=== PATIENT | female | born 1945 | race Caucasian/White ===

== ENCOUNTER 2016-06-06 08:49 | Emergency (ER) | payer OTHER ==
[~2016-06-06] VITALS: Ht 157.5 cm; Wt 77.0 kg
[~2016-06-06 08:49] MED LIST: ADVIN50050 INH; CHLO5CAP19 PO; CINNAMON 500 MG PO; CMBIN INH; GLC500 PO; HYDR1TAB2 PO; INSDGI SC; INSUINJ17 SC; LISI-461 PO; MAGN400T27 PO; OMEP20CA9 PO; SIMV20TA5 PO; black cohash PO
[2016-06-06 08:55] VITALS: TEMP 36.8; Ht 157.5 cm; Wt 77.0 kg
[2016-06-06] MEDS ORDERED: MAGN400C2 PO (09:12)
[2016-06-06] MEDS ORDERED: GLC/500 PO (09:12)
[2016-06-06] MEDS ORDERED: INSDGIPEN SC (09:12)
[2016-06-06] MEDS ORDERED: INSPMPRGR SC (09:12)
[2016-06-06] MEDS ORDERED: IPRA1AER2 INH (09:12)
[2016-06-06] MEDS ORDERED: HYDR-4380 PO (09:12)
[2016-06-06] MEDS ORDERED: CINN500T PO (09:12)
[2016-06-06] MEDS ORDERED: OXYCODONE/ACETAMINOPHEN 5-325 TAB PO STA (09:33)
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
--- NOTE | 2016-06-06 10:21 | DIAGNOSTIC IMAGING REPORT ---
RIGHT TIBIA AND FIBULA 2 VIEWS CLINICAL HISTORY: Right leg injury. FINDINGS: AP and lateral views of the right tibia and fibula are obtained. No prior studies are available for comparison at the time of dictation. The skeletal structures are osteopenic. There is no radiographic evidence of right tibial or fibular fracture. The knee and ankle joints appear maintained. Pretibial soft tissue edema is noted. A plantar calcaneal enthesophyte is observed. Spurring is noted from the fibular head. IMPRESSION: Pretibial soft tissue edema. No right tibial or fibular fracture is seen. Electronically signed by: Ezio Jewell M.D. 06/06/2016 10:19 AM Dictated Date/Time: 06/06/2016 10:18 AM
--- NOTE | 2016-06-06 10:21 | DIAGNOSTIC IMAGING REPORT ---
RIGHT ANKLE MIN 3 VIEWS ROUTINE CLINICAL HISTORY: Right ankle pain status post trauma COMPARISON: None. DISCUSSION: No acute fractures or subluxations are visualized. There is a small medial malleolar spur. There is no evidence for soft tissue swelling. IMPRESSION: No acute fractures or subluxations identified. Electronically signed by: Ariel Rayo M.D. 06/06/2016 10:20 AM Dictated Date/Time: 06/06/2016 10:19 AM
--- NOTE | 2016-06-06 10:24 | DIAGNOSTIC IMAGING REPORT ---
RIGHT FOOT 3 VIEWS CLINICAL HISTORY: Right foot injury. FINDINGS: 3 views of the right foot are obtained. No prior studies are available for comparison at the time of dictation. The skeletal structures are osteopenic. No acute fracture is identified. There are small dorsal and plantar calcaneal enthesophytes. Mild arthritic change is seen at the first metatarsophalangeal joint. The overlying soft tissues are within normal limits. IMPRESSION: Osteopenia and mild degenerative change as above. No acute fracture is identified. Electronically signed by: Ezio Jewell M.D. 06/06/2016 10:23 AM Dictated Date/Time: 06/06/2016 10:21 AM
[2016-06-06 10:31] VITALS: BP 121/66; O2SAT 95
[2016-06-06 12:57] VITALS: PULSE 90
== END 2016-06-06 12:57 | disposition home or self-care (01) ==
LOC: EDBD 08:49 → C.EDA 08:50
DX: S90.01XA Contusion of right ankle, initial encounter (principal); V09.9XXA Pedestrian injured in unspecified transport accident, initial encounter; Y92.410 Unspecified street and highway as the place of occurrence of the external cause; I10 Essential (primary) hypertension; E11.9 Type 2 diabetes mellitus without complications; J45.909 Unspecified asthma, uncomplicated; F17.210 Nicotine dependence, cigarettes, uncomplicated; Z79.899 Other long term (current) drug therapy; Z79.4 Long term (current) use of insulin; Z83.3 Family history of diabetes mellitus; Z82.49 Family history of ischemic heart disease and other diseases of the circulatory system; Z80.9 Family history of malignant neoplasm, unspecified

== ENCOUNTER → 2017-02-11 | Outpatient (CLI) | payer OTHER ==
[~2017-02-11] MED LIST changes: -ADVIN50050 INH; +CINN500T PO; -CINNAMON 500 MG PO; -CMBIN INH; +GLC/500 PO; -GLC500 PO; +HYDR-4380 PO; -HYDR1TAB2 PO; -INSDGI SC; +INSDGIPEN SC; +INSPMPRGR SC; -INSUINJ17 SC; +IPRA1AER2 INH; +MAGN400C2 PO; -MAGN400T27 PO; -black cohash PO
[2017-02-11 12:20] LABS: BASO % 0.3 %; BASO ABS # 0.02 K/uL (0-0.2); COMPLETE YES; EOS % 1.5 %; HEMATOCRIT 35.9 % (37-47); IG% 0.1 %; LYMPH ABS # 2.22 K/uL (1.2-3.4); MEAN CELL VOLUME 89.8 fL (80-100); MEAN CORPUSCULAR HEMOGLOBIN 29.8 pg (25-34); MEAN CORPUSCULAR HGB CONC 33.1 g/dl (32-36); MEAN PLATELET VOLUME 9.5 fL (7.4-10.4); MONO % 6.2 %; NEUT % 58.9 %; PLATELET COUNT 229 K/uL (130-400); WHITE BLOOD COUNT 6.73 K/uL (4.8-10.8)
[2017-02-11 12:32] LABS: ALT/SGPT 29 U/L (12-78); AST/SGOT 27 U/L (15-37); BLOOD UREA NITROGEN 13 mg/dl (7-18); BUN/CREATININE RATIO 15.3 (10-20); CALCIUM 9.3 mg/dl (8.5-10.1); CARBON DIOXIDE 23 mmol/L (21-32); CHLORIDE 105 mmol/L (98-107); CHOLESTEROL 102 mg/dl (0-200); CREATININE 0.87 mg/dl (0.60-1.20); GLUCOSE 112 mg/dl (70-99); POTASSIUM 4.7 mmol/L (3.5-5.1); SODIUM 136 mmol/L (136-145)
[2017-02-11 12:35] LABS: ALB/GLOB RATIO 1.1 (0.9-2); ALKALINE PHOSPHATASE 76 U/L (45-117); CHOLESTEROL/HDL RATIO 1.9; HDL CHOLESTEROL 53 mg/dl; LDL CHOLESTEROL CALCULATED 22 mg/dl; TRIGLYCERIDES 136 mg/dl (0-150); VERY LOW DENSITY LIPOPROT CALC 27 mg/dl
[2017-02-11 13:07] LABS: ESTIMATED AVERAGE GLUCOSE 146 mg/dl; HA1C FLAG Normal (Normal)
== END | disposition home or self-care (01) ==
LOC: C.LABBFT 09:21
PROVIDERS: ATTEND Physician Assistant Medical
DX: E11.9 Type 2 diabetes mellitus without complications (principal); D64.9 Anemia, unspecified

== ENCOUNTER 2017-07-09 18:22 | Emergency (ER) | payer OTHER ==
[~2017-07-09] VITALS: Ht 160 cm; Wt 79.3 kg
[2017-07-09 18:49] VITALS: Ht 160 cm; Wt 79.3 kg
[2017-07-09] MEDS ORDERED: HYDROCODONE/ACETAMIN 5/325MG TAB PO STA (19:31)
[2017-07-09] MEDS ORDERED: BACITRACIN OINT 15 GM TUBE EXT STA (19:31)
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
--- NOTE | 2017-07-09 19:40 | EMERGENCY ROOM VISIT NOTE ---
ED Visit Note First contact with patient: 19:22 I have seen and examined this patient with Cheli Poole and generally agree with the treatment plan as discussed. Problem List Medical Problems: (1) Asthma Status: Chronic (2) Diabetes Status: Chronic (3) Hypertension Status: Chronic Current/Historical Medications Scheduled Chlordiazepoxide (Librium), 10 MG PO TID Cinnamon (Cinnamon), 1 CAP PO TID Insulin Human Regular (Humulin R), UNITS SC UD Ipratropium-Albuterol (Combivent Respimat), 2 PUFFS INH QID Lisinopril (Zestril), 20 MG PO DAILY Magnesium Oxide (Magnesium Oxide), 1 CAP PO BID Metformin Hcl (Glucophage), 1,000 MG PO BIDM Omeprazole (Prilosec), 20 MG PO BID Simvastatin (Zocor), 20 MG PO HS Scheduled PRN Hydrocodone-Acetaminophen (Hydrocodone/Acetaminophen), 5-500 MG PO Q4H PRN for Pain Insulin Glargine (Lantus Solostar), 10 UNITS SC UD PRN for blood sugar Allergies Coded Allergies: No Known Allergies (Verified , 06/06/16) Vital Signs Date Time Temp Pulse Resp B/P (MAP) Pulse Ox O2 Delivery O2 Flow Rate FiO2 07/09/17 18:49 36.8 89 16 145/71 95 Room Air Departure Information Referrals No Doctor, Assigned (PCP) Patient Instructions My [facility]
[2017-07-09] MEDS ORDERED: DIPHTHERIA/TETANUS/PERTUSSIS 0.5 ML SYR/VIAL IM. ONE (19:45)
[2017-07-09 20:07] VITALS: BP 145/71; PULSE 89; TEMP 36.8; O2SAT 95
== END 2017-07-09 20:08 | disposition home or self-care (01) ==
LOC: C.EDB 18:23 → C.EDD 20:08
DX: T23.232A Burn of second degree of multiple left fingers (nail), not including thumb, initial encounter (principal); X19.XXXA Contact with other heat and hot substances, initial encounter; Z23 Encounter for immunization; J45.909 Unspecified asthma, uncomplicated; E11.9 Type 2 diabetes mellitus without complications; I10 Essential (primary) hypertension; F17.200 Nicotine dependence, unspecified, uncomplicated; Z79.4 Long term (current) use of insulin; Z79.84 Long term (current) use of oral hypoglycemic drugs

== ENCOUNTER → 2017-09-08 | Outpatient (CLI) | payer OTHER ==
[2017-09-08 13:20] LABS: BLOOD UREA NITROGEN 9 mg/dl (7-18); CREATININE 0.88 mg/dl (0.60-1.20)
== END | disposition home or self-care (01) ==
LOC: C.LABBFT 10:15
PROVIDERS: ATTEND Physician Assistant Medical
DX: I10 Essential (primary) hypertension (principal)

== ENCOUNTER 2018-09-22 15:53 | Inpatient (IN) ==
[2018-09-22] MEDS ORDERED: ONDANSETRON INJ 2 MG/ML 2 ML VIAL IV STA (16:39)
[2018-09-22] MEDS ORDERED: SODIUM CHLORIDE 0.9% 500 ML IV SCH (16:45)
[2018-09-22 17:52] LABS: Basophils # (auto) 0.01 K/uL (0-0.2); Basophils % (auto) 0.2 %; Hematocrit (blood only) 31.8 % (37-47); Hemoglobin 10.7 g/dL (12.0-16.0); Immature Granulocytes # (auto) 0.01 K/uL (0.00-0.02); Immature Granulocytes % (auto) 0.2 %; Lymphocytes # (auto) 0.94 K/uL (1.2-3.4); Lymphocytes % (auto) 14.7 %; Mean Corpuscular Hgb Conc 33.6 g/dL (32-36); Mean Corpuscular Volume 83.9 fL (80-100); Mean Platelet Volume 8.2 fL (7.4-10.4); Monocytes # (auto) 0.31 K/uL (0.11-0.59); Monocytes % (auto) 4.9 %; Neutrophils # (auto) 5.11 K/uL (1.4-6.5); Platelet Count 160 K/uL (130-400); RDW Coefficient of Variation 13.3 % (11.5-14.5); RDW Standard Deviation 40.8 fL (36.4-46.3); Red Blood Count 3.79 M/uL (4.2-5.4); White Blood Count 6.38 K/uL (4.8-10.8)
[2018-09-22 18:11] LABS: Alanine Aminotransferase 28 U/L (12-78); Albumin Level 3.8 gm/dl (3.4-5.0); Aspartate Aminotransferase 18 U/L (15-37); BUN Creatinine Ratio 18.2 (10-20); Blood Urea Nitrogen 19 mg/dl (7-18); Calcium 8.9 mg/dl (8.5-10.1); Carbon Dioxide 26 mmol/L (21-32); Chloride 103 mmol/L (98-107); Creatinine Clr Calc Pharmacy 45.3 ml/min; Est GFR (African American) 61.4; Glucose 145 mg/dl (70-99); Potassium 4.4 mmol/L (3.5-5.1); Sodium 134 mmol/L (136-145)
[2018-09-22 18:16] LABS: Alkaline Phosphatase 76 U/L (45-117); Bilirubin,Total 0.3 mg/dl (0.2-1); Globulin 3.8 gm/dl (2.5-4.0); Total Protein 7.6 gm/dl (6.4-8.2); Troponin I < 0.015 ng/ml (0-0.045)
--- NOTE | 2018-09-22 19:15 | CT Scan Report ---
CT OF THE ABDOMEN AND PELVIS WITHOUT CONTRAST CLINICAL HISTORY: Upper abdominal pain. COMPARISON STUDY: CT of the abdomen pelvis November 01, 2013. TECHNIQUE: Axial images of the abdomen and pelvis were obtained without IV contrast. Images were revi ewed in the axial, sagittal, and coronal planes. Automated exposure control was utilized for the joe dy. A dose lowering technique was utilized adhering to the principles of ALARA. FINDINGS: No pneumatosis, free air or portal venous gas is present. There are calcified granulomas wi thin the liver and the spleen. A 4.4 x 3.9 cm hypodense left adrenal mass is unchanged since CT of 2012. This is benign instability. The right adrenal gland and kidneys are unremarkable on t his unenhanced exam. There is no hydronephrosis or hydroureter. There are no urinary tract appears no peripancreatic infiltration. There is mild mesenteric infiltration. The appendix is normal. There is no evidence for a bowel obstruction. Right hip arthroplasty is noted. No lymphadenopathy or ascites is noted. There are no suspicious osseous lesions. IMPRESSION: 1. No urinary calculi or hydronephrosis. 2. No acute process within the abdomen or pelvis on unenhanced exam. 3. Mild mesenteric infiltration, a finding of doubtful significance. 4. 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 This is benign given stability. Electronically signed by: Joseluis Becerra M.D. 09/22/2018 7:14 PM
[2018-09-22 20:55] LABS: Appearance Urine Clear (Clear); Bacteria Urine Automated Negative (Negative); Bilirubin Urine Negative (Negative); Blood Urine Negative (Negative); Color Urine Yellow; Epithelial Cell Urine Auto >30 /lpf (0-5); Glucose Urine UA Negative (Negative); Ketones Urine Negative (Negative); Leukocyte Esterase Urine Trace (Negative); Nitrite Urine Negative (Negative); Protein Urine Negative (Negative); RBC Urine Automated 0-4 /hpf (0-4); Specific Gravity Urine 1.017 (1.000-1.030); Urobilinogen Urine Negative (Negative)
[2018-09-22] MEDS ORDERED: SODIUM CHLORIDE 0.9% 1000ML 1,000 ML IV STA (21:42)
--- NOTE | 2018-09-22 22:36 | Emergency Department Note ---
Entered by Justina Collier acting as a scribe for ED Provider Note CHIEF COMPLAINT: Nausea. HISTORY OF PRESENT ILLNESS: The patient is a 72 year old female who presents to the Emergency Room via EMS with complaints of constant nausea that onset at 1400. The patient presents with her family. She notes that she felt normal this morning and that her symptoms onset suddenly. Per daughter, the patients eyes rolled back and she looked like she was going to lose consciousness. The patient complains of upper abdominal pain, weakness, vomiting, fever, and diaphoresis. The patient rates her pain as an 8/10 in severity. She denies recent sick contacts and changes in diet. The patient denies taking any medications for the nausea prior to arrival. Pt denies LOC, headache, chills, visual changes, neck pain, chest pain, breathing difficulties, back pain, flank pain, melena, hematochezia, urinary symptoms, numbness, lymphadenopathy, rash, or other complaints. REVIEW OF SYSTEMS: See HPI for pertinent positives and negatives. A total of ten systems were reviewed and were otherwise negative. PMHx/PSHx: Diabetes, hypertension, and asthma. SOCIAL HISTORY: Patient lives at home. PHYSICAL EXAM: GENERAL: Awake, alert, uncomfortable-appearing, in no distress, diaphoretic. HENT: Normocephalic, atraumatic. Oropharynx unremarkable. EYES: PERRL. Normal conjunctiva. Sclera non-icteric. NECK: Inspection normal. Non-tender. Supple. No nuchal rigidity. FROM. No masses. RESPIRATORY: Clear to auscultation. No wheezes. No rales. Normal respiratory effort. CARDIAC: Normal rate. Normal rhythm. No murmurs. No rubs. Extremities warm and well perfused. Pulses equal. No JVD. GI: Soft, non-distended. No tenderness to palpation. No rebound or guarding. No masses. RECTAL: Deferred. MUSCULOSKELETAL: Atraumatic. Chest examination reveals no tenderness. The back is symmetrical on inspection without obvious abnormality. There is no CVA tenderness to palpation. No joint edema. LOWER EXTREMITIES: Calves are equal size bilaterally and non-tender. No edema. No discoloration. NEURO: Normal sensorium. No sensory or motor deficits noted. SKIN: No rash or jaundice noted. Diaphoretic. EMERGENCY DEPARTMENT COURSE: 163: Past medical records reviewed. The patient was evaluated in room C06, and a complete history and physical examination were performed. 2048: The patient failed her orthostatic exam. 2105: The patient had positive orthostatic testing. I discussed staying in the hospital for further evaluation and management. Patient in agreement. Family in agreement. 2149: I reviewed the patient's case with Dr. Vinicius Glaser Hospitalist - [facility]. He will evaluate the patient for further management. MEDICAL DECISION MAKING: Prior records/ancillary studies reviewed. The patient was noted to be hypotensive on arrival here. Her hypotension and borderline low blood pressure persisted. Record review from her outpatient records indicate that she typically is hypertensive. Triage Nursing notes reviewed and agree them. Additional history obtained from the family. The patient's history was concerning for nausea, vomiting, abdominal pain and near syncope. Differential diagnosis: Etiologies such as gastroenteritis, food borne illness, infections, appendicitis, diverticulitis, inflammatory bowel disease, GI bleed, biliary pathology, cardiac sources, dehydration, as well as others were entertained. Physical examination findings: As above. ER treatment provided: IV hydration with normal saline On reassessment the patient felt better. Patient was tolerating p.o. intake. Unfortunately the patient's orthostasis is still persisting. Diagnostics interpretation by me: ECG: No acute ischemic change. The labs revealed a mild anemia on CBC which is slightly worse than prior. Her chemistry panel was unremarkable except for very slight hyperglycemia. Troponin negative. Urinalysis unremarkable. Imaging studies: CT scan of the abdomen pelvis was performed without any significant acute findings. The patient had acute onset of symptoms which included the nausea, vomiting, abdominal pain, and near syncope. She was feeling better with regards to symp toms but was still noted to be mildly hypotensive. She had persistence of the orthostasis with testing despite IV hydration. Given her medical history, symptoms, and persistent low blood pressure further management in the hospital was deemed appropriate. Consultation: A consultation was placed with the hospitalist. The case was discussed and diagnostics were reviewed. The patient was evaluated in the ER for further treatment. IMPRESSION: Nausea, vomiting, upper abdominal pain, near syncope, and orthostatic hypotension. PLAN: Admitted. The scribe's documentation has been prepared under my direction and personally reviewed by me in its entirety. I confirm that the note above accurately reflects all work, treatment, procedures, and medical decision making performed by me. Impression & Plan Nausea & vomiting, Pain of upper abdomen, Near syncope, Orthostatic hypotension Past Med/Surg History Medical History Diabetes (Chronic) Hypertension (Chronic) Asthma (Chronic) Family history of cholecystectomy No pertinent family history Surgical History No pertinent past surgical history Family History Other Family history of cholecystectomy Social History Preferred Language: Latvian Communication Ability: Effective Visual Impairment: No Limitations Hearing Ability: Normal Feels Safe at Home: Yes Smoking Status: Current every day smoker Results & Data Vital Signs Vital Signs - 24 hr 09/22/18 16:07 09/22/18 16:54 09/22/18 19:00 Temperature 36.5 C Temperature Source Oral Sepsis Recent Fever Within 48 Hours No Sepsis New/Unexplained Change in Mental Status No Sepsis Action Taken by Nursing No Action Required Pulse Rate - Lying Pulse Rate - Sitting Pulse Rate - Standing Pulse Rate 93 H Pulse Rate [Left Finger] 91 H 90 Pulse Rhythm Regular Pulse Rhythm [Left Finger] Regular Pulse Strength Normal Respiratory Rate 24 22 18 Respiratory Effort / Characteristics Spontaneous Non-Labored Respiratory Depth Normal Respiratory Pattern Regular Regular Blood Pressure - Lying Blood Pressure - Sitting Blood Pressure- Standing Blood Pressure 95/53 L Blood Pressure [Left Arm] 103/50 L 109/55 L Blood Pressure Mean 67 Blood Pressure Mean [Left Arm] 67 73 Blood Pressure Position Sitting Pulse Oximetry 94 95 94 Oxygen Delivery Method Room Air Room Air 09/22/18 20:32 09/22/18 20:48 09/22/18 21:50 Temperature Temperature Source Sepsis Recent Fever Within 48 Hours Sepsis New/Unexplained Change in Mental Status Sepsis Action Taken by Nursing Pulse Rate - Lying 98 H Pulse Rate - Sitting 101 H Pulse Rate - Standing 100 H Pulse Rate Pulse Rate [Left Finger] 91 H 90 Pulse Rhythm Pulse Rhythm [Left Finger] Pulse Strength Respiratory Rate 18 18 Respiratory Effort / Characteristics Respiratory Depth Respiratory Pattern Blood Pressure - Lying 110/60 Blood Pressure - Sitting 105/47 L Blood Pressure- Standing 96/62 L Blood Pressure Blood Pressure [Left Arm] 107/56 L 119/53 L Blood Pressure Mean Blood Pressure Mean [Left Arm] 73 75 Blood Pressure Position Pulse Oximetry 95 98 Oxygen Delivery Method Home Medications Current Medication List: was personally reviewed by me Laboratory Data Attestation: I reviewed the patient's lab results. Result diagrams: 09/22/18 17:38 09/22/18 17:38 Lab Results 09/22/18 09/22/18 09/22/18 Range/Units 17:38 17:38 20:45 WBC 6.38 (4.8-10.8) K/uL RBC 3.79 L (4.2-5.4) M/uL Hgb 10.7 L (12.0-16.0) g/dL Hct 31.8 L (37-47) % MCV 83.9 (80-100) fL MCH 28.2 (25-34) pg MCHC 33.6 (32-36) g/dL RDW Std Deviation 40.8 (36.4-46.3) fL RDW Coeff of Norma 13.3 (11.5-14.5) % Plt Count 160 (130-400) K/uL MPV 8.2 (7.4-10.4) fL Immature Gran % (Auto) 0.2 % Neut % (Auto) 80.0 % Lymph % (Auto) 14.7 % Villalba % (Auto) 4.9 % Eos % (Auto) 0.0 % Baso % (Auto) 0.2 % Immature Gran # (Auto) 0.01 (0.00-0.02) K/uL Neut # (Auto) 5.11 (1.4-6.5) K/uL Lymph # (Auto) 0.94 L (1.2-3.4) K/uL Villalba # (Auto) 0.31 (0.11-0.59) K/uL Eos # (Auto) 0.00 (0-0.5) K/uL Baso # (Auto) 0.01 (0-0.2) K/uL Sodium 134 L (136-145) mmol/L Potassium 4.4 (3.5-5.1) mmol/L Chloride 103 (98-107) mmol/L Carbon Dioxide 26 (21-32) mmol/L Anion Gap 5.0 (3-11) BUN 19 H (7-18) mg/dl Creatinine 1.05 (0.6-1.2) mg/dl Est Cr Clr Drug Dosing 45.3 ml/min Est GFR ( Amer) 61.4 Est GFR (Non-Af Amer) 53.0 BUN/Creatinine Ratio 18.2 (10-20) Glucose 145 H (70-99) mg/dl Calcium 8.9 (8.5-10.1) mg/dl Total Bilirubin 0.3 (0.2-1) mg/dl AST 18 (15-37) U/L ALT 28 (12-78) U/L Alkaline Phosphatase 76 (45-117) U/L Troponin I < 0.015 (0-0.045) ng/ml Total Protein 7.6 (6.4-8.2) gm/dl Albumin 3.8 (3.4-5.0) gm/dl Globulin 3.8 (2.5-4.0) gm/dl Albumin/Globulin Ratio 1.0 (0.9-2) Lipase 115 (73-393) U/L Urine Color Yellow Urine Appearance Clear (Clear) Urine pH 5.0 (4.5-7.5) Ur Specific [place] 1.017 (1.000-1.030) Urine Protein Negative (Negative) Urine Glucose (UA) Negative (Negative) Urine Ketones Negative (Negative) Urine Blood Negative (Negative) Urine Nitrite Negative (Negative) Urine Bilirubin Negative (Negative) Urine Urobilinogen Negative (Negative) Ur Leukocyte Esterase Trace H (Negative) Urine WBC (Auto) 1-5 (0-5) /hpf Urine RBC (Auto) 0-4 (0-4) /hpf U Hyaline Cast (Auto) 1-5 (0-5) /lpf U Epithel Cells (Auto) >30 H (0-5) /lpf Urine Bacteria (Auto) Negative (Negative) Administered Medications Sodium Chloride (Nss 1000ml) 1,000 mls @ 125 mls/hr IV .Q8H STA Stop: 09/23/18 05:41 Last Admin: 09/22/18 21:42 Dose: 125 mls/hr Documented by: [id number] Discontinued Medications Sodium Chloride (Nss) 500 mls @ 999 mls/hr IV .Q31M KASH Stop: 09/22/18 17:15 Last Infusion: 09/22/18 18:39 Dose: 0 mls/hr Documented by: [id number] Admin: 09/22/18 17:52 Dose: 999 mls/hr Documented by: [id number] Ondansetron HCl (Zofran) 4 mg IV NOW STA Stop: 09/22/18 16:40 Last Admin: 09/22/18 19:20 Dose: Not Given Documented by: [id number] Imaging Data Radiologist's Impression: Radiology results as stated below per my review and the radiologist's interpretation: CT OF THE ABDOMEN AND PELVIS WITHOUT CONTRAST CLINICAL HISTORY: Upper abdominal pain. COMPARISON STUDY: CT of the abdomen pelvis November 01, 2013. TECHNIQUE: Axial images of the abdomen and pelvis were obtained without IV contrast. Images were reviewed in the axial, sagittal, and coronal planes. Automated exposure control was utilized for the study. A dose lowering technique was utilized adhering to the principles of ALARA. FINDINGS: No pneumatosis, free air or portal venous gas is present. There are calcified granulomas within the liver and the spleen. A 4.4 x 3.9 cm hypodense left adrenal mass is unchanged since CT of May 31, 2012. This is benign instability. The right adrenal gland and kidneys are unremarkable on this unenhanced exam. There is no hydronephrosis or hydroureter. There are no urinary tract appears no peripancreatic infiltration. There is mild mesenteric infiltration. The appendix is normal. There is no evidence for a bowel obstruction. Right hip arthroplasty is noted. No lymphadenopathy or ascites is noted. There are no suspicious osseous lesions. IMPRESSION: 1. No urinary calculi or hydronephrosis. 2. No acute process within the abdomen or pelvis on unenhanced exam. 3. Mild mesenteric infiltration, a finding of doubtful significance. 4. 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 This is benign given stability. Electronically signed by: Joseluis Becerra M.D. 09/22/2018 7:14 PM Dictated: 09/22/181905 Transcribed: 09/22/181905 ECG Data Attestation: I personally reviewed and interpreted this ECG as follows: Indication: nausea Rate (beats per minute): 91 Rhythm: normal sinus Findings: no PAC, no PVC, no ST depression and no ST elevation Blood Pressure Blood Pressure Findings: Normal blood pressure Discharge Plan Visit Data Chief Complaint: Nausea Stated Complaint: WEAKNESS, NAUSEA, VOMITING, FEVER ED Provider: Mitchel Lea Discharge Problem: Nausea & vomiting, Pain of upper abdomen, Near syncope, Orthostatic hypotension Patient Disposition: Being Evaluated by Hospitalist Forms Stand Alone Forms: My [facility] Prescriptions Prescriptions: No Action black cohosh 40 mg Tablet 40 mg PO DAILY RF: 0 cinnamon bark [Cinnamon] 500 mg Capsule 1,500 mg PO DAILY RF: 0 Combivent Respimat 20-100 mcg/actuation Mist 1 puff INHALATION QID RF: 0 metformin 500 mg Tablet 1,000 mg PO BID RF: 0 Lantus U-100 Insulin 100 unit/mL Solution 15 unit SUBCUT HS RF: 0 hydrocodone-acetaminophen [Macclenny] 5-325 mg Tablet 1 tab PO .Q4-6HRS PRN (Reason: Pain) RF: 0 paroxetine HCl 20 mg Tablet 20 mg PO DAILY RF: 0 simvastatin 20 mg Tablet 20 mg PO HS RF: 0 ferrous sulfate 325 mg (65 mg iron) Tablet 325 mg PO TID RF: 0 Humulin R Regular U-100 Insuln 100 unit/mL Solution SUBCUT ACHS PRN (Reason: SLIDING SCALE) RF: 0 omeprazole 20 mg Capsule,Delayed Release(Dr/Ec) 20 mg PO BID RF: 0 hydroxyzine HCl 25 mg Tablet 25 mg PO TID PRN (Reason: Anxiety) RF: 0 furosemide [Lasix] 20 mg Tablet 20 mg PO DAILY RF: 0 losartan 100 mg Tablet 100 mg PO DAILY RF: 0 magnesium oxide 400 mg magnesium Tablet 400 mg PO BID RF: 0 Referrals Referrals: Booker David MD [Primary Care Provider] - Discharge Problem: Nausea & vomiting Qualifiers: Vomiting type: unspecified Vomiting Intractability: unspecified Qualified Code(s): R11.2 - Nausea with vomiting, unspecified The scribe's documentation has been prepared under my direction and personally reviewed by me in its entirety. I confirm that the note above accurately reflects all work, treatment, procedures, and medical decision making performed by me.
[2018-09-23] MEDS ORDERED: MAGNESIUM HYDROXIDE SUSP 30 ML UDC PO PRN (00:21)
[2018-09-23] MEDS ORDERED: ACETAMINOPHEN 1000 MG/100 ML IV IV PRN (00:21)
[2018-09-23] MEDS ORDERED: ACETAMINOPHEN 325 MG TAB PO PRN (00:21)
[2018-09-23] MEDS ORDERED: ONDANSETRON INJ 2 MG/ML 2 ML VIAL IV PRN (00:21)
[2018-09-23] MEDS ORDERED: GLUCAGON FOR INJ 1 MG VIAL SQ PRN (00:21)
[2018-09-23] MEDS ORDERED: ALUMINUM/MAGNESIUM SUSP 30 ML UDC PO PRN (00:21)
[2018-09-23] MEDS ORDERED: CARBOHYDRATES FOR HYPOGLYCEMIA PO PRN (00:21)
[2018-09-23] MEDS ORDERED: HYDROCODONE/ACETAMOPHEN 5/325MG TAB PO PRN (00:21)
[2018-09-23] MEDS ORDERED: DEXTROSE 50% 50 ML SYRINGE IV PRN (00:21)
[2018-09-23] MEDS ORDERED: GLUCOSE 10 TABS/TUBE PO PRN (00:21)
[2018-09-23] MEDS ORDERED: GLUCOSE 40% GEL 15 GM TUBE PO PRN (00:21)
[2018-09-23] MEDS: NSS + 20MEQ KCL 20 MEQ/1,000 ML BAG IV SCH ×2 (00:59→11:00)
[2018-09-23] MEDS: PANTOprazole 40 MG TAB PO SCH ×2 (01:00→08:26)
[2018-09-23] MEDS: MAGNESIUM OXIDE 400 MG TAB PO SCH ×2 (01:00→08:26)
--- NOTE | 2018-09-23 04:56 | History & Physical Report ---
Date of Service September 23, 2018 Assessment & Plan (1) Nausea & vomiting: Epigastric pain with nausea, vomiting and loose stools, now resolved- Symptoms have resolved at this time. Many possible etiologies, including viral gastroenteritis, food intolerance number other GI possibilities. Continue IV fluid rehydration overnight. If symptoms recur, would pursue additional work-up. Present on Admission?: Yes (2) Pain of upper abdomen: As above. Present on Admission?: Yes (3) Near syncope: Near syncopal episode secondary to upper abdominal discomfort, nausea and vomiting, and likely vagal mediated. We will watch on telemetry for any possible associated arrhythmia. Present on Admission?: Yes (4) Orthostatic hypotension: Patient reportedly had been on Middaugh drain in the past, which has since been discontinued. Near syncopal symptoms were likely vagally mediated, but should they recur and orthostasis is determined to be the case, reinstitution admitted drain is a consideration. Present on Admission?: Yes (5) Hypertension: Hold losartan and furosemide. Present on Admission?: Yes (6) Asthma: Continue Combivent Present on Admission?: Yes (7) Diabetes: Hold Lantus insulin. Placed on Accu-Cheks before meals and at bedtime with NovoLog coverage per scale. Present on Admission?: Yes (8) Anxiety with depression: Paroxetine 20 mg p.o. daily, and hydroxyzine 20 milligrams p.o. 3 times daily as needed. Present on Admission?: Yes (9) GERD (gastroesophageal reflux disease): Omeprazole 20 mg p.o. twice daily Present on Admission?: Yes History of Present Illness Chief Complaint: The patient presents to the emergency department with complaint of nausea, vomiting, upper abdominal pain and later on a near syncopal event. Primary Care Provider: Sander David MD The patient is a 72-year-old female with a past medical history including asthma, hypertension, diabetes mellitus, and orthostatic hypotension, who reports that while she was on the commode earlier she experienced activity from both ends as she called with nausea, vomiting, loose stools, upper abdominal pain and then became faint and nearly passed out. She is not aware of any sick exposures, has not had a recent travels and has not had any questionable food intake. Allergies Allergy/AdvReac Type Severity Reaction Status Date / Time No Known Allergies Allergy Verified 09/22/18 16:46 Home Medications Home Medications Medication Instructions Recorded Confirmed Type black cohosh 40 mg PO DAILY 09/22/18 09/22/18 History cinnamon bark [Cinnamon] 1,500 mg PO DAILY 09/22/18 09/22/18 History ferrous sulfate 325 mg PO TID 09/22/18 09/22/18 History furosemide [Lasix] 20 mg PO DAILY 09/22/18 09/22/18 History hydrocodone-acetaminophen [[place]] 1 tab PO .Q4-6HRS PRN 09/22/18 09/22/18 History hydroxyzine HCl 25 mg PO TID PRN 09/22/18 09/22/18 History insulin glargine [Lantus U-100 15 unit SUBCUT HS 09/22/18 09/22/18 History Insulin] insulin regular human [Humulin R 0 unit SUBCUT ACHS PRN 09/22/18 09/22/18 History Regular U-100 Insuln] ipratropium-albuterol [Combivent 1 puff INHALATION QID 09/22/18 09/22/18 History Respimat] losartan 100 mg PO DAILY 09/22/18 09/22/18 History magnesium oxide 400 mg PO BID 09/22/18 09/22/18 History metformin 1,000 mg PO BID 09/22/18 09/22/18 History omeprazole 20 mg PO BID 09/22/18 09/22/18 History paroxetine HCl 20 mg PO DAILY 09/22/18 09/22/18 History simvastatin 20 mg PO HS 09/22/18 09/22/18 History Past Med/Surg History Medical History Diabetes (Chronic) Hypertension (Chronic) Asthma (Chronic) Family history of cholecystectomy No pertinent family history Surgical History No pertinent past surgical history Family History Other Family history of cholecystectomy Social History Preferred Language: [place] Communication Ability: Effective Visual Impairment: No Limitations Hearing Ability: Normal [place] Experimental Required: No Beliefs That Will Affect Care: None Current Living Situation: Other Current Living Situation Comment: Lives with a roommate Other Information That Helps Us Care for You: No Feels Safe at Home: Yes Safety Concerns: Feels Safe At This Time Smoking Status: Current every day smoker Tobacco Type: cigarettes Do You Dip or Chew Tobacco: No Second Hand Exposure: Yes Hx Alcohol Use: No Hx Substance Use: No Review of Systems 2 Review of Systems: The patient denies chest pain, palpitations, shortness of breath, dyspnea on exertion, cough, lower extremity swelling, sore throat, fevers, chills, sweats, weight change, constipation, abdominal pain, pelvic pain, blood in urine or stool, dysuria, urinary frequency or urgency, rash, abnormal bruising or bleeding, imbalance, focal or generalized weakness, numbness or tingling in arms or legs, generalized arthralgias or myalgias, back or neck pain, or night sweats. The review of systems is otherwise negative other than for that already noted above, and at least 10 systems have been reviewed. Physical Exam Physical Exam: The patient is awake, alert and oriented 3, looks fatigued, normocephalic and atraumatic, lying in bed and in no acute distress. HEENT--PERRL, EOMI, mucous membranes and oropharynx dry. Neck--supple. No JVD. No bruits. Thyroid normal, trachea midline, no adenopathy. Heart--normal S1 and S2. No murmurs, rubs or gallops. Lungs--clear bilaterally, no respiratory distress, no accessory muscle use. Abdomen--normal bowel sounds and soft. Nontender. Nondistended. Extremities--no cyanosis or clubbing. No edema. There are good distal pulses b/l. Dermatologic--normal skin turgor, normal color, no abnormal lymph nodes, no rash. Neurologic--cranial nerves II through XII grossly intact. Rheumatologic--normal range of motion. Psychiatric--normal affect. Results & Data Vital Signs (Past 12 Hours) Vital Signs Pulse Pulse Resp BP BP Pulse Ox 09/23/18 01:34 91 H 09/22/18 23:30 88 21 116/66 96 09/22/18 23:00 88 19 107/87 95 09/22/18 22:31 90 18 98/38 L 09/22/18 21:50 90 18 119/53 L 98 09/22/18 20:32 91 H 18 107/56 L 95 09/22/18 19:00 90 18 109/55 L 94 09/22/18 16:54 91 H 22 103/50 L 95 Laboratory Results Laboratory Results WBC 6.38 K/uL (4.8-10.8) 09/22/18 17:38 RBC 3.79 M/uL (4.2-5.4) L 09/22/18 17:38 Hgb 10.7 g/dL (12.0-16.0) L 09/22/18 17:38 Hct 31.8 % (37-47) L 09/22/18 17:38 MCV 83.9 fL (80-100) 09/22/18 17:38 MCH 28.2 pg (25-34) 09/22/18 17:38 MCHC 33.6 g/dL (32-36) 09/22/18 17:38 RDW Std Deviation 40.8 fL (36.4-46.3) 09/22/18 17:38 RDW Coeff of Norma 13.3 % (11.5-14.5) 09/22/18 17:38 Plt Count 160 K/uL (130-400) 09/22/18 17:38 MPV 8.2 fL (7.4-10.4) 09/22/18 17:38 Immature Gran % (Auto) 0.2 % 09/22/18 17:38 Neut % (Auto) 80.0 % 09/22/18 17:38 Lymph % (Auto) 14.7 % 09/22/18 17:38 [place] % (Auto) 4.9 % 09/22/18 17:38 Eos % (Auto) 0.0 % 09/22/18 17:38 Baso % (Auto) 0.2 % 09/22/18 17:38 Immature Gran # (Auto) 0.01 K/uL (0.00-0.02) 09/22/18 17:38 Neut # (Auto) 5.11 K/uL (1.4-6.5) 09/22/18 17:38 Lymph # (Auto) 0.94 K/uL (1.2-3.4) L 09/22/18 17:38 [place] # (Auto) 0.31 K/uL (0.11-0.59) 09/22/18 17:38 Eos # (Auto) 0.00 K/uL (0-0.5) 09/22/18 17:38 Baso # (Auto) 0.01 K/uL (0-0.2) 09/22/18 17:38 Sodium 134 mmol/L (136-145) L 09/22/18 17:38 Potassium 4.4 mmol/L (3.5-5.1) 09/22/18 17:38 Chloride 103 mmol/L (98-107) 09/22/18 17:38 Carbon Dioxide 26 mmol/L (21-32) 09/22/18 17:38 5.0 (3-11) 09/22/18 17:38 BUN 19 mg/dl (7-18) H 09/22/18 17:38 1.05 mg/dl (0.6-1.2) 09/22/18 17:38 Est Cr Clr Drug Dosing 45.3 ml/min 09/22/18 17:38 Est GFR ( Amer) 61.4 09/22/18 17:38 Est GFR (Non-Af Amer) 53.0 09/22/18 17:38 18.2 (10-20) 09/22/18 17:38 Glucose 145 mg/dl (70-99) H 09/22/18 17:38 POC Glucose 194 (70-99) H 09/23/18 00:16 Calcium 8.9 mg/dl (8.5-10.1) 09/22/18 17:38 0.3 mg/dl (0.2-1) 09/22/18 17:38 AST 18 U/L (15-37) 09/22/18 17:38 ALT 28 U/L (12-78) 09/22/18 17:38 76 U/L (45-117) 09/22/18 17:38 < 0.015 ng/ml (0-0.045) 09/22/18 17:38 7.6 gm/dl (6.4-8.2) 09/22/18 17:38 3.8 gm/dl (3.4-5.0) 09/22/18 17:38 3.8 gm/dl (2.5-4.0) 09/22/18 17:38 1.0 (0.9-2) 09/22/18 17:38 115 U/L (73-393) 09/22/18 17:38 Yellow 09/22/18 20:45 Clear (Clear) 09/22/18 20:45 5.0 (4.5-7.5) 09/22/18 20:45 Ur Specific [place] 1.017 (1.000-1.030) 09/22/18 20:45 Negative (Negative) 09/22/18 20:45 Negative (Negative) 09/22/18 20:45 Negative (Negative) 09/22/18 20:45 Negative (Negative) 09/22/18 20:45 Negative (Negative) 09/22/18 20:45 Negative (Negative) 09/22/18 20:45 Negative (Negative) 09/22/18 20:45 Ur Leukocyte Esterase Trace (Negative) H 09/22/18 20:45 1-5 /hpf (0-5) 09/22/18 20:45 0-4 /hpf (0-4) 09/22/18 20:45 U Hyaline Cast (Auto) 1-5 /lpf (0-5) 09/22/18 20:45 U Epithel Cells (Auto) >30 /lpf (0-5) H 09/22/18 20:45 Negative (Negative) 09/22/18 20:45 Diagnostic Findings [place], [place] [phone] CT Scan Report Patient: YVONNE GILMOREAdmit Date: 09/22/18 MR#: [id number]: [address] Acct ID:[id number]: Date: 1945[facility] Zip: [place] [address] Age: 72Location: ED Sex: F Room/Bed: Att Phy: Diagnosis: WEAKNESS, NAUSEA, VOMITING, FEVER Johanna Phy: Sander David, MDService Date: 09/22/18 Fam Phy: Interpreting Phy: Joseluis Becerra MD Admit Phy: Ordering Phy: Mitchel Lea MD cc: ~ CT OF THE ABDOMEN AND PELVIS WITHOUT CONTRAST CLINICAL HISTORY: Upper abdominal pain. COMPARISON STUDY: CT of the abdomen pelvis November 01, 2013. TECHNIQUE: Axial images of the abdomen and pelvis were obtained without IV contrast. Images were reviewed in the axial, sagittal, and coronal planes. Automated exposure control was utilized for the study. A dose lowering technique was utilized adhering to the principles of ALARA. FINDINGS: No pneumatosis, free air or portal venous gas is present. There are calcified granulomas within the liver and the spleen. A 4.4 x 3.9 cm hypodense left adrenal mass is unchanged since CT of May 31, 2012. This is benign instability. The right adrenal gland and kidneys are unremarkable on this unenhanced exam. There is no hydronephrosis or hydroureter. There are no urinary tract appears no peripancreatic infiltration. There is mild mesenteric infiltration. The appendix is normal. There is no evidence for a bowel obstruction. Right hip arthroplasty is noted. No lymphadenopathy or ascites is noted. There are no suspicious osseous lesions. IMPRESSION: 1. No urinary calculi or hydronephrosis. 2. No acute process within the abdomen or pelvis on unenhanced exam. 3. Mild mesenteric infiltration, a finding of doubtful significance. 4. 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 This is benign given stability. Electronically signed by: Joseluis Becerra M.D. 09/22/2018 7:14 PM Dictated: 09/22/181905 Transcribed: 09/22/181905 Code Status & VTE Plan Code Status Full code VTE Prophylaxis Plan VTE Prophylaxis will be ordered: Yes (1) Nausea & vomiting Vomiting Intractability: unspecified Vomiting type: unspecified Qualified Code(s): R11.2 - Nausea with vomiting, unspecified
[2018-09-23 06:40] LABS: Prothrombin Time 10.4 Seconds (9.0-12.0)
[2018-09-23 07:02] LABS: Estimated Average Glucose 146 mg/dl; Hemoglobin A1C 6.7 % (4.5-5.6)
[2018-09-23] MEDS: INSULIN ASPART 100 UNITS/ML 3 ML PEN SC SCH ×2 (08:25→12:08)
[2018-09-23] MEDS: IPRATROPIUM BROMIDE/ALBUTEROL respimat INH INH SCH ×2 (08:26→12:08)
[2018-09-23] MEDS: FERROUS SULFATE 325 MG TAB PO SCH ×2 (08:26→14:01)
[2018-09-23] MEDS ORDERED: PARoxetine HCl 20 MG TAB PO SCH (09:00)
[2018-09-23] MEDS ORDERED: HEPARIN SOD 5,000 UNIT/0.5 ML VIAL SQ SCH (09:00)
[2018-09-23] MEDS ORDERED: LOSARTAN POTASSIUM 50 MG TAB PO SCH (09:00)
--- NOTE | 2018-09-23 14:46 | Discharge Summary ---
Date of Service September 23, 2018 Admission HPI Per Admitting Provider The patient is a 72-year-old female with a past medical history including asthma, hypertension, diabetes mellitus, and orthostatic hypotension, who reports that while she was on the commode earlier she experienced activity from both ends as she called with nausea, vomiting, loose stools, upper abdominal pain and then became faint and nearly passed out. She is not aware of any sick exposures, has not had a recent travels and has not had any questionable food intake. Admission Exam Per Admitting Provider The patient is awake, alert and oriented 3, looks fatigued, normocephalic and atraumatic, lying in bed and in no acute distress. HEENT--PERRL, EOMI, mucous membranes and oropharynx dry. Neck--supple. No JVD. No bruits. Thyroid normal, trachea midline, no adenopathy. Heart--normal S1 and S2. No murmurs, rubs or gallops. Lungs--clear bilaterally, no respiratory distress, no accessory muscle use. Abdomen--normal bowel sounds and soft. Nontender. Nondistended. Extremities--no cyanosis or clubbing. No edema. There are good distal pulses b/l. Dermatologic--normal skin turgor, normal color, no abnormal lymph nodes, no rash. Neurologic--cranial nerves II through XII grossly intact. Rheumatologic--normal range of motion. Psychiatric--normal affect. Principal Diagnosis Orthostatis Hypotension 2/2 dehydration in the setting of gatroenteritis Discharge Exam General: A&Ox3. NAD. Cooperative. HEENT: Atraumatic, normocephalic. Pulm: CTAB A&P. -wheezes, -rales, -rhonchi. Symmetrical chest rise. No increased work of breathing. No respiratory distress. Cardiac: RRR, -mrg. Radial pulses intact and symmetrical. Abdominal: Nontender, nondistended, soft. BS present. Discharge Data Allergies Allergy/AdvReac Type Severity Reaction Status Date / Time No Known Allergies Allergy Verified 09/22/18 16:46 Consultations 09/22/18 21:29 ED Decision to Admit Stat 09/23/18 00:21 Consult Case Management - Discharge Planning Routine Ordered Studies 09/22/18 16:39 CT abd pelvis wo con Stat Hospital Course (1) Near syncope: Marietta is a 72-year-old female with a past medical history of orthostatic hypotension, diabetes, GERD, and asthma who presented with an episode of near syncope following 1 day of nausea, vomiting, and diarrhea. She was admitted for syncopal work-up. Near syncope 2/2 orthostasis and dehydration in the setting of gastroenteritis Prior to admission Marietta had had an episode of dizziness and lightheadedness, and felt like she nearly passed out. This episode was preceded by 2 to 3 hours of diarrhea, nausea, vomiting which started suddenly that day. On admission to the emergency department she was hypotensive to the 90s systolic and 50s diastolically. She received fluid boluses and IV fluid maintenance and clinically improved. Her EKG showed normal sinus rhythm, urinalysis did not show signs of infection, and an abdominal CT showed no acute findings, no signs of hydronephrosis, and a left adrenal mass stable in size from prior CT over a year ago. Her electrolytes were not grossly deranged, and she did not have a leukocytosis. Her diarrhea resolved following admission and she did not have any recurrent episodes of nausea, vomiting, diarrhea the next day. She was able to tolerate breakfast and lunch well and was drinking oral fluids without difficulty. Her nausea, vomiting, and diarrhea were likely reflective of an acute gastroenteritis versus food toxicity, most likely viral gastroenteritis given the timing of her onset of symptoms and quick resolution. (2) Nausea & vomiting: (3) Orthostatic hypotension: (4) GERD (gastroesophageal reflux disease): Total Time Total Time Spent Total Time Spent (In Minutes): 30 Discharge Plan Discharge Items Patient Disposition: Home - Self-Care Reason For Visit: NEAR SYNCOPE,NAUSEA,VOMITING Discharge Diagnosis: Vasovagal Syncope, Gastroenteritis Discharge Goals: Improve disease control and Learn about illness Activity: Resume your previous activity Non-emergency contact: Primary Care Provider Call non-emergency contact if: you have any medication questions, your symptoms worsen, your pain is not controlled, your pain is worsening, your pain is unusual for you, you have a fever and your temperature is above 100.5 Follow-up/Referrals: Booker David MD [Primary Care Provider] - Diet: Carb Consistent or DM2 Addtl Provider Instructions: You were seen in the hospital for an episode of near syncope, nausea, vomiting, and diarrhea. Your lab work did not show signs of an infection. Your episode was most likely due to vasovagal syncope/orthostasis exacerbated by dehydration from your diarrhea. You have recovered well and have not been prescribed any new medications. An appointment for followup is being made with your primary care physician Dr. David. You should receive a call in the next 48 hours to confirm your appointment. If you do not receive a call in 48 hours, please call his office at to schedule an appointment for sometime next week. If you develop any recurrent, worsening, or new symptoms including chest pain, chest pressure, shortness of breath, lightheadedness, dizziness, passing out or nearly passing out, difficulty breathing, or weakness please call your primary care provider at the number above or call 911 to return to the emergency department if you are concerned. Prescriptions: Continued black cohosh 40 mg Tablet 40 mg PO DAILY RF: 0 cinnamon bark [Cinnamon] 500 mg Capsule 1,500 mg PO DAILY RF: 0 Combivent Respimat 20-100 mcg/actuation Mist 1 puff INHALATION QID RF: 0 metformin 500 mg Tablet 1,000 mg PO BID RF: 0 Lantus U-100 Insulin 100 unit/mL Solution 15 unit SUBCUT HS RF: 0 hydrocodone-acetaminophen [[place]] 5-325 mg Tablet 1 tab PO .Q4-6HRS PRN (Reason: Pain) RF: 0 paroxetine HCl 20 mg Tablet 20 mg PO DAILY RF: 0 simvastatin 20 mg Tablet 20 mg PO HS RF: 0 ferrous sulfate 325 mg (65 mg iron) Tablet 325 mg PO TID RF: 0 Humulin R Regular U-100 Insuln 100 unit/mL Solution SUBCUT ACHS PRN (Reason: SLIDING SCALE) RF: 0 omeprazole 20 mg Capsule,Delayed Release(Dr/Ec) 20 mg PO BID RF: 0 hydroxyzine HCl 25 mg Tablet 25 mg PO TID PRN (Reason: Anxiety) RF: 0 furosemide [Lasix] 20 mg Tablet 20 mg PO DAILY RF: 0 losartan 100 mg Tablet 100 mg PO DAILY RF: 0 magnesium oxide 400 mg magnesium Tablet 400 mg PO BID RF: 0 Stand-Alone Forms: [facility] Discharge Orders: Discharge Order (Routine); Ordered 09/23/18 Ordered By: Oskar Yates Admission Data Admit Date/Time: 09/22/18 23:13 Attending Provider: Vinicius Glaser Admit Provider: Vinicius Glaser Primary Care Provider: Booker David Other Providers: Vinicius Glaser Service: Telemetry Medical Other Interventions: Discharge Summary Assessment (RN) Last Done: 09/23/18 14:46 DC Date/Time DO NOT enter until pt leaves facility: 09/23/18 14:53 Supervising Physician Co-Signing Physician Notes I personally examined the patient and verified all reyes points of history and exam, discussed case, and agree with decision making with Dr Yates. Feeling much better. No further dizziness lightheadedness or fainting. No nausea vomiting or diarrhea. Eating well. Would very much like to go home. Vitals noted, in general she is pleasant and alert no distress. HEENT normal cephalic atraumatic mucous members moist. Abdomen soft nondistended nontender no masses organomegaly. Skin shows no rashes no pallor or icterus. SyncopeAppears to have a degree of autonomic instability given her home regimen of midodrine. This was likely exacerbated by her dehydration from her gastroenteritis. It appears to have resolved, she is safe and stable on her feet, and safe to go home. Nausea vomiting diarrheaappears to have had a gastroenteritis, this appears to have resolved, she is eating and drinking well and has no further GI symptoms. Again safe to go home. Otherwise as above
[2018-09-23] MEDS ORDERED: SIMVASTATIN 20 MG TAB PO SCH (21:00)
[2018-09-23] MEDS ORDERED: INSULIN GLARGINE SOLOSTAR 100 UNITS/ML 3 ML PEN SQ SCH (21:00)
== END 2018-09-23 14:53 | disposition home or self-care (01) | DRG 312 ==
LOC: ED 15:53 → 2N 23:13

== ENCOUNTER 2019-12-01 10:19 | Inpatient (IN) ==
--- NOTE | 2019-12-01 10:50 | Emergency Department Note ---
History of Present Illness General Chief complaint: Cardiac Assessment Stated complaint: SHARP PAIN IN CHEST COULDNT USE LT ARM 4DAYS AGO Source: patient, family (durga), RN notes reviewed and old records reviewed Mode of arrival: ambulatory Limitations: no limitations History of Present Illness Provider complaint: unable to move left arm Onset (ago): day(s) 4 Location: chest Severity: mild Pain Consistency: + intermittent and + now resolved Current Pain Intensity: 0 Quality: + aching Relieved By: + immobilization Exacerbated By: + movement Associated symptoms: no diaphoresis, no fever/chills, no nausea/vomiting and no shortness of breath Treatments prior to arrival: none This is a 74-year-old female who presents emergency department after being unable to use her left arm for 3 days. The patient reports she suddenly was unable to use the left arm. She did not do anything about this nor did she call an ambulance. Yesterday the patient reports she was able to use the arm again. She also reports chest pain that she describes as a burning sensation that is currently gone away. She reports pain gets worse with movement. She reports immobilization makes the pain better. She has not taken anything for the pain Home Medications Home Medications Medication Instructions Recorded Confirmed Type black cohosh 40 mg PO DAILY 09/22/18 12/01/19 History cinnamon bark [Cinnamon] 1,500 mg PO DAILY 09/22/18 12/01/19 History blood sugar diagnostic #300 ea 03/08/19 12/01/19 Rx ferrous sulfate 325 mg (65 mg 325 mg PO TID #90 tab 04/11/19 12/01/19 Rx iron) tablet furosemide 20 mg tablet 20 mg PO DAILY #30 tab 04/11/19 12/01/19 Rx insulin glargine 100 unit/mL 15 unit SUBCUT HS #10 ml 04/11/19 12/01/19 Rx subcutaneous solution insulin regular human 100 unit/mL See Rx Instructions SUBCUT DAILY 06/08/19 12/01/19 Rx injection solution PRN #10 ml metformin 500 mg tablet 1,000 mg PO BID 30 Days #120 tab 09/12/19 12/01/19 Rx trazodone 50 mg tablet 50 mg PO DAILY #30 tab 09/12/19 12/01/19 Rx losartan 100 mg tablet 100 mg PO DAILY #90 tab 10/11/19 12/01/19 Rx omeprazole 20 mg capsule,delayed 20 mg PO BID #60 cap 10/11/19 12/01/19 Rx release simvastatin 20 mg tablet 20 mg PO HS #30 tab 10/11/19 12/01/19 Rx hydroxyzine HCl 25 mg tablet 25 mg PO TID PRN #90 tab 11/09/19 12/01/19 Rx methimazole 10 mg tablet 15 mg PO DAILY #90 tab 11/14/19 12/01/19 Rx ipratropium-albuterol [Combivent 1 puff INHALATION UD 12/01/19 12/01/19 History Respimat] Allergies Allergy/AdvReac Type Severity Reaction Status Date / Time No Known Allergies Allergy Verified 12/01/19 12:36 Past Med/Surg History Medical History Ambulatory dysfunction Arthritis Asthma (Chronic) COPD (chronic obstructive pulmonary disease) Family history of cholecystectomy Generalized arthritis Hypertension (Chronic) No pertinent family history Tobacco use Surgical History H/O section Had 3 History of thoracotomy (~2009) Right thoracotomy and wedge biopsy of right upper lobe lesion, right upper lobectomy with node samling 07/18/09 Dr. 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: No Beliefs That Will Affect Care: None marital status: Current Living Situation: Other Current Living Situation Comment: Friend/Roommate current occupational status: retired Other Information That Helps Us Care for You: No Feels Safe at Home: Yes Safety Concerns: Feels Safe At This Time Review of Systems A total of 10 systems reviewed and were otherwise negative Physical Exam Vital Signs Vital Signs - 24 hr 12/01/19 12:29 12/01/19 12:30 12/01/19 12:31 Pulse Rate 86 86 Pulse Rate from SpO2 Sensor 87 85 85 Respiratory Rate 24 21 Blood Pressure 117/80 Blood Pressure Mean 87 Pulse Oximetry 96 97 94 12/01/19 12:32 12/01/19 12:33 12/01/19 13:00 Pulse Rate 86 85 86 Pulse Rate from SpO2 Sensor 86 85 89 Respiratory Rate 24 23 24 Blood Pressure 153/62 H Blood Pressure Mean 79 Pulse Oximetry 98 97 95 12/01/19 13:01 12/01/19 13:02 Pulse Rate 85 88 Pulse Rate from SpO2 Sensor 85 88 Respiratory Rate 19 20 Blood Pressure 116/80 Blood Pressure Mean 84 Pulse Oximetry 97 96 VITAL SIGNS - Vital signs and nursing notes were reviewed. GENERAL - 74-year-old female appearing stated age who is in no acute distress. Communicates well with provider and answers questions appropriately. SKIN - Without rashes. HEAD - NC/AT. EYES - PERRL with EOMI bilaterally. Sclera anicteric. Palpebral conjunctiva pink and moist with no injection noted. EARS - No deformities of external structures noted on gross examination bilaterally. No pain elicited with palpation of the tragus bilaterally. External auditory canals without discharge or otorrhea. Tympanic membranes pearly lewis without retraction or bulging. No fluid or purulent material visualized behind the TM. Handle of malleus, umbo, cone of light, pars tensa/flaccid all easily visualized. NOSE - Midline and without cyanosis. No epistaxis or purulent drainage noted. Septum midline without deviation or septal hematoma noted. MOUTH/OROPHARYNX - Without perioral cyanosis. Buccal mucosa pink and moist and without leukoplakia. Tongue midline with equal elevation of palate bilaterally. No tonsillar hypertrophy, erythema, or exudates noted. dentition noted. NECK - Neck with FROM. Supple to palpation. lymphadenopathy noted. No nuchal rigidity. LUNGS - Chest wall symmetric without accessory muscle use, intercostals retractions, or central cyanosis. Normal vesicular breath sounds CTA B/L. No wheezes, rales, or rhonchi appreciated. CARDIAC - RRR with S1/S2. No murmur, rubs, or gallops appreciated. ABDOMEN - Abdominal contour without pulsations or visible masses. BS normoactive all four quadrants. No tenderness, palpable masses, hepatosplenomegaly, or ascites noted. EXTREMITIES - No clubbing or peripheral cyanosis. No pretibial edema present. +3/5 radial, posterior tibial, and dorsalis pedis pulses palpated throughout. +5/5 strength noted in UE/LE bilaterally. NEUROLOGIC - Cranial nerves II through XII grossly intact. Sensory intact to light touch throughout. Patellar reflexes +2/4. PSYCH - A&Ox3 and cooperates fully with examiner. Pt is very pleasant and interacts well with examiner. Course Administered Medications Acetaminophen (Tylenol) 650 mg PO Q4H PRN PRN Reason: Pain or Fever Stop: 12/31/19 14:38 Last Admin: 12/02/19 05:40 Dose: 650 mg Documented by: [id number] Aspirin ([facility]rin [facility]ab) [facility] Stop: 01/01/20 08:59 Last Admin: 12/02/19 08:23 Dose: 81 mg Documented by: [id number] Clopidogrel Bisulfate (Plavix) 75 mg PO QAM [facility] Stop: 01/01/20 08:59 Last Admin: 12/02/19 08:23 Dose: 75 mg Documented by: [id number] Enoxaparin Sodium (Lovenox) 40 mg SQ [facility] Stop: 01/01/20 08:59 Last Admin: 12/02/19 09:19 Dose: 40 mg Documented by: [id number] Ferrous Sulfate (Feosol) 325 mg PO TID [facility] Stop: 12/31/19 20:59 Last Admin: 12/02/19 08:22 Dose: 325 mg Documented by: [id number] Admin: 12/01/19 20:46 Dose: 325 mg Documented by: [id number] Fluticasone/Vilanterol (Breo Ellipta 100/25 Mcg Inh) 1 puffs INH DAILY [facility] Stop: 01/01/20 08:59 Last Admin: 12/02/19 09:19 Dose: 1 puffs Documented by: [id number] Insulin Aspart (Novolog Flexpen) 0 units SC ACHS [facility] Stop: 12/31/19 16:29 Last Admin: 12/02/19 11:57 Dose: 6 units Documented by: [id number] Cosigned by: [id number] Admin: 12/02/19 08:21 Dose: 4 units Documented by: [id number] Cosigned by: [id number] Admin: 12/01/19 20:48 Dose: Not Given Documented by: [id number] Cosigned by: [id number] Admin: 12/01/19 17:48 Dose: 2 units Documented by: [id number] Cosigned by: [id number] Insulin Glargine (Lantus Solostar Pen) 8 units SC BID [facility] Stop: 12/31/19 20:59 Last Admin: 12/02/19 08:22 Dose: 8 units Documented by: [id number] Cosigned by: [id number] Admin: 12/01/19 20:48 Dose: 8 units Documented by: [id number] Cosigned by: [id number] Methimazole (Tapazole) 15 mg PO DAILY [facility] Stop: 01/01/20 08:59 Last Admin: 12/02/19 08:23 Dose: 15 mg Documented by: [id number] Pantoprazole Sodium (Protonix) 40 mg PO BID [facility] Stop: 12/31/19 20:59 Last Admin: 12/02/19 08:23 Dose: 40 mg Documented by: [id number] Admin: 12/01/19 20:46 Dose: 40 mg Documented by: [id number] Simvastatin (Zocor) 20 mg PO [facility] Stop: 12/31/19 20:59 Last Admin: 12/01/19 20:46 Dose: 20 mg Documented by: [id number] Trazodone HCl (Desyrel) 50 mg PO [facility] Stop: 12/31/19 20:59 Last Admin: 12/01/19 20:46 Dose: 50 mg Documented by: [id number] Umeclidinium Kasbeer (Incruse Ellipta) 1 puffs INH QAM [facility] Stop: 01/01/20 08:59 Last Admin: 12/02/19 08:23 Dose: 1 puffs Documented by: [id number] Discontinued Medications Aspirin (Aspirin Chew) 243 mg PO NOW STA Stop: 12/01/19 13:22 Last Admin: 12/01/19 13:47 Dose: 243 mg Documented by: [id number] Clopidogrel Bisulfate (Plavix) 75 mg PO NOW ONE Stop: 12/01/19 13:22 Last Admin: 12/01/19 13:47 Dose: 75 mg Documented by: [id number] Fluticasone/Vilanterol (Breo Ellipta 100/25 Mcg Inh) 1 puffs INH ONE ONE Stop: 12/01/19 13:24 Last Admin: 12/01/19 22:55 Dose: Not Given Documented by: [id number] Magnesium Sulfate/Dextrose (Magnesium Sulfate / D5w) 1 gm in 100 mls @ 50 mls/hr IV ONE ONE Stop: 12/01/19 14:46 Last Infusion: 12/01/19 15:35 Dose: 0 mls/hr Documented by: [id number] Admin: 12/01/19 13:01 Dose: 50 mls/hr Documented by: [id number] Magnesium Sulfate/Dextrose (Magnesium Sulfate / D5w) 1 gm in 100 mls @ 50 mls/hr IV Q2H [facility] Stop: 12/02/19 11:36 Last Infusion: 12/02/19 12:09 Dose: 0 mls/hr Documented by: [id number] Admin: 12/02/19 10:07 Dose: 50 mls/hr Documented by: [id number] Infusion: 12/02/19 10:07 Dose: 50 mls/hr Documented by: [id number] Admin: 12/02/19 08:17 Dose: 50 mls/hr Documented by: [id number] Ioversol (Optiray 320 125ml) 120 ml IV ONCE ONE Stop: 12/01/19 12:07 Last Admin: 12/01/19 12:06 Dose: 120 ml Documented by: [id number] Medical Decision Making Differential Diagnosis Infection, dehydration, metabolic abnormality, hypo/hyperglycemia, electrolyte disturbance, anemia, hypoxia, cardiac sources, intracerebral event, toxicologic, neurologic, as well as other pathologies. Medical Records Attestation: I reviewed the patient's medical records. Home Medications Current Medication List: was personally reviewed by me Laboratory Data Attestation: I reviewed the patient's lab results. Result diagrams: 12/02/19 05:25 12/02/19 05:25 Lab Results 12/01/19 12/01/19 12/01/19 Range/Units 10:55 10:55 10:55 WBC 4.93 (4.8-10.8) K/uL RBC 3.36 L (4.2-5.4) M/uL Hgb 10.0 L (12.0-16.0) g/dL POC Hgb (12.0-16.0) g/dl Hct 29.7 L (37-47) % POC Hct (37-47) % MCV 88.4 (80-100) fL MCH 29.8 (25-34) pg MCHC 33.7 (32-36) g/dL RDW Std Deviation 39.6 (36.4-46.3) fL RDW Coeff of Norma 12.3 (11.5-14.5) % Plt Count 201 (130-400) K/uL MPV 8.8 (7.4-10.4) fL Immature Gran % (Auto) 0.2 % Neut % (Auto) 55.8 % Lymph % (Auto) 34.5 % Love % (Auto) 8.7 % Eos % (Auto) 0.6 % Baso % (Auto) 0.2 % Neut # (Auto) 2.75 (1.4-6.5) K/uL Lymph # (Auto) 1.70 (1.2-3.4) K/uL Love # (Auto) 0.43 (0.11-0.59) K/uL Eos # (Auto) 0.03 (0-0.5) K/uL Baso # (Auto) 0.01 (0-0.2) K/uL Immature Gran # (Auto) 0.01 (0.00-0.02) K/uL PT 10.3 (9.0-12.0) Seconds INR 1.0 (0.9-1.1) APTT 27.1 (21.0-31.0) Seconds PTT Ratio 1.0 POC Sodium (135-144) mmol/L Sodium 140 (136-145) mmol/L POC Potassium (3.3-5.0) mmol/L Potassium 4.7 (3.5-5.1) mmol/L POC Chloride (101-112) mmol/L Chloride 111 H (98-107) mmol/L Carbon Dioxide 22 (21-32) mmol/L POC Total CO2 (24-31) mmol/L Anion Gap 7.0 (3-11) POC Anion Gap (16-25) mmol/L POC BUN (7-18) mg/dl BUN 12 (7-18) mg/dl Creatinine 0.85 (0.6-1.2) mg/dl POC Creatinine (0.6-1.3) mg/dl Est Cr Clr Drug Dosing 58.0 ml/min Est GFR ( Amer) 78.2 Est GFR (Non-Af Amer) 67.5 BUN/Creatinine Ratio 13.8 (10-20) Glucose 210 H (70-99) mg/dl POC Glucose (other) (70-99) mg/dl Calcium 8.6 (8.5-10.1) mg/dl POC Ioniz Calcium Kassy (1.12-1.32) mmol/l Magnesium 1.2 L (1.8-2.4) mg/dl Total Bilirubin 0.3 (0.2-1) mg/dl AST 19 (15-37) U/L ALT 31 (12-78) U/L Alkaline Phosphatase 93 (45-117) U/L Troponin I < 0.015 (0-0.045) ng/ml Total Protein 7.2 (6.4-8.2) gm/dl Albumin 3.1 L (3.4-5.0) gm/dl Globulin 4.1 H (2.5-4.0) gm/dl Albumin/Globulin Ratio 0.8 L (0.9-2) 12/01/19 Range/Units 11:01 WBC (4.8-10.8) K/uL RBC (4.2-5.4) M/uL Hgb (12.0-16.0) g/dL POC Hgb 10.5 L (12.0-16.0) g/dl Hct (37-47) % POC Hct 31 L (37-47) % MCV (80-100) fL MCH (25-34) pg MCHC (32-36) g/dL RDW Std Deviation (36.4-46.3) fL RDW Coeff of Norma (11.5-14.5) % Plt Count (130-400) K/uL MPV (7.4-10.4) fL Immature Gran % (Auto) % Neut % (Auto) % Lymph % (Auto) % Love % (Auto) % Eos % (Auto) % Baso % (Auto) % Neut # (Auto) (1.4-6.5) K/uL Lymph # (Auto) (1.2-3.4) K/uL Love # (Auto) (0.11-0.59) K/uL Eos # (Auto) (0-0.5) K/uL Baso # (Auto) (0-0.2) K/uL Immature Gran # (Auto) (0.00-0.02) K/uL PT (9.0-12.0) Seconds INR (0.9-1.1) APTT (21.0-31.0) Seconds PTT Ratio POC Sodium 140 (135-144) mmol/L Sodium (136-145) mmol/L POC Potassium 4.7 (3.3-5.0) mmol/L Potassium (3.5-5.1) mmol/L POC Chloride 104 (101-112) mmol/L Chloride (98-107) mmol/L Carbon Dioxide (21-32) mmol/L POC Total CO2 21 L (24-31) mmol/L Anion Gap (3-11) POC Anion Gap 20.0 (16-25) mmol/L POC BUN 11 (7-18) mg/dl BUN (7-18) mg/dl Creatinine (0.6-1.2) mg/dl POC Creatinine 0.7 (0.6-1.3) mg/dl Est Cr Clr Drug Dosing ml/min Est GFR ( Amer) Est GFR (Non-Af Amer) BUN/Creatinine Ratio (10-20) Glucose (70-99) mg/dl POC Glucose (other) 215 H (70-99) mg/dl Calcium (8.5-10.1) mg/dl POC Ioniz Calcium Kassy 1.25 (1.12-1.32) mmol/l Magnesium (1.8-2.4) mg/dl Total Bilirubin (0.2-1) mg/dl AST (15-37) U/L ALT (12-78) U/L Alkaline Phosphatase (45-117) U/L Troponin I (0-0.045) ng/ml Total Protein (6.4-8.2) gm/dl Albumin (3.4-5.0) gm/dl Globulin (2.5-4.0) gm/dl Albumin/Globulin Ratio (0.9-2) Imaging Data Radiologist's Impression: [facility], [place] [phone] CT Scan Report Patient: YVONNE GILMOREAdmit Date: 12/01/19 MR#: [id number]: [address] [facility] [address] Acct ID:[id number]: Date: [address] [place] [address] Zip: [place] [address] Age: 74Location: ED Sex: F Room/Bed: Att Phy:Diagnosis: SHARP PAIN IN CHEST COULDNT USE LT ARM 4DAYS AGO Johanna Phy: Sander David MDService Date: 12/01/19 Fam Phy:Interpreting Phy: Eliot Whitehead Admit Phy: Ordering Phy: Derek Caban MD cc: ~ CT head/brain wo con CLINICAL HISTORY: 74 years-old Female with Stroke evaluation . Acute strokelike symptoms TECHNIQUE: Multiple axial CT images of the head were obtained without contrast. A dose lowering technique was utilized adhering to the principles of ALARA. COMPARISON: None. FINDINGS: No acute intracranial hemorrhage, midline shift, intracranial mass, hydrocephalus, territorial ischemia or abnormal extra-axial collection. Patchy white matter hypodensities suggest chronic microvascular ischemic disease. The calvarium is intact. Small bilateral mastoid effusions. Paranasal sinuses are clear. Soft tissues and orbits are within normal limits. Prior bilateral lens replacement. IMPRESSION: No acute intracranial abnormality. ACT 112: Negative or not required by law. The above report was generated using voice recognition software. It may contain grammatical, syntax or spelling errors. Electronically signed by: Moi Whitehead M.D. 12/01/2019 12:20 PM Dictated: 12/01/19 1218 Transcribed: 12/01/19 1218 [place], [place] [phone] CT Scan Report Patient: YVONNE GILMOREAdmit Date: 12/01/19 MR#: [id number]: [address] [facility] [address] Acct ID:[id number]: Date: [address] [place] [address] Zip: [place] [address] Age: 74Location: Sex: F Room/Bed: Att Phy:Diagnosis: SHARP PAIN IN CHEST COULDNT USE LT ARM 4DAYS AGO Johanna Phy: Sander David, SABINOervice Date: 12/01/19 Fam Phy:Interpreting Phy: Ezio Jewell MD Admit Phy: Ordering Phy: Derek Caban MD cc: ~ CT ANGIOGRAM OF THE BRAIN; CT ANGIOGRAM OF THE NECK CLINICAL HISTORY: Strokelike symptoms. COMPARISON STUDY: Unenhanced CT of the brain performed concurrently on 12/01/2019. Carotid artery ultrasound dated 04/08/2007. TECHNIQUE: Following the IV administration of 120 of Optiray 320, CT angiogram of the head and neck was performed from the aortic arch to the vertex. Images are reviewed in the axial, sagittal, and coronal planes. 3-D MIPS images are created and assessed. IV contrast was administered without complication. All measurements were calculated based on NASCET criteria. A dose lowering technique was utilized adhering to the principles of ALARA. CT DOSE: 1157.81 mGy.cm FINDINGS: Brain parenchyma: There is age-related involutional change noting mild to moderate patchy subcortical and periventricular microangiopathic disease. There is no hemorrhage, mass effect, or evidence of acute territorial ischemia by CT criteria. There is no evidence of enhancing mass lesion on the angiogram phase images. The ventricles, sulci, and cisterns are prominent secondary to invo lutional change. Lewis-white matter differentiation is preserved. No extra-axial fluid collection is seen. Thoracic aorta: There is mild atherosclerotic calcification of the thoracic aorta. Visualized portions of the thoracic aorta are normal in caliber. The aortic arch demonstrates standard 3-vessel anatomy. Right carotid arterial system: The right common carotid artery is widely patent, as are the right internal and external carotid arteries. Mild plaque is noted in the carotid bulb. The mid to distal right internal carotid artery demonstrates a slightly beaded. Left carotid arterial system: The left common carotid artery is widely patent, as are the left internal and external carotid arteries. Calcified plaque is noted in the carotid bulb. The mid to distal left internal carotid artery demonstrates a slightly beaded appearance. Vertebral arteries: The vertebral arteries are widely patent bilaterally and codominant. Subclavian arteries: Widely patent bilaterally. Intracranial vasculature: There is atherosclerotic calcification of the cavernous carotid and vertebral arteries. The internal carotid arteries are patent at the skull base, as are the anterior and middle cerebral arteries bilaterally. The vertebrobasilar system and posterior cerebral arteries are widely patent. The vertebral arteries are codominant. There is no aneurysm, high-grade stenosis, or focal vessel cut off seen throughout the intracranial circulation. Jugular veins: Patent bilaterally. Dural sinuses: Patent. Lung apices: Partially visualized upper lobe lung parenchyma appears clear. Soft tissues: The visualized pharyngeal soft tissues are normal in appearance noting angiographic phase technique. The oropharyngeal airway appears widely patent. The salivary and thyroid glands are normal in appearance. No cervical lymphadenopathy is seen. Orbits: The bony orbits are intact. Orbital contents are normal in appearance noting bilateral ocular lens implants. Skeletal structures: The skeletal structures are osteopenic. The calvarium appears intact. The cervical spine is maintained noting multilevel spondylosis. No lytic or blastic lesion is seen. Sinuses and mastoids: The paranasal sinuses are clear. There are small mastoid effusions. IMPRESSION: 1. There is no hemorrhage, mass effect, or evidence of acute territorial ischemia by CT criteria noting angiographic phase technique. 2. Unremarkable CT angiogram of the brain. 3. The mid to distal internal carotid arteries in the neck demonstrate a slightly beaded appearance suggesting fibromuscular dysplasia. 4. Otherwise unremarkable CT angiogram of the neck. The carotid and vertebral arteries are widely patent. ACT 112: Negative or not required by law. Electronically signed by: Ezio Jewell M.D. 12/01/2019 12:29 PM Dictated: 12/01/19 1219 Transcribed: 12/01/19 1229 [place], [place] [phone] CT Scan Report Patient: YVONNE GILMOREAdmit Date: 12/01/19 MR#: [id number]: [address] [facility] [address] Acct ID:[id number]: Date: [address] [place] [address] Zip: [place] [address] Age: 74Location: ED Sex: F Room/Bed: Att Phy:Diagnosis: SHARP PAIN IN CHEST COULDNT USE LT ARM 4DAYS AGO Johanna Phy: Sander David MDService Date: 12/01/19 Fam Phy:Interpreting Phy: Ezio Jewell MD Admit Phy: Ordering Phy: Derek Caban MD cc: ~ CT ANGIOGRAM OF THE BRAIN; CT ANGIOGRAM OF THE NECK CLINICAL HISTORY: Strokelike symptoms. COMPARISON STUDY: Unenhanced CT of the brain performed concurrently on 12/01/2019. Carotid artery ultrasound dated 04/08/2007. TECHNIQUE: Following the IV administration of 120 of Optiray 320, CT angiogram of the head and neck was performed from the aortic arch to the vertex. Images are reviewed in the axial, sagittal, and coronal planes. 3-D MIPS images are created and assessed. IV contrast was administered without complication. All measurements were calculated based on NASCET criteria. A dose lowering tech nique was utilized adhering to the principles of ALARA. CT DOSE: 1157.81 mGy.cm FINDINGS: Brain parenchyma: There is age-related involutional change noting mild to moderate patchy subcortical and periventricular microangiopathic disease. There is no hemorrhage, mass effect, or evidence of acute territorial ischemia by CT criteria. There is no evidence of enhancing mass lesion on the angiogram phase images. The ventricles, sulci, and cisterns are prominent secondary to involutional change. Lewis-white matter differentiation is preserved. No extra- axial fluid collection is seen. Thoracic aorta: There is mild atherosclerotic calcification of the thoracic aorta. Visualized portions of the thoracic aorta are normal in caliber. The aortic arch demonstrates standard 3-vessel anatomy. Right carotid arterial system: The right common carotid artery is widely patent, as are the right internal and external carotid arteries. Mild plaque is noted in the carotid bulb. The mid to distal right internal carotid artery demonstrates a slightly beaded. Left carotid arterial system: The left common carotid artery is widely patent, as are the left internal and external carotid arteries. Calcified plaque is noted in the carotid bulb. The mid to distal left internal carotid artery demonstrates a slightly beaded appearance. Vertebral arteries: The vertebral arteries are widely patent bilaterally and codominant. Subclavian arteries: Widely patent bilaterally. Intracranial vasculature: There is atherosclerotic calcification of the cavernous carotid and vertebral arteries. The internal carotid arteries are patent at the skull base, as are the anterior and middle cerebral arteries bilaterally. The vertebrobasilar system and posterior cerebral arteries are widely patent. The vertebral arteries are codominant. There is no aneurysm, high-grade stenosis, or focal vessel cut off seen throughout the intracranial circulation. Jugular veins: Patent bilaterally. Dural sinuses: Patent. Lung apices: Partially visualized upper lobe lung parenchyma appears clear. Soft tissues: The visualized pharyngeal soft tissues are normal in appearance noting angiographic phase technique. The oropharyngeal airway appears widely patent. The salivary and thyroid glands are normal in appearance. No cervical lymphadenopathy is seen. Orbits: The bony orbits are intact. Orbital contents are normal in appearance noting bilateral ocular lens implants. Skeletal structures: The skeletal structures are osteopenic. The calvarium appears intact. The cervical spine is maintained noting multilevel spondylosis. No lytic or blastic lesion is seen. Sinuses and mastoids: The paranasal sinuses are clear. There are small mastoid effusions. IMPRESSION: 1. There is no hemorrhage, mass effect, or evidence of acute territorial ischemia by CT criteria noting angiographic phase technique. 2. Unremarkable CT angiogram of the brain. 3. The mid to distal internal carotid arteries in the neck demonstrate a sligh tly beaded appearance suggesting fibromuscular dysplasia. 4. Otherwise unremarkable CT angiogram of the neck. The carotid and vertebral arteries are widely patent. ACT 112: Negative or not required by law. Electronically signed by: Ezio Jewell M.D. [facility], [place] [phone] XRay Report Patient: ARAMIS GILMOREAdmit Date: 12/01/19 MR#: [id number]: [address] [facility] [address] Acct ID:[id number]: Date: [address] [place] [address] Zip: [place] [address] Age: 74Location: ED Sex: F Room/Bed: Att Phy:Diagnosis: SHARP PAIN IN CHEST COULDNT USE LT ARM 4DAYS AGO Johanna Phy: Sander David, MDService Date: 12/01/19 Fam Phy:Interpreting Phy: Ariel Rayo MD Admit Phy: Ordering Phy: Derek Caban MD cc: ~ XR chest 1V portable CLINICAL HISTORY: Pt c/o left sided arm weakness COMPARISON STUDY: 02/09/2012 FINDINGS: The heart is the upper limits of normal in size. There is no failure. There is no focal pulmonary consolidation. There are no pleural effusions.[There is a right shoulder peritendinous calcification. IMPRESSION: No active disease in the chest. ACT 112: Negative or not required by law. Electronically signed by: Ariel Rayo M.D. 12/01/2019 11:24 AM Dictated: 12/01/19 [address] [place], [place] [phone] Magnetic Resonance Report Patient: YVONNE GILMOREAdmit Date: 12/01/19 MR#: [id number]: [address] [facility] [address] Acct ID:[id number]: [facility] Zip: [place] [address] Age: 74Location: ED Sex: F Room/Bed: Att Phy:Diagnosis: SHARP PAIN IN CHEST COULDNT USE LT ARM 4DAYS AGO Johanna Phy: Sander David MDService Date: 12/01/19 Fam Phy:Interpreting Phy: Ariel Rayo MD Admit Phy: Ordering Phy: Derek Caban MD cc: ~ MRI OF THE BRAIN WITHOUT CONTRAST CLINICAL HISTORY: Left arm weakness. Evaluate for stroke. HISTORY OF NON-SMALL CELL LUNG CARCINOMA COMPARISON STUDY: Head CT dated 05/30/2009 FINDINGS: Sagittal T1, axial diffusion, proton density and T2 weighted axial, coronal FLAIR, and axial T1-weighted images were acquired. No intra or extra-axial mass lesions are visualized There are equivocal foci of restricted water diffusion within the right is architect ior parietal lobe. This is not intense enough to represent an acute infarct. A subacute infarct cannot be excluded. There is no evidence of ventricular dilatation. Proton density T2-weighted and FLAIR images reveal scattered foci of increased T2 signal within the white matter, likely on a small vessel basis. There are no abnormal flow voids. There are bilateral foci of increased T2 signal within the mastoids likely on an inflammatory basis IMPRESSION: 1. Motion compromised examination 2. No evidence of intracranial mass 3. Equivocal subtle foci of restricted water diffusion within the right posterior parietal lobe. A subacute infarct cannot be excluded. 4. Scattered foci of increased T2 signal within the white matter likely on a small vessel basis ACT 112: Negative or not required by law. Electronically signed by: Ariel Rayo M.D. 12/01/2019 12:05 PM Dictated: 12/01/19 1157 Transcribed: 12/01/19 1157 ECG Data Attestation: I personally reviewed and interpreted this ECG as follows: Indication: + weakness Rate (beats per minute): 94 Rhythm: + normal sinus ECG Intervals/blocks: + Normal QT-c (450) ECG [place]: + Normal ECG ST segments: no ST depression and no ST elevation Comparison ECG Date: from (09/22/2018) Change: no significant change MDM Narrative This is a 74-year-old female who presents emergency department complaining of being unable to use her left arm. The patient was sent for CTA as well as CT of the head. Because the symptoms had already previously resolved she was also sent for an MRI of the head. This was concerning for a subacute infarct. Because of this I did discuss the case with the family members and recommended admission. She was also discussed with the hospitalist service who did agree to admit the patient. The patient does not have an increase in her white blood cell count. Patient was seen and evaluated as above in room A3. Review was performed of nursing notes and vital signs. I did review pertinent previous visits and patient history. After obtaining a thorough history and physical examination the above work up was performed. An order was placed for continuous cardiac monitoring. The monitor shows a rate of 58 with Normal Sinus rhythm. The patient was evaluated during the global COVID-19 pandemic, and that diagnosis was suspected/considered upon their initial presentation. Their evaluation, treatment and testing was consistent with current guidelines for patients who present with complaints or symptoms that may be related to COVID- 19. Impression & Plan Atypical chest pain, TIA (transient ischemic attack), Left arm weakness Discharge Plan Visit Data *Final* Discharge Date/Time: 12/01/19 14:15 Chief Complaint: Cardiac Assessment Stated Complaint: SHARP PAIN IN CHEST COULDNT USE LT ARM 4DAYS AGO ED Provider: Derek Caban Discharge Problem: Atypical chest pain, TIA (transient ischemic attack), Left arm weakness Patient Disposition: Admitted As Inpatient Discharge Instructions Interventions: ED Discharge Assessment Last Done: 12/01/19 14:15
[2019-12-01 11:13] LABS: iSTAT Creatinine 0.7 mg/dl (0.6-1.3); iSTAT Hemoglobin 10.5 g/dl (12.0-16.0); iSTAT Ionized Calcium 1.25 mmol/l (1.12-1.32); iSTAT Potassium 4.7 mmol/L (3.3-5.0)
[2019-12-01 11:13] LABS: Basophils # (auto) 0.01 K/uL (0-0.2); Basophils % (auto) 0.2 %; Eosinophils # (auto) 0.03 K/uL (0-0.5); Eosinophils % (auto) 0.6 %; Hematocrit (blood only) 29.7 % (37-47); Immature Granulocytes # (auto) 0.01 K/uL (0.00-0.02); Immature Granulocytes % (auto) 0.2 %; Lymphocytes % (auto) 34.5 %; Mean Corpuscular Hemoglobin 29.8 pg (25-34); Mean Corpuscular Hgb Conc 33.7 g/dL (32-36); Mean Corpuscular Volume 88.4 fL (80-100); Mean Platelet Volume 8.8 fL (7.4-10.4); Monocytes # (auto) 0.43 K/uL (0.11-0.59); Monocytes % (auto) 8.7 %; Neutrophils # (auto) 2.75 K/uL (1.4-6.5); Neutrophils % (auto) 55.8 %; Platelet Count 201 K/uL (130-400); RDW Coefficient of Variation 12.3 % (11.5-14.5); RDW Standard Deviation 39.6 fL (36.4-46.3); Red Blood Count 3.36 M/uL (4.2-5.4); White Blood Count 4.93 K/uL (4.8-10.8)
--- NOTE | 2019-12-01 11:25 | XRay Report ---
XR chest 1V portable CLINICAL HISTORY: Pt c/o left sided arm weakness COMPARISON STUDY: 02/09/2012 FINDINGS: The heart is the upper limits of normal in size. There is no failure. There is no focal pul monary consolidation. There are no pleural effusions.[There is a right shoulder peritendinous calcifi cation. IMPRESSION: No active disease in the chest. ACT 112: Negative or not required by law. Electronically signed by: Ariel Rayo M.D. 12/01/2019 11:24 AM
[2019-12-01 11:30] LABS: Alanine Aminotransferase 31 U/L (12-78); Albumin Level 3.1 gm/dl (3.4-5.0); Aspartate Aminotransferase 19 U/L (15-37); BUN Creatinine Ratio 13.8 (10-20); Blood Urea Nitrogen 12 mg/dl (7-18); Calcium 8.6 mg/dl (8.5-10.1); Carbon Dioxide 22 mmol/L (21-32); Chloride 111 mmol/L (98-107); Est GFR (African American) 78.2; Est GFR (Non-African American) 67.5; Glucose 210 mg/dl (70-99); Magnesium 1.2 mg/dl (1.8-2.4); Potassium 4.7 mmol/L (3.5-5.1); Sodium 140 mmol/L (136-145)
[2019-12-01 11:33] LABS: Partial Thromboplastin Time 27.1 Seconds (21.0-31.0); Prothrombin Time 10.3 Seconds (9.0-12.0)
[2019-12-01 11:35] LABS: Albumin Globulin Ratio 0.8 (0.9-2); Alkaline Phosphatase 93 U/L (45-117); Bilirubin,Total 0.3 mg/dl (0.2-1); Globulin 4.1 gm/dl (2.5-4.0); Total Protein 7.2 gm/dl (6.4-8.2); Troponin I < 0.015 ng/ml (0-0.045)
[2019-12-01] MEDS ORDERED: LORazepam 1 MG/2 ML VIAL IV PRN ×2 (11:35→15:01)
[2019-12-01] MEDS ORDERED: OPTIRAY 320 125ml IV ONE (12:06)
--- NOTE | 2019-12-01 12:06 | Magnetic Resonance Report ---
MRI OF THE BRAIN WITHOUT CONTRAST CLINICAL HISTORY: Left arm weakness. Evaluate for stroke. HISTORY OF NON-SMALL CELL LUNG CARCINOMA COMPARISON STUDY: Head CT dated 05/30/2009 FINDINGS: Sagittal T1, axial diffusion, proton density and T2 weighted axial, coronal FLAIR, and axial T1-weigh zuleyka images were acquired. No intra or extra-axial mass lesions are visualized There are equivocal foci of restricted water diffusion within the right posterior parietal lobe. This is not intense enough to represent an acute infarct. A subacute infarct cannot be excluded. There is no evidence of ventricular dilatation. Proton density T2-weighted and FLAIR images reveal scattered foci of increased T2 signal within the w marian matter, likely on a small vessel basis. There are no abnormal flow voids. There are bilateral foci of increased T2 signal within the mastoids likely on an inflammatory basis IMPRESSION: 1. Motion compromised examination 2. No evidence of intracranial mass 3. Equivocal subtle foci of restricted water diffusion within the right posterior parietal lobe. A perez bacute infarct cannot be excluded. 4. Scattered foci of increased T2 signal within the white matter likely on a small vessel basis ACT 112: Negative or not required by law. Electronically signed by: Ariel Rayo M.D. 12/01/2019 12:05 PM
--- NOTE | 2019-12-01 12:22 | CT Scan Report ---
CT head/brain wo con CLINICAL HISTORY: 74 years-old Female with Stroke evaluation . Acute strokelike symptoms TECHNIQUE: Multiple axial CT images of the head were obtained without contrast. A dose lowering tech nique was utilized adhering to the principles of ALARA. COMPARISON: None. FINDINGS: No acute intracranial hemorrhage, midline shift, intracranial mass, hydrocephalus, territorial ischem ia or abnormal extra-axial collection. Patchy white matter hypodensities suggest chronic microvascula r ischemic disease. The calvarium is intact. Small bilateral mastoid effusions. Paranasal sinuses are clear. Soft tissue s and orbits are within normal limits. Prior bilateral lens replacement. IMPRESSION: No acute intracranial abnormality. ACT 112: Negative or not required by law. The above report was generated using voice recognition software. It may contain grammatical, syntax o r spelling errors. Electronically signed by: Moi Whitehead M.D. 12/01/2019 12:20 PM
--- NOTE | 2019-12-01 12:30 | CT Scan Report ---
CT ANGIOGRAM OF THE BRAIN; CT ANGIOGRAM OF THE NECK CLINICAL HISTORY: Strokelike symptoms. COMPARISON STUDY: Unenhanced CT of the brain performed concurrently on 12/01/2019. Carotid artery ultr asound dated 04/08/2007. TECHNIQUE: Following the IV administration of 120 of Optiray 320, CT angiogram of the head and neck w as performed from the aortic arch to the vertex. Images are reviewed in the axial, sagittal, and janel nal planes. 3-D MIPS images are created and assessed. IV contrast was administered without complicati on. All measurements were calculated based on NASCET criteria. A dose lowering technique was utilize d adhering to the principles of ALARA. CT DOSE: 1157.81 mGy.cm FINDINGS: Brain parenchyma: There is age-related involutional change noting mild to moderate patchy subcortical and periventricular microangiopathic disease. There is no hemorrhage, mass effect, or evidence of ac apache territorial ischemia by CT criteria. There is no evidence of enhancing mass lesion on the angiogr am phase images. The ventricles, sulci, and cisterns are prominent secondary to involutional change. Lewis-white matter differentiation is preserved. No extra-axial fluid collection is seen. Thoracic aorta: There is mild atherosclerotic calcification of the thoracic aorta. Visualized portion s of the thoracic aorta are normal in caliber. The aortic arch demonstrates standard 3-vessel anatomy . Right carotid arterial system: The right common carotid artery is widely patent, as are the right int ernal and external carotid arteries. Mild plaque is noted in the carotid bulb. The mid to distal righ t internal carotid artery demonstrates a slightly beaded. Left carotid arterial system: The left common carotid artery is widely patent, as are the left internet marketing analyst al and external carotid arteries. Calcified plaque is noted in the carotid bulb. The mid to distal le ft internal carotid artery demonstrates a slightly beaded appearance. Vertebral arteries: The vertebral arteries are widely patent bilaterally and codominant. Subclavian arteries: Widely patent bilaterally. Intracranial vasculature: There is atherosclerotic calcification of the cavernous carotid and vertebr al arteries. The internal carotid arteries are patent at the skull base, as are the anterior and midd le cerebral arteries bilaterally. The vertebrobasilar system and posterior cerebral arteries are wide ly patent. The vertebral arteries are codominant. There is no aneurysm, high-grade stenosis, or focal vessel cut off seen throughout the intracranial circulation. Jugular veins: Patent bilaterally. Dural sinuses: Patent. Lung apices: Partially visualized upper lobe lung parenchyma appears clear. Soft tissues: The visualized pharyngeal soft tissues are normal in appearance noting angiographic pha se technique. The oropharyngeal airway appears widely patent. The salivary and thyroid glands are nor mal in appearance. No cervical lymphadenopathy is seen. Orbits: The bony orbits are intact. Orbital contents are normal in appearance noting bilateral ocular lens implants. Skeletal structures: The skeletal structures are osteopenic. The calvarium appears intact. The cervic al spine is maintained noting multilevel spondylosis. No lytic or blastic lesion is seen. Sinuses and mastoids: The paranasal sinuses are clear. There are small mastoid effusions. IMPRESSION: 1. There is no hemorrhage, mass effect, or evidence of acute territorial ischemia by CT criteria noti ng angiographic phase technique. 2. Unremarkable CT angiogram of the brain. 3. The mid to distal internal carotid arteries in the neck demonstrate a slightly beaded appearance s uggesting fibromuscular dysplasia. 4. Otherwise unremarkable CT angiogram of the neck. The carotid and vertebral arteries are widely pat ent. ACT 112: Negative or not required by law. Electronically signed by: Ezio Jewell M.D. 12/01/2019 12:29 PM
[2019-12-01] MEDS ORDERED: MAGNESIUM SULFATE / D5W 1 GM/100 ML BAG IV ONE (12:47)
--- NOTE | 2019-12-01 12:56 | History & Physical Report ---
Date of Service December 01, 2019 Assessment & Plan (1) CVA (cerebral vascular accident): Symptoms now resolved after multiple days CTA - fibromuscular dysplasia suggested in mid to distal intercarotid arteries in the neck MRI - Equivocal subtle foci of restricted water diffusion within the right posterior parietal lobe. A subacute infarct cannot be excluded. Consistent with patient symptoms. Admit to telemetry NIH score protocol Dysphagia screen, can eat if she passes this. TTE HbA1C and lipid panel in AM Stop black cohosh Dual antiplatelet therapy with ASA and Plavix Continue usual BP meds PT/OT/speech Consult neurology (2) Chest pain: 5 min episode at the same time as her left arm weakness Troponin negative TTE pending (3) Hypertension: Given 4 days out from symptom onset will continue her usual home meds with Lasix 20mg PO daily and losartan 100mg PO daily (4) Type II diabetes mellitus: HbA1C with AM labs. BSH ACHS Lantus 8 units BID Novolog aim BSG 100-140, correction 45, carb ratio 15 (5) Hyperlipidemia: LDL 23 in September. Continue Simvastatin. Repeat lipid panel in AM (6) Hyperthyroidism: Remains hyperthyroid despite months of treatment. Concerning for treatment failure vs. non-compliance. Recommend considering thyroidectomy with subsequent levothyroxine - follow up endocrinology. Continue methimazole 15mg PO daily (7) Iron deficiency anemia: Refusal of colonoscopy Continue iron replacement (8) COPD (chronic obstructive pulmonary disease): Taking combivent QID - I assume because spiriva was not covered by her insurance however frequent albuterol use linking to increased sudden cardiac therefore recommend using maintenance alternative LAMA. For not will treat with LAMA/LABA/ICS given no recent PFTs and significant SOBOE by history with hypoxia on exertion. Continue combivent QID PRN Follow up outpatient PFTs No interest in stopping smoking which is clearly the best treatment she needs (9) GERD (gastroesophageal reflux disease): Switch omeprazole for pantoprazole as per hospital formulary (10) Anxiety with depression: Continue trazodone 50mg PO HS, hydroxyzine 25mg PO TID PRN - highly encourage treatment of hyperthyroidism to help with this (11) Tobacco use: No interest in giving up, she tells me she will continue smoking after she dies and will be buried with cigarettes. Declines nicotine patch. (12) Hypomagnesemia: Mg sulphate 1g IV given in ER. Unclear reason why this is so low, Mg level with AM labs Admission and Anticipated Discharge Date Admission Date: 12/01/2019 History of Present Illness Chief Complaint: Chest pain, left arm weakness Primary Care Provider: Sander David MD Marietta Fisher is a 74 year old female lifelong smoker with T2DM who presents to the ER on the insistence of her family and PCP after a sudden onset left arm weakness and chest pain that occurred 4 days ago. She was sitting on her balcony smoking when she had sudden severe 10/10, non radiation left sided chest pain. No associated diaphoresis, nausea or shortness of breath. Lasted for 5 mins and the chest pain completely resolved. Left arm weakness started at the same time and took a number of days to resolve. Weakness in her whole arm without numbness. Mainly noticed she was unable to clam picker objects and was dropping things more. She called her PCP yesterday and was advised to come to the ER. Her plan was not to come in but is here today on the encouragement of her family. She is a lifelong smoker with 1-2 packs/day. No interested in giving up smoking despite prior history of lung cancer. Allergies Allergy/AdvReac Type Severity Reaction Status Date / Time No Known Allergies Allergy Verified 12/01/19 12:36 Home Medications Home Medications Medication Instructions Recorded Confirmed Type black cohosh 40 mg PO DAILY 09/22/18 12/01/19 History cinnamon bark [Cinnamon] 1,500 mg PO DAILY 09/22/18 12/01/19 History blood sugar diagnostic #300 ea 03/08/19 12/01/19 Rx ferrous sulfate 325 mg (65 mg 325 mg PO TID #90 tab 04/11/19 12/01/19 Rx iron) tablet furosemide 20 mg tablet 20 mg PO DAILY #30 tab 04/11/19 12/01/19 Rx insulin glargine 100 unit/mL 15 unit SUBCUT HS #10 ml 04/11/19 12/01/19 Rx subcutaneous solution insulin regular human 100 unit/mL See Rx Instructions SUBCUT DAILY 06/08/19 12/01/19 Rx injection solution PRN #10 ml metformin 500 mg tablet 1,000 mg PO BID 30 Days #120 tab 09/12/19 12/01/19 Rx trazodone 50 mg tablet 50 mg PO DAILY #30 tab 09/12/19 12/01/19 Rx losartan 100 mg tablet 100 mg PO DAILY #90 tab 10/11/19 12/01/19 Rx omeprazole 20 mg capsule,delayed 20 mg PO BID #60 cap 10/11/19 12/01/19 Rx release simvastatin 20 mg tablet 20 mg PO HS #30 tab 10/11/19 12/01/19 Rx hydroxyzine HCl 25 mg tablet 25 mg PO TID PRN #90 tab 11/09/19 12/01/19 Rx methimazole 10 mg tablet 15 mg PO DAILY #90 tab 11/14/19 12/01/19 Rx ipratropium-albuterol [Combivent 1 puff INHALATION UD 12/01/19 12/01/19 History Respimat] Past Med/Surg History Medical History Ambulatory dysfunction Arthritis Asthma (Chronic) COPD (chronic obstructive pulmonary disease) Family history of cholecystectomy Generalized arthritis Hypertension (Chronic) No pertinent family history Surgical History H/O section Had 3 History of thoracotomy (~2009) Right thoracotomy and wedge biopsy of right upper lobe lesion, right upper lobectomy with node samling 07/18/09 Dr. Mckee Family History Aunt Diabetes Uncle Diabetes Mother Diabetes Breast cancer Other Family history of cholecystectomy Social History Smoking Status: Current every day smoker Cigarettes Per Day: 15; Second Hand Exposure: Yes; Tobacco Cessation Education Requested by Patient: No Hx Alcohol Use: Yes Hx Substance Use: No Preferred Language: British Communication Ability: Effective Visual Impairment: No Limitations Hearing Ability: Normal Metal Painter Required: No Beliefs That Will Affect Care: None marital status: Current Living Situation: Other Current Living Situation Comment: Friend/Roommate current occupational status: retired Other Information That Helps Us Care for You: No Feels Safe at Home: Yes Safety Concerns: Feels Safe At This Time Review of Systems Review of Systems: All systems reviewed & are unremarkable except as noted in HPI & below Physical Exam Constitutional: well developed and + obese; + not well nourished and no acute distress Eyes: PERRL, conjunctivae normal, anicteric sclerae ENMT: external ear and nose normal, oropharynx normal Neck: trachea midline, no thyromegaly Respiratory: + labored breathing, + uses accessory muscles, + cough (chronic) and + prolonged expiratory phase Auscultation: lungs clear to auscultation bilaterally; no diminished lung sounds, no crackles, no rales, no rhonchi and no wheezes Cardiovascular: RRR, no murmur, no edema Gastrointestinal (Abdomen): normal bowel sounds, soft, nontender, no hepatosplenomegaly Musculoskeletal: no cyanosis or clubbing, extremities motor strength 5/5 Results & Data Results & Data ([facility]) Vital Signs (Past 12 Hours) Vital Signs Temp Pulse Resp BP Pulse Ox 12/01/19 12:32 86 24 153/62 H 98 12/01/19 12:31 86 21 94 12/01/19 12:30 86 24 117/80 97 12/01/19 12:29 96 12/01/19 11:05 89 24 98 12/01/19 11:04 88 24 153/80 H 98 12/01/19 11:03 98 12/01/19 11:00 92 H 23 12/01/19 10:46 93 H 26 H 12/01/19 10:35 37 C 92 H 20 143/71 H 98 Diagnostic Findings XR chest 1V portable IMPRESSION: No active disease in the chest. CT head/brain wo con IMPRESSION: No acute intracranial abnormality. CT ANGIOGRAM OF THE BRAIN; CT ANGIOGRAM OF THE NECK IMPRESSION: 1. There is no hemorrhage, mass effect, or evidence of acute territorial ischemia by CT criteria noting angiographic phase technique. 2. Unremarkable CT angiogram of the brain. 3. The mid to distal internal carotid arteries in the neck demonstrate a slightly beaded appearance suggesting fibromuscular dysplasia. 4. Otherwise unremarkable CT angiogram of the neck. The carotid and vertebral arteries are widely patent. MRI OF THE BRAIN WITHOUT CONTRAST IMPRESSION: 1. Motion compromised examination 2. No evidence of intracranial mass 3. Equivocal subtle foci of restricted water diffusion within the right posterior parietal lobe. A subacute infarct cannot be excluded. 4. Scattered foci of increased T2 signal within the white matter likely on a small vessel basis ECG Indication: other (CVA) Rate (beats per minute): 94 Rhythm: normal sinus Findings: no acute ischemic change Comparison ECG Date: from (09/22/2018) Code Status & VTE Plan Code Status DNR/DNI as discussed with the patient VTE Prophylaxis Plan VTE Prophylaxis will be ordered: No Reason for no VTE drug order: Treatment not indicated Reason for no VTE mechanical prophylaxis: Treatment not indicated PG Care Time/CCT Total # of Minutes Spent Total Time Spent with Patient: Total time spent is greater than 50% in coordination of care (as documented) at patient's floor/unit and/or counseling patient: Coding Level of Care Code 53702 Initial Inpt Care Lvl 3 Diagnoses CVA (cerebral vascular accident) I63.9 Chest pain R07.9 Hypertension I10 Type II diabetes mellitus E11.9 Hyperlipidemia E78.5 Hyperthyroidism E05.90 Iron deficiency anemia D50.9 COPD (chronic obstructive pulmonary disease) J44.9 GERD (gastroesophageal reflux disease) K21.9 Anxiety with depression F41.8 Tobacco use Z72.0 Hypomagnesemia E83.42
--- NOTE | 2019-12-01 13:18 | Neurology Consultation ---
Date of Consultation December 01, 2019 Assessment & Plan (1) Hyperthyroidism: (2) Type II diabetes mellitus: (3) Hyperlipidemia: (4) Hypertension: (5) TIA (transient ischemic attack): Marietta Fisher is a 74 yo woman w/ PMH of DM, HLD, HTN, GERD, COPD, tobacco abuse, hyperthyroidism, left adrenal mass, iron deficiency anemia and arthritis who p/t [facility] with acute onset of LUE weakness a/w chest pain. Symptom localization: pure sensory stroke by description would localize to the right thalamus or internal capsule Stroke mechanism: cardioembolic vs lacunar/lipohyalinosis, FMD can also cause stroke like episodes Stroke WorkUp: - CT head: no hemorrhage or hypodensity. - CTA head/neck: shows bilateral mild plaque at the ICA bifurcations (worse on the left than the right), right vertebral artery atherosclerosis with mild associated narrowing, beaded appearance of bilateral ICAs suggestive of fibromuscular dysplasia and diffuse intracranial atherosclerosis; no high-grade stenosis, LVO or aneurysm noted - MRI brain: shows no acute or chronic infarct, T2 shine through in the posterior right parietal lobe (no clear ADC correlate to confirm stroke), mild to moderate small vessel disease - TTE: pending, will consider ODELL - Telemetry: pending - A1c: pending - FLP: pending - Troponin, TSH: negative, <0.005 Stroke Management: - Acute treatment: ASA - Continuous cardiac monitoring, will consider Holter monitor as outpatient if telemetry here unrevealing - Vitals, Neurochecks, NIHSS per unit routine - BP parameters: SBP CAP 180, restart home anti-hypertensives for permissive HTN - Complete TIA workup with TTE without bubble, A1c, fasting lipid panel - Consult speech, PT, OT for supportive management - Will executive assistant to general counsel concerning stroke education, smoking cessation, healthy diet, physical activity, weight loss - Follow up with PCP for assistance with outpatient goals (BP <135/85, LDL <70, A1c <7) - Follow up in neurology clinic in 2-4 weeks (can be virtual check in with Alma DANIEL) - Given suspected FMD, will need outpatient DSA (this can be arranged at outpatient neurology visit) - If confirmed, she will need one time CTA chest/abdomen to r/o other blood vessel abnormalities and should continue on AP indefinitely - would consider discontinuing home black cohosh given increased risk of side effects if on AP/h/o TIA or stroke Secondary Stroke Prevention: - Antiplatelet: ASA 81mg po daily/plavix 75mg daily x 21 days, then just plavix 75mg daily - Anticoagulation: Not indicated at this time - Statin: Atorvastatin 40mg daily HTN: - BP parameters, as above - Ok to restart home medications with goal of lowering BP to normotension over next 3-4 days FEN/GI: - Diet: Beside dysphagia to clear patient for PO meds/Cardiac HH diet - Monitor lytes and replete PRN Glucose Control: - Sliding scale insulin and accuchecks per primary team to avoid hyperglycemia Thank you for this interesting consult. Plan of care was discussed with primary team. Please call with any questions. History of Present Illness History of Present Illness Marietta Fisher is a 74 yo woman w/ PMH of DM, HLD, HTN, GERD, COPD, tobacco abuse, hyperthyroidism, left adrenal mass, iron deficiency anemia and arthritis who p/t [facility] with acute onset of LUE weakness a/w chest pain. 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 In the ED, patient afebrile, BP 143/71, heart rate 92, respiratory 20, satting 98% on room air. Labs notable for WBC 4.93, hemoglobin 10.0, platelets 201, INR 1.0, BMP unremarkable except for elevated chloride 111, creatinine 0.85, glucose 210, calcium within normal, magnesium low at 1.2, troponin negative, LFTs within normal. Recent TSH 11/03/2019 was less than 0.005 with normal free T4. Imaging independently reviewed. CT head shows no hemorrhage or hypodensity. CTA head and neck shows bilateral mild plaque at the ICA bifurcations (worse on the left than the right), right vertebral artery atherosclerosis with mild associated narrowing, beaded appearance of bilateral ICAs suggestive of fibromuscular dysplasia and diffuse intracranial atherosclerosis; no high-grade stenosis, LVO or aneurysm noted. MRI brain shows no acute or chronic infarct, T2 shine through in the posterior right parietal lobe (no clear ADC correlate to confirm stroke), mild to moderate small vessel disease. On examination, she reports that she had acute onset of LUE numbness with some associated weakness that started when she was outside smoking. Symptoms have improved over the last few days but were still bothersome to her, so she called her PCP who told her to come to the ED for further evaluation. NIHSS 0 in the ED today. Reports taking aspirin 81mg daily at home. Reports having a headache and neck/shoulder pain. Patient Features: Admission NIHSS: 0 Admission Modified Menard Scale: 1 Time patient last seen well: 3-4 days ago Wake up stroke: No Intubation status: Not intubated Stroke Risk Factors: Hypertension: Y Hyperlipidemia: Y Atrial Fib: N Tobacco: Y Diabetes: Y Taking NOAC or warfarin: N Allergies Allergy/AdvReac Type Severity Reaction Status Date / Time No Known Allergies Allergy Verified 12/01/19 12:36 Home Medications Home Medications Medication Instructions Recorded Confirmed Type black cohosh 40 mg PO DAILY 09/22/18 12/01/19 History cinnamon bark [Cinnamon] 1,500 mg PO DAILY 09/22/18 12/01/19 History blood sugar diagnostic #300 ea 03/08/19 12/01/19 Rx ferrous sulfate 325 mg (65 mg 325 mg PO TID #90 tab 04/11/19 12/01/19 Rx iron) tablet furosemide 20 mg tablet 20 mg PO DAILY #30 tab 04/11/19 12/01/19 Rx insulin glargine 100 unit/mL 15 unit SUBCUT HS #10 ml 04/11/19 12/01/19 Rx subcutaneous solution insulin regular human 100 unit/mL See Rx Instructions SUBCUT DAILY 06/08/19 12/01/19 Rx injection solution PRN #10 ml metformin 500 mg tablet 1,000 mg PO BID 30 Days #120 tab 09/12/19 12/01/19 Rx trazodone 50 mg tablet 50 mg PO DAILY #30 tab 09/12/19 12/01/19 Rx losartan 100 mg tablet 100 mg PO DAILY #90 tab 10/11/19 12/01/19 Rx omeprazole 20 mg capsule,delayed 20 mg PO BID #60 cap 10/11/19 12/01/19 Rx release simvastatin 20 mg tablet 20 mg PO HS #30 tab 10/11/19 12/01/19 Rx hydroxyzine HCl 25 mg tablet 25 mg PO TID PRN #90 tab 11/09/19 12/01/19 Rx methimazole 10 mg tablet 15 mg PO DAILY #90 tab 11/14/19 12/01/19 Rx ipratropium-albuterol [Combivent 1 puff INHALATION UD 12/01/19 12/01/19 History Respimat] Patient History Medical History Ambulatory dysfunction Arthritis Asthma (Chronic) COPD (chronic obstructive pulmonary disease) Family history of cholecystectomy Generalized arthritis Hypertension (Chronic) No pertinent family history Surgical History H/O section Had 3 History of thoracotomy (~2009) Right thoracotomy and wedge biopsy of right upper lobe lesion, right upper lobectomy with node samling 07/18/09 Dr. Mckee Family History Aunt Diabetes Uncle Diabetes Mother Diabetes Breast cancer Other Family history of cholecystectomy Social History Smoking Status: Current every day smoker Cigarettes Per Day: 15; Second Hand Exposure: Yes; Tobacco Cessation Education Requested by Patient: No Hx Alcohol Use: Yes Hx Substance Use: No Preferred Language: Malay Communication Ability: Effective Visual Impairment: No Limitations Hearing Ability: Normal Travel Occupational Therapist Required: No Beliefs That Will Affect Care: None marital status: Current Living Situation: Other Current Living Situation Comment: Friend/Roommate current occupational status: retired Other Information That Helps Us Care for You: No Feels Safe at Home: Yes Safety Concerns: Feels Safe At This Time Review of Systems Review of Systems: 14 point review of systems completed and negative except as in HPI. Exam (Neuro) Physical Exam: General Exam: GEN: NAD, sitting down in examination bed. HEENT: No conjunctival injection, no rhinorrhea. CV: RRR on monitor, no significant edema. PULM: Nonlabored respirations on room air. Neuro Exam: MS: Awake and Alert. Oriented to person, place, and date. Speech fluent and appropriate without dysarthria or paraphasic errors. Language intact including naming, comprehension, repetition. Cognition and memory grossly intact. Attention intact. No neglect. CN: Visual rice full, + blink to threat bilaterally. No extinction to double simultaneous stimuli. Normal fundoscopic exam. PERRLA OU. EOMI without nystagmus. Facial sensation intact to LT. Facial muscles full and symmetric. Hearing intact to finger rub bilaterally. Uvula midline with symmetric palatal elevation. SCMs and shoulder shrug normal. Tongue midline. MOTOR: Normal bulk and tone. No pronator drift. BUE strength 5/5 at deltoids, biceps, triceps, wrist flexors and extensors, and finger flexors bilaterally. BLE strength 5/5 at iliopsoas, hamstrings, quadriceps, tibialis anterior, and gastrocnemius bilaterally. REFLEXES: 2+ at biceps, triceps, brachioradialis, patella, and Achilles bilaterally. Flexor plantar responses bilaterally. SENSORY: Intact to LT throughout, no extinction to double simultaneous stimuli. Decreased vibration in BLEs up to the knees, intact in BUEs. COORDINATION: No dysmetria or ataxia on [id number] bilaterally. Normal [place] bilaterally. GAIT: Deferred due to physical status. NIH STROKE SCALE 1A. Level of Consciousness (0-3) = 0 1B. LOC Questions (0-2) = 0 1C. LOC Commands (0-2) = 0 2. Best Horizontal Gaze (0-2) = 0 3. Visual Rice (0-3) = 0 4. Facial Palsy (0-3) = 0 5. Motor Arm Right (0-4) = 0 Left (0-4) = 0 6. Motor Leg Right (0-4) = 0 Left (0-4) = 0 7. Limb Ataxia (0-2) = 0 8. Sensory (0-2) = 0 9. Best Language (0-3) = 0 10. Dysarthria (0-2) = 0 11. Extinction and Inattention (0-2) = 0 NIHSS TOTAL = 0 Results & Data ([facility]) Vital Signs (Past 12 Hours) Vital Signs Temp Pulse Resp BP Pulse Ox 12/01/19 13:01 85 19 116/80 97 12/01/19 13:00 86 24 95 12/01/19 12:33 85 23 97 12/01/19 12:32 86 24 153/62 H 98 12/01/19 12:31 86 21 94 12/01/19 12:30 86 24 117/80 97 12/01/19 12:29 96 12/01/19 11:05 89 24 98 12/01/19 11:04 88 24 153/80 H 98 12/01/19 11:03 98 12/01/19 11:00 92 H 23 12/01/19 10:46 93 H 26 H 12/01/19 10:35 37 C 92 H 20 143/71 H 98 PG Care Time/CCT Total # of Minutes Spent Total Time Spent with Patient: Total time spent is greater than 50% in coordination of care (as documented) at patient's floor/unit and/or counseling patient: Coding Level of Care Code 17916 Initial Inpt Care Lvl 3 Diagnoses Hyperthyroidism E05.90 Type II diabetes mellitus E11.9 Hyperlipidemia E78.5 Hypertension I10 TIA (transient ischemic attack) G45.9
[2019-12-01] MEDS ORDERED: CLOPIDOGREL BISULFATE 75 MG TAB PO ONE (13:21)
[2019-12-01] MEDS ORDERED: ASPIRIN 81 MG CHEW PO STA (13:21)
[2019-12-01] MEDS ORDERED: FLUTICASONE/VILANTEROL 100/25MCG 14 PUFFS/INHALER INH ONE (13:23)
[2019-12-01] MEDS ORDERED: CARBOHYDRATES FOR HYPOGLYCEMIA PO PRN (14:39)
[2019-12-01] MEDS ORDERED: ACETAMINOPHEN 325 MG TAB PO PRN (14:39)
[2019-12-01] MEDS ORDERED: GLUCOSE 10 TABS/TUBE PO PRN (14:39)
[2019-12-01] MEDS ORDERED: DEXTROSE 50% 50 ML SYRINGE IV PRN (14:39)
[2019-12-01] MEDS ORDERED: GLUCOSE 40% GEL 15 GM TUBE PO PRN (14:39)
[2019-12-01] MEDS ORDERED: PHARMACIST DISCHARGE MED REC CONSULT PRN (14:39)
[2019-12-01] MEDS ORDERED: GLUCAGON FOR INJ 1 MG VIAL SQ PRN (14:39)
[2019-12-01] MEDS ORDERED: ALBUTEROL HFA 8 GM INHALER INH PRN (16:34)
[2019-12-01] MEDS ORDERED: IPRATROPIUM BROMIDE HFA INHALER INH PRN (16:35)
--- NOTE | 2019-12-01 16:57 | XCELERA ---
[id number] [email or web address]\[id number]
--- NOTE | 2019-12-01 17:33 | Electrocardiogram Report ---
Test Reason : Blood Pressure : / mmHG Vent. Rate : 094 BPM Atrial Rate : 094 BPM P-R Int : 200 ms QRS Dur : 082 ms QT Int : 360 ms P-R-T Axes : 061 072 066 degrees QTc Int : 450 ms Normal sinus rhythm Normal ECG When compared with ECG of 22-SEP-2018 17:07, No significant change was found Confirmed by Sander Sutton ([id number]) on 12/01/2019 5:32:58 PM Referred By: Confirmed By:Hiro Sutton
[2019-12-01] MEDS ORDERED: IPRATROPIUM BROMIDE/ALBUTEROL respimat INH INH PRN (17:42)
[2019-12-01] MEDS: INSULIN ASPART 100 UNITS/ML 3 ML PEN SC SCH ×2 (17:48→20:48)
[2019-12-01] MEDS: FERROUS SULFATE 325 MG TAB PO SCH (20:46)
[2019-12-01] MEDS: PANTOprazole 40 MG TAB PO SCH (20:46)
[2019-12-01] MEDS: INSULIN GLARGINE SOLOSTAR 100 UNITS/ML 3 ML PEN SC SCH (20:48)
[2019-12-01] MEDS ORDERED: ATORVASTATIN 40 MG TAB PO SCH (21:00)
[2019-12-01] MEDS ORDERED: TRAZODONE HCL 50 MG TAB PO SCH (21:00)
[2019-12-01] MEDS ORDERED: SIMVASTATIN 20 MG TAB PO SCH (21:00)
[2019-12-02 05:59] LABS: Basophils # (auto) 0.01 K/uL (0-0.2); Basophils % (auto) 0.2 %; Eosinophils # (auto) 0.08 K/uL (0-0.5); Eosinophils % (auto) 1.8 %; Hematocrit (blood only) 28.4 % (37-47); Hemoglobin 9.7 g/dL (12.0-16.0); Lymphocytes # (auto) 1.88 K/uL (1.2-3.4); Lymphocytes % (auto) 43.3 %; Mean Corpuscular Hemoglobin 29.9 pg (25-34); Mean Corpuscular Hgb Conc 34.2 g/dL (32-36); Mean Corpuscular Volume 87.7 fL (80-100); Mean Platelet Volume 8.8 fL (7.4-10.4); Monocytes # (auto) 0.36 K/uL (0.11-0.59); Monocytes % (auto) 8.3 %; Neutrophils # (auto) 2.01 K/uL (1.4-6.5); Neutrophils % (auto) 46.4 %; Platelet Count 197 K/uL (130-400); RDW Coefficient of Variation 12.4 % (11.5-14.5); RDW Standard Deviation 40.1 fL (36.4-46.3); Red Blood Count 3.24 M/uL (4.2-5.4); White Blood Count 4.34 K/uL (4.8-10.8)
[2019-12-02 06:21] LABS: BUN Creatinine Ratio 17.2 (10-20); Blood Urea Nitrogen 13 mg/dl (7-18); Calcium 8.9 mg/dl (8.5-10.1); Carbon Dioxide 25 mmol/L (21-32); Chloride 111 mmol/L (98-107); Creatinine Clr Calc Pharmacy 63.7 ml/min; Est GFR (African American) 89.6; Est GFR (Non-African American) 77.3; Glucose 133 mg/dl (70-99); Magnesium 1.5 mg/dl (1.8-2.4); Potassium 4.2 mmol/L (3.5-5.1); Sodium 141 mmol/L (136-145)
[2019-12-02 06:32] LABS: Chol HDL Ratio 2; Cholesterol 89 mg/dl (0-200); HDL Cholesterol 43 mg/dl; LDL Cholesterol Calculated 21 mg/dl; Thyroid Stimulating Hormone < 0.005 uIu/ml (0.300-4.500); Triglycerides 126 mg/dl (0-150); VLDL Cholesterol 25 mg/dl
[2019-12-02 06:41] LABS: Estimated Average Glucose 160 mg/dl; Hemoglobin A1C 7.2 % (4.5-5.6)
[2019-12-02 06:44] LABS: T4 Free Thyroxine 2.21 ng/dl (0.8-1.6)
[2019-12-02] MEDS: MAGNESIUM SULFATE / D5W 1 GM/100 ML BAG IV SCH ×2 (08:17→10:07)
[2019-12-02] MEDS: INSULIN ASPART 100 UNITS/ML 3 ML PEN SC SCH ×2 (08:21→11:57)
[2019-12-02] MEDS: INSULIN GLARGINE SOLOSTAR 100 UNITS/ML 3 ML PEN SC SCH (08:22)
[2019-12-02] MEDS: FERROUS SULFATE 325 MG TAB PO SCH ×2 (08:22→13:02)
[2019-12-02] MEDS: PANTOprazole 40 MG TAB PO SCH (08:23)
[2019-12-02] MEDS ORDERED: ENOXAPARIN INJ 40 MG/0.4 ML SYR SQ SCH (09:00)
[2019-12-02] MEDS ORDERED: methIMAzole 5 MG TABLET PO SCH (09:00)
[2019-12-02] MEDS ORDERED: CLOPIDOGREL BISULFATE 75 MG TAB PO SCH (09:00)
[2019-12-02] MEDS ORDERED: UMECLIDINIUM BROMIDE 62.5MCG/BLISTER 7 PUFFS/INHALER INH SCH (09:00)
[2019-12-02] MEDS ORDERED: NON-FORMULARY MEDICATION (Cinnamon Bark [Cinnamon] 1,500 MG) PO SCH (09:00)
[2019-12-02] MEDS ORDERED: ASPIRIN 81 MG ECTAB PO SCH (09:00)
[2019-12-02] MEDS ORDERED: FLUTICASONE/VILANTEROL 100/25MCG 14 PUFFS/INHALER INH SCH (09:00)
[2019-12-02] MEDS ORDERED: BLACK COHOSH 40 MG PO SCH (09:00)
--- NOTE | 2019-12-02 13:01 | Discharge Summary ---
Date of Service December 02, 2019 Admission HPI Per Admitting Provider Marietta Fisher is a 74 year old female lifelong smoker with T2DM who presents to the ER on the insistence of her family and PCP after a sudden onset left arm weakness and chest pain that occurred 4 days ago. She was sitting on her balcony smoking when she had sudden severe 10/10, non radiation left sided chest pain. No associated diaphoresis, nausea or shortness of breath. Lasted for 5 mins and the chest pain completely resolved. Left arm weakness started at the same time and took a number of days to resolve. Weakness in her whole arm without numbness. Mainly noticed she was unable to case picker objects and was dropping things more. She called her PCP yesterday and was advised to come to the ER. Her plan was not to come in but is here today on the encouragement of her family. She is a lifelong smoker with 1-2 packs/day. No interested in giving up smoking despite prior history of lung cancer. Admission Exam Per Admitting Provider Constitutional: well developed and + obese; + not well nourished and no acute distress Eyes: PERRL, conjunctivae normal, anicteric sclerae ENMT: external ear and nose normal, oropharynx normal Neck: trachea midline, no thyromegaly Respiratory: + labored breathing, + uses accessory muscles, + cough (chronic) and + prolonged expiratory phase Auscultation: lungs clear to auscultation bilaterally; no diminished lung sounds, no crackles, no rales, no rhonchi and no wheezes Cardiovascular: RRR, no murmur, no edema Gastrointestinal (Abdomen): normal bowel sounds, soft, nontender, no h epatosplenomegaly Musculoskeletal: no cyanosis or clubbing, extremities motor strength 5/5 Principal Diagnosis Transient Ischemic Attack Discharge Exam Constitutional WD/WN, vitals as above cooperative Eyes PERRL, conjunctivae normal, anicteric sclerae ENMT external ear and nose normal, oropharynx normal Neck normal visual inspection and trachea midline Respiratory normal respiratory effort; no labored breathing Auscultation: + wheezes (bilateral lower lung starks) Cardiovascular RRR, no murmur, no edema Heart Sounds: normal S1 and normal S2 Extremities: no pedal edema Musculoskeletal + calcification on left patellar tendon Skin no rashes, warm and dry Neurologic CN's II-XI intact bilaterally and moves all extremities; no focal motor deficits Motor/Sensory: no tremor, normal movement and no sensory deficit Psychiatric A+Ox3, euthymic affect Discharge Data Allergies Allergy/AdvReac Type Severity Reaction Status Date / Time No Known Allergies Allergy Verified 12/01/19 12:36 Consultations 12/01/19 12:13 ED Decision to Admit Stat 12/01/19 14:39 Consult Case Management - Discharge Planning Routine Consult Neurology Routine 12/02/19 08:26 Consult Vascular Surgery Routine Ordered Studies 12/01/19 10:47 CT angio head w con Stat CT angio neck with con Stat CT head/brain wo con Stat 12/01/19 10:51 MR brain wo con Stat Hospital Course (1) TIA (transient ischemic attack): Mrs. Fisher is a 74 yo woman who presented to the [facility] emergency department on 12/01/19 for evaluation of sudden onset left arm numbness and weakness that began on 11/28/19. A full stroke work up was ordered, which showed no definitive evidence of acute or subacute infarction. Given her numerous risk factors for vascular disease, her event was attributed to a transient ischemic attack. - presented well outside TPA window - patient without focal neuro deficits on exam - non-contrast head CT negative for intracranial bleed - CTA of head and neck unremarkable except for the mid to distal internal carotid arteries in the neck demonstrate a slightly beaded appearance suggesting fibromuscular dysplasia. Even if present, area was not noted to be significantly stenotic, unlikely to be responsible for recent event - brain MRI with equivocal area of hypodensity, but no definite infarct - TTE without intraatrial shunt or thrombus - ABCD2 score of 5, patient at elevated risk of infarct in short term - neurology recommend ASA 81mg + plavix 75mg for 21 days, after which time she should just take plavix; also to d/c ignacio ervin - patient has virtual visit arranged with neurology FREDY Lawrence on 12/23/19 Outpatient items to do: Risk factor management as below (2) Tobacco use: - patient has smoked since age 17 - reported subjective hx of left lobar lung cancer s/p lobectomy - currently smoking 3 ppd - does not to quit totally, but is determined to cut back to 1 ppd - counseled her on risks of continued tobacco abuse Outpatient items to do: continue conversation towards quitting, provide nicotine replacement/medication therapy as needed. Consider ordering a surveillance chest CT for additional cancer screening. (3) Type II diabetes mellitus: - A1c at goal at 7.2 - continue home metformin and insulin - continue losartan - increased statin from simvastatin to high intensity atorvastatin (although lipid panel drawn in hospital already on the low side) Outpatient items to do: Repeat A1c in 3 months. Repeat lipid panel in 6 weeks to make sure values are not dropping below physiologic threshold (4) Hyperlipidemia: - total cholesterol 89, LDL 21, HDL 49, ratio 2. TG at 126 - per neurology recommendations, increased statin from simvastatin 10mg to atorvastatin 40mg for plaque stabilization effect Outpatient items to do: repeat lipid panel in 6 weeks as above (5) Iron deficiency anemia: - Hgb 9.7 in hospital - continue PO iron supplement (6) COPD (chronic obstructive pulmonary disease): - continue home inhalers (7) Calcification of tendon: - patient has a calcification atop her left patellar tendon, noted incidentally on exam - it bothers her when she kneels Outpatient items to do: patient is interested in having removed. Please arrange as outpatient. (8) Hyperthyroidism: - follows with [facility] - TSH < 0.005 in hospital - patient reports endocrine provider recommend surgery at her last visit - she will call him when she is ready Total Time Total Time Spent Total Time Spent (In Minutes): >30 Discharge Plan Discharge Items Patient Disposition: Home - Self-Care Reason For Visit: CVA,CHEST PAIN Discharge Diagnosis: TIA Activity: Resume your previous activity Non-emergency contact: Primary Care Provider Call non-emergency contact if: your symptoms worsen Follow-up/Referrals: Booker David MD [Primary Care Provider] - Diet: Carb Consistent or DM2 and Heart Healthy Addtl Attending Provider Instructions: You were hospitalized at [facility] for evaluation of left arm weakness that came on suddenly on Monday 11/27. A full stroke work-up was ordered, which included a head cat scan, a cat scan of your neck, a brain MRI, as well as an echocardiogram (ultrasound of your heart). The imaging of your head showed some narrowing of your arteries, but no definite evidence of a large stroke. Instead, we believe you suffered a Transient Ischemic Attack, or a "TIA," also known as a "mini-stroke." You should understand that this mini-stroke was a warning sign that your body is in danger of future damage - this is worrisome, because future damage could be irreversible. Risk factors for stroke include cigarette smoking, diabetes, high cholesterol and high blood pressure, all of which you have. We talked about your tobacco abuse - you said you have been smoking since age 17 and said you will never quit, despite the fact that you already had lung cancer and have now suffered a mini-stroke. You did report you would be willing to cut down on the number of cigarettes you smoke each day. Right now you are smoking 3 packs per day, but you set a goal to get down to 1 pack per day. We support this reduction. The following medication changes were made during your hospital stay: In addition to your daily baby aspirin, please take Plavix, 75mg daily for the next 21 days. After 21 days, you may discontinue daily baby aspirin and just take Plavix, 75mg, daily. We also increased the intensity of your cholesterol lowering medication from simvastatin 20mg to Atorvastatin 40mg, daily. Since you already tolerate the simvastatin well, you don't foresee any issues with tolerating the high-intensity version. We are switching your acid tanna from omeprazole to pantoprazole, 40mg, daily. This is a small substitution that will not likely result in a noticeable difference to you, but pantoprazole works better with plavix. Finally we recommend you stop using black cohash. Please follow up with your primary care doctor, Dr. David within a week's time. A follow up (virtual visit) was also arranged with Neurology DAVE Lawrence on 12/23/19 at 9:00am. Pending Studies at Discharge: No Stand-Alone Forms: Medications to Prevent Stroke, My [facility], Smoking Cessation Medications and DC Order Prescriptions: New atorvastatin 40 mg Tablet 40 mg PO HS 30 Days Qty: 30 RF: 0 clopidogrel 75 mg Tablet 75 mg PO QAM 30 Days Qty: 30 RF: 0 aspirin 81 mg Tablet,Delayed Release (Dr/Ec) 81 mg PO QAM 21 Days Qty: 21 RF: 0 pantoprazole 40 mg Tablet,Delayed Release (Dr/Ec) 40 mg PO BID 30 Days Qty: 60 RF: 0 Continued (DME) OneTouch Ultra Blue Test Strip strip See Dose Instructions .ROUTE .MEDSUPPLY Qty: 300 RF: 3 ferrous sulfate 325 mg (65 mg iron) tablet 325 mg PO TID Qty: 90 RF: 5 furosemide [Lasix] 20 mg tablet 20 mg PO DAILY Qty: 30 RF: 5 Lantus U-100 Insulin 100 unit/mL solution 15 unit SUBCUT HS Qty: 10 RF: 5 Humulin R Regular U-100 Insuln 100 unit/mL solution See Rx Instructions SUBCUT DAILY PRN (Reason: SLIDING SCALE) Qty: 10 RF: 5 trazodone 50 mg tablet 50 mg PO DAILY Qty: 30 RF: 5 metformin 500 mg tablet 1,000 mg PO BID 30 Days Qty: 120 RF: 3 losartan 100 mg tablet 100 mg PO DAILY Qty: 90 RF: 3 hydroxyzine HCl 25 mg tablet 25 mg PO TID PRN (Reason: Anxiety) Qty: 90 RF: 2 methimazole 10 mg tablet 15 mg PO DAILY Qty: 90 RF: 1 Combivent Respimat 20-100 mcg/actuation mist 1 puff INHALATION UD RF: 0 cinnamon bark [Cinnamon] 500 mg Capsule 1,500 mg PO DAILY RF: 0 Discontinued omeprazole 20 mg capsule,delayed release(DR/EC) 20 mg PO BID Qty: 60 RF: 5 simvastatin 20 mg tablet 20 mg PO HS Qty: 30 RF: 5 black cohosh 40 mg Tablet 40 mg PO DAILY RF: 0 Discharge Orders: Discharge Order (Routine); Ordered 12/02/19 Ordered By: Jennifer Gaviria/Other Patient Handouts: Managing Type 2 Diabetes, TIA Dc, Diabetes: Meal Planning, Atorvastatin tablets, Pantoprazole tablets, Clopidogrel tablets, Aspirin ASA oral tablets Admission Data Admit Date/Time: 12/01/19 13:29 Attending Provider: Immanuel Gomes Admit Provider: Holger Rucker Primary Care Provider: Booker David Other Providers: Holger Rucker ; Erica Ames ; Tomasz Mcgee Other Interventions: Discharge Summary Assessment (RN) Last Done: 12/02/19 14:59 DC Date/Time DO NOT enter until pt leaves facility: 12/02/19 15:40 Supervising Physician Co-Signing Physician Notes I personally examined the patient and verified all reyes points of history and exam, discussed case, and agree with decision making with Dr Perez. feeling better discussed TIA - and discussed risk for progression to CVA. discussed secondary risk reduction. discussed critical ipmortance of smoke cessation in this discussed TSH still being low - notes endocrine aware and on it - they really would prefer she have thyroidectomy per her recollection vitals noted nad heent nc at mmm breathing unlabored no accessory muscles good effort skin no rashes no pallor or icterus TIA - small vessel from myriad risks - of which smoking is the biggest by far. med management, secondary risk reduction, hopefully smoke cessation (she at least was willing to cut down) fibromuscular dysplasia carotid - outpt f/u - not read on films as tight, just present - so maybe contributory by watershed effect, but not clear if it plays a role or not. seeing neuro as outpt in this regard, can refer to vascular if needed stable for home, otherwise as above Resident Activity Tracking Resident Involvement: Resident Care Provided Care Provided: Adult Hospital Medicine
[2019-12-02] MEDS ORDERED: STROKE PATIENT DISCHARGE STA (14:50)
--- NOTE | 2019-12-02 15:22 | Pharmacy Report ---
Pharmacist Stroke Counseling - Date of Service December 02, 2019 - Scope: Pharmacy has been consulted to provide medication discharge counseling for this patient admitted with transient ischemic attack as per the Pharmacist Discharge Counseling for Stroke Patients Protocol. - Medications on Discharge: Home Medications Medication Instructions Recorded Confirmed cinnamon bark [Cinnamon] 1,500 mg PO DAILY 09/22/18 12/01/19 Combivent Respimat 1 puff INHALATION UD 12/01/19 12/01/19 New Rx's Medication Instructions Recorded blood sugar diagnostic #300 ea 03/08/19 ferrous sulfate 325 mg (65 mg 325 mg PO TID #90 tab 04/11/19 iron) tablet furosemide 20 mg tablet 20 mg PO DAILY #30 tab 04/11/19 insulin glargine 100 unit/mL 15 unit SUBCUT HS #10 ml 04/11/19 subcutaneous solution insulin regular human 100 unit/mL See Rx Instructions SUBCUT DAILY 06/08/19 injection solution PRN #10 ml metformin 500 mg tablet 1,000 mg PO BID 30 Days #120 tab 09/12/19 trazodone 50 mg tablet 50 mg PO DAILY #30 tab 09/12/19 losartan 100 mg tablet 100 mg PO DAILY #90 tab 10/11/19 hydroxyzine HCl 25 mg tablet 25 mg PO TID PRN #90 tab 11/09/19 methimazole 10 mg tablet 15 mg PO DAILY #90 tab 11/14/19 aspirin 81 mg PO QAM 21 Days #21 tab 12/02/19 atorvastatin 40 mg PO HS 30 Days #30 tab 12/02/19 clopidogrel 75 mg PO QAM 30 Days #30 tab 12/02/19 pantoprazole 40 mg PO BID 30 Days #60 tab 12/02/19 - Action: The above medications, specifically ones for stroke treatment/prophylaxis, have been reviewed in detail with the patient and/or patient outbound call center representative(s) prior to discharge. This includes indication, common adverse reactions, drug interactions, and medication administration. Medication counseling has been employed using the teach-back method to ensure understanding. - Outcome: The patient and/or patient outbound call center representative(s) have demonstrated understanding of the medications. Additional comments: - Patient made aware of drug interaction between omeprazole and new medication, clopidogrel. Patient understands that omeprazole should not be taken following discharge and that pantoprazole 40 mg BID has taken its place. - Reiterated that aspirin 81 mg daily and clopidogrel 75 mg daily should be taken together for 21 days and then aspirin should be stopped and clopidogrel continued ongoing. - Patient also made aware of the recommendation to stop black cohosh upon discharge. Thank you for allowing pharmacy to be involved in the care of this patient. Please call [phone] with any additional questions
--- NOTE | 2019-12-02 15:53 | Neurology Progress Note ---
Date of Service December 02, 2019 Assessment & Plan (1) Hyperthyroidism: (2) Type II diabetes mellitus: (3) Hyperlipidemia: (4) Hypertension: (5) TIA (transient ischemic attack): Marietta Fisher is a 74 yo woman w/ PMH of DM, HLD, HTN, GERD, COPD, tobacco abuse, hyperthyroidism, left adrenal mass, iron deficiency anemia and arthritis who p/t [facility] with acute onset of LUE weakness a/w chest pain. Symptom localization: pure sensory stroke by description would localize to the right thalamus or internal capsule Stroke mechanism: cardioembolic vs lacunar/lipohyalinosis, FMD can also cause stroke like episodes Stroke WorkUp: - CT head: no hemorrhage or hypodensity. - CTA head/neck: shows bilateral mild plaque at the ICA bifurcations (worse on the left than the right), right vertebral artery atherosclerosis with mild associated narrowing, beaded appearance of bilateral ICAs suggestive of fibromuscular dysplasia and diffuse intracranial atherosclerosis; no high-grade stenosis, LVO or aneurysm noted - MRI brain: shows no acute or chronic infarct, T2 shine through in the posterior right parietal lobe (no clear ADC correlate to confirm stroke), mild to moderate small vessel disease - TTE: EF 55-60%, mild LVH, mild MR, no interatrial shunt - Telemetry: NSR - A1c: 7.2 - FLP: 21 - Troponin, TSH: negative, <0.005 Stroke Management: - Acute treatment: ASA - Continuous cardiac monitoring, will consider Holter monitor as outpatient if telemetry here unrevealing - Vitals, Neurochecks, NIHSS per unit routine - BP parameters: SBP CAP 180, restart home anti-hypertensives for permissive HTN - Consult speech, PT, OT for supportive management - Will genetic counsellor concerning stroke education, smoking cessation, healthy diet, physical activity, weight loss - Follow up with PCP for assistance with outpatient goals (BP <130/80, LDL <70, A1c <7) - Follow up in neurology clinic in 2-4 weeks (can be virtual check in with Alma DANIEL) - Given suspected FMD, will need outpatient DSA (this can be arranged at outp atient neurology visit) - If confirmed, she will need one time CTA chest/abdomen to r/o other blood vessel abnormalities and should continue on AP indefinitely - would consider discontinuing home black cohosh given increased risk of side effects if on AP/h/o TIA or stroke Secondary Stroke Prevention: - Antiplatelet: ASA 81mg po daily/plavix 75mg daily x 21 days, then just plavix 75mg daily - Anticoagulation: Not indicated at this time - Statin: Atorvastatin 40mg daily HTN: - BP parameters, as above - Ok to restart home medications with goal of lowering BP to normotension over next 3-4 days FEN/GI: - Diet: Ok for PO meds/Cardiac HH diet - Monitor lytes and replete PRN Glucose Control: - Sliding scale insulin and accuchecks per primary team to avoid hyperglycemia Thank you for this interesting consult. Plan of care was discussed with primary team. Please call with any questions. Admission and Anticipated Discharge Date Admission Date: December 01, 2019 Subjective NAEs overnight. Reports doing well today. Up and walking around, ready to go home. No further neurological events. Review of Systems Review of Systems: 14 point review of systems completed and negative except as in HPI. Results & Data ([facility]) Vital Signs (Past 12 Hours) Vital Signs Temp Pulse Pulse Pulse Resp BP BP 12/02/19 14:59 37.0 C 75 58 L 20 139/96 147/58 H 12/02/19 11:38 37.0 C 58 L 20 147/58 H 12/02/19 11:27 12/02/19 07:35 75 12/02/19 07:11 37.1 C 76 20 139/96 Pulse Ox Pulse Ox 12/02/19 14:59 95 12/02/19 11:38 95 12/02/19 11:27 93 12/02/19 07:35 12/02/19 07:11 95 Exam (Neuro) Physical Exam: General Exam: GEN: NAD, sitting down in examination bed. HEENT: No conjunctival injection, no rhinorrhea. CV: RRR on monitor, no significant edema. PULM: Nonlabored respirations on room air. Neuro Exam: MS: Awake and Alert. Oriented to person, place, and date. Speech fluent and appropriate without dysarthria or paraphasic errors. Language intact including naming, comprehension, repetition. Cognition and memory grossly intact. Attention intact. No neglect. CN: Visual rice full, + blink to threat bilaterally. No extinction to double simultaneous stimuli. Normal fundoscopic exam. PERRLA OU. EOMI without nystagmus. Facial sensation intact to LT. Facial muscles full and symmetric. Hearing intact to finger rub bilaterally. Uvula midline with symmetric palatal elevation. SCMs and shoulder shrug normal. Tongue midline. MOTOR: Normal bulk and tone. No pronator drift. BUE strength 5/5 at deltoids, biceps, triceps, wrist flexors and extensors, and finger flexors bilaterally. BLE strength 5/5 at iliopsoas, hamstrings, quadriceps, tibialis anterior, and gastrocnemius bilaterally. REFLEXES: 2+ at biceps, triceps, brachioradialis, patella, and Achilles bilaterally. Flexor plantar responses bilaterally. SENSORY: Intact to LT throughout, no extinction to double simultaneous stimuli. Decreased vibration in BLEs up to the knees, intact in BUEs. COORDINATION: No dysmetria or ataxia on [id number] bilaterally. Normal [place] bilaterally. GAIT: Normal gait and armswing NIH STROKE SCALE 1A. Level of Consciousness (0-3) = 0 1B. LOC Questions (0-2) = 0 1C. LOC Commands (0-2) = 0 2. Best Horizontal Gaze (0-2) = 0 3. Visual Rice (0-3) = 0 4. Facial Palsy (0-3) = 0 5. Motor Arm Right (0-4) = 0 Left (0-4) = 0 6. Motor Leg Right (0-4) = 0 Left (0-4) = 0 7. Limb Ataxia (0-2) = 0 8. Sensory (0-2) = 0 9. Best Language (0-3) = 0 10. Dysarthria (0-2) = 0 11. Extinction and Inattention (0-2) = 0 NIHSS TOTAL = 0 PG Care Time/CCT Total # of Minutes Spent Total Time Spent with Patient: Total time spent is greater than 50% in coordination of care (as documented) at patient's floor/unit and/or counseling patient: Coding Level of Care Code 96986 Subseq Hosp Care Lvl 3 Diagnoses Hyperthyroidism E05.90 Type II diabetes mellitus E11.9 Hyperlipidemia E78.5 Hypertension I10 TIA (transient ischemic attack) G45.9
--- NOTE | 2019-12-02 17:09 | Billing Data ---
Date of Service December 02, 2019 Coding Level of Care Code D/C Day Management >30 mins
[2019-12-02] MEDS ORDERED: ATORVASTATIN 40 MG TAB PO SCH (21:00)
--- NOTE | 2019-12-05 09:42 | Consultation ---
Date of Consultation December 05, 2019 History of Present Illness Attending Physician: Immanuel Gomes DO History of Present Illness Vascular consultation was NOT performed during this admission d/t pt d/c before being seen. Do not charge pt or insurance for this consultation. Allergies Allergy/AdvReac Type Severity Reaction Status Date / Time No Known Allergies Allergy Verified 12/01/19 12:36 Home Medications Home Medications Medication Instructions Recorded Confirmed Type cinnamon bark [Cinnamon] 1,500 mg PO DAILY 09/22/18 12/01/19 History blood sugar diagnostic #300 ea 03/08/19 12/01/19 Rx ferrous sulfate 325 mg (65 mg 325 mg PO TID #90 tab 04/11/19 12/01/19 Rx iron) tablet furosemide 20 mg tablet 20 mg PO DAILY #30 tab 04/11/19 12/01/19 Rx insulin glargine 100 unit/mL 15 unit SUBCUT HS #10 ml 04/11/19 12/01/19 Rx subcutaneous solution insulin regular human 100 unit/mL See Rx Instructions SUBCUT DAILY 06/08/19 12/01/19 Rx injection solution PRN #10 ml metformin 500 mg tablet 1,000 mg PO BID 30 Days #120 tab 09/12/19 12/01/19 Rx trazodone 50 mg tablet 50 mg PO DAILY #30 tab 09/12/19 12/01/19 Rx losartan 100 mg tablet 100 mg PO DAILY #90 tab 10/11/19 12/01/19 Rx hydroxyzine HCl 25 mg tablet 25 mg PO TID PRN #90 tab 11/09/19 12/01/19 Rx methimazole 10 mg tablet 15 mg PO DAILY #90 tab 11/14/19 12/01/19 Rx Combivent Respimat 1 puff INHALATION UD 12/01/19 12/01/19 History aspirin 81 mg PO QAM 21 Days #21 tab 12/02/19 Rx atorvastatin 40 mg PO HS 30 Days #30 tab 12/02/19 Rx clopidogrel 75 mg PO QAM 30 Days #30 tab 12/02/19 Rx pantoprazole 40 mg PO BID 30 Days #60 tab 12/02/19 Rx Patient History Medical History Ambulatory dysfunction Arthritis Asthma (Chronic) COPD (chronic obstructive pulmonary disease) Family history of cholecystectomy Generalized arthritis Hypertension (Chronic) No pertinent family history Tobacco use Surgical History H/O section Had 3 History of thoracotomy (~2009) Right thoracotomy and wedge biopsy of right upper lobe lesion, right upper lobectomy with node samling 07/18/09 Dr. Mckee Family History Aunt Diabetes Uncle Diabetes Mother Diabetes Breast cancer Other Family history of cholecystectomy Social History Smoking Status: Current every day smoker Cigarettes Per Day: 15; Second Hand Exposure: Yes; Hx Alcohol Use: Yes Hx Substance Use: No Preferred Language: Cuban Communication Ability: Effective Visual Impairment: No Limitations Hearing Ability: Normal File Drawer Finisher Required: No Beliefs That Will Affect Care: None marital status: Current Living Situation: Other Current Living Situation Comment: Friend/Roommate current occupational status: retired Feels Safe at Home: Yes
== END 2019-12-02 15:40 | disposition home or self-care (01) | DRG 69 ==
LOC: ED 10:19 → SUATTDRO 13:29 → 2E 13:29

== ENCOUNTER 2022-07-11 19:53 | Observation (INO) ==
[2022-07-11 21:03] LABS: Basophils # (auto) 0.02 K/uL (0-0.2); Basophils % (auto) 0.2 %; Hematocrit (blood only) 29.5 % (37.0-47.0); Hemoglobin 9.8 g/dl (12.0-16.0); Immature Granulocytes # (auto) 0.04 K/uL (0.01-0.20); Immature Granulocytes % (auto) 0.5 %; Lymphocytes # (auto) 1.89 K/uL (1.2-3.4); Lymphocytes % (auto) 22.2 %; Mean Corpuscular Hemoglobin 31.6 pg (25.0-34.0); Mean Corpuscular Hgb Conc 33.2 g/dL (32.0-36.0); Mean Corpuscular Volume 95.2 fL (80.0-100.0); Mean Platelet Volume 9.5 fL (9.4-12.4); Monocytes # (auto) 0.44 K/uL (0.11-0.59); Monocytes % (auto) 5.2 %; Neutrophils # (auto) 6.11 K/uL (1.40-6.50); Neutrophils % (auto) 71.9 %; Platelet Count 177 K/uL (130-400); RDW Coefficient of Variation 13.1 % (11.5-14.5); RDW Standard Deviation 45.1 fL (36.4-46.3)
[2022-07-11 21:07] LABS: Alanine Aminotransferase 10 U/L (7-52); Albumin Globulin Ratio 1.4 (0.9-2); Alkaline Phosphatase 50 U/L (34-104); Anion Gap 8 (3-11); Aspartate Aminotransferase 11 U/L (13-39); BUN Creatinine Ratio 12.8 (10-20); Bilirubin,Total 0.3 mg/dl (0.2-1.0); Blood Urea Nitrogen 17 mg/dl (6-23); Calcium 9.1 mg/dl (8.5-10.1); Carbon Dioxide 24 mmol/L (21-32); Chloride 106 mmol/L (98-107); Est GFR (African American) 44.9 ml/min; Est GFR (Non-African American) 38.7 ml/min; Globulin 2.9 gm/dl (2.5-4.0); Glucose 266 mg/dl (70-99(Fasting)); Potassium 4.4 mmol/L (3.5-5.1); Sodium 138 mmol/L (136-145); Total Protein 6.9 gm/dl (6.0-8.3)
[2022-07-11 21:39] LABS: Partial Thromboplastin Ratio 0.9; Partial Thromboplastin Time 25.3 Seconds (21.0-31.0); Prothrombin Time 10.3 Seconds (9.0-12.0)
[2022-07-11] MEDS ORDERED: ACETAMINOPHEN 1,000 MG/100 ML VIAL IV STA (22:15)
[2022-07-11] MEDS ORDERED: SODIUM CHLORIDE 0.9% 500 ML IV ONE (22:15)
[2022-07-11] MEDS ORDERED: MoRPHine SULFATE 2 MG/ML CARP IV STA (22:16)
[2022-07-11 23:05] LABS: Magnesium 1.4 mg/dl (1.7-2.4); Phosphorus 4.2 mg/dl (2.5-4.9)
[2022-07-12] MEDS: MAGNESIUM SULFATE / D5W 1 GM/100 ML BAG IV SCH ×2 (00:18→01:14)
--- NOTE | 2022-07-12 00:52 | Emergency Department Note ---
Impression & Plan Near syncope, Hypomagnesemia, Fall from standing, Closed fracture of right proximal humerus, CKD (chronic kidney disease) ED Provider Note NAME: YVONNE GILMORE AGE: 76 SEX: F ARRIVES VIA: Ambulance INFORMANT: Patient ED PROVIDER(S): Gennaro Alvarado MD CHIEF COMPLAINT: Fall, Right shoulder pain. PLAN: Disposition: Admit MEDICAL DECISION MAKING: The patient is a pleasant 76-year-old woman with a past medical history of COPD, hypertension, diabetes, GERD, ambulatory dysfunction, generalized osteoarthritis, anxiety/depression, history of CVA who presents to the emergency department via EMS and then accompanied by her daughter for evaluation of near syncopal episode where she reports moving her bowels in the bathroom and upon standing up to leave became lightheaded and fell to the ground on her right shoulder. She denies hitting her head or fully losing consciousness. She takes Plavix. She denies anticoagulation otherwise. Denies any recent illness and reports was feeling in her normal state of health prior to her fall. She denies fevers, cough, congestion, GI or symptoms. On arrival the patient is uncomfortable but no acute distress, afebrile with BP initially 90s/50s, improving with IVF and otherwise stable vital signs. She appears clinically dry. She has mild deformity of her right shoulder with limited range of motion secondary to pain. Distal PMS is intact. Head is atraumatic. There is no CTL spine midline tenderness palpation or step-offs. Pelvis is stable and hips with full range of motion bilaterally. EKG without overt acute ischemia. CXR negative for acute cardiopulmonary process and negative for rib fractures or pneumothorax per my preliminary review. Plain film of the right shoulder demonstrates right proximal humerus fracture per my preliminary review. WBC and platelets within normal limits. H/H similar to prior. Chemistry without metabolic acidosis. Creatinine 1.3 improved from and similar to prior values. Magnesium 1.4 with repletion initiated. LFTs unremarkable. TSH within normal limits. CT of the head was performed Given the patient's proximal right humerus fracture with baseline ambulatory dysfunction in the setting of living alone as well as her hypomagnesemia the patient and her daughter did agree with plan for admission for pain control as well as PT/OT evaluation. Case was discussed with Dr. Glaser, [facility] hospitalist, who will evaluate the patient for admission. Triage Nursing notes reviewed and agree them. Prior/outside medical records reviewed Vital Signs: reviewed Differential diagnosis: Cardiac ischemia, aortic dissection, pulmonary embolism, pneumothorax, pneumonia, pericarditis, myocarditis, esophageal rupture, GERD, cholecystitis, pancreatitis, musculoskeletal, as well as other pathologies. ER treatment provided: See below. Diagnostics interpreted by me: ECG: Normal sinus rhythm, 74 bpm, no ectopy, no overt ST elevation or depression, QTc 460, QRS 82. Cardiac Monitoring: An order for continuous cardiac monitoring was placed and demonstrated Normal sinus rhythm, 74 bpm, no ectopy. Laboratory studies: See below Imaging studies: See below Consultation(s): Case was discussed with Dr. Glaser, [facility] hospitalist, who will evaluate the patient for admission. HPI: The patient is a pleasant 76-year-old woman with a past medical history of COPD, hypertension, diabetes, GERD, ambulatory dysfunction, generalized osteoarthritis, anxiety/depression, history of CVA who presents to the emergency department via EMS and then accompanied by her daughter for evaluation of near syncopal episode where she reports moving her bowels in the bathroom and upon standing up to leave became lightheaded and fell to the ground on her right shoulder. She denies hitting her head or fully losing consciousness. She takes Plavix. She denies anticoagulation otherwise. Denies any recent illness and reports was feeling in her normal state of health prior to her fall. She denies fevers, cough, congestion, GI or symptoms. ROS: See above HPI for pertinent positives & negatives. A total of 10 systems reviewed and were otherwise negative. VITALS:See Below PHYSICAL EXAMINATION: GENERAL: Awake, alert, uncomfortable-appearing, in no distress, BMI 30.9. HENT: Normocephalic, atraumatic. Oropharynx with dry mucous membranes and otherwise unremarkable. EYES: Normal conjunctiva. Sclera non-icteric. EOMI. No nystamgus. PEARRL. NECK: Supple. No nuchal rigidity. FROM. No JVD. RESPIRATORY: Clear to auscultation. CARDIAC: Regular rate, normal rhythm. Extremities warm and well perfused. Pulses equal. ABDOMEN: Soft, non-distended. No tenderness to palpation. No rebound or guarding. No masses. RECTAL: Deferred. MUSCULOSKELETAL: Mild deformity of her right shoulder with limited range of motion secondary to pain. Distal PMS is intact. Chest wall is nontender to palpation. There is no CTL spine midline tenderness palpation or step-offs. Pelvis is stable and hips with full range of motion bilaterally. LOWER EXTREMITIES: Calves are equal size bilaterally and non-tender. No edema. No discoloration. NEURO: Normal sensorium. No sensory or motor deficits noted. SKIN: No rash or jaundice noted. Gennaro Alvarado MD Past Med/Surg History Medical History Anxiety with depression Asthma USES INHALER DAILY COPD (chronic obstructive pulmonary disease) Uses inhaler qid - pt takes routinely- not PRN Breathing stable - chronic [place] History of lung cancer Dxed 7-8 years ago S/p right lung resection No chemo or XRT - no current issues Hyperlipidemia Hypertension Hyperthyroidism Graves disease. Takes Methimazole Iron deficiency anemia TIA (transient ischemic attack) 12/01/20 - admitted to [facility]- no residual deficits On Plavix Type II diabetes mellitus Glucose controlled Varicose vein of leg NO SURGERY Surgical History H/O section Had 3 History of hysterectomy History of thoracotomy (~2009) Right thoracotomy and wedge biopsy of right upper lobe lesion, right upper lobectomy with node samling 07/18/09 Dr. Mckee History of tooth extraction Family History Aunt Diabetes Myocardial infarction Uncle Prostate cancer Diabetes Myocardial infarction Mother Diabetes Breast cancer Unknown Ovarian cancer Other Family history of cholecystectomy No family history of adverse response to anesthesia Denies family history of Colorectal cancer Social History Smoking Status: Current every day smoker Tobacco Type: Cigarettes Age Started Using Tobacco: 17; packs per day: 2.5; Cigarettes Per Day: 30; Second Hand Exposure: Yes; Hx Alcohol Use: No Hx Substance Use: No Preferred Language: Bahraini Communication Ability: Effective Visual Impairment: No Limitations Hearing Ability: Hard of Hearing Net Lead Architect Required: No Beliefs That Will Affect Care: None marital status: Current Living Situation: Alone current occupational status: retired current occupation: retired from working in retail Feels Safe at Home: Yes Childhood Exposure to Second-Hand Smoke: Yes Dental Care, Regularly: No Physical Activity Frequency: Does not Exercise Seatbelt Use: sometimes Sunscreen Use: No Assistive Devices: Glasses and Walker Allergies Allergies Allergy/AdvReac Type Severity Reaction Status Date / Time blue dye Allergy Mild Nausea Verified 07/11/22 23:40 Home Meds Home Medications Medication Instructions Recorded Confirmed ferrous sulfate 325 mg (65 mg 325 mg PO BID 10/01/21 07/11/22 iron) tablet albuterol sulfate 90 mcg/actuation 1 puff inhalation DIRECTED PRN 07/11/22 07/11/22 aerosol inhaler (Ventolin HFA) shortness of breath or wheezing atorvastatin 40 mg tablet 40 mg PO HS 07/11/22 07/11/22 insulin glargine 100 unit/mL 15 unit subcut HS PRN IF NEEDED 07/11/22 07/11/22 subcutaneous solution (Lantus PER PT U-100 Insulin) insulin regular human 100 unit/mL 0 unit subcut DIRECTED PRN 07/11/22 07/11/22 injection solution (Humulin R SLIDING SCALE Regular U-100 Insulin) trazodone 50 mg tablet 50 mg PO HS 07/11/22 07/11/22 Previous Rx's Medication Instructions Recorded blood sugar diagnostic (OneTouch #300 ea 03/08/19 Ultra Blue Test Strip) magnesium chloride 71.5 mg 71.5 mg PO BID #180 tabs 06/07/21 (magnesium chloride) tablet,delayed release (Slow-Mag) clopidogrel 75 mg tablet 75 mg PO DAILY #90 tabs 07/03/21 losartan 100 mg tablet 100 mg PO DAILY #90 tabs 08/05/21 metformin 500 mg tablet 1,000 mg PO BID 3 months #360 tabs 10/04/21 fluticasone fur. 100 mcg-umeclid 1 inh inhalation DAILY #60 ea 10/10/21 62.5 mcg-vilant 25 mcg inhalat.powder (Trelegy Ellipta) hydroxyzine HCl 25 mg tablet 25 mg PO TID PRN Anxiety #90 tabs 05/05/22 methimazole 10 mg tablet 15 mg PO DAILY #135 tabs 06/04/22 pantoprazole 40 mg tablet,delayed 40 mg PO BID #180 tabs 06/04/22 release omeprazole 20 mg capsule,delayed 20 mg PO BID #60 caps 07/07/22 release Results & Data (ED) Vital Signs Vital Signs - 24 hr 07/11/22 19:55 07/11/22 20:05 07/11/22 20:32 Temperature 36.7 C Temperature Source Oral Pulse Rate 73 84 74 Respiratory Rate 20 20 Respiratory Effort / Characteristics Non-Labored Spontaneous Respiratory Depth Normal Blood Pressure 95/58 L 100/60 Blood Pressure Mean 70 73 Pulse Oximetry 95 94 Oxygen Delivery Method Room Air Room Air Sepsis New/Unexplained Change in Mental Status N/A Sepsis Action Taken by Nursing No Action Required 07/11/22 20:15 07/11/22 20:32 07/11/22 21:02 Temperature Temperature Source Pulse Rate 77 85 88 Respiratory Rate 20 18 18 Respiratory Effort / Characteristics Respiratory Depth Blood Pressure 102/63 100/60 102/62 Blood Pressure Mean 76 73 75 Pulse Oximetry 100 98 96 Oxygen Delivery Method Sepsis New/Unexplained Change in Mental Status Sepsis Action Taken by Nursing 07/11/22 21:07 07/11/22 21:31 07/11/22 22:00 Temperature Temperature Source Pulse Rate 83 84 Respiratory Rate 18 20 Respiratory Effort / Characteristics Respiratory Depth Blood Pressure 108/61 131/68 124/67 Blood Pressure Mean 76 89 86 Pulse Oximetry 94 96 Oxygen Delivery Method Sepsis New/Unexplained Change in Mental Status Sepsis Action Taken by Nursing 07/11/22 22:30 07/11/22 23:26 07/12/22 00:16 Temperature Temperature Source Pulse Rate 89 80 78 Respiratory Rate 20 18 Respiratory Effort / Characteristics Respiratory Depth Blood Pressure 95/79 L 106/52 L Blood Pressure Mean 84 70 Pulse Oximetry 93 94 Oxygen Delivery Method Room Air Sepsis New/Unexplained Change in Mental Status Sepsis Action Taken by Nursing 07/11/22 23:30 07/12/22 00:00 07/12/22 00:31 Temperature Temperature Source Pulse Rate 82 81 80 Respiratory Rate 20 22 22 Respiratory Effort / Characteristics Respiratory Depth Blood Pressure 107/52 L 111/57 L 123/64 Blood Pressure Mean 70 75 83 Pulse Oximetry 92 93 94 Oxygen Delivery Method Sepsis New/Unexplained Change in Mental Status Sepsis Action Taken by Nursing 07/12/22 01:00 Temperature Temperature Source Pulse Rate 80 Respiratory Rate 20 Respiratory Effort / Characteristics Respiratory Depth Blood Pressure 121/65 Blood Pressure Mean 83 Pulse Oximetry 95 Oxygen Delivery Method Sepsis New/Unexplained Change in Mental Status Sepsis Action Taken by Nursing Laboratory Data Attestation: I reviewed the patient's lab results. 07/11/22 20:15 07/11/22 20:15 Lab Results 07/11/22 07/11/22 07/11/22 Range/Units 20:15 20:15 20:15 WBC 8.50 (4.8-10.8) K/ul RBC 3.10 L (4.20-5.40) M/uL Hgb 9.8 L (12.0-16.0) g/dl Hct 29.5 L (37.0-47.0) % MCV 95.2 (80.0-100.0) fL MCH 31.6 (25.0-34.0) pg MCHC 33.2 (32.0-36.0) g/dL RDW Std Deviation 45.1 (36.4-46.3) fL RDW Coeff of Norma 13.1 (11.5-14.5) % Plt Count 177 (130-400) K/uL MPV 9.5 (9.4-12.4) fL Immature Gran % (Auto) 0.5 % Neut % (Auto) 71.9 % Lymph % (Auto) 22.2 % Kidder % (Auto) 5.2 % Eos % (Auto) 0.0 % Baso % (Auto) 0.2 % Neut # (Auto) 6.11 (1.40-6.50) K/uL Lymph # (Auto) 1.89 (1.2-3.4) K/uL Kidder # (Auto) 0.44 (0.11-0.59) K/uL Eos # (Auto) 0.00 (0-0.50) K/uL Baso # (Auto) 0.02 (0-0.2) K/uL Immature Gran # (Auto) 0.04 (0.01-0.20) K/uL PT 10.3 (9.0-12.0) Seconds INR 1.0 (0.9-1.1) APTT 25.3 (21.0-31.0) Seconds PTT Ratio 0.9 Sodium 138 (136-145) mmol/L Potassium 4.4 (3.5-5.1) mmol/L Chloride 106 (98-107) mmol/L Carbon Dioxide 24 (21-32) mmol/L Anion Gap 8 (3-11) BUN 17 (6-23) mg/dl Creatinine 1.33 H (0.6-1.2) mg/dl Est Cr Clr Drug Dosing Not Reportable Est GFR ( Amer) 44.9 ml/min Est GFR (Non-Af Amer) 38.7 ml/min BUN/Creatinine Ratio 12.8 (10-20) Glucose 266 H (70-99(Fasting)) mg/dl Calcium 9.1 (8.5-10.1) mg/dl Phosphorus 4.2 (2.5-4.9) mg/dl Magnesium 1.4 L (1.7-2.4) mg/dl Total Bilirubin 0.3 (0.2-1.0) mg/dl AST 11 L (13-39) U/L ALT 10 (7-52) U/L Alkaline Phosphatase 50 (34-104) U/L Total Protein 6.9 (6.0-8.3) gm/dl Albumin 4.0 (3.4-5.0) gm/dl Globulin 2.9 (2.5-4.0) gm/dl Albumin/Globulin Ratio 1.4 (0.9-2) TSH (0.300-4.500) uIu/ml SARS-CoV-2, RNA, NAAT (NEGATIVE) 07/11/22 07/12/22 Range/Units 20:15 00:46 WBC (4.8-10.8) K/ul RBC (4.20-5.40) M/uL Hgb (12.0-16.0) g/dl Hct (37.0-47.0) % MCV (80.0-100.0) fL MCH (25.0-34.0) pg MCHC (32.0-36.0) g/dL RDW Std Deviation (36.4-46.3) fL RDW Coeff of Norma (11.5-14.5) % Plt Count (130-400) K/uL MPV (9.4-12.4) fL Immature Gran % (Auto) % Neut % (Auto) % Lymph % (Auto) % Kidder % (Auto) % Eos % (Auto) % Baso % (Auto) % Neut # (Auto) (1.40-6.50) K/uL Lymph # (Auto) (1.2-3.4) K/uL Kidder # (Auto) (0.11-0.59) K/uL Eos # (Auto) (0-0.50) K/uL Baso # (Auto) (0-0.2) K/uL Immature Gran # (Auto) (0.01-0.20) K/uL PT (9.0-12.0) Seconds INR (0.9-1.1) APTT (21.0-31.0) Seconds PTT Ratio Sodium (136-145) mmol/L Potassium (3.5-5.1) mmol/L Chloride (98-107) mmol/L Carbon Dioxide (21-32) mmol/L Anion Gap (3-11) BUN (6-23) mg/dl Creatinine (0.6-1.2) mg/dl Est Cr Clr Drug Dosing Est GFR ( Amer) ml/min Est GFR (Non-Af Amer) ml/min BUN/Creatinine Ratio (10-20) Glucose (70-99(Fasting)) mg/dl Calcium (8.5-10.1) mg/dl Phosphorus (2.5-4.9) mg/dl Magnesium (1.7-2.4) mg/dl Total Bilirubin (0.2-1.0) mg/dl AST (13-39) U/L ALT (7-52) U/L Alkaline Phosphatase (34-104) U/L Total Protein (6.0-8.3) gm/dl Albumin (3.4-5.0) gm/dl Globulin (2.5-4.0) gm/dl Albumin/Globulin Ratio (0.9-2) TSH 1.231 (0.300-4.500) uIu/ml SARS-CoV-2, RNA, NAAT NEGATIVE (NEGATIVE) Administered Medications Discontinued Medications Sodium Chloride (Nss) 500 mls @ 999 mls/hr IV .Q31M ONE Stop: 07/11/22 22:45 Last Infusion: 07/11/22 23:01 Dose: 0 mls/hr Documented By: Admin: 07/11/22 22:30 Dose: 999 mls/hr Documented By: DEDRICK Acetaminophen (Ofirmev) 1,000 mg in 100 mls @ 400 mls/hr IV NOW STA Stop: 07/11/22 22:29 Last Infusion: 07/11/22 22:55 Dose: 0 mls/hr Documented By: Admin: 07/11/22 22:31 Dose: 400 mls/hr Documented By: DEDRICK Magnesium Sulfate/Dextrose (Magnesium Sulfate / D5w) 1 gm in 100 mls @ 100 mls/hr IV Q1H KASH Stop: 07/12/22 02:09 Last Infusion: 07/12/22 02:17 Dose: 0 mls/hr Documented By: Admin: 07/12/22 01:14 Dose: 100 mls/hr Documented By: Infusion: 07/12/22 01:14 Dose: 0 mls/hr Documented By: Admin: 07/12/22 00:18 Dose: 100 mls/hr Documented By: DEDRICK Morphine Sulfate (Morphine Sulfate 2 Mg/Ml Carp) 2 mg IV NOW STA Stop: 07/11/22 22:17 Last Admin: 07/11/22 22:27 Dose: 2 mg Documented By: DEDRICK Imaging Data Radiologist's Impression: Head CT 07/11/22 22:15 Exam(s): CT HEAD Without Contrast EXAM: CT Head Without Intravenous Contrast CLINICAL HISTORY: Reason for exam: fall, pain. TECHNIQUE: Axial computed tomography images of the head/brain without intravenous contrast. CTDI is 35.84 mGy and DLP is 614.27 mGy-cm. Automated exposure control was utilized for the study. A dose lowering technique was utilized adhering to the principles of ALARA. COMPARISON: 12/01/19 FINDINGS: Brain: Areas of decreased attenuation in the deep cerebral white matter are consistent with small vessel ischemic/degenerative changes. The cerebral and cerebellar sulci are prominent consistent with brain atrophy. No hemorrhage. Ventricles: Unremarkable. No ventriculomegaly. Bones/joints: Unremarkable. No acute fracture. Soft tissues: Unremarkable. Vasculature: Atherosclerotic disease. Sinuses: Unremarkable as visualized. No acute sinusitis. Mastoid air cells: Unremarkable as visualized. No mastoid effusion. IMPRESSION: 1. Small vessel ischemic/degenerative changes. 2. Cerebral and cerebellar atrophy. Electronically signed by: Oleg Fox MD 07/12/22 01:22 AM Discharge Plan Visit Data Chief Complaint: Dizziness ED Provider: Gennaro Alvarado Discharge Problem: Near syncope, Hypomagnesemia, Fall from standing, Closed fracture of right proximal humerus, CKD (chronic kidney disease) Patient Disposition: Admitted As Inpatient Discharge Instructions Interventions: ED Discharge Assessment Last Done: 07/12/22 04:18
--- NOTE | 2022-07-12 01:16 | History & Physical Report ---
Date of Service July 12, 2022 Assessment & Plan (1) Closed left humeral fracture: (2) TIA (transient ischemic attack): (3) CVA (cerebral vascular accident): (4) Anxiety with depression: (5) GERD (gastroesophageal reflux disease): (6) Hyperlipidemia: (7) Generalized osteoarthritis: (8) Tobacco use: (9) Hyperthyroidism: (10) Type II diabetes mellitus: (11) COPD (chronic obstructive pulmonary disease): (12) Hypertension: (13) Asthma: (14) Hypomagnesemia: Plan: Closed proximal left humerus fracture- We will consult orthopedic surgery, but likely conservative therapy Acetaminophen 650 mg by mouth every 6 hours as needed for mild pain or fever Oxycodone 5 mg every 4 hours as needed for moderate pain Morphine sulfate 4 mg IV every 4 hours as needed for severe pain N.p.o. except medications until assessed by orthopedics We will need PT OT consult Has had surgery by Dr. Padilla on 09/2020 Cerebrovascular disease- Hold Plavix for now Diabetes mellitus- Hold insulin glargine and metformin Placed on Accu-Cheks with NovoLog SSI Hypertension- Hold losartan Hyperlipidemia- Continue atorvastatin Hyperthyroidism- Continue methimazole GERD- Continue pantoprazole Anxiety with depression/insomnia- Continue trazodone History of Present Illness Chief Complaint: The patient presents to the emergency department with complaint of left shoulder pain after a near syncopal episode where she fell off of the commode following a bowel movement and injured her left shoulder Primary Care Provider: Sander David MD The patient is a 76-year-old female with a past medical history including TIA, CVA, anxiety depression, GERD, generalized arthritis, ambulatory dysfunction, hyperlipidemia, adrenal mass, tobacco use, hypomagnesemia, hyperparathyroidism, iron deficiency anemia, type 2 diabetes mellitus, COPD, hypertension and asthma. She presents to the emergency department with left shoulder pain as noted above. X-ray of left shoulder shows a closed proximal humeral fracture CT head is negative Significant laboratories: Magnesium 1.4, hemoglobin 9.8, hematocrit 29.5, creatinine 1.33, glucose 266 From the ED the patient received the following: Magnesium sulfate 2 g IV, normal saline 500 mL bolus, Tylenol 1 g IV, and morphine sulfate 2 mg IV Allergies Allergy/AdvReac Type Severity Reaction Status Date / Time blue dye Allergy Mild Nausea Verified 07/11/22 23:40 Home Medications Medication Instructions Recorded Confirmed Type blood sugar diagnostic (OneTouch #300 ea 03/08/19 02/14/22 Rx Ultra Blue Test Strip) magnesium chloride 71.5 mg 71.5 mg PO BID #180 tabs 06/07/21 07/11/22 Rx (magnesium chloride) tablet,delayed release (Slow-Mag) clopidogrel 75 mg tablet 75 mg PO DAILY #90 tabs 07/03/21 07/11/22 Rx losartan 100 mg tablet 100 mg PO DAILY #90 tabs 08/05/21 07/11/22 Rx ferrous sulfate 325 mg (65 mg 325 mg PO BID 10/01/21 07/11/22 History iron) tablet metformin 500 mg tablet 1,000 mg PO BID 3 months #360 tabs 10/04/21 07/11/22 Rx fluticasone fur. 100 mcg-umeclid 1 inh inhalation DAILY #60 ea 10/10/21 07/11/22 Rx 62.5 mcg-vilant 25 mcg inhalat.powder (Trelegy Ellipta) hydroxyzine HCl 25 mg tablet 25 mg PO TID PRN Anxiety #90 tabs 05/05/22 07/11/22 Rx methimazole 10 mg tablet 15 mg PO DAILY #135 tabs 06/04/22 07/11/22 Rx pantoprazole 40 mg tablet,delayed 40 mg PO BID #180 tabs 06/04/22 07/11/22 Rx release omeprazole 20 mg capsule,delayed 20 mg PO BID #60 caps 07/07/22 07/11/22 Rx release albuterol sulfate 90 mcg/actuation 1 puff inhalation DIRECTED PRN 07/11/22 07/11/22 History aerosol inhaler (Ventolin HFA) shortness of breath or wheezing atorvastatin 40 mg tablet 40 mg PO HS 07/11/22 07/11/22 History insulin glargine 100 unit/mL 15 unit subcut HS PRN IF NEEDED 07/11/22 07/11/22 History subcutaneous solution (Lantus PER PT U-100 Insulin) insulin regular human 100 unit/mL 0 unit subcut DIRECTED PRN 07/11/22 07/11/22 History injection solution (Humulin R SLIDING SCALE Regular U-100 Insulin) trazodone 50 mg tablet 50 mg PO HS 07/11/22 07/11/22 History Past Med/Surg History Medical History Anxiety with depression Asthma USES INHALER DAILY COPD (chronic obstructive pulmonary disease) Uses inhaler qid - pt takes routinely- not PRN Breathing stable - chronic OHARA History of lung cancer Dxed 7-8 years ago S/p right lung resection No chemo or XRT - no current issues Hyperlipidemia Hypertension Hyperthyroidism Graves disease. Takes Methimazole Iron deficiency anemia TIA (transient ischemic attack) 12/01/20 - admitted to [facility]- no residual deficits On Plavix Type II diabetes mellitus Glucose controlled Varicose vein of leg NO SURGERY Surgical History H/O section Had 3 History of hysterectomy History of thoracotomy (~2009) Right thoracotomy and wedge biopsy of right upper lobe lesion, right upper lobectomy with node samling 07/18/09 Dr. Mckee History of tooth extraction Family History Aunt Diabetes Myocardial infarction Uncle Prostate cancer Diabetes Myocardial infarction Mother Diabetes Breast cancer Unknown Ovarian cancer Other Family history of cholecystectomy No family history of adverse response to anesthesia Denies family history of Colorectal cancer Social History Smoking Status: Current every day smoker Tobacco Type: Cigarettes Age Started Using Tobacco: 17; packs per day: 2.5; Cigarettes Per Day: 2-4 CIG DAILY "I DON'T REALY KNOW"; Second Hand Exposure: Yes; Hx Alcohol Use: No Hx Substance Use: No Preferred Language: [place] Communication Ability: Effective Visual Impairment: No Limitations Hearing Ability: Hard of Hearing Geomagnetician Required: No Beliefs That Will Affect Care: None marital status: Current Living Situation: Alone current occupational status: retired current occupation: retired from working in retail Feels Safe at Home: Yes Childhood Exposure to Second-Hand Smoke: Yes Dental Care, Regularly: No Physical Activity Frequency: Does not Exercise Seatbelt Use: sometimes Sunscreen Use: No Assistive Devices: None Review of Systems Review of Systems: The patient denies chest pain, palpitations, shortness of breath, dyspnea on exertion, cough, lower extremity swelling, sore throat, fevers, chills, sweats, weight change, fatigue, nausea, vomiting, diarrhea , constipation, abdominal pain, pelvic pain, blood in urine or stool, dysuria, urinary frequency or urgency, loss of consciousness, rash, abnormal bruising or bleeding, generalized arthralgias or myalgias, back or neck pain, or night sweats. The review of systems is otherwise negative other than for that already noted above, and at least 10 systems have been reviewed. Physical Exam Physical Exam: The patient is awake, alert and oriented 3, well developed and well nourished, normocephalic and atraumatic, lying in bed and in no acute distress. HEENT--PERRL, EOMI, mucous membranes and oropharynx mildly dry. Neck--supple. No JVD. No bruits. Thyroid normal, trachea midline, no adenopathy. Heart--normal S1 and S2. No murmurs, rubs or gallops. Lungs--clear bilaterally, no respiratory distress, no accessory muscle use. Abdomen--normal bowel sounds and soft. Nontender. Nondistended, no hernias or masses, no organomegaly. Extremities--no cyanosis or clubbing. No edema Dermatologic--normal skin turgor, normal color, no abnormal lymph nodes, no rash. Neurologic--cranial nerves II through XII grossly intact. Rheumatologic--exam is limited due to left shoulder pain Psychiatric--normal affect. Results & Data Results & Data Vital Signs (Past 12 Hours) Vital Signs Temp Pulse Resp BP Pulse Ox O2 Del Method 07/12/22 00:31 80 22 123/64 94 07/12/22 00:00 81 22 111/57 L 93 07/11/22 23:30 82 20 107/52 L 92 07/12/22 00:16 78 07/11/22 23:26 80 18 106/52 L 94 Room Air 07/11/22 22:30 89 20 95/79 L 93 07/11/22 22:00 84 20 124/67 96 07/11/22 21:31 83 18 131/68 94 07/11/22 21:07 108/61 07/11/22 21:02 88 18 102/62 96 07/11/22 20:32 85 18 100/60 98 07/11/22 20:15 77 20 102/63 100 07/11/22 20:32 74 20 100/60 94 Room Air 07/11/22 20:05 84 07/11/22 19:55 36.7 C 73 20 95/58 L 95 Room Air Laboratory Results Laboratory Results WBC 8.50 K/ul (4.8-10.8) 07/11/22 20:15 RBC 3.10 M/uL (4.20-5.40) L 07/11/22 20:15 Hgb 9.8 g/dl (12.0-16.0) L 07/11/22 20:15 Hct 29.5 % (37.0-47.0) L 07/11/22 20:15 MCV 95.2 fL (80.0-100.0) 07/11/22 20:15 MCH 31.6 pg (25.0-34.0) 07/11/22 20:15 MCHC 33.2 g/dL (32.0-36.0) 07/11/22 20:15 RDW Std Deviation 45.1 fL (36.4-46.3) 07/11/22 20:15 RDW Coeff of Norma 13.1 % (11.5-14.5) 07/11/22 20:15 Plt Count 177 K/uL (130-400) 07/11/22 20:15 MPV 9.5 fL (9.4-12.4) 07/11/22 20:15 Immature Gran % (Auto) 0.5 % 07/11/22 20:15 Neut % (Auto) 71.9 % 07/11/22 20:15 Lymph % (Auto) 22.2 % 07/11/22 20:15 Loving % (Auto) 5.2 % 07/11/22 20:15 Eos % (Auto) 0.0 % 07/11/22 20:15 Baso % (Auto) 0.2 % 07/11/22 20:15 Neut # (Auto) 6.11 K/uL (1.40-6.50) 07/11/22 20:15 Lymph # (Auto) 1.89 K/uL (1.2-3.4) 07/11/22 20:15 Loving # (Auto) 0.44 K/uL (0.11-0.59) 07/11/22 20:15 Eos # (Auto) 0.00 K/uL (0-0.50) 07/11/22 20:15 Baso # (Auto) 0.02 K/uL (0-0.2) 07/11/22 20:15 Immature Gran # (Auto) 0.04 K/uL (0.01-0.20) 07/11/22 20:15 PT 10.3 Seconds (9.0-12.0) 07/11/22 20:15 INR 1.0 (0.9-1.1) 07/11/22 20:15 APTT 25.3 Seconds (21.0-31.0) 07/11/22 20:15 PTT Ratio 0.9 07/11/22 20:15 Sodium 138 mmol/L (136-145) 07/11/22 20:15 Potassium 4.4 mmol/L (3.5-5.1) 07/11/22 20:15 Chloride 106 mmol/L (98-107) 07/11/22 20:15 Carbon Dioxide 24 mmol/L (21-32) 07/11/22 20:15 Anion Gap 8 (3-11) 07/11/22 20:15 BUN 17 mg/dl (6-23) 07/11/22 20:15 Creatinine 1.33 mg/dl (0.6-1.2) H 07/11/22 20:15 Est Cr Clr Drug Dosing Not Reportable 07/11/22 20:15 Est GFR ( Amer) 44.9 ml/min 07/11/22 20:15 Est GFR (Non-Af Amer) 38.7 ml/min 07/11/22 20:15 BUN/Creatinine Ratio 12.8 (10-20) 07/11/22 20:15 Glucose 266 mg/dl (70-99(Fasting)) H 07/11/22 20:15 Calcium 9.1 mg/dl (8.5-10.1) 07/11/22 20:15 Phosphorus 4.2 mg/dl (2.5-4.9) 07/11/22 20:15 Magnesium 1.4 mg/dl (1.7-2.4) L 07/11/22 20:15 Total Bilirubin 0.3 mg/dl (0.2-1.0) 07/11/22 20:15 AST 11 U/L (13-39) L 07/11/22 20:15 ALT 10 U/L (7-52) 07/11/22 20:15 Alkaline Phosphatase 50 U/L (34-104) 07/11/22 20:15 Total Protein 6.9 gm/dl (6.0-8.3) 07/11/22 20:15 Albumin 4.0 gm/dl (3.4-5.0) 07/11/22 20:15 Globulin 2.9 gm/dl (2.5-4.0) 07/11/22 20:15 Albumin/Globulin Ratio 1.4 (0.9-2) 07/11/22 20:15 TSH 1.231 uIu/ml (0.300-4.500) 07/11/22 20:15 SARS-CoV-2, RNA, NAAT NEGATIVE (NEGATIVE) 07/12/22 00:[address] 07/11/22 22:15 Exam(s): CT HEAD Without Contrast EXAM: CT Head Without Intravenous Contrast CLINICAL HISTORY: Reason for exam: fall, pain. TECHNIQUE: Axial computed tomography images of the head/brain without intravenous contrast. CTDI is 35.84 mGy and DLP is 614.27 mGy-cm. Automated exposure control was utilized for the study. A dose lowering technique was utilized adhering to the principles of ALARA. COMPARISON: 12/01/19 FINDINGS: Brain: Areas of decreased attenuation in the deep cerebral white matter are consistent with small vessel ischemic/degenerative changes. The cerebral and cerebellar sulci are prominent consistent with brain atrophy. No hemorrhage. Ventricles: Unremarkable. No ventriculomegaly. Bones/joints: Unremarkable. No acute fracture. Soft tissues: Unremarkable. Vasculature: Atherosclerotic disease. Sinuses: Unremarkable as visualized. No acute sinusitis. Mastoid air cells: Unremarkable as visualized. No mastoid effusion. IMPRESSION: 1. Small vessel ischemic/degenerative changes. 2. Cerebral and cerebellar atrophy. Electronically signed by: Oleg Fox MD 07/12/22 01:22 AM Code Status & VTE Plan Code Status Full code VTE Prophylaxis Plan VTE Prophylaxis will be ordered: Yes PG Care Time/CCT Total # of Minutes Spent Total Time Spent with Patient: Total time spent is greater than 50% in coordination of care (as documented) at patient's floor/unit and/or counseling patient: Coding Level of Care Code 43162 INT INP/OBS CARE 3/75MIN Diagnoses Closed left humeral fracture S42.302A TIA (transient ischemic attack) G45.9 CVA (cerebral vascular accident) I63.9 Anxiety with depression F41.8 GERD (gastroesophageal reflux disease) K21.9 Hyperlipidemia E78.5 Generalized osteoarthritis M15.9 Tobacco use Z72.0 Hyperthyroidism E05.90 Type II diabetes mellitus E11.9 Diabetes mellitus adjunct faculty for medical terminology insulin use: without adjunct faculty for medical terminology use Diabetes mellitus complication status: without complication COPD (chronic obstructive pulmonary disease) J44.9 COPD type: unspecified COPD Hypertension I10 Hypertension type: essential hypertension Asthma J45.909 Hypomagnesemia E83.42 (10) Type II diabetes mellitus Diabetes mellitus senior living insulin use: without senior living use Diabetes mellitus complication status: without complication Qualified Code(s): E11.9 - Type 2 diabetes mellitus without complications (11) COPD (chronic obstructive pulmonary disease) COPD type: unspecified COPD Qualified Code(s): J44.9 - Chronic obstructive pulmonary disease, unspecified (12) Hypertension Hypertension type: essential hypertension Qualified Code(s): I10 - Essential (primary) hypertension
--- NOTE | 2022-07-12 01:23 | CT Scan Report ---
Exam(s): CT HEAD Without Contrast EXAM: CT Head Without Intravenous Contrast CLINICAL HISTORY: Reason for exam: fall, pain. TECHNIQUE: Axial computed tomography images of the head/brain without intravenous contrast. CTDI is 35.84 mGy and DLP is 614.27 mGy-cm. Automated exposure control was utilized for the study. A dose lowering technique was utilized adhering to the principles of ALARA. COMPARISON: 12/01/19 FINDINGS: Brain: Areas of decreased attenuation in the deep cerebral white matter are consistent with small vessel ischemic/degenerative changes. The cerebral and cerebellar sulci are prominent consistent with brain atrophy. No hemorrhage. Ventricles: Unremarkable. No ventriculomegaly. Bones/joints: Unremarkable. No acute fracture. Soft tissues: Unremarkable. Vasculature: Atherosclerotic disease. Sinuses: Unremarkable as visualized. No acute sinusitis. Mastoid air cells: Unremarkable as visualized. No mastoid effusion. IMPRESSION: 1. Small vessel ischemic/degenerative changes. 2. Cerebral and cerebellar atrophy. Electronically signed by: Oleg Fox MD 07/12/22 01:22 AM
[2022-07-12] MEDS ORDERED: hydrOXYzine HCl 25 MG TAB PO PRN (04:42)
[2022-07-12] MEDS ORDERED: GLUCOSE 40% GEL 15 GM TUBE PO PRN (04:42)
[2022-07-12] MEDS ORDERED: ALBUTEROL HFA 8 GM INHALER INH PRN (04:42)
[2022-07-12] MEDS ORDERED: CARBOHYDRATES FOR HYPOGLYCEMIA PO PRN (04:42)
[2022-07-12] MEDS ORDERED: ONDANSETRON INJ 2 MG/ML 2 ML VIAL IV PRN (04:42)
[2022-07-12] MEDS ORDERED: GLUCOSE 10 TAB/TUBE PO PRN (04:42)
[2022-07-12] MEDS ORDERED: DEXTROSE 50% 50 ML SYRINGE IV PRN (04:42)
[2022-07-12] MEDS ORDERED: GLUCAGON FOR INJ 1 MG VIAL SQ PRN (04:42)
[2022-07-12] MEDS ORDERED: NSS + 20MEQ KCL 20 MEQ/1,000 ML BAG IV SCH (05:00)
[2022-07-12] MEDS: INSULIN ASPART PER UNIT CHARGE SC SCH ×5 (06:20→20:56)
[2022-07-12] MEDS: ACETAMINOPHEN 325 MG TAB PO PRN ×2 (06:46→20:57)
--- NOTE | 2022-07-12 07:36 | Electrocardiogram Report ---
Test Reason : Blood Pressure : / mmHG Vent. Rate : 074 BPM Atrial Rate : 074 BPM P-R Int : 168 ms QRS Dur : 082 ms QT Int : 422 ms P-R-T Axes : 052 071 066 degrees QTc Int : 468 ms Normal sinus rhythm Low voltage QRS Borderline ECG When compared with ECG of 01-DEC-2019 10:43, No significant change was found Confirmed by Sander Sutton ([id number]) on 07/12/2022 7:36:14 AM Referred By: REFERRED SELF Confirmed By:Hiro Sutton
[2022-07-12] MEDS: PANTOprazole 40 MG TAB PO SCH ×2 (08:19→20:57)
[2022-07-12] MEDS: MAGNESIUM CHLORIDE W/CALCIUM 64MG DELAYED REL TAB PO SCH ×2 (08:19→20:57)
[2022-07-12] MEDS: methIMAzole 5 MG TABLET PO SCH (08:19)
[2022-07-12] MEDS: FLUTICASONE FUROATE 100MCG 14 PUFFS/INHALER INH SCH (08:22)
[2022-07-12] MEDS: UMECLIDINIUM/VILANTEROL 62.5/25MCG 7 PUFFS/INHALER INH SCH (08:23)
--- NOTE | 2022-07-12 08:24 | XRay Report ---
XR chest 1V portable CLINICAL HISTORY: dizziness COMPARISON STUDY: Lung screening CT March 14, 2022. FINDINGS: An acute displaced right humeral neck fracture is incidentally noted. Cardiomegaly is uncha nged. There is no pneumothorax or pleural effusion. No evidence for pulmonary edema or pneumonia. Old right fifth rib fracture. IMPRESSION: 1. No acute cardiopulmonary findings. 2. Acute displaced right humeral neck fracture. ACT 112: Negative or not required by law. Electronically signed by: Joseluis Becerra M.D. 07/12/2022 8:22 AM
--- NOTE | 2022-07-12 08:24 | XRay Report ---
XR shoulder RT min 2V routine CLINICAL HISTORY: Shoulder trauma, no prior imaging COMPARISON: Chest radiograph December 01, 2019. FINDINGS: There is an acute right humeral neck fracture. There is significant anterior displacement of the shaft with respect to the head. Alignment of the right glenohumeral joint is suboptimally asse ssed on this exam but likely anatomic. Alignment of the right AC joint is anatomic. There are moderat e degenerative changes of the right shoulder. IMPRESSION: Acute right humeral neck fracture with significant anterior displacement of the shaft wit h respect to the head. Suboptimal evaluation of the right glenohumeral joint but likely anatomic. ACT 112: Negative or not required by law. Electronically signed by: Joseluis Becerra M.D. 07/12/2022 8:21 AM
[2022-07-12] MEDS ORDERED: NON-FORMULARY MEDICATION (Fluticasone-Umeclidin-Vilanter [Trelegy Ellipta] 100-62.5-25 mcg INH SCH (09:00)
[2022-07-12] MEDS ORDERED: NON-FORMULARY MEDICATION (Omeprazole 20 mg capsule,delayed release(DR/EC)) PO SCH (09:00)
--- NOTE | 2022-07-12 09:16 | Orthopedic Consultation ---
Date of Consultation July 12, 2022 Assessment & Plan (1) Closed fracture of right proximal humerus: IMPRESSION: Right Proximal Humerus fracture, closed, initial visit Acute Goal: Decreased pain. PLAN: Would initially plan to treat conservatively. Will notify Dr. Padilla Re-adjusted sling May eat from Ortho stand point. Ice. No lifting RUE. Will obtain CT right shoulder to better assess the fracture and ensure glenohumeral joint is located. Continue care per primary service. Present on Admission?: Yes History of Present Illness Reason for Consultation: R shoulder proximal humerus fracture Requesting Physician: Precious Brown MD Attending Physician: Vinicius Glaser MD History of Present Illness The patient is a 76-year-old female with complaint of left shoulder pain after a near syncopal episode where she fell off the commode following a bowel movement and injured her left shoulder She went to the ED where x-rays were obtained. She was placed in a sling. She was admitted to the hospitalist service. She has past medical history including TIA, CVA, anxiety depression, GERD, generalized arthritis, ambulatory dysfunction, hyperlipidemia, adrenal mass, tobacco use, hypomagnesemia, hyperparathyroidism, iron deficiency anemia, type 2 diabetes mellitus, COPD, hypertension and asthma. She has been treated by Dr. Padilla in the past. I was consulted as I am covering for [facility]. Allergies Allergy/AdvReac Type Severity Reaction Status Date / Time blue dye Allergy Mild Nausea Verified 07/11/22 23:40 Home Medications Medication Instructions Recorded Confirmed Type blood sugar diagnostic (OneTouch #300 ea 03/08/19 02/14/22 Rx Ultra Blue Test Strip) magnesium chloride 71.5 mg 71.5 mg PO BID #180 tabs 06/07/21 07/11/22 Rx (magnesium chloride) tablet,delayed release (Slow-Mag) clopidogrel 75 mg tablet 75 mg PO DAILY #90 tabs 07/03/21 07/11/22 Rx losartan 100 mg tablet 100 mg PO DAILY #90 tabs 08/05/21 07/11/22 Rx ferrous sulfate 325 mg (65 mg 325 mg PO BID 10/01/21 07/11/22 History iron) tablet metformin 500 mg tablet 1,000 mg PO BID 3 months #360 tabs 10/04/21 07/11/22 Rx fluticasone fur. 100 mcg-umeclid 1 inh inhalation DAILY #60 ea 10/10/21 07/11/22 Rx 62.5 mcg-vilant 25 mcg inhalat.powder (Trelegy Ellipta) hydroxyzine HCl 25 mg tablet 25 mg PO TID PRN Anxiety #90 tabs 05/05/22 07/11/22 Rx methimazole 10 mg tablet 15 mg PO DAILY #135 tabs 06/04/22 07/11/22 Rx pantoprazole 40 mg tablet,delayed 40 mg PO BID #180 tabs 06/04/22 07/11/22 Rx release omeprazole 20 mg capsule,delayed 20 mg PO BID #60 caps 07/07/22 07/11/22 Rx release albuterol sulfate 90 mcg/actuation 1 puff inhalation DIRECTED PRN 07/11/22 07/11/22 History aerosol inhaler (Ventolin HFA) shortness of breath or wheezing atorvastatin 40 mg tablet 40 mg PO HS 07/11/22 07/11/22 History insulin glargine 100 unit/mL 15 unit subcut HS PRN IF NEEDED 07/11/22 07/11/22 History subcutaneous solution (Lantus PER PT U-100 Insulin) insulin regular human 100 unit/mL 0 unit subcut DIRECTED PRN 07/11/22 07/11/22 History injection solution (Humulin R SLIDING SCALE Regular U-100 Insulin) trazodone 50 mg tablet 50 mg PO HS 07/11/22 07/11/22 History Patient History Medical History Anxiety with depression Asthma USES INHALER DAILY COPD (chronic obstructive pulmonary disease) Uses inhaler qid - pt takes routinely- not PRN Breathing stable - chronic [place] History of lung cancer Dxed 7-8 years ago S/p right lung resection No chemo or XRT - no current issues Hyperlipidemia Hypertension Hyperthyroidism Graves disease. Takes Methimazole Iron deficiency anemia TIA (transient ischemic attack) 12/01/20 - admitted to [facility]- no residual deficits On Plavix Type II diabetes mellitus Glucose controlled Varicose vein of leg NO SURGERY Surgical History H/O section Had 3 History of hysterectomy History of thoracotomy (~2009) Right thoracotomy and wedge biopsy of right upper lobe lesion, right upper lobectomy with node samling 07/18/09 Dr. Mckee History of tooth extraction Family History Aunt Diabetes Myocardial infarction Uncle Prostate cancer Diabetes Myocardial infarction Mother Diabetes Breast cancer Unknown Ovarian cancer Other Family history of cholecystectomy No family history of adverse response to anesthesia Denies family history of Colorectal cancer Social History Smoking Status: Current every day smoker Tobacco Type: Cigarettes Age Started Using Tobacco: 17; packs per day: 2.5; Cigarettes Per Day: 30; Second Hand Exposure: Yes; Hx Alcohol Use: No Hx Substance Use: No Preferred Language: Lao Communication Ability: Effective Visual Impairment: No Limitations Hearing Ability: Hard of Hearing [employer]st [employer] Required: No Beliefs That Will Affect Care: None marital status: Current Living Situation: Alone current occupational status: retired current occupation: retired from working in retail Feels Safe at Home: Yes Childhood Exposure to Second-Hand Smoke: Yes Dental Care, Regularly: No Physical Activity Frequency: Does not Exercise Seatbelt Use: sometimes Sunscreen Use: No Assistive Devices: Glasses and Walker Review of Systems Review of Systems: All systems reviewed & are unremarkable except as noted in HPI & below Physical Exam Physical Exam: RUE: Elbow is not in the sling. Sensation to light touch is intact distally. 1+ radial pulse. Motor to Median, radial, ulnar, AIN, PIN intact. + Swelling shoulder. Pain with minimal movement of shoulder. Diffuse tenderness about the shoulder. Ring still in place. Results & Data Vital Signs (Past 12 Hours) Vital Signs Temp Pulse Pulse Pulse Resp BP BP 07/12/22 08:00 07/12/22 07:35 37.5 C 77 21 119/76 07/12/22 07:30 79 07/12/22 04:52 36.6 C 77 16 122/68 07/12/22 04:44 07/12/22 04:18 78 18 120/67 07/12/22 03:46 80 07/12/22 03:30 80 23 07/12/22 03:30 128/65 07/12/22 03:20 80 23 07/12/22 03:10 80 25 H 07/12/22 03:00 80 16 07/12/22 03:00 121/60 07/12/22 02:50 80 23 07/12/22 02:40 80 24 07/12/22 02:30 80 25 H 07/12/22 02:30 122/59 L 07/12/22 02:00 79 22 130/61 07/12/22 01:30 81 24 123/61 07/12/22 01:00 80 20 121/65 07/12/22 00:31 80 22 123/64 07/12/22 00:00 81 22 111/57 L 07/11/22 23:30 82 20 107/52 L 07/12/22 00:16 78 07/11/22 23:26 80 18 106/52 L 07/11/22 22:30 89 20 95/79 L 07/11/22 22:00 84 20 124/67 07/11/22 21:31 83 18 131/68 07/11/22 21:07 108/61 Pulse Ox O2 Del Method 07/12/22 08:00 Room Air 07/12/22 07:35 94 Room Air 07/12/22 07:30 07/12/22 04:52 95 Room Air 07/12/22 04:44 Room Air 07/12/22 04:18 92 Room Air 07/12/22 03:46 07/12/22 03:30 93 07/12/22 03:30 07/12/22 03:20 92 07/12/22 03:10 93 07/12/22 03:00 92 07/12/22 03:00 07/12/22 02:50 92 07/12/22 02:40 92 07/12/22 02:30 92 07/12/22 02:30 07/12/22 02:00 94 07/12/22 01:30 93 07/12/22 01:00 95 07/12/22 00:31 94 07/12/22 00:00 93 07/11/22 23:30 92 07/12/22 00:16 07/11/22 23:26 94 Room Air 07/11/22 22:30 93 07/11/22 22:00 96 07/11/22 21:31 94 07/11/22 21:07 Diagnostic Findings Laboratory Results WBC 8.50 K/ul (4.8-10.8) 07/11/22 20:15 RBC 3.10 M/uL (4.20-5.40) L 07/11/22 20:15 Hgb 9.8 g/dl (12.0-16.0) L 07/11/22 20:15 Hct 29.5 % (37.0-47.0) L 07/11/22 20:15 MCV 95.2 fL (80.0-100.0) 07/11/22 20:15 MCH 31.6 pg (25.0-34.0) 07/11/22 20:15 MCHC 33.2 g/dL (32.0-36.0) 07/11/22 20:15 RDW Std Deviation 45.1 fL (36.4-46.3) 07/11/22 20:15 RDW Coeff of Norma 13.1 % (11.5-14.5) 07/11/22 20:15 Plt Count 177 K/uL (130-400) 07/11/22 20:15 MPV 9.5 fL (9.4-12.4) 07/11/22 20:15 Immature Gran % (Auto) 0.5 % 07/11/22 20:15 Neut % (Auto) 71.9 % 07/11/22 20:15 Lymph % (Auto) 22.2 % 07/11/22 20:15 Marshall % (Auto) 5.2 % 07/11/22 20:15 Eos % (Auto) 0.0 % 07/11/22 20:15 Baso % (Auto) 0.2 % 07/11/22 20:15 Neut # (Auto) 6.11 K/uL (1.40-6.50) 07/11/22 20:15 Lymph # (Auto) 1.89 K/uL (1.2-3.4) 07/11/22 20:15 Marshall # (Auto) 0.44 K/uL (0.11-0.59) 07/11/22 20:15 Eos # (Auto) 0.00 K/uL (0-0.50) 07/11/22 20:15 Baso # (Auto) 0.02 K/uL (0-0.2) 07/11/22 20:15 Immature Gran # (Auto) 0.04 K/uL (0.01-0.20) 07/11/22 20:15 PT 10.3 Seconds (9.0-12.0) 07/11/22 20:15 INR 1.0 (0.9-1.1) 07/11/22 20:15 APTT 25.3 Seconds (21.0-31.0) 07/11/22 20:15 PTT Ratio 0.9 07/11/22 20:15 Sodium 138 mmol/L (136-145) 07/11/22 20:15 Potassium 4.4 mmol/L (3.5-5.1) 07/11/22 20:15 Chloride 106 mmol/L (98-107) 07/11/22 20:15 Carbon Dioxide 24 mmol/L (21-32) 07/11/22 20:15 Anion Gap 8 (3-11) 07/11/22 20:15 BUN 17 mg/dl (6-23) 07/11/22 20:15 Creatinine 1.33 mg/dl (0.6-1.2) H 07/11/22 20:15 Est Cr Clr Drug Dosing Not Reportable 07/11/22 20:15 Est GFR ( Amer) 44.9 ml/min 07/11/22 20:15 Est GFR (Non-Af Amer) 38.7 ml/min 07/11/22 20:15 BUN/Creatinine Ratio 12.8 (10-20) 07/11/22 20:15 Glucose 266 mg/dl (70-99(Fasting)) H 07/11/22 20:15 POC Glucose 194 mg/dl (70-99) H 07/12/22 07:19 Calcium 9.1 mg/dl (8.5-10.1) 07/11/22 20:15 Phosphorus 4.2 mg/dl (2.5-4.9) 07/11/22 20:15 Magnesium 1.9 mg/dl (1.7-2.4) 07/12/22 05:27 Total Bilirubin 0.3 mg/dl (0.2-1.0) 07/11/22 20:15 AST 11 U/L (13-39) L 07/11/22 20:15 ALT 10 U/L (7-52) 07/11/22 20:15 Alkaline Phosphatase 50 U/L (34-104) 07/11/22 20:15 Total Protein 6.9 gm/dl (6.0-8.3) 07/11/22 20:15 Albumin 4.0 gm/dl (3.4-5.0) 07/11/22 20:15 Globulin 2.9 gm/dl (2.5-4.0) 07/11/22 20:15 Albumin/Globulin Ratio 1.4 (0.9-2) 07/11/22 20:15 TSH 1.231 uIu/ml (0.300-4.500) 07/11/22 20:15 SARS-CoV-2, RNA, NAAT NEGATIVE (NEGATIVE) 07/12/22 00:46 Impressions Chest X-Ray 07/11/22 20:34 XR chest 1V portable CLINICAL HISTORY: dizziness COMPARISON STUDY: Lung screening CT March 14, 2022. FINDINGS: An acute displaced right humeral neck fracture is incidentally noted. Cardiomegaly is unchanged. There is no pneumothorax or pleural effusion. No evidence for pulmonary edema or pneumonia. Old right fifth rib fracture. IMPRESSION: 1. No acute cardiopulmonary findings. 2. Acute displaced right humeral neck fracture. ACT 112: Negative or not required by law. Electronically signed by: Joseluis Becerra M.D. 07/12/2022 8:22 AM Shoulder X-Ray 07/11/22 20:59 XR shoulder RT min 2V routine CLINICAL HISTORY: Shoulder trauma, no prior imaging COMPARISON: Chest radiograph December 01, 2019. FINDINGS: There is an acute right humeral neck fracture. There is significant anterior displacement of the shaft with respect to the head. Alignment of the right glenohumeral joint is suboptimally assessed on this exam but likely anatomic. Alignment of the right AC joint is anatomic. There are moderate degenerative changes of the right shoulder. IMPRESSION: Acute right humeral neck fracture with significant anterior displacement of the shaft with respect to the head. Suboptimal evaluation of the right glenohumeral joint but likely anatomic. ACT 112: Negative or not required by law. Electronically signed by: Joseluis Becerra M.D. 07/12/2022 8:[address] 07/11/22 22:15 Exam(s): CT HEAD Without Contrast EXAM: CT Head Without Intravenous Contrast CLINICAL HISTORY: Reason for exam: fall, pain. TECHNIQUE: Axial computed tomography images of the head/brain without intravenous contrast. CTDI is 35.84 mGy and DLP is 614.27 mGy-cm. Automated exposure control was utilized for the study. A dose lowering technique was utilized adhering to the principles of ALARA. COMPARISON: 12/01/19 FINDINGS: Brain: Areas of decreased attenuation in the deep cerebral white matter are consistent with small vessel ischemic/degenerative changes. The cerebral and cerebellar sulci are prominent consistent with brain atrophy. No hemorrhage. Ventricles: Unremarkable. No ventriculomegaly. Bones/joints: Unremarkable. No acute fracture. Soft tissues: Unremarkable. Vasculature: Atherosclerotic disease. Sinuses: Unremarkable as visualized. No acute sinusitis. Mastoid air cells: Unremarkable as visualized. No mastoid effusion. IMPRESSION: 1. Small vessel ischemic/degenerative changes. 2. Cerebral and cerebellar atrophy. Electronically signed by: Oleg Fox MD 07/12/22 01:22 AM
--- NOTE | 2022-07-12 10:48 | CT Scan Report ---
CT shoulder RT wo con CLINICAL HISTORY: Proximal humerus fx, 1mm cuts include entire scapula COMPARISON STUDY: Right shoulder radiographs July 11, 2022. TECHNIQUE: Thin cut axial images of the right shoulder were obtained without IV contrast. Sagittal an d coronal reconstructions were viewed. Automated exposure control was utilized for the study. A dose lowering technique was utilized adhering to the principles of ALARA. FINDINGS: Alignment of the right acromioclavicular and glenohumeral joints is anatomic. There is no a cute fracture of the right scapula. Note is made of an acute moderately displaced and comminuted righ t humeral neck fracture which extends into the humeral head. Fracture is displaced approximately 1.9 cm. Multiple fracture fragments are present. There is moderate adjacent stranding and hemorrhage. A r ight glenohumeral joint effusion with suspected lipohemarthrosis is present. No acute fractures are i dentified within the visualized right-sided ribs. There are postoperative findings within the right l jayce. IMPRESSION: 1. Acute moderately displaced comminuted right humeral neck fracture which extends into the humeral h ead. Anatomic alignment of the right glenohumeral joint. No right scapular fracture. 2. Adjacent hemorrhage and stranding, as described above. Right glenohumeral joint effusion with susp ected lipohemarthrosis. ACT 112: Negative or not required by law. Electronically signed by: Joseluis Becerra M.D. 07/12/2022 10:46 AM
[2022-07-12] MEDS ORDERED: Nursing to Pharmacy Communication SCH (12:00)
[2022-07-12] MEDS: MoRPHine SULFATE 2 MG/ML CARP IV PRN ×2 (12:16→22:09)
--- NOTE | 2022-07-12 14:47 | Hospitalist Progress Note ---
Date of Service July 12, 2022 Assessment & Plan (1) Closed left humeral fracture: Plan: Orthopedics on board, recommending conservative management for the time being. Ordered CT right shoulder to better assess the fracture and ensure glenohumeral joint is located On morphine, oxycodone and acetaminophen for pain control No planned surgery per orthopedics. Remove NPO. Consult PT/OT (2) TIA (transient ischemic attack): (3) CVA (cerebral vascular accident): Plan: Hold Plavix for now (4) Anxiety with depression: Plan: Continue trazodone (5) GERD (gastroesophageal reflux disease): Plan: Continue pantoprazole (6) Hyperlipidemia: Plan: Continue atorvastatin (7) Generalized osteoarthritis: (8) Tobacco use: (9) Hyperthyroidism: Plan: Continue methimazole (10) Type II diabetes mellitus: Plan: Hold insulin glargine and metformin Placed on Accu-Cheks with NovoLog SSI (11) COPD (chronic obstructive pulmonary disease): (12) Hypertension: Plan: Hold losartan (13) Asthma: (14) Hypomagnesemia: Admission and Anticipated Discharge Date Admission Date: July 12, 2022 Subjective Patient says that she often feels dizzy when she stands up from a sitting position. This time, she was having a bowel movement and felt dizzy and nearly passed out. Fell off the commode and injured her right shoulder. She denied any chest pain or shortness of breath. Review of Systems Review of Systems: All systems reviewed & are unremarkable except as noted in Subjective Physical Exam Physical Exam: General: Awake, conversant Heart: S1, S2/regular rate and rhythm, no murmur rubs or gallops Lungs: Clear to auscultation bilaterally. Normal effort Abdomen: Soft/nontender/nondistended. No hepatosplenomegaly Extremities: No clubbing/cyanosis. No edema. Right arm in a sling. Behavior: Appropriate, cooperative Results & Data Results & Data Vital Signs (Past 12 Hours) Vital Signs Temp Pulse Pulse Pulse Resp BP BP 07/12/22 14:00 20 07/12/22 12:45 37.3 C 65 21 132/90 07/12/22 08:00 07/12/22 07:35 37.5 C 77 21 119/76 07/12/22 07:30 79 07/12/22 04:52 36.6 C 77 16 122/68 07/12/22 04:44 07/12/22 04:18 78 18 120/67 07/12/22 03:46 80 07/12/22 03:30 80 23 07/12/22 03:30 128/65 07/12/22 03:20 80 23 07/12/22 03:10 80 25 H 07/12/22 03:00 80 16 07/12/22 03:00 121/60 07/12/22 02:50 80 23 07/12/22 02:40 80 24 Pulse Ox O2 Del Method 07/12/22 14:00 07/12/22 12:45 95 Room Air 07/12/22 08:00 Room Air 07/12/22 07:35 94 Room Air 07/12/22 07:30 07/12/22 04:52 95 Room Air 07/12/22 04:44 Room Air 07/12/22 04:18 92 Room Air 07/12/22 03:46 07/12/22 03:30 93 07/12/22 03:30 07/12/22 03:20 92 07/12/22 03:10 93 07/12/22 03:00 92 07/12/22 03:00 07/12/22 02:50 92 07/12/22 02:40 92 Laboratory Results Abnormal lab results 07/11/22 07/11/22 07/12/22 Range/Units 20:15 20:15 06:12 RBC 3.10 L (4.20-5.40) M/uL Hgb 9.8 L (12.0-16.0) g/dl Hct 29.5 L (37.0-47.0) % Creatinine 1.33 H (0.6-1.2) mg/dl Glucose 266 H (70-99(Fasting)) mg/dl POC Glucose 200 H (70-99) mg/dl Magnesium 1.4 L (1.7-2.4) mg/dl AST 11 L (13-39) U/L 07/12/22 07/12/22 Range/Units 07:19 11:40 RBC (4.20-5.40) M/uL Hgb (12.0-16.0) g/dl Hct (37.0-47.0) % Creatinine (0.6-1.2) mg/dl Glucose (70-99(Fasting)) mg/dl POC Glucose 194 H 125 H (70-99) mg/dl Magnesium (1.7-2.4) mg/dl AST (13-39) U/L Diagnostic Findings Chest X-Ray 07/11/22 20:34 XR chest 1V portable CLINICAL HISTORY: dizziness COMPARISON STUDY: Lung screening CT March 14, 2022. FINDINGS: An acute displaced right humeral neck fracture is incidentally noted. Cardiomegaly is unchanged. There is no pneumothorax or pleural effusion. No evidence for pulmonary edema or pneumonia. Old right fifth rib fracture. IMPRESSION: 1. No acute cardiopulmonary findings. 2. Acute displaced right humeral neck fracture. ACT 112: Negative or not required by law. Electronically signed by: Joseluis Becerra M.D. 07/12/2022 8:22 AM Shoulder X-Ray 07/11/22 20:59 XR shoulder RT min 2V routine CLINICAL HISTORY: Shoulder trauma, no prior imaging COMPARISON: Chest radiograph December 01, 2019. FINDINGS: There is an acute right humeral neck fracture. There is significant anterior displacement of the shaft with respect to the head. Alignment of the right glenohumeral joint is suboptimally assessed on this exam but likely anatomic. Alignment of the right AC joint is anatomic. There are moderate degenerative changes of the right shoulder. IMPRESSION: Acute right humeral neck fracture with significant anterior displacement of the shaft with respect to the head. Suboptimal evaluation of the right glenohumeral joint but likely anatomic. ACT 112: Negative or not required by law. Electronically signed by: Joseluis Becerra M.D. 07/12/2022 8:[address] 07/11/22 22:15 Exam(s): CT HEAD Without Contrast EXAM: CT Head Without Intravenous Contrast CLINICAL HISTORY: Reason for exam: fall, pain. TECHNIQUE: Axial computed tomography images of the head/brain without intravenous contrast. CTDI is 35.84 mGy and DLP is 614.27 mGy-cm. Automated exposure control was utilized for the study. A dose lowering technique was utilized adhering to the principles of ALARA. COMPARISON: 12/01/19 FINDINGS: Brain: Areas of decreased attenuation in the deep cerebral white matter are consistent with small vessel ischemic/degenerative changes. The cerebral and cerebellar sulci are prominent consistent with brain atrophy. No hemorrhage. Ventricles: Unremarkable. No ventriculomegaly. Bones/joints: Unremarkable. No acute fracture. Soft tissues: Unremarkable. Vasculature: Atherosclerotic disease. Sinuses: Unremarkable as visualized. No acute sinusitis. Mastoid air cells: Unremarkable as visualized. No mastoid effusion. IMPRESSION: 1. Small vessel ischemic/degenerative changes. 2. Cerebral and cerebellar atrophy. Electronically signed by: Oleg Fox MD 07/12/22 01:[address] 07/12/22 08:46 CT shoulder RT wo con CLINICAL HISTORY: Proximal humerus fx, 1mm cuts include entire scapula COMPARISON STUDY: Right shoulder radiographs July 11, 2022. TECHNIQUE: Thin cut axial images of the right shoulder were obtained without IV contrast. Sagittal and coronal reconstructions were viewed. Automated exposure control was utilized for the study. A dose lowering technique was utilized adhering to the principles of ALARA. FINDINGS: Alignment of the right acromioclavicular and glenohumeral joints is anatomic. There is no acute fracture of the right scapula. Note is made of an acute moderately displaced and comminuted right humeral neck fracture which extends into the humeral head. Fracture is displaced approximately 1.9 cm. Multiple fracture fragments are present. There is moderate adjacent stranding and hemorrhage. A right glenohumeral joint effusion with suspected lipohemarthrosis is present. No acute fractures are identified within the visualized right-sided ribs. There are postoperative findings within the right lung. IMPRESSION: 1. Acute moderately displaced comminuted right humeral neck fracture which extends into the humeral head. Anatomic alignment of the right glenohumeral joint. No right scapular fracture. 2. Adjacent hemorrhage and stranding, as described above. Right glenohumeral joint effusion with suspected lipohemarthrosis. ACT 112: Negative or not required by law. Electronically signed by: Joseluis Becerra M.D. 07/12/2022 10:46 AM PG Care Time/CCT Total # of Minutes Spent Total Time Spent with Patient: Total time spent is greater than 50% in coordination of care (as documented) at patient's floor/unit and/or counseling patient: Coding Level of Care Code None Diagnoses Closed left humeral fracture S42.302A TIA (transient ischemic attack) G45.9 CVA (cerebral vascular accident) I63.9 Anxiety with depression F41.8 GERD (gastroesophageal reflux disease) K21.9 Hyperlipidemia E78.5 Generalized osteoarthritis M15.9 Tobacco use Z72.0 Hyperthyroidism E05.90 Type II diabetes mellitus E11.9 Diabetes mellitus fire marshal insulin use: without long-term use Diabetes mellitus complication status: without complication COPD (chronic obstructive pulmonary disease) J44.9 COPD type: unspecified COPD Hypertension I10 Hypertension type: essential hypertension Asthma J45.909 Hypomagnesemia E83.42 (10) Type II diabetes mellitus Diabetes mellitus fire marshal insulin use: without long-term use Diabetes mellitus complication status: without complication Qualified Code(s): E11.9 - Type 2 diabetes mellitus without complications (11) COPD (chronic obstructive pulmonary disease) COPD type: unspecified COPD Qualified Code(s): J44.9 - Chronic obstructive pulmonary disease, unspecified (12) Hypertension Hypertension type: essential hypertension Qualified Code(s): I10 - Essential (primary) hypertension
[2022-07-12] MEDS: oxyCODONE HCL IR 5 MG TAB (IMMEDIATE RELEASE) PO PRN (15:39)
[2022-07-12] MEDS: ATORVASTATIN 40 MG TAB PO SCH (20:56)
[2022-07-12] MEDS: traZODone HCL 50 MG TAB PO SCH (20:57)
[2022-07-13 05:58] LABS: Basophils # (auto) 0.02 K/uL (0-0.2); Basophils % (auto) 0.4 %; Hematocrit (blood only) 23.9 % (37.0-47.0); Hemoglobin 8.1 g/dl (12.0-16.0); Immature Granulocytes # (auto) 0.02 K/uL (0.01-0.20); Immature Granulocytes % (auto) 0.4 %; Lymphocytes # (auto) 2.13 K/uL (1.2-3.4); Lymphocytes % (auto) 37.6 %; Mean Corpuscular Hemoglobin 31.6 pg (25.0-34.0); Mean Corpuscular Hgb Conc 33.9 g/dL (32.0-36.0); Mean Corpuscular Volume 93.4 fL (80.0-100.0); Mean Platelet Volume 9.4 fL (9.4-12.4); Monocytes # (auto) 0.56 K/uL (0.11-0.59); Monocytes % (auto) 9.9 %; Neutrophils # (auto) 2.94 K/uL (1.40-6.50); Neutrophils % (auto) 51.7 %; Platelet Count 142 K/uL (130-400); RDW Coefficient of Variation 12.8 % (11.5-14.5); RDW Standard Deviation 43.9 fL (36.4-46.3); Red Blood Count 2.56 M/uL (4.20-5.40); White Blood Count 5.67 K/ul (4.8-10.8)
[2022-07-13 06:36] LABS: Albumin Globulin Ratio 1.5 (0.9-2); Albumin Level 3.7 gm/dl (3.4-5.0); BUN Creatinine Ratio 13.8 (10-20); Bilirubin,Total 0.5 mg/dl (0.2-1.0); Calcium 8.5 mg/dl (8.5-10.1); Creatinine Clr Calc Pharmacy 53.8 ml/min; Est GFR (Non-African American) 64.7 ml/min; Globulin 2.4 gm/dl (2.5-4.0); Magnesium 1.6 mg/dl (1.7-2.4); Potassium 4.2 mmol/L (3.5-5.1); Total Protein 6.1 gm/dl (6.0-8.3)
[2022-07-13] MEDS: methIMAzole 5 MG TABLET PO SCH (07:43)
[2022-07-13] MEDS: oxyCODONE HCL IR 5 MG TAB (IMMEDIATE RELEASE) PO PRN ×3 (07:43→22:00)
[2022-07-13] MEDS: PANTOprazole 40 MG TAB PO SCH ×2 (07:44→22:01)
[2022-07-13] MEDS: MAGNESIUM CHLORIDE W/CALCIUM 64MG DELAYED REL TAB PO SCH ×2 (07:44→22:01)
[2022-07-13] MEDS: FLUTICASONE FUROATE 100MCG 14 PUFFS/INHALER INH SCH (07:44)
[2022-07-13] MEDS: UMECLIDINIUM/VILANTEROL 62.5/25MCG 7 PUFFS/INHALER INH SCH (07:44)
[2022-07-13] MEDS: MAGNESIUM SULFATE / D5W 1 GM/100 ML BAG IV SCH ×2 (07:47→09:29)
[2022-07-13] MEDS: INSULIN ASPART PER UNIT CHARGE SC SCH ×4 (09:04→22:02)
[2022-07-13] MEDS: SODIUM CHLORIDE 0.9% 1000ML 1,000 ML IV SCH ×2 (09:10→22:00)
--- NOTE | 2022-07-13 09:51 | Orthopedic Progress Note ---
Date of Service July 13, 2022 Assessment & Plan (1) Closed fracture of right proximal humerus: Plan: IMPRESSION: Right Proximal Humerus fracture, closed, subsequent visit Acute Goal: Decreased pain. PLAN: Continue to treat conservatively, can follow up as an outpatient with Dr. Padilla 1 week from discharge. Will notify Dr. Padilla Re-adjusted sling May eat from Ortho stand point. Ice. No lifting RUE. Continue care per primary service. Admission and Anticipated Discharge Date Admission Date: July 12, 2022 Subjective Right shoulder pain Physical Exam Physical Exam: RUE: Elbow is not in the sling. Sensation to light touch is intact distally. 1+ radial pulse. Motor to Median, radial, ulnar, AIN, PIN intact. + Swelling shoulder. Pain with minimal movement of shoulder. Diffuse tenderness about the shoulder. Results & Data Vital Signs (Past 12 Hours) Vital Signs Temp Pulse Pulse Pulse Resp BP Pulse Ox 07/13/22 08:00 07/13/22 08:53 36.6 C 72 16 124/70 90 07/13/22 07:36 36.9 C 78 18 122/78 91 07/13/22 06:50 76 07/13/22 02:50 36.7 C 79 16 133/74 91 07/12/22 23:15 36.9 C 80 20 146/80 H 93 07/12/22 22:54 85 O2 Del Method 07/13/22 08:00 Room Air 07/13/22 08:53 Room Air 07/13/22 07:36 Room Air 07/13/22 06:50 07/13/22 02:50 Room Air 07/12/22 23:15 Room Air 07/12/22 22:[address] shoulder RT wo con CLINICAL HISTORY: Proximal humerus fx, 1mm cuts include entire scapula COMPARISON STUDY: Right shoulder radiographs July 11, 2022. TECHNIQUE: Thin cut axial images of the right shoulder were obtained without IV contrast. Sagittal and coronal reconstructions were viewed. Automated exposure control was utilized for the study. A dose lowering technique was utilized adhering to the principles of ALARA. FINDINGS: Alignment of the right acromioclavicular and glenohumeral joints is anatomic. There is no acute fracture of the right scapula. Note is made of an acute moderately displaced and comminuted right humeral neck fracture which extends into the humeral head. Fracture is displaced approximately 1.9 cm. Multiple fracture fragments are present. There is moderate adjacent stranding and hemorrhage. A right glenohumeral joint effusion with suspected lipo hemarthrosis is present. No acute fractures are identified within the visualized right-sided ribs. There are postoperative findings within the right lung. IMPRESSION: 1. Acute moderately displaced comminuted right humeral neck fracture which extends into the humeral head. Anatomic alignment of the right glenohumeral joint. No right scapular fracture. 2. Adjacent hemorrhage and stranding, as described above. Right glenohumeral joint effusion with suspected lipohemarthrosis.
[2022-07-13] MEDS: MoRPHine SULFATE 2 MG/ML CARP IV PRN (11:49)
--- NOTE | 2022-07-13 13:05 | Hospitalist Progress Note ---
Date of Service July 13, 2022 Assessment & Plan (1) Closed left humeral fracture: Plan: Orthopedics on board, recommending conservative management. Outpatient follow- up with orthopedics in 1 week. On morphine, oxycodone and acetaminophen for pain control Consult PT/OT (2) Orthostatic hypotension: Plan: Could be the reason for her near syncope Hydrate her gently Repeat orthostatic vital signs daily Hold losartan (3) TIA (transient ischemic attack): (4) CVA (cerebral vascular accident): Plan: Resume Plavix as no plan for surgery (5) Anxiety with depression: Plan: Continue trazodone (6) GERD (gastroesophageal reflux disease): Plan: Continue pantoprazole (7) Hyperlipidemia: Plan: Continue atorvastatin (8) Generalized osteoarthritis: (9) Tobacco use: (10) Hyperthyroidism: Plan: Continue methimazole (11) Type II diabetes mellitus: Plan: Hold insulin glargine and metformin Placed on Accu-Cheks with NovoLog SSI (12) COPD (chronic obstructive pulmonary disease): (13) Hypertension: Plan: Hold losartan (14) Asthma: (15) Hypomagnesemia: Admission and Anticipated Discharge Date Admission Date: July 12, 2022 Subjective Patient feels well overall. Noted orthostatic hypotension yesterday Review of Systems Review of Systems: All systems reviewed & are unremarkable except as noted in Subjective Physical Exam Physical Exam: General: Awake, conversant Heart: S1, S2/regular rate and rhythm, no murmur rubs or gallops Lungs: Clear to auscultation bilaterally. Normal effort Abdomen: Soft/nontender/nondistended. No hepatosplenomegaly Extremities: No clubbing/cyanosis. No edema. Right arm in a sling. Behavior: Appropriate, cooperative Results & Data Results & Data Vital Signs (Past 12 Hours) Vital Signs Temp Pulse Pulse Pulse Resp BP Pulse Ox 07/13/22 12:01 36.8 C 78 16 120/82 92 07/13/22 08:00 07/13/22 08:53 36.6 C 72 16 124/70 90 07/13/22 07:36 36.9 C 78 18 122/78 91 07/13/22 06:50 76 07/13/22 02:50 36.7 C 79 16 133/74 91 O2 Del Method 07/13/22 12:01 Room Air 07/13/22 08:00 Room Air 07/13/22 08:53 Room Air 07/13/22 07:36 Room Air 07/13/22 06:50 07/13/22 02:50 Room Air Laboratory Results Abnormal lab results 07/12/22 07/12/22 07/13/22 Range/Units 16:18 20:27 05:19 RBC 2.56 L (4.20-5.40) M/uL Hgb 8.1 L (12.0-16.0) g/dl Hct 23.9 L (37.0-47.0) % Chloride (98-107) mmol/L Glucose (70-99(Fasting)) mg/dl POC Glucose 188 H 200 H (70-99) mg/dl Magnesium (1.7-2.4) mg/dl AST (13-39) U/L Globulin (2.5-4.0) gm/dl 07/13/22 07/13/22 07/13/22 Range/Units 05:19 07:27 11:44 RBC (4.20-5.40) M/uL Hgb (12.0-16.0) g/dl Hct (37.0-47.0) % Chloride 108 H (98-107) mmol/L Glucose 141 H (70-99(Fasting)) mg/dl POC Glucose 143 H 231 H (70-99) mg/dl Magnesium 1.6 L (1.7-2.4) mg/dl AST 10 L (13-39) U/L Globulin 2.4 L (2.5-4.0) gm/dl PG Care Time/CCT Total # of Minutes Spent Total Time Spent with Patient: Total time spent is greater than 50% in coordination of care (as documented) at patient's floor/unit and/or counseling patient: Coding Level of Care Code 64597 SUB INP/OBS CARE 2/35MIN Diagnoses Closed left humeral fracture S42.302A Orthostatic hypotension I95.1 TIA (transient ischemic attack) G45.9 CVA (cerebral vascular accident) I63.9 Anxiety with depression F41.8 GERD (gastroesophageal reflux disease) K21.9 Hyperlipidemia E78.5 Generalized osteoarthritis M15.9 Tobacco use Z72.0 Hyperthyroidism E05.90 Type II diabetes mellitus E11.9 Diabetes mellitus complication status: without complication Diabetes mellitus mcc insulin use: without terminal gauger use COPD (chronic obstructive pulmonary disease) J44.9 COPD type: unspecified COPD Hypertension I10 Hypertension type: essential hypertension Asthma J45.909 Hypomagnesemia E83.42 (11) Type II diabetes mellitus Diabetes mellitus complication status: without complication Diabetes mellitus mcc insulin use: without mcc use Qualified Code(s): E11.9 - Type 2 diabetes mellitus without complications (12) COPD (chronic obstructive pulmonary disease) COPD type: unspecified COPD Qualified Code(s): J44.9 - Chronic obstructive pulmonary disease, unspecified (13) Hypertension Hypertension type: essential hypertension Qualified Code(s): I10 - Essential (primary) hypertension
[2022-07-13] MEDS: BENZONATATE 100 MG CAPSULE PO SCH ×2 (13:36→22:00)
[2022-07-13] MEDS: ACETAMINOPHEN 325 MG TAB PO PRN (21:59)
[2022-07-13] MEDS: ATORVASTATIN 40 MG TAB PO SCH (22:01)
[2022-07-13] MEDS: traZODone HCL 50 MG TAB PO SCH (22:01)
[2022-07-14] MEDS: MoRPHine SULFATE 2 MG/ML CARP IV PRN ×2 (05:10→11:03)
[2022-07-14 07:13] LABS: Basophils # (auto) 0.02 K/uL (0-0.2); Basophils % (auto) 0.4 %; Eosinophils % (auto) 1.8 %; Hematocrit (blood only) 23.8 % (37.0-47.0); Hemoglobin 7.9 g/dl (12.0-16.0); Immature Granulocytes # (auto) 0.02 K/uL (0.01-0.20); Immature Granulocytes % (auto) 0.4 %; Lymphocytes # (auto) 1.81 K/uL (1.2-3.4); Lymphocytes % (auto) 32.3 %; Mean Corpuscular Hemoglobin 31.2 pg (25.0-34.0); Mean Corpuscular Hgb Conc 33.2 g/dL (32.0-36.0); Mean Corpuscular Volume 94.1 fL (80.0-100.0); Mean Platelet Volume 9.6 fL (9.4-12.4); Monocytes # (auto) 0.56 K/uL (0.11-0.59); Neutrophils # (auto) 3.09 K/uL (1.40-6.50); Neutrophils % (auto) 55.1 %; Platelet Count 147 K/uL (130-400); RDW Coefficient of Variation 12.7 % (11.5-14.5); RDW Standard Deviation 43.4 fL (36.4-46.3); Red Blood Count 2.53 M/uL (4.20-5.40)
[2022-07-14 07:34] LABS: Albumin Globulin Ratio 1.4 (0.9-2); Albumin Level 3.6 gm/dl (3.4-5.0); BUN Creatinine Ratio 10.2 (10-20); Bilirubin,Total 0.5 mg/dl (0.2-1.0); Calcium 8.3 mg/dl (8.5-10.1); Creatinine Clr Calc Pharmacy 54.7 ml/min; Est GFR (Non-African American) 63.8 ml/min; Globulin 2.6 gm/dl (2.5-4.0); Magnesium 1.8 mg/dl (1.7-2.4); Potassium 4.2 mmol/L (3.5-5.1); RBC Morphology Unremarkable; Total Protein 6.2 gm/dl (6.0-8.3)
[2022-07-14] MEDS: UMECLIDINIUM/VILANTEROL 62.5/25MCG 7 PUFFS/INHALER INH SCH (08:15)
[2022-07-14] MEDS: FLUTICASONE FUROATE 100MCG 14 PUFFS/INHALER INH SCH (08:15)
[2022-07-14] MEDS: MAGNESIUM CHLORIDE W/CALCIUM 64MG DELAYED REL TAB PO SCH ×2 (08:16→20:53)
[2022-07-14] MEDS: CLOPIDOGREL BISULFATE 75 MG TAB PO SCH (08:16)
[2022-07-14] MEDS: PANTOprazole 40 MG TAB PO SCH ×2 (08:16→20:53)
[2022-07-14] MEDS: BENZONATATE 100 MG CAPSULE PO SCH ×3 (08:16→20:53)
[2022-07-14] MEDS: methIMAzole 5 MG TABLET PO SCH (08:16)
--- NOTE | 2022-07-14 08:23 | Orthopedic Progress Note ---
Date of Service July 14, 2022 Assessment & Plan (1) Closed fracture of right proximal humerus: Plan: IMPRESSION: Right Proximal Humerus fracture, closed, subsequent visit Acute Goal: Decreased pain. PLAN: Continue to treat conservatively, Will obtain [place] fracture brace. Notified Dr. Padilla Re-adjusted sling as needed Elevate hand Ice. No lifting RUE. Continue care per primary service. Can follow up as an outpatient with Dr. Padilla/Dr. Brown 1 week from discharge. Present on Admission?: Yes Admission and Anticipated Discharge Date Admission Date: July 12, 2022 Subjective Right shoulder pain Physical Exam Physical Exam: RUE: Elbow is not in the sling. Sensation to light touch is intact distally. 1+ radial pulse. Motor to Median, radial, ulnar, AIN, PIN intact. + Swelling shoulder. Pain with minimal movement of shoulder. Diffuse tenderness about the shoulder. + Bruising shoulder and chest. Results & Data Vital Signs (Past 12 Hours) Vital Signs Temp Pulse Pulse Resp BP Pulse Ox O2 Del Method 07/14/22 07:35 Room Air 07/14/22 06:36 36.9 C 81 20 149/84 H 91 Room Air 07/14/22 03:17 36.9 C 80 20 152/85 H 93 Room Air 07/13/22 22:00 87 07/13/22 23:05 37.3 C 88 16 150/88 H 90 Room Air
[2022-07-14] MEDS: INSULIN ASPART PER UNIT CHARGE SC SCH ×4 (08:25→22:35)
[2022-07-14] MEDS: SODIUM CHLORIDE 0.9% 1000ML 1,000 ML IV SCH (10:06)
--- NOTE | 2022-07-14 10:29 | Orthopedic Progress Note ---
Date of Service July 14, 2022 Assessment & Plan (1) Closed fracture of right proximal humerus: Chart and radiographs/CT reviewed. Agree with Dr. Brown's plan for nonop care. Nonoperative Management. Sling to comfort. NWBing. Plan for 6 weeks. Followup at [facility] 2-3 weeks for repeat xrays. Discharge updated. Subjective . Review of Systems All systems reviewed & are unremarkable except as noted in HPI & below. Physical Exam . Results & Data Results & Data Laboratory Results . Diagnostic Findings . PG Care Time/CCT Total # of Minutes Spent Total Time Spent with Patient: Total time spent is greater than 50% in coordination of care (as documented) at patient's floor/unit and/or counseling patient: Coding Level of Care Code 91670 Post Operative Follow-Up Diagnoses Closed fracture of right proximal humerus S42.201A
[2022-07-14] MEDS ORDERED: SODIUM CHLORIDE 0.9% 250 ML IV PRN (10:45)
--- NOTE | 2022-07-14 12:24 | Hospitalist Progress Note ---
Date of Service July 14, 2022 Assessment & Plan (1) Closed left humeral fracture: Plan: Orthopedics on board, recommending conservative management. Outpatient follow- up with orthopedics in 1 week. On morphine, oxycodone and acetaminophen for pain control. Pain remains uncontrolled. We will start OxyContin 10 mg twice daily with oxycodone as needed for breakthrough pain. Consult PT/OT (2) Orthostatic hypotension: Plan: Could be the reason for her near syncope Hydrated her gently Repeat orthostatic vital signs daily Hold losartan Noted that her hemoglobin is trending down slowly We will transfuse a unit of blood as she has orthostatic hypotension This could be dilutional or secondary to blood draws Discontinue IV fluids Recheck orthostatic vital signs tomorrow for further management (3) TIA (transient ischemic attack): (4) CVA (cerebral vascular accident): Plan: Resume Plavix as no plan for surgery (5) Anxiety with depression: Plan: Continue trazodone (6) GERD (gastroesophageal reflux disease): Plan: Continue pantoprazole (7) Hyperlipidemia: Plan: Continue atorvastatin (8) Generalized osteoarthritis: (9) Tobacco use: (10) Hyperthyroidism: Plan: Continue methimazole (11) Type II diabetes mellitus: Plan: Hold insulin glargine and metformin Placed on Accu-Cheks with NovoLog SSI (12) COPD (chronic obstructive pulmonary disease): (13) Hypertension: Plan: Hold losartan in the setting of orthostatic hypotension (14) Asthma: (15) Hypomagnesemia: Admission and Anticipated Discharge Date Admission Date: July 14, 2022 Subjective Patient is in a lot of pain at the site of her fracture. She is not able to move much at all. She has not been feeling dizzy or lightheaded but she is mostly in bed. Review of Systems Review of Systems: All systems reviewed & are unremarkable except as noted in Subjective Physical Exam Physical Exam: General: Awake, conversant Heart: S1, S2/regular rate and rhythm, no murmur rubs or gallops Lungs: Clear to auscultation bilaterally. Normal effort Abdomen: Soft/nontender/nondistended. No hepatosplenomegaly Extremities: No clubbing/cyanosis. No edema. Right arm in a sling. Behavior: Appropriate, cooperative Results & Data Results & Data Vital Signs (Past 12 Hours) Vital Signs Temp Pulse Pulse Resp BP Pulse Ox O2 Del Method 07/14/22 10:56 37.0 C 81 20 154/90 H 91 Room Air 07/14/22 05:59 83 07/14/22 07:35 Room Air 07/14/22 06:36 36.9 C 81 20 149/84 H 91 Room Air 07/14/22 03:17 36.9 C 80 20 152/85 H 93 Room Air PG Care Time/CCT Total # of Minutes Spent Total Time Spent with Patient: Total time spent is greater than 50% in coordination of care (as documented) at patient's floor/unit and/or counseling patient: Coding Level of Care Code 71729 SUB INP/OBS CARE 235MIN Diagnoses Closed left humeral fracture S42.302A Orthostatic hypotension I95.1 TIA (transient ischemic attack) G45.9 CVA (cerebral vascular accident) I63.9 Anxiety with depression F41.8 GERD (gastroesophageal reflux disease) K21.9 Hyperlipidemia E78.5 Generalized osteoarthritis M15.9 Tobacco use Z72.0 Hyperthyroidism E05.90 Type II diabetes mellitus E11.9 Diabetes mellitus nursing home insulin use: without nursing home use Diabetes mellitus complication status: without complication COPD (chronic obstructive pulmonary disease) J44.9 COPD type: unspecified COPD Hypertension I10 Hypertension type: essential hypertension Asthma J45.909 Hypomagnesemia E83.42 (11) Type II diabetes mellitus Diabetes mellitus terminal block assembler insulin use: without terminal block assembler use Diabetes mellitus complication status: without complication Qualified Code(s): E11.9 - Type 2 diabetes mellitus without complications (12) COPD (chronic obstructive pulmonary disease) COPD type: unspecified COPD Qualified Code(s): J44.9 - Chronic obstructive pulmonary disease, unspecified (13) Hypertension Hypertension type: essential hypertension Qualified Code(s): I10 - Essential (primary) hypertension
[2022-07-14] MEDS: oxyCODONE HCL 10 MG TABCR (OxyCONTIN) PO SCH ×2 (13:09→23:10)
[2022-07-14] MEDS: oxyCODONE HCL IR 5 MG TAB (IMMEDIATE RELEASE) PO PRN (20:51)
[2022-07-14] MEDS: ATORVASTATIN 40 MG TAB PO SCH (20:53)
[2022-07-14] MEDS: traZODone HCL 50 MG TAB PO SCH (20:53)
[2022-07-15 08:09] LABS: Hematocrit (blood only) 29.7 % (37.0-47.0); Hemoglobin 10.2 g/dl (12.0-16.0); Mean Corpuscular Hemoglobin 30.2 pg (25.0-34.0); Mean Corpuscular Hgb Conc 34.3 g/dL (32.0-36.0); Mean Corpuscular Volume 87.9 fL (80.0-100.0); Mean Platelet Volume 8.8 fL (9.4-12.4); Platelet Count 140 K/uL (130-400); RDW Coefficient of Variation 14.8 % (11.5-14.5); RDW Standard Deviation 47.8 fL (36.4-46.3); Red Blood Count 3.38 M/uL (4.20-5.40)
[2022-07-15 08:17] LABS: BUN Creatinine Ratio 13.6 (10-20); Calcium 8.8 mg/dl (8.5-10.1); Creatinine Clr Calc Pharmacy 59.3 ml/min; Est GFR (African American) 81.8 ml/min; Est GFR (Non-African American) 70.5 ml/min; Potassium 4.4 mmol/L (3.5-5.1)
[2022-07-15] MEDS: UMECLIDINIUM/VILANTEROL 62.5/25MCG 7 PUFFS/INHALER INH SCH (08:39)
[2022-07-15] MEDS: FLUTICASONE FUROATE 100MCG 14 PUFFS/INHALER INH SCH (08:39)
[2022-07-15] MEDS: CLOPIDOGREL BISULFATE 75 MG TAB PO SCH (08:40)
[2022-07-15] MEDS: MAGNESIUM CHLORIDE W/CALCIUM 64MG DELAYED REL TAB PO SCH ×2 (08:40→22:17)
[2022-07-15] MEDS: PANTOprazole 40 MG TAB PO SCH ×2 (08:40→22:18)
[2022-07-15] MEDS: BENZONATATE 100 MG CAPSULE PO SCH ×3 (08:40→22:17)
[2022-07-15] MEDS: methIMAzole 5 MG TABLET PO SCH (08:40)
[2022-07-15] MEDS: oxyCODONE HCL 10 MG TABCR (OxyCONTIN) PO SCH ×2 (08:56→22:22)
[2022-07-15] MEDS: INSULIN ASPART PER UNIT CHARGE SC SCH ×4 (08:58→22:52)
[2022-07-15] MEDS ORDERED: oxyCODONE HCL IR 5 MG TAB (IMMEDIATE RELEASE) PO PRN ×2 (15:29→15:31)
[2022-07-15] MEDS ORDERED: FUROSEMIDE 40 MG/4 ML VIAL IV ONE (15:30)
[2022-07-15] MEDS ORDERED: FUROSEMIDE INJ 20 MG/2 ML VIAL IV ONE (15:30)
--- NOTE | 2022-07-15 15:41 | Hospitalist Progress Note ---
Date of Service July 15, 2022 Assessment & Plan (1) Closed right humeral fracture: Plan: Orthopedics on board, recommending conservative management. Outpatient follow- up with orthopedics in 1 week. On morphine, oxycodone and acetaminophen for pain control. Pain remains uncontrolled. Continue OxyContin 10 mg twice daily with oxycodone 5 mg and 10 mg as needed for breakthrough pain. Discontinue IV morphine Consult PT/OT (2) Orthostatic hypotension: Plan: Could be the reason for her near syncope Hydrated her gently Repeat orthostatic vital signs daily Hold losartan Noted that her hemoglobin was trending down slowly Transfused a unit of blood on 07/14 as she has orthostatic hypotension. Hemoglobin responded to blood transfusion appropriately This could be dilutional or secondary to blood draws Recheck orthostatic vital signs tomorrow for further management (3) TIA (transient ischemic attack): (4) CVA (cerebral vascular accident): Plan: Resume Plavix as no plan for surgery (5) Anxiety with depression: Plan: Continue trazodone (6) GERD (gastroesophageal reflux disease): Plan: Continue pantoprazole (7) Hyperlipidemia: Plan: Continue atorvastatin (8) Generalized osteoarthritis: (9) Tobacco use: (10) Hyperthyroidism: Plan: Continue methimazole (11) Type II diabetes mellitus: Plan: Hold insulin glargine and metformin Placed on Accu-Cheks with NovoLog SSI (12) COPD (chronic obstructive pulmonary disease): (13) Hypertension: Plan: Hold losartan in the setting of orthostatic hypotension (14) Asthma: (15) Hypomagnesemia: (16) Acute blood loss anemia: Plan: Most likely secondary to fracture Transfuse a unit of blood on 07/14 as it was associated with orthostatic hypotension (17) Fluid overload due to blood transfusion: Plan: Patient appears to be fluid overloaded today with shortness of breath, bibasilar crackles. Will diurese with 20 mg of IV Lasix Monitor closely as the patient has orthostatic hypotension. Check orthostatic vital signs tomorrow Admission and Anticipated Discharge Date Admission Date: July 14, 2022 Subjective Patient seems tired. Per nurse, she appears to be short of breath. Denies chest pain. Per nurse, she still has a lot of pain at the fracture site Review of Systems Review of Systems: All systems reviewed & are unremarkable except as noted in Subjective Physical Exam Physical Exam: General: Awake, conversant Heart: S1, S2/regular rate and rhythm, no murmur rubs or gallops Lungs: Bibasilar crackles. Normal effort Abdomen: Soft/nontender/nondistended. No hepatosplenomegaly Extremities: No clubbing/cyanosis. No edema. Right arm in a sling. Behavior: Appropriate, cooperative Results & Data Results & Data Vital Signs (Past 12 Hours) Vital Signs Temp Pulse Pulse Pulse Resp BP Pulse Ox 07/15/22 14:15 82 07/15/22 10:49 36.9 C 83 16 121/60 91 07/15/22 07:43 07/15/22 07:32 36.7 C 87 20 155/73 H 90 07/15/22 05:59 86 07/15/22 04:06 36.9 C 88 20 158/71 H 95 O2 Del Method 07/15/22 14:15 07/15/22 10:49 Room Air 07/15/22 07:43 Room Air 07/15/22 07:32 Room Air 07/15/22 05:59 07/15/22 04:06 Room Air Laboratory Results Abnormal lab results 07/14/22 07/14/22 07/15/22 Range/Units 16:33 20:32 07:25 RBC (4.20-5.40) M/uL Hgb (12.0-16.0) g/dl Hct (37.0-47.0) % RDW Std Deviation (36.4-46.3) fL RDW Coeff of Norma (11.5-14.5) % MPV (9.4-12.4) fL Sodium (136-145) mmol/L Glucose (70-99(Fasting)) mg/dl POC Glucose 216 H 243 H 186 H (70-99) mg/dl 07/15/22 07/15/22 07/15/22 Range/Units 07:40 07:40 11:15 RBC 3.38 L (4.20-5.40) M/uL Hgb 10.2 L (12.0-16.0) g/dl Hct 29.7 L (37.0-47.0) % RDW Std Deviation 47.8 H (36.4-46.3) fL RDW Coeff of Norma 14.8 H (11.5-14.5) % MPV 8.8 L (9.4-12.4) fL Sodium 135 L (136-145) mmol/L Glucose 183 H (70-99(Fasting)) mg/dl POC Glucose 213 H (70-99) mg/dl PG Care Time/CCT Total # of Minutes Spent Total Time Spent with Patient: Total time spent is greater than 50% in coordination of care (as documented) at patient's floor/unit and/or counseling patient: Coding Level of Care Code 31055 SUB INP/OBS CARE 2/35MIN Diagnoses Closed right humeral fracture S42.301A Orthostatic hypotension I95.1 TIA (transient ischemic attack) G45.9 CVA (cerebral vascular accident) I63.9 Anxiety with depression F41.8 GERD (gastroesophageal reflux disease) K21.9 Hyperlipidemia E78.5 Generalized osteoarthritis M15.9 Tobacco use Z72.0 Hyperthyroidism E05.90 Type II diabetes mellitus E11.9 Diabetes mellitus mcfp insulin use: without mcfp use Diabetes mellitus complication status: without complication COPD (chronic obstructive pulmonary disease) J44.9 COPD type: unspecified COPD Hypertension I10 Hypertension type: essential hypertension Asthma J45.909 Hypomagnesemia E83.42 Acute blood loss anemia D62 Fluid overload due to blood transfusion E87.71 (11) Type II diabetes mellitus Diabetes mellitus exterminator helper insulin use: without exterminator helper use Diabetes mellitus complication status: without complication Qualified Code(s): E11.9 - Type 2 diabetes mellitus without complications (12) COPD (chronic obstructive pulmonary disease) COPD type: unspecified COPD Qualified Code(s): J44.9 - Chronic obstructive pulmonary disease, unspecified (13) Hypertension Hypertension type: essential hypertension Qualified Code(s): I10 - Essential (primary) hypertension
[2022-07-15] MEDS: ATORVASTATIN 40 MG TAB PO SCH (22:17)
[2022-07-15] MEDS: traZODone HCL 50 MG TAB PO SCH (22:17)
[2022-07-16 06:58] LABS: Hematocrit (blood only) 29.1 % (37.0-47.0); Hemoglobin 9.9 g/dl (12.0-16.0); Mean Corpuscular Hemoglobin 30.7 pg (25.0-34.0); Mean Corpuscular Volume 90.1 fL (80.0-100.0); Mean Platelet Volume 9.2 fL (9.4-12.4); Platelet Count 164 K/uL (130-400); RDW Coefficient of Variation 13.9 % (11.5-14.5); RDW Standard Deviation 45.9 fL (36.4-46.3); Red Blood Count 3.23 M/uL (4.20-5.40); White Blood Count 5.34 K/ul (4.8-10.8)
[2022-07-16 07:21] LABS: BUN Creatinine Ratio 14.3 (10-20); Calcium 8.7 mg/dl (8.5-10.1); Creatinine Clr Calc Pharmacy 49.1 ml/min; Est GFR (African American) 64.9 ml/min; Potassium 4.2 mmol/L (3.5-5.1)
[2022-07-16] MEDS: INSULIN ASPART PER UNIT CHARGE SC SCH ×4 (08:21→21:14)
[2022-07-16] MEDS: FLUTICASONE FUROATE 100MCG 14 PUFFS/INHALER INH SCH (08:24)
[2022-07-16] MEDS: UMECLIDINIUM/VILANTEROL 62.5/25MCG 7 PUFFS/INHALER INH SCH (08:24)
[2022-07-16] MEDS: BENZONATATE 100 MG CAPSULE PO SCH ×3 (08:25→20:41)
[2022-07-16] MEDS: MAGNESIUM CHLORIDE W/CALCIUM 64MG DELAYED REL TAB PO SCH ×2 (08:25→20:41)
[2022-07-16] MEDS: PANTOprazole 40 MG TAB PO SCH ×2 (08:25→20:41)
[2022-07-16] MEDS: methIMAzole 5 MG TABLET PO SCH (08:25)
[2022-07-16] MEDS: CLOPIDOGREL BISULFATE 75 MG TAB PO SCH (08:26)
[2022-07-16] MEDS: oxyCODONE HCL 10 MG TABCR (OxyCONTIN) PO SCH ×2 (08:32→20:34)
--- NOTE | 2022-07-16 12:24 | Hospitalist Progress Note ---
Date of Service July 16, 2022 Assessment & Plan (1) Closed right humeral fracture: Plan: Age-related osteoporosis with current pathological fracture of the right humerus Orthopedics on board, recommending conservative management. Outpatient follow- up with orthopedics in 1 week. On morphine, oxycodone and acetaminophen for pain control. Pain remains uncontrolled. Continue OxyContin 10 mg twice daily with oxycodone 5 mg and 10 mg as needed for breakthrough pain. Discontinued IV morphine Consult PT/OT suction worker working on placement (2) Orthostatic hypotension: Plan: Could be the reason for her near syncope Hydrated her gently Repeat orthostatic vital signs still continue to show orthostatic drop in blood pressure when she stands Hold losartan Noted that her hemoglobin was trending down slowly Transfused a unit of blood on 07/14 as she has orthostatic hypotension. Hemoglobin responded to blood transfusion appropriately Since she is having orthostatic hypotension despite receiving IV fluid and blood transfusion, will start her on midodrine low-dose Continue to monitor orthostatic vital signs daily (3) TIA (transient ischemic attack): (4) CVA (cerebral vascular accident): Plan: Resume Plavix as no plan for surgery (5) Anxiety with depression: Plan: Continue trazodone (6) GERD (gastroesophageal reflux disease): Plan: Continue pantoprazole (7) Hyperlipidemia: Plan: Continue atorvastatin (8) Generalized osteoarthritis: (9) Tobacco use: (10) Hyperthyroidism: Plan: Continue methimazole (11) Type II diabetes mellitus: Plan: Hold insulin glargine and metformin Placed on Accu-Cheks with NovoLog SSI (12) COPD (chronic obstructive pulmonary disease): (13) Hypertension: Plan: Hold losartan in the setting of orthostatic hypotension (14) Asthma: (15) Hypomagnesemia: (16) Acute blood loss anemia: Plan: Most likely secondary to fracture Transfused a unit of blood on 07/14 as it was associated with orthostatic hypotension (17) Fluid overload due to blood transfusion: Plan: Patient appeared to be fluid overloaded 07/15 with shortness of breath, bibasilar crackles. Was given a dose of 20 mg of IV Lasix No more fluid overload today Admission and Anticipated Discharge Date Admission Date: July 14, 2022 Subjective Patient does not appear to be short of breath today. Noted mild orthostatic drop this morning. Review of Systems Review of Systems: All systems reviewed & are unremarkable except as noted in Subjective Physical Exam Physical Exam: General: Awake, conversant Heart: S1, S2/regular rate and rhythm, no murmur rubs or gallops Lungs: Bibasilar crackles. Normal effort Abdomen: Soft/nontender/nondistended. No hepatosplenomegaly Extremities: No clubbing/cyanosis. No edema. Right arm in a sling. Behavior: Appropriate, cooperative Results & Data Results & Data Vital Signs (Past 12 Hours) Vital Signs Temp Pulse Pulse Pulse Resp BP Pulse Ox 07/16/22 12:18 36.7 C 89 18 109/71 91 07/16/22 09:07 07/16/22 07:59 36.7 C 78 18 134/85 91 07/16/22 05:59 81 07/16/22 03:14 37.3 C 82 20 124/80 92 O2 Del Method 07/16/22 12:18 Room Air 07/16/22 09:07 Room Air 07/16/22 07:59 Room Air 07/16/22 05:59 07/16/22 03:14 Room Air Laboratory Results Abnormal lab results 07/15/22 07/15/22 07/16/22 Range/Units 16:35 20:32 05:25 RBC 3.23 L (4.20-5.40) M/uL Hgb 9.9 L (12.0-16.0) g/dl Hct 29.1 L (37.0-47.0) % MPV 9.2 L (9.4-12.4) fL Sodium (136-145) mmol/L Glucose (70-99(Fasting)) mg/dl POC Glucose 164 H 182 H (70-99) mg/dl 07/16/22 07/16/22 07/16/22 Range/Units 05:25 07:47 11:38 RBC (4.20-5.40) M/uL Hgb (12.0-16.0) g/dl Hct (37.0-47.0) % MPV (9.4-12.4) fL Sodium 134 L (136-145) mmol/L Glucose 168 H (70-99(Fasting)) mg/dl POC Glucose 193 H 207 H (70-99) mg/dl PG Care Time/CCT Total # of Minutes Spent Total Time Spent with Patient: Total time spent is greater than 50% in coordination of care (as documented) at patient's floor/unit and/or counseling patient: Coding Level of Care Code 43239 SUB INP/OBS CARE 2/35MIN Diagnoses Closed right humeral fracture S42.301A Orthostatic hypotension I95.1 TIA (transient ischemic attack) G45.9 CVA (cerebral vascular accident) I63.9 Anxiety with depression F41.8 GERD (gastroesophageal reflux disease) K21.9 Hyperlipidemia E78.5 Generalized osteoarthritis M15.9 Tobacco use Z72.0 Hyperthyroidism E05.90 Type II diabetes mellitus E11.9 Diabetes mellitus mcc insulin use: without wan support specialist use Diabetes mellitus complication status: without complication COPD (chronic obstructive pulmonary disease) J44.9 COPD type: unspecified COPD Hypertension I10 Hypertension type: essential hypertension Asthma J45.909 Hypomagnesemia E83.42 Acute blood loss anemia D62 Fluid overload due to blood transfusion E87.71 (11) Type II diabetes mellitus Diabetes mellitus wan support specialist insulin use: without wan support specialist use Diabetes mellitus complication status: without complication Qualified Code(s): E11.9 - Type 2 diabetes mellitus without complications (12) COPD (chronic obstructive pulmonary disease) COPD type: unspecified COPD Qualified Code(s): J44.9 - Chronic obstructive pulmonary disease, unspecified (13) Hypertension Hypertension type: essential hypertension Qualified Code(s): I10 - Essential (primary) hypertension
[2022-07-16] MEDS: MIDODRINE HCL 2.5 MG TAB PO SCH (16:50)
[2022-07-16] MEDS: traZODone HCL 50 MG TAB PO SCH (20:41)
[2022-07-16] MEDS: ATORVASTATIN 40 MG TAB PO SCH (20:41)
[2022-07-17 07:09] LABS: Hematocrit (blood only) 28.7 % (37.0-47.0); Hemoglobin 9.7 g/dl (12.0-16.0); Mean Corpuscular Hemoglobin 31.1 pg (25.0-34.0); Mean Corpuscular Hgb Conc 33.8 g/dL (32.0-36.0); Mean Platelet Volume 9.2 fL (9.4-12.4); Platelet Count 181 K/uL (130-400); RDW Coefficient of Variation 13.7 % (11.5-14.5); RDW Standard Deviation 46.4 fL (36.4-46.3); Red Blood Count 3.12 M/uL (4.20-5.40)
[2022-07-17 07:23] LABS: BUN Creatinine Ratio 18.3 (10-20); Calcium 8.8 mg/dl (8.6-10.3); Creatinine Clr Calc Pharmacy 42.9 ml/min; Est GFR (African American) 57.1 ml/min; Est GFR (Non-African American) 49.3 ml/min; Potassium 4.4 mmol/L (3.5-5.1)
[2022-07-17] MEDS: INSULIN ASPART PER UNIT CHARGE SC SCH ×4 (07:58→21:10)
[2022-07-17] MEDS: BENZONATATE 100 MG CAPSULE PO SCH ×3 (08:30→20:54)
[2022-07-17] MEDS: methIMAzole 5 MG TABLET PO SCH (08:31)
[2022-07-17] MEDS: MAGNESIUM CHLORIDE W/CALCIUM 64MG DELAYED REL TAB PO SCH ×2 (08:31→20:54)
[2022-07-17] MEDS: PANTOprazole 40 MG TAB PO SCH ×2 (08:31→20:55)
[2022-07-17] MEDS: MIDODRINE HCL 2.5 MG TAB PO SCH ×3 (08:32→17:15)
[2022-07-17] MEDS: CLOPIDOGREL BISULFATE 75 MG TAB PO SCH (08:32)
[2022-07-17] MEDS: UMECLIDINIUM/VILANTEROL 62.5/25MCG 7 PUFFS/INHALER INH SCH (08:32)
[2022-07-17] MEDS: FLUTICASONE FUROATE 100MCG 14 PUFFS/INHALER INH SCH (08:33)
[2022-07-17] MEDS: ACETAMINOPHEN 325 MG TAB PO PRN (08:36)
[2022-07-17] MEDS: oxyCODONE HCL 10 MG TABCR (OxyCONTIN) PO SCH ×2 (08:48→20:56)
[2022-07-17] MEDS: oxyCODONE HCL IR 5 MG TAB (IMMEDIATE RELEASE) PO PRN (13:32)
--- NOTE | 2022-07-17 17:48 | Hospitalist Progress Note ---
Date of Service July 17, 2022 Assessment & Plan (1) Closed right humeral fracture: Plan: Age-related osteoporosis with current pathological fracture of the right humerus Orthopedics on board, recommending conservative management. Outpatient follow- up with orthopedics in 1 week. On morphine, oxycodone and acetaminophen for pain control. Pain remains uncontrolled. Continue OxyContin 10 mg twice daily with oxycodone 5 mg and 10 mg as needed for breakthrough pain. Discontinued IV morphine Consult PT/OT medical social worker working on placement given her lethargy in the AM, will decrease her pain medicine. 10mg of oxycodone will be discontinued will continue 5 mg dose of oxycodone but at q8h, patient will also be on scheduled tylenol (2) Orthostatic hypotension: Plan: Could be the reason for her near syncope Hydrated her gently Repeat orthostatic vital signs still continue to show orthostatic drop in blood pressure when she stands Hold losartan Noted that her hemoglobin was trending down slowly Transfused a unit of blood on 07/14 as she has orthostatic hypotension. Hemoglobin responded to blood transfusion appropriately Since she is having orthostatic hypotension despite receiving IV fluid and blood transfusion, will start her on midodrine low-dose Continue to monitor orthostatic vital signs daily will increase midodrine for am of 07/18 (3) TIA (transient ischemic attack): (4) CVA (cerebral vascular accident): Plan: Resume Plavix as no plan for surgery (5) Anxiety with depression: Plan: Continue trazodone (6) GERD (gastroesophageal reflux disease): Plan: Continue pantoprazole (7) Hyperlipidemia: Plan: Continue atorvastatin (8) Generalized osteoarthritis: (9) Tobacco use: (10) Hyperthyroidism: Plan: Continue methimazole (11) Type II diabetes mellitus: Plan: Hold insulin glargine and metformin Placed on Accu-Cheks with NovoLog SSI (12) COPD (chronic obstructive pulmonary disease): (13) Hypertension: Plan: Hold losartan in the setting of orthostatic hypotension (14) Asthma: (15) Hypomagnesemia: (16) Acute blood loss anemia: Plan: Most likely secondary to fracture Transfused a unit of blood on 07/14 as it was associated with orthostatic hypotension (17) Fluid overload due to blood transfusion: Plan: Patient appeared to be fluid overloaded 07/15 with shortness of breath, bibasilar crackles. Was given a dose of 20 mg of IV Lasix No more fluid overload today Admission and Anticipated Discharge Date Admission Date: July 14, 2022 Subjective 76 yo female reports no new symptoms. Her nurse reports she was very lethargic this AM, and attributes this to her pain medicine. Review of Systems Review of Systems: All systems reviewed & are unremarkable except as noted in HPI & below Physical Exam Physical Exam: General: Awake, conversant Heart: S1, S2/regular rate and rhythm, no murmur rubs or gallops Lungs: Bibasilar crackles. Normal effort Abdomen: Soft/nontender/nondistended. No hepatosplenomegaly Extremities: No clubbing/cyanosis. No edema. Right arm in a sling. Behavior: Appropriate, cooperative Results & Data Results & Data Vital Signs (Past 12 Hours) Vital Signs Temp Pulse Pulse Resp BP Pulse Ox O2 Del Method 07/17/22 14:05 83 07/17/22 13:43 86/59 L 07/17/22 13:41 102/67 07/17/22 13:39 105/71 07/17/22 11:48 36.8 C 83 18 139/73 90 Room Air 07/17/22 08:44 Room Air 07/17/22 07:43 36.8 C 90 18 132/77 94 Room Air 07/17/22 07:18 87 PG Care Time/CCT Total # of Minutes Spent Total Time Spent with Patient: Total time spent is greater than 50% in coordination of care (as documented) at patient's floor/unit and/or counseling patient: Coding Level of Care Code 52244 SUB INP/OBS CARE 2/35MIN Diagnoses Closed right humeral fracture S42.301A Orthostatic hypotension I95.1 TIA (transient ischemic attack) G45.9 CVA (cerebral vascular accident) I63.9 Anxiety with depression F41.8 GERD (gastroesophageal reflux disease) K21.9 Hyperlipidemia E78.5 Generalized osteoarthritis M15.9 Tobacco use Z72.0 Hyperthyroidism E05.90 Type II diabetes mellitus E11.9 Diabetes mellitus intermediate card tender insulin use: without intermediate card tender use Diabetes mellitus complication status: without complication COPD (chronic obstructive pulmonary disease) J44.9 COPD type: unspecified COPD Hypertension I10 Hypertension type: essential hypertension Asthma J45.909 Hypomagnesemia E83.42 Acute blood loss anemia D62 Fluid overload due to blood transfusion E87.71 (11) Type II diabetes mellitus Diabetes mellitus shelter insulin use: without shelter use Diabetes mellitus complication status: without complication Qualified Code(s): E11.9 - Type 2 diabetes mellitus without complications (12) COPD (chronic obstructive pulmonary disease) COPD type: unspecified COPD Qualified Code(s): J44.9 - Chronic obstructive p ulmonary disease, unspecified (13) Hypertension Hypertension type: essential hypertension Qualified Code(s): I10 - Essential (primary) hypertension
[2022-07-17] MEDS: ACETAMINOPHEN 325 MG TAB PO SCH ×2 (18:03→22:56)
[2022-07-17] MEDS: traZODone HCL 50 MG TAB PO SCH ×2 (20:54→21:10)
[2022-07-17] MEDS: ATORVASTATIN 40 MG TAB PO SCH (20:54)
[2022-07-18] MEDS: ACETAMINOPHEN 325 MG TAB PO SCH ×2 (05:21→12:19)
[2022-07-18] MEDS: oxyCODONE HCL IR 5 MG TAB (IMMEDIATE RELEASE) PO PRN ×2 (05:56→15:39)
[2022-07-18 07:23] LABS: Hemoglobin 9.5 g/dl (12.0-16.0); Mean Corpuscular Hemoglobin 30.3 pg (25.0-34.0); Mean Corpuscular Hgb Conc 33.9 g/dL (32.0-36.0); Mean Corpuscular Volume 89.2 fL (80.0-100.0); Mean Platelet Volume 9.1 fL (9.4-12.4); Platelet Count 185 K/uL (130-400); RDW Coefficient of Variation 13.4 % (11.5-14.5); RDW Standard Deviation 43.9 fL (36.4-46.3); Red Blood Count 3.14 M/uL (4.20-5.40)
[2022-07-18 07:54] LABS: Est GFR (African American) 64.2 ml/min; Potassium 4.5 mmol/L (3.5-5.1)
[2022-07-18 07:55] LABS: BUN Creatinine Ratio 24.2 (10-20); Creatinine Clr Calc Pharmacy 47.9 ml/min; Est GFR (Non-African American) 55.4 ml/min
[2022-07-18] MEDS: INSULIN ASPART PER UNIT CHARGE SC SCH ×2 (07:56→12:06)
[2022-07-18] MEDS: methIMAzole 5 MG TABLET PO SCH (08:10)
[2022-07-18] MEDS: PANTOprazole 40 MG TAB PO SCH (08:10)
[2022-07-18] MEDS: BENZONATATE 100 MG CAPSULE PO SCH ×2 (08:10→14:07)
[2022-07-18] MEDS: MAGNESIUM CHLORIDE W/CALCIUM 64MG DELAYED REL TAB PO SCH (08:10)
[2022-07-18] MEDS: MIDODRINE HCL 2.5 MG TAB PO SCH ×2 (08:10→12:19)
[2022-07-18] MEDS: FLUTICASONE FUROATE 100MCG 14 PUFFS/INHALER INH SCH (08:11)
[2022-07-18] MEDS: CLOPIDOGREL BISULFATE 75 MG TAB PO SCH (08:11)
[2022-07-18] MEDS: UMECLIDINIUM/VILANTEROL 62.5/25MCG 7 PUFFS/INHALER INH SCH (08:12)
[2022-07-18] MEDS: oxyCODONE HCL 10 MG TABCR (OxyCONTIN) PO SCH (08:34)
--- NOTE | 2022-07-18 08:50 | Hospitalist Progress Note ---
Date of Service July 18, 2022 Assessment & Plan (1) Closed right humeral fracture: Plan: Age-related osteoporosis with current pathological fracture of the right humerus Orthopedics on board, recommending conservative management. Outpatient follow- up with orthopedics in 1 week. On morphine, oxycodone and acetaminophen for pain control. Pain remains uncontrolled. Continue OxyContin 10 mg twice daily with oxycodone 5 mg and 10 mg as needed for breakthrough pain. Discontinued IV morphine Consult PT/OT personal support worker working on placement given her lethargy in the AM, will decrease her pain medicine. 10mg of oxycodone will be discontinued will continue 5 mg dose of oxycodone but at q8h, patient will also be on scheduled tylenol (2) Orthostatic hypotension: Plan: Could be the reason for her near syncope Hydrated her gently Repeat orthostatic vital signs still continue to show orthostatic drop in blood pressure when she stands Hold losartan Noted that her hemoglobin was trending down slowly Transfused a unit of blood on 07/14 as she has orthostatic hypotension. Hemoglobin responded to blood transfusion appropriately Since she is having orthostatic hypotension despite receiving IV fluid and blood transfusion, will start her on midodrine low-dose Continue to monitor orthostatic vital signs daily will increase midodrine for am of 07/18 (3) TIA (transient ischemic attack): (4) CVA (cerebral vascular accident): Plan: Resume Plavix as no plan for surgery (5) Anxiety with depression: Plan: Continue trazodone (6) GERD (gastroesophageal reflux disease): Plan: Continue pantoprazole (7) Hyperlipidemia: Plan: Continue atorvastatin (8) Generalized osteoarthritis: (9) Tobacco use: (10) Hyperthyroidism: Plan: Continue methimazole (11) Type II diabetes mellitus: Plan: Hold insulin glargine and metformin Placed on Accu-Cheks with NovoLog SSI (12) COPD (chronic obstructive pulmonary disease): (13) Hypertension: Plan: Hold losartan in the setting of orthostatic hypotension (14) Asthma: (15) Hypomagnesemia: (16) Acute blood loss anemia: Plan: Most likely secondary to fracture Transfused a unit of blood on 07/14 as it was associated with orthostatic hypotension (17) Fluid overload due to blood transfusion: Plan: Patient appeared to be fluid overloaded 07/15 with shortness of breath, bibasilar crackles. Was given a dose of 20 mg of IV Lasix No more fluid overload today Admission and Anticipated Discharge Date Admission Date: July 14, 2022 Subjective 76 yo female reports feeling well. S Review of Systems Review of Systems: All systems reviewed & are unremarkable except as noted in HPI & below Physical Exam Physical Exam: General: Awake, conversant Heart: S1, S2/regular rate and rhythm, no murmur rubs or gallops Lungs: Bibasilar crackles. Normal effort Abdomen: Soft/nontender/nondistended. No hepatosplenomegaly Extremities: No clubbing/cyanosis. No edema. Right arm in a sling. Behavior: Appropriate, cooperative Results & Data Results & Data Vital Signs (Past 12 Hours) Vital Signs Temp Pulse Pulse Resp BP Pulse Ox O2 Del Method 07/18/22 07:12 36.4 C L 76 16 117/75 92 Room Air 07/18/22 07:10 93 H 07/18/22 03:20 36.5 C 70 18 134/85 91 Room Air 07/17/22 22:04 81 07/17/22 22:00 36.9 C 80 18 137/81 92 Room Air PG Care Time/CCT Total # of Minutes Spent Total Time Spent with Patient: Total time spent is greater than 50% in coordination of care (as documented) at patient's floor/unit and/or counseling patient: Coding Diagnoses Closed right humeral fracture S42.301A Orthostatic hypotension I95.1 TIA (transient ischemic attack) G45.9 CVA (cerebral vascular accident) I63.9 Anxiety with depression F41.8 GERD (gastroesophageal reflux disease) K21.9 Hyperlipidemia E78.5 Generalized osteoarthritis M15.9 Tobacco use Z72.0 Hyperthyroidism E05.90 Type II diabetes mellitus E11.9 Diabetes mellitus halfway insulin use: without shop technician use Diabetes mellitus complication status: without complication COPD (chronic obstructive pulmonary disease) J44.9 COPD type: unspecified COPD Hypertension I10 Hypertension type: essential hypertension Asthma J45.909 Hypomagnesemia E83.42 Acute blood loss anemia D62 Fluid overload due to blood transfusion E87.71 (11) Type II diabetes mellitus Diabetes mellitus halfway insulin use: without shop technician use Diabetes mellitus complication status: without complication Qualified Code(s): E11.9 - Type 2 diabetes mellitus without complications (12) COPD (chronic obstructive pulmonary disease) COPD type: unspecified COPD Qualified Code(s): J44.9 - Chronic obstructive pulmonary disease, unspecified (13) Hypertension Hypertension type: essential hypertension Qualified Code(s): I10 - Essential (primary) hypertension
--- NOTE | 2022-07-18 15:27 | Discharge Summary ---
Date of Service July 18, 2022 Admission HPI Per Admitting Provider The patient is a 76-year-old female with a past medical history including TIA, CVA, anxiety depression, GERD, generalized arthritis, ambulatory dysfunction, hyperlipidemia, adrenal mass, tobacco use, hypomagnesemia, hyperparathyroidism, iron deficiency anemia, type 2 diabetes mellitus, COPD, hypertension and asthma. She presents to the emergency department with left shoulder pain as noted above. X-ray of left shoulder shows a closed proximal humeral fracture CT head is negative Significant laboratories: Magnesium 1.4, hemoglobin 9.8, hematocrit 29.5, creatinine 1.33, glucose 266 From the ED the patient received the following: Magnesium sulfate 2 g IV, normal saline 500 mL bolus, Tylenol 1 g IV, and morphine sulfate 2 mg IV Principal Diagnosis closed right femoral fracture Discharge Exam General: Awake, conversant Heart: S1, S2/regular rate and rhythm, no murmur rubs or gallops Lungs: Bibasilar crackles. Normal effort Abdomen: Soft/nontender/nondistended. No hepatosplenomegaly Extremities: No clubbing/cyanosis. No edema. Right arm in a sling. Behavior: Appropriate, cooperative Discharge Data Allergies Allergy/AdvReac Type Severity Reaction Status Date / Time blue dye Allergy Mild Nausea Verified 07/11/22 23:40 Consultations 07/12/22 00:18 ED Decision to Admit Stat 07/12/22 04:31 Consult Orthopedic Surgery Routine Ordered Studies 07/11/22 22:15 CT head/brain wo con Stat 07/12/22 08:46 CT shoulder RT wo con Routine Hospital Course (1) Closed right humeral fracture: Age-related osteoporosis with current pathological fracture of the right humerus Orthopedics on board, recommending conservative management. Outpatient follow- up with orthopedics in 1 week. On morphine, oxycodone and acetaminophen for pain control. Pain remains uncontrolled. Continue OxyContin 10 mg twice daily with oxycodone 5 mg and 10 mg as needed for breakthrough pain. Discontinued IV morphine Consult PT/OT front desk worker working on placement given her lethargy in the AM, will decrease her pain medicine. 10mg of oxycodone will be discontinued will continue 5 mg dose of oxycodone but at q8h, patient will also be on scheduled tylenol (2) Orthostatic hypotension: Could be the reason for her near syncope Hydrated her gently Repeat orthostatic vital signs still continue to show orthostatic drop in blood pressure when she stands Hold losartan Noted that her hemoglobin was trending down slowly Transfused a unit of blood on 07/14 as she has orthostatic hypotension. Hemoglobin responded to blood transfusion appropriately Since she is having orthostatic hypotension despite receiving IV fluid and blood transfusion, will start her on midodrine low-dose Continue to monitor orthostatic vital signs daily will increase midodrine. Her symptoms improved. she can be discharged. (3) TIA (transient ischemic attack): (4) CVA (cerebral vascular accident): Resume Plavix as no plan for surgery (5) Anxiety with depression: Continue trazodone (6) GERD (gastroesophageal reflux disease): Continue pantoprazole (7) Hyperlipidemia: Continue atorvastatin (8) Generalized osteoarthritis: (9) Tobacco use: (10) Hyperthyroidism: Continue methimazole (11) Type II diabetes mellitus: Hold insulin glargine and metformin Placed on Accu-Cheks with NovoLog SSI (12) COPD (chronic obstructive pulmonary disease): (13) Hypertension: Hold losartan in the setting of orthostatic hypotension (14) Asthma: (15) Hypomagnesemia: (16) Acute blood loss anemia: Most likely secondary to fracture Transfused a unit of blood on 07/14 as it was associated with orthostatic hypotension (17) Fluid overload due to blood transfusion: Patient appeared to be fluid overloaded 07/15 with shortness of breath, bibasilar crackles. Was given a dose of 20 mg of IV Lasix No more fluid overload today Total Time Total Time Spent Total Time Spent (In Minutes): 32 Discharge Plan Discharge Items Patient Disposition: Transfer Shelter Fac Reason For Visit: NEAR SYNCOPE, HYPOMNAG, CLOSED PROXIMAL HUMERUS FX Discharge Diagnosis: closed proximal humerus fracture Activity: Resume your previous activity Non-emergency contact: Primary Care Provider Call non-emergency contact if: you have any medication questions Follow-up/Referrals: Sander David MD [Primary Care Provider] - Derek Padilla MD [Surgeon] - (2-3 weeks after discharge) Diet: Carb Consistent or DM2 Addtl Attending Provider Instructions: You have been hospitalized for an acute medical problem. During your stay at [facility], we have made an effort to correct the problem that brought you to the hospital while keeping you as comfortable as possible. Medications were used to bring your condition under control and your discharge instructions will include directions for any medications you should take after leaving the hospital. Please make sure you see your Primary Care Provider as part of your follow up plan. Your blood pressure was lower and youhad symptoms when you stand up. This has improved with your midodrine, will recommend you take your first dose of the day the moment you wake up. Pending Studies at Discharge: No Stand-Alone Forms: My [facility] Skilled Items Patient informed of condition?: Yes DNR: No Discharge Level of Care: Skilled Communicable Disease: No Discharge Prognosis: Stable Lines: None Urinary Catheter: No Medications and DC Order Prescriptions: New acetaminophen 325 mg Tablet 650 mg PO Q6HWA Qty: 30 0RF benzonatate 100 mg Capsule 100 mg PO TID PRN (Reason: cough) Qty: 30 0RF midodrine 2.5 mg Tablet 5 mg PO TID@0800,1200,1700 Qty: 90 0RF Anoro Ellipta 62.5-25 mcg/actuation Blister With Device 1 puff inhalation DAILY Qty: 30 0RF oxycodone 5 mg Tablet 5 mg PO Q6H PRN (Reason: pain) Qty: 15 0RF Continued (DME) OneTouch Ultra Blue Test Strip strip See Dose Instructions .ROUTE .MEDSUPPLY Qty: 300 3RF Dose Instruction: As directed Rx Instructions: test 3 times a day as directed Slow-Mag 71.5 mg tablet,delayed release (DR/EC) 71.5 mg PO BID Qty: 180 3RF clopidogrel 75 mg tablet 75 mg PO DAILY Qty: 90 3RF Patient Comments: PT STATES BID metformin 500 mg tablet 1,000 mg PO BID 90 Days Qty: 360 3RF hydroxyzine HCl 25 mg tablet 25 mg PO TID PRN (Reason: Anxiety) Qty: 90 2RF pantoprazole 40 mg tablet,delayed release (DR/EC) 40 mg PO BID Qty: 180 3RF methimazole 10 mg tablet 15 mg PO DAILY Qty: 135 3RF Patient Comments: PT STATES RAN OUT OF MEDICATION/NOT TAKING ferrous sulfate 325 mg (65 mg iron) tablet 325 mg PO BID Patient Comments: pt. states too expensive as Rx, had to buy otc and has been taking BID instead of TID Trelegy Ellipta 100-62.5-25 mcg blister with device 1 inh inhalation DAILY Qty: 60 11RF atorvastatin 40 mg tablet 40 mg PO HS Patient Comments: TAKES QAM insulin glargine [Lantus U-100 Insulin] 100 unit/mL solution 15 unit SUBCUT HS PRN (Reason: IF NEEDED PER PT) Patient Comments: PT STATES ONLY TAKES IF NEEDED trazodone 50 mg tablet 50 mg PO HS Humulin R Regular U-100 Insuln 100 unit/mL solution 0 unit SUBCUT DIRECTED PRN (Reason: SLIDING SCALE) Rx Instructions: Use as directed per sliding scale subcut daily PRN; albuterol sulfate [Ventolin HFA] 90 mcg/actuation HFA aerosol inhaler 1 puff inhalation DIRECTED PRN (Reason: shortness of breath or wheezing) Discontinued losartan 100 mg tablet 100 mg PO DAILY Qty: 90 3RF Patient Comments: QAM omeprazole 20 mg capsule,delayed release(DR/EC) 20 mg PO BID Qty: 60 5RF Discharge Orders: Discharge Order (Routine); Ordered 07/18/22 Ordered By: Haris Herndon Admission Data Admit Date/Time: 07/14/22 10:13 Attending Provider: Haris Herndon Admit Provider: Vinicius Glaser Primary Care Provider: Sander David Other Providers: Vinicius Glaser ; Paul Brown ; [place],Care Coding Level of Care Code 65322 INP/OBS DISCH >30 MIN Diagnoses Closed right humeral fracture S42.301A Orthostatic hypotension I95.1 TIA (transient ischemic attack) G45.9 CVA (cerebral vascular accident) I63.9 Anxiety with depression F41.8 GERD (gastroesophageal reflux disease) K21.9 Hyperlipidemia E78.5 Generalized osteoarthritis M15.9 Tobacco use Z72.0 Hyperthyroidism E05.90 Type II diabetes mellitus E11.9 Diabetes mellitus rodent exterminator insulin use: without rodent exterminator use Diabetes mellitus complication status: without complication COPD (chronic obstructive pulmonary disease) J44.9 COPD type: unspecified COPD Hypertension I10 Hypertension type: essential hypertension Asthma J45.909 Hypomagnesemia E83.42 Acute blood loss anemia D62 Fluid overload due to blood transfusion E87.71
[2022-07-18] MEDS ORDERED: INSULIN ASPART PER UNIT CHARGE SC ONE (16:55)
== END 2022-07-18 16:56 | DRG 543 ==
LOC: 2W 19:53 → ED 19:53 → SUATTDRO 07-12 01:15 → 2W 07-12 04:18 → SUATTDRO 07-14 10:13

== ENCOUNTER 2024-04-27 23:24 | Inpatient (IN) ==
--- NOTE | 2024-04-27 23:44 | Emergency Department Note ---
Impression & Plan Syncope and collapse, Hypomagnesemia, Acute hypokalemia, Non-ST elevation DE (NSTEMI), Hypocalcemia, Acute dehydration, Hyperthyroidism ED Provider Note HISTORY OF PRESENT ILLNESS: Patient is a 78-year-old female presenting after syncopal episode. Patient reports she was getting off the commode when she suddenly felt very lightheaded and the next thing she remembers that she woke up on the ground with her daughter over her. She does not think she hit her head when she fell. She is on Plavix. Denies any history of cardiac stents. Denies any chest pain or shortness of breath prior to the passing out. She reports that she has been having persistent nausea, vomiting and diarrhea for the last few weeks. No reported fevers. Denies any shortness of breath. Denies any recent sick contact exposures. Currently feeling nauseous. Patient reportedly had a systolic blood pressure in the 80s with EMS and received 500 cc normal saline and 4 mg IV Zofran in route. Patient denies any DVT or PE history. Denies any numbness, tingling or weakness in extremities. Denies any headache or changes in vision. ROS: as above PHYSICAL EXAM: Constitutional: Patient appears in no acute distress. HENT: Head: Normocephalic and atraumatic. Eyes: EOMI, PERRL Mouth/Throat: Mucous membranes dry. Neck: Trachea midline. Neck supple. No midline cervical spine tenderness to palpation. Cardiovascular: Tachycardic with regular rhythm. No murmurs, rubs or gallops. Intact distal pulses. Pulmonary/Chest: No respiratory distress. Breath sounds clear and equal bilaterally. No wheezes or rales. Abdominal: Abdomen soft, no tenderness, rebound or guarding. Musculoskeletal: No edema, tenderness or deformity noted. Skin: Warm and dry. No rash, erythema, pallor or cyanosis Psychiatric: Appropriate mood and affect for situation. Neurological: Alert and keenly responsive. CN II-XII grossly intact, moving all extremities equally and fully. MDM: - Vitals signs showed tachycardia - History obtained via patient. History as above. - Chronic conditions affecting care: DM-2; HTN; HLD; hyperthyroidism; CKD; COPD - Differential diagnoses include, but are not limited to: UTI; ACS; pneumonia; viral syndrome; electrolyte abnormality; dysrhythmia; dehydration - Order placed for continuous cardiac monitoring. At this time, monitor showed rate of 101 bpm with normal sinus rhythm, per my interpretation. - External medical records reviewed. Primary care visit note dated 03/17/2024 was reviewed. Patient had medications adjusted at her visit with the addition of benzonatate - EKG interpreted by myself showed normal sinus rhythm. Rate tachycardic at 107 bpm. QT 346. No acute ischemic changes. - Laboratory workup interpreted by myself showed leukopenia (WBC 4.57); chronic anemia (Hgb 9.3); normal PT/INR; hypokalemia (K 3.0); elevated anion gap (14); slight hyperglycemia (150); hypomagnesemia (Mg 1.2); hypocalcemia (Ca 7.7); elevated troponin (14.3); normal BNP; normal CK; normal troponin; undetectable TSH - Patient given 1.5L NS in ER. Given 10 mEq IV potassium and 1g IV magnesium for electrolyte abnormality - Viral respiratory panel negative - CXR negative for pneumonia, per my interpretation. - UA negative for infection but noted to have ketonuria. - CT head wo contrast negative for acute pathology. Noted to have cerebral atrophy and chronic microvascular ischemic changes. - CT cervical spine wo contrast negative for acute pathology - CT abdomen/pelvis with IV contrast left adrenal glad mass stable from previous. Noted to have diffuse mural thickening of dudodenum and jejunum. - Stool sample sent to lab for stool studies and Cdiff testing. - Cdiff negative - Discussion was had with case specialist about patient's case and need for admission - Hospitalist, Dr. Glaser, consulted for admission - Patient admitted to [facility] hospitalist service for further evaluation and management. ASSESSMENT AND PLAN: Diagnosis: syncope and collapse; acute hypokalemia; hypomagnesemia; acute dehydration; NSTEMI; hypocalcemia; hyperthyroidism Plan: admit Past Med/Surg History Problem List (Updated 04/28/24 @ 02:37 by Carline Watson MD) Hyperthyroidism (Acute) Acute dehydration (Acute) Hypocalcemia (Acute) Non-ST elevation DE (NSTEMI) (Acute) Acute hypokalemia (Acute) Hypomagnesemia (Acute) Syncope and collapse (Acute) Fluid overload due to blood transfusion Acute blood loss anemia Closed right humeral fracture (07/11/22) Near syncope (Acute) Hypomagnesemia (Acute) Fall from standing (Acute) Closed fracture of right proximal humerus (Acute 07/11/22) CKD (chronic kidney disease) (Acute) Closed left humeral fracture (07/11/22) ? if meant to be right humerus Encounter for pre-operative examination TIA (transient ischemic attack) (Acute) 12/01/20 - admitted to [facility]- no residual deficits On Plavix CVA (cerebral vascular accident) November 2019 - no residual deficits On Plavix Anxiety with depression GERD (gastroesophageal reflux disease) Generalized arthritis Ambulatory dysfunction Hyperlipidemia Generalized osteoarthritis Adrenal mass Tobacco use Hypomagnesemia Chest pain Atypical chest pain (Acute) Left arm weakness (Acute) Calcification of tendon Tobacco dependence Tibial mass Hyperthyroidism Graves disease. Takes Methimazole Iron deficiency anemia Graves' disease PT DENIES Type II diabetes mellitus Glucose controlled COPD (chronic obstructive pulmonary disease) Uses inhaler qid - pt takes routinely- not PRN Breathing stable - chronic [place] Hypertension (Chronic) Asthma (Chronic) USES INHALER DAILY Medical History History of lung cancer Varicose vein of leg Hyperlipidemia Surgical History History of hysterectomy History of tooth extraction History of thoracotomy (~2009) H/O section Family History Aunt Diabetes Myocardial infarction Uncle Prostate cancer Diabetes Myocardial infarction Mother Diabetes Breast cancer Unknown Ovarian cancer Other Family history of cholecystectomy No family history of adverse response to anesthesia Denies family history of Colorectal cancer Social History Smoking Status: Current some day smoker Tobacco Type: Cigarettes Age Started Using Tobacco: 17; packs per day: 2.5; Cigarettes Per Day: 30; Second Hand Exposure: Yes; Do You Dip or Chew Tobacco: No; Hx Alcohol Use: No Hx Substance Use: No Preferred Language: Namibian Communication Ability: Effective Visual Impairment: No Limitations Hearing Ability: Hard of Hearing Coil Winder Repair Required: No Beliefs That Will Affect Care: None marital status: Current Living Situation: Alone current occupational status: retired current occupation: retired from working in retail Feels Safe at Home: Yes Childhood Exposure to Second-Hand Smoke: Yes Diet: regular caffeine: Yes Dental Care, Regularly: No Physical Activity Frequency: Does not Exercise Seatbelt Use: always Sunscreen Use: No Assistive Devices: Cane, Scooter/Electric Scooter and Walker Allergies Allergies Allergy/AdvReac Type Severity Reaction Status Date / Time blue dye Allergy Mild Nausea Verified 09/18/23 13:00 Home Meds Previous Rx's Medication Instructions Recorded acetaminophen 325 mg tablet 650 mg (2 x 325 mg) PO Q6HWA #30 07/18/22 tabs nebulizers #1 ea 01/19/23 albuterol sulfate 2.5 mg/3 mL 2.5 mg (3 mL) inhalation QID PRN 11/26/23 (0.083 %) solution for nebulization shortness of breath or wheezing #75 mL albuterol sulfate 90 mcg/actuation 1 puff inhalation DIRECTED PRN 11/26/23 aerosol inhaler (Ventolin HFA) shortness of breath or wheezing #3 Inhalers alendronate 70 mg tablet 70 mg PO .COMPLEX #12 tabs 11/26/23 atorvastatin 40 mg tablet 40 mg PO HS #90 tabs 11/26/23 blood sugar diagnostic (Cloud Cruiseruch #300 ea 11/26/23 Verio test strips) blood-glucose meter (OneTouch #1 ea 11/26/23 Verio Flex Meter) clopidogrel 75 mg tablet 75 mg PO DAILY #90 tabs 11/26/23 ferrous sulfate 325 mg (65 mg 325 mg PO BID #180 tabs 11/26/23 iron) tablet fluticasone fur. 100 mcg-umeclid 1 inh inhalation DAILY #3 Inhalers 11/26/23 62.5 mcg-vilant 25 mcg inhalat.powder (Trelegy Ellipta) insulin glargine 100 unit/mL 15 unit (0.15 mL) subcut HS PRN IF 11/26/23 subcutaneous solution (Lantus NEEDED PER PT #90 mL U-100 Insulin) insulin regular human 100 unit/mL See Rx Instructions subcut 11/26/23 injection solution (Humulin R DIRECTED PRN SLIDING SCALE #10 mL Regular U-100 Insulin) lancets 33 gauge (OneTouch Delica #300 ea 11/26/23 Plus Lancet) magnesium chloride 71.5 mg 71.5 mg PO BID #180 tabs 11/26/23 (magnesium chloride) tablet,delayed release (Slow-Mag) metformin 500 mg tablet 1,000 mg (2 x 500 mg) PO BID 3 11/26/23 months #360 tabs midodrine 5 mg tablet 5 mg PO TID@0800,1200,1700 90 days 11/26/23 #270 tabs pantoprazole 40 mg tablet,delayed 40 mg PO BID #180 tabs 11/26/23 release pen needle, diabetic 29 gauge x #180 ea 11/26/23 1/2" (Ultra-Thin II Insulin Pen [place]) trazodone 50 mg tablet 100 mg (2 x 50 mg) PO HS #180 tabs 11/26/23 insulin regular human 100 unit/mL 1 sliding scale dose subcut 03/02/24 (3 mL) subcutaneous pen (Novolin R USEASDIRECTD #15 mL FlexPen) benzonatate 200 mg capsule 200 mg PO TID PRN cough #90 caps 03/18/24 hydroxyzine HCl 25 mg tablet 25 mg PO TID PRN Anxiety #90 tabs 03/18/24 Results & Data (ED) Vital Signs Vital Signs - 24 hr 04/27/24 23:49 04/27/24 23:56 04/28/24 00:05 Temperature 36.8 C Temperature Source Oral Pulse Rate 104 H 101 H Pulse Rate [Apical] Respiratory Rate 22 Respiratory Effort / Characteristics Non-Labored Spontaneous Respiratory Depth Normal Respiratory Pattern Regular Blood Pressure 105/88 Blood Pressure [Right Arm] Blood Pressure Mean 93 Blood Pressure Mean [Right Arm] Blood Pressure Position [Right Arm] Pulse Oximetry 98 98 Oxygen Delivery Method Room Air Room Air Sepsis Recent Fever Within 48 Hours No Sepsis New/Unexplained Change in Mental Status No Sepsis Action Taken by Nursing Physician Notified 04/28/24 01:30 Temperature Temperature Source Pulse Rate Pulse Rate [Apical] 92 H Respiratory Rate 18 Respiratory Effort / Characteristics Non-Labored Spontaneous Respiratory Depth Normal Respiratory Pattern Regular Blood Pressure Blood Pressure [Right Arm] 129/64 Blood Pressure Mean Blood Pressure Mean [Right Arm] 85 Blood Pressure Position [Right Arm] Lying Pulse Oximetry 95 Oxygen Delivery Method Room Air Sepsis Recent Fever Within 48 Hours Sepsis New/Unexplained Change in Mental Status Sepsis Action Taken by Nursing Laboratory Data 04/27/24 23:46 04/27/24 23:46 Lab Results 04/27/24 04/27/24 04/28/24 Range/Units 23:46 23:52 01:26 WBC 4.57 L (4.8-10.8) K/ul RBC 3.28 L (4.20-5.40) M/uL Hgb 9.3 L (12.0-16.0) g/dl Hct 28.4 L (37.0-47.0) % MCV 86.6 (80.0-100.0) fL MCH 28.4 (25.0-34.0) pg MCHC 32.7 (32.0-36.0) g/dL RDW Std Deviation 43.5 (36.4-46.3) fL RDW Coeff of Norma 13.6 (11.5-14.5) % Plt Count 203 (130-400) K/uL MPV 9.2 L (9.4-12.4) fL Immature Gran % (Auto) 0.4 % Neut % (Auto) 71.1 % Lymph % (Auto) 17.1 % [place] % (Auto) 11.2 % Eos % (Auto) 0.0 % Baso % (Auto) 0.2 % Neut # (Auto) 3.25 (1.40-6.50) K/uL Lymph # (Auto) 0.78 L (1.20-3.40) K/uL [place] # (Auto) 0.51 (0.11-0.59) K/uL Eos # (Auto) 0.00 (0.00-0.50) K/uL Baso # (Auto) 0.01 (0.00-0.20) K/uL Immature Gran # (Auto) 0.02 (0.01-0.20) K/uL PT 10.4 (9.0-12.0) Seconds INR 1.0 (0.9-1.1) Sodium 134 L (136-145) mmol/L Potassium 3.0 L (3.5-5.1) mmol/L Chloride 103 (98-107) mmol/L Carbon Dioxide 17 L (21-32) mmol/L Anion Gap 14 H (3-11) BUN 25 H (6-23) mg/dl Creatinine 1.18 (0.6-1.2) mg/dl Est Cr Clr Drug Dosing 35.8 ml/min eGFR 47.28 BUN/Creatinine Ratio 21.2 H (10-20) Glucose 150 H (70-99(Fasting)) mg/dl Lactate 1.9 (0.4-2.0) mmol/L Calcium 7.7 L (8.6-10.3) mg/dl Magnesium 1.2 L (1.7-2.4) mg/dl Total Bilirubin 0.3 (0.2-1.0) mg/dl AST 40 H (13-39) U/L ALT 25 (7-52) U/L Alkaline Phosphatase 60 (34-104) U/L Total Creatine Kinase 57 (26-192) U/L Troponin I High Sens 14.3 H (0-14) pg/ml B-Natriuretic Peptide 82 (0-100) pg/ml Total Protein 6.2 (6.0-8.3) gm/dl Albumin 3.3 L (3.4-5.0) gm/dl Globulin 2.9 (2.5-4.0) gm/dl Albumin/Globulin Ratio 1.1 (0.9-2) Lipase 16 (11-82) U/L Procalcitonin 0.31 (0-0.5) ng/ml TSH < 0.010 L (0.300-4.500) uIu/ml Free T4 3.18 H (0.61-1.60) ng/dl Urine Color Yellow Urine Appearance Clear (Clear) Urine pH 5.5 (4.5-7.5) Ur Specific [place] 1.023 (1.000-1.030) Urine Protein Negative (Negative) Urine Glucose (UA) Negative (Negative) Urine Ketones Trace H (Negative) Urine Blood Negative (Negative) Urine Nitrite Negative (Negative) Urine Bilirubin Negative (Negative) Urine Urobilinogen Negative (Negative) Ur Leukocyte Esterase Negative (Negative) Stl C. diff Tox B Gene Negative Cdiff Gene (Neg) Adenovirus (PCR) Not Detected (NotDetected) B. pertussis DNA (PCR) Not Detected (NotDetected) B.parapertussis DNA PCR Not Detected (NotDetected) C. pneumoniae DNA (PCR) Not Detected (NotDetected) Coronavirus OC43 (PCR) Not Detected (NotDetected) Coronavirus HKU1 (PCR) Not Detected (NotDetected) Coronavirus 229E (PCR) Not Detected (NotDetected) SARS-CoV-2 (PCR) Not Detected (NotDetected) Coronavirus NL63 (PCR) Not Detected (NotDetected) Human Metapneumovir PCR Not Detected (NotDetected) Influenza Type A (PCR) Not Detected (NotDetected) Influenza Type B (PCR) Not Detected (NotDetected) M. pneumoniae (PCR) Not Detected (NotDetected) Parainfluenza 1 (PCR) Not Detected (NotDetected) Parainfluenza 2 (PCR) Not Detected (NotDetected) Parainfluenza 3 (PCR) Not Detected (NotDetected) Parainfluenza 4 (PCR) Not Detected (NotDetected) RSV (PCR) Not Detected (NotDetected) Entero/Rhino (PCR) Not Detected (NotDetected) Administered Medications Discontinued Medications Sodium Chloride (Nss) 1,000 mls @ 999 mls/hr IV .Q1H1M ONE Stop: 04/28/24 00:42 Last Infusion: 04/28/24 01:25 Dose: Infused Documented By: Admin: 04/27/24 23:48 Dose: 999 mls/hr Documented By: LINSEY Potassium Chloride (K Maldonado / Wtr) 10 meq in 100 mls @ 100 mls/hr IV ONE ONE Stop: 04/28/24 01:26 Last Infusion: 04/28/24 01:59 Dose: Infused Documented By: Admin: 04/28/24 01:01 Dose: 100 mls/hr Documented By: LINSEY Magnesium Sulfate/Dextrose (Magnesium Sulfate / D5w) 1 gm in 100 mls @ 100 mls/hr IV NOW STA Stop: 04/28/24 01:26 Last Infusion: 04/28/24 01:59 Dose: Infused Documented By: Admin: 04/28/24 01:01 Dose: 100 mls/hr Documented By: LINSEY Sodium Chloride (Nss) 500 mls @ 999 mls/hr IV .Q31M ONE Stop: 04/28/24 01:26 Last Admin: 04/28/24 01:29 Dose: 999 mls/hr Documented By: LINSEY Ioversol (Optiray 320 100ml) 100 ml IV ONCE ONE Stop: 04/28/24 00:53 Last Admin: 04/28/24 00:52 Dose: 93 ml Documented By: TERENCE Imaging Data Radiologist's Impression: Abdomen/Pelvis CT 04/27/24 23:39 EXAM: CT abd pelvis IV con only CLINICAL HISTORY: N/V/D, 93 ML OPTIRAY 320 TECHNIQUE: CT of the abdomen and pelvis was performed with contrast, with the following protocol: axial images with, and reconstructed coronal and sagittal images. One of the following dose reduction techniques was utilized for this exam: Automated exposure control, adjustment of the mA and/or kV according to patient size, and use of iterative reconstruction. COMPARISON: Comparison is made with previous CT dated 01/11/2020. FINDINGS: Abdomen: Liver: Normal in size, shape, and density with few calcific foci suggestive of old granulomatous lesions. No focal enhancing lesions, cysts, or masses were identified. Hepatic vasculature and biliary ducts are unremarkable. Gallbladder and Biliary System: The gallbladder is normal in size and shape. No wall thickening, pericholecystic fluid, or gallstones were identified. The common bile duct is normal in caliber without dilation. Pancreas: Pancreatic head, body, and tail are visualized with moderate-severe atrophy. No pancreatic masses or calcifications were noted. The pancreatic duct is not dilated. Spleen: Normal in size, shape, and density with few calcific foci suggestive of old granulomatous lesions. No enhancing splenic lesions or masses were identified. Kidneys and Adrenal Glands: Both kidneys are normal in size, shape, and position with bilateral cortical scars. A subcentimeter sized cyst is seen in interpolar region of left kidney. No renal calculi or hydronephrosis. A heterogeneously enhancing mass of size (4.2x4.1cm) is seen in left supra-renal region showing indistinct planes with limbs of left adrenal gland. Tiny speck of calcification is seen within the mass. Right adrenal gland is unremarkable with no evidence of masses or hyperplasia. No evidence of vascular invasion. Pelvis: Urinary Bladder: Normal in contour and wall thickness. No intraluminal lesions identified. Uterus: Post hysterectomy status. Ovaries: Not well visualized but no gross abnormalities noted. Vagina: Normal in contour and wall thickness. Peritoneal and Retroperitoneal Structures: No free fluid or abnormal fluid collections were identified within the abdomen or pelvis. No lymphadenopathy was noted. Bowel: Diffuse mural thickening is seen involving second-fourth segments of duodenum and proximal jejunum; maximum thickness of 11-12mm. Rest of the small bowel is unremarkable. Diffuse circumferential mural thickening with submucosal edema is seen involving entire large bowel and rectum ; maximum thickness of 8-9mm. The visualized bowel loops are normal in caliber.No evidence of bowel obstruction. Bones and Soft Tissues: Pelvic bones and soft tissues are unremarkable. No fractures or abnormal masses were identified. 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 IMPRESSION: 1. 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 No significant interval change as compared to previous scan. However, further evaluation with histopathology is advised. 2. Diffuse mural thickening is seen involving second-fourth segments of duodenum and proximal jejunum and with submucosal edema involving entire large bowel and rectum- likely infective/inflammatory etiology. Follow up scan is advised. Electronically signed by Flakito Baig 04-28-2024 02:[address] 04/27/24 23:40 EXAM: CT cervical spine wo con CLINICAL HISTORY: SYNCOPE TECHNIQUE: Computed tomography of the cervical spine performed without intravenous contrast. Contiguous axial images were obtained from the skull base to T2, with sagittal and coronal reformatted images reconstructed from the axial data. CT scan was performed according to ALARA (as low as reasonably achievable). COMPARISON: None. FINDINGS: Straightening of the cervical spine is noted. Subtle retrolisthesis of C3 over C4 vertebra is noted. Vertebral bodies are normal in height. No evidence of fracture. Lateral masses of C1 are symmetrical, and the dens is intact. Prevertebral soft tissues are not widened. The remaining suprahyoid and infrahyoid soft tissues in the neck are unremarkable. Marginal osteophytes are noted at few levels. Reduction in the C5-C6, C6-C7 disc height is noted. C2-C3: No disc bulge, mass effect on the cord or neuroforaminal narrowing. C3-C4: No disc bulge, mass effect on the cord or neuroforaminal narrowing. C4-C5: No disc bulge, mass effect on the cord or neuroforaminal narrowing. C5-C6: Mild spinal canal and bilateral neural foraminal stenosis is noted. C6-C7: Mild spinal canal and bilateral neural foraminal stenosis is noted. C7-T1: No disc bulge, mass effect on the cord or neuroforaminal narrowing. Thyroid gland appears unremarkable. IMPRESSION: 1. No acute fracture in the cervical spine. 2. Subtle retrolisthesis of C3 over C4 vertebra is noted. 3. Early degenerative changes as described. Electronically signed by Flakito Baig 04-28-2024 02:25 AM Chest X-Ray 04/27/24 23:40 EXAM: XR chest 1V portable CLINICAL HISTORY: syncope jmf TECHNIQUE: Radiograph of chest was acquired. COMPARISON: 11 July 2022. FINDINGS: Lungs are clear and well-expanded with no pulmonary infiltrate. No pleural effusion is detected. Apparent cardiomegaly is noted. No acute osseous abnormality. Rest of the findings are unchanged compared to the previous radiograph. Previous radiograph showed fracture of the proximal right humerus. It is not included in the current radiographic field of view. IMPRESSION: 1. Apparent cardiomegaly. 2. No obvious lung field abnormality detected. No significant interval new finding is noted as compared to the previous radiograph. Electronically signed by Flakito Baig 04-28-2024 02:[address] 04/27/24 23:40 EXAM: CT head/brain wo con CLINICAL HISTORY: SYNCOPE TECHNIQUE: Multiple axial images are obtained from the skull base to the vertex without contrast. CT scan was performed according to ALARA (as low as reasonably achievable). COMPARISON: 11 July 2022. FINDINGS: There is cerebral atrophy. The garcia-white matter differentiation is preserved. There are scattered periventricular hypodensities as can be seen with chronic microvascular ischemic changes. No evidence of space occupying lesion, hemorrhage, edema, mass effect, midline shift, extra axial collection, or hydrocephalus is noted. Basal cisterns are symmetric and normal in size and configuration. Visualized paranasal sinuses are well aerated. Stable mild opacification/collection involving right mastoid air cells is noted. Left mastoid air cells appear normal. Orbital contents are within normal limits. Bony structures are intact. Rest of the findings are unchanged compared to the previous CT scan. IMPRESSION: 1. No evidence of acute intracranial abnormality is demonstrated. 2. Chronic microvascular ischemic changes. 3. Cerebral atrophy. 4. Stable mild opacification/collection involving right mastoid air cells is noted. No significant interval new finding is noted as compared to the previous CT scan. Electronically signed by Flakito Baig 04-28-2024 02:11 AM Discharge Plan Visit Data Chief Complaint: Syncope Stated Complaint: Syncope, Fall, Nausea, Dizziness ED Provider: Carline Watson Discharge Problem: Syncope and collapse, Hypomagnesemia, Acute hypokalemia, Non-ST elevation DE (NSTEMI), Hypocalcemia, Acute dehydration, Hyperthyroidism Forms Stand Alone Forms: My [facility] [employer] Prescriptions Prescriptions: No Action albuterol sulfate 2.5 mg /3 mL (0.083 %) solution for nebulization 2.5 mg inhalation QID PRN (Reason: shortness of breath or wheezing) Qty: 75 3RF albuterol sulfate [Ventolin HFA] 90 mcg/actuation HFA aerosol inhaler 1 puff inhalation DIRECTED PRN (Reason: shortness of breath or wheezing) Qty: 3 3RF alendronate 70 mg tablet 70 mg PO .COMPLEX Qty: 12 3RF Rx Instructions: 70 mg PO once weekly; Take with full glass of water on an empty stomach. Remain upright and wait 40 minutes before eating/drinking atorvastatin 40 mg tablet 40 mg PO HS Qty: 90 3RF (DME) OneTouch Verio test strips Strip See Rx Instructions .Route Qty: 300 1RF Rx Instructions: As directed test 3 times each day (DME) blood-glucose meter [Cloud CruiserTouch Verio Flex meter] Misc See Rx Instructions .Route Qty: 1 0RF Rx Instructions: As directed check BSG 3 times daily clopidogrel 75 mg tablet 75 mg PO DAILY Qty: 90 3RF Patient Comments: PT STATES BID ferrous sulfate 325 mg (65 mg iron) tablet 325 mg PO BID Qty: 180 3RF Trelegy Ellipta 100-62.5-25 mcg blister with device 1 inh inhalation DAILY Qty: 3 3RF insulin glargine [Lantus U-100 Insulin] 100 unit/mL solution 15 unit SUBCUT HS PRN (Reason: IF NEEDED PER PT) Qty: 90 3RF Humulin R Regular U-100 Insuln 100 unit/mL solution See Rx Instructions SUBCUT DIRECTED PRN (Reason: SLIDING SCALE) Qty: 10 3RF Rx Instructions: Per sliding scale, max daily dosing 30 units subcutaneously as directed PRN; (DME) lancets [OneTouch Delica Plus Lancet] 33 gauge misc See Rx Instructions .Route Qty: 300 3RF Rx Instructions: As directed test 3 times daily Slow-Mag 71.5 mg tablet,delayed release (DR/EC) 71.5 mg PO BID Qty: 180 3RF metformin 500 mg tablet 1,000 mg PO BID 90 Days Qty: 360 3RF midodrine 5 mg tablet 5 mg PO TID@0800,1200,1700 90 Days Qty: 270 3RF pantoprazole 40 mg tablet,delayed release (DR/EC) 40 mg PO BID Qty: 180 3RF (DME) pen needle, diabetic [Ultra-Thin II Ins Pen [place]] 29 gauge x 1/2" needle See Rx Instructions .Route Qty: 180 3RF Rx Instructions: use with insulin BID prn trazodone 50 mg tablet 100 mg PO HS Qty: 180 3RF Novolin R FlexPen 100 unit/mL (3 mL) insulin pen 1 sliding scale dose subcut USEASDIRECTD Qty: 15 3RF Rx Instructions: Max 30 units per day ipratropium-albuterol 0.5 mg-3 mg(2.5 mg base)/3 mL solution for nebulization 3 ml inhalation ONCE Qty: 3 0RF (DME) nebulizers Misc See Rx Instructions .Route Qty: 1 0RF Rx Instructions: Nebulizer and tubing supplies benzonatate 200 mg capsule 200 mg PO TID PRN (Reason: cough) Qty: 90 3RF hydroxyzine HCl 25 mg tablet 25 mg PO TID PRN (Reason: Anxiety) Qty: 90 3RF acetaminophen 325 mg Tablet 650 mg PO Q6HWA Qty: 30 0RF Referrals Referrals: Sander David MD [Primary Care Provider] -
[2024-04-27] MEDS: SODIUM CHLORIDE 0.9% 1,000 ML IV ONE (23:48)
[2024-04-28 00:04] LABS: Basophils # (auto) 0.01 K/uL (0.00-0.20); Basophils % (auto) 0.2 %; Hematocrit (blood only) 28.4 % (37.0-47.0); Hemoglobin 9.3 g/dl (12.0-16.0); Immature Granulocytes # (auto) 0.02 K/uL (0.01-0.20); Immature Granulocytes % (auto) 0.4 %; Lymphocytes # (auto) 0.78 K/uL (1.20-3.40); Lymphocytes % (auto) 17.1 %; Mean Corpuscular Hemoglobin 28.4 pg (25.0-34.0); Mean Corpuscular Hgb Conc 32.7 g/dL (32.0-36.0); Mean Corpuscular Volume 86.6 fL (80.0-100.0); Mean Platelet Volume 9.2 fL (9.4-12.4); Monocytes # (auto) 0.51 K/uL (0.11-0.59); Monocytes % (auto) 11.2 %; Neutrophils # (auto) 3.25 K/uL (1.40-6.50); Neutrophils % (auto) 71.1 %; Platelet Count 203 K/uL (130-400); RDW Coefficient of Variation 13.6 % (11.5-14.5); RDW Standard Deviation 43.5 fL (36.4-46.3); Red Blood Count 3.28 M/uL (4.20-5.40); White Blood Count 4.57 K/ul (4.8-10.8)
[2024-04-28 00:22] LABS: Alanine Aminotransferase 25 U/L (7-52); Albumin Globulin Ratio 1.1 (0.9-2); Albumin Level 3.3 gm/dl (3.4-5.0); Alkaline Phosphatase 60 U/L (34-104); Anion Gap 14 (3-11); Aspartate Aminotransferase 40 U/L (13-39); BUN Creatinine Ratio 21.2 (10-20); Bilirubin,Total 0.3 mg/dl (0.2-1.0); Blood Urea Nitrogen 25 mg/dl (6-23); Calcium 7.7 mg/dl (8.6-10.3); Carbon Dioxide 17 mmol/L (21-32); Chloride 103 mmol/L (98-107); Creatine Kinase 57 U/L (26-192); Creatinine Clr Calc Pharmacy 35.8 ml/min; Globulin 2.9 gm/dl (2.5-4.0); Glucose 150 mg/dl (70-99(Fasting)); Lipase 16 U/L (11-82); Magnesium 1.2 mg/dl (1.7-2.4); Sodium 134 mmol/L (136-145); Total Protein 6.2 gm/dl (6.0-8.3)
[2024-04-28 00:28] LABS: Troponin I High Sensitivity 14.3 pg/ml (0-14)
[2024-04-28 00:30] LABS: Prothrombin Time 10.4 Seconds (9.0-12.0)
[2024-04-28 00:39] LABS: Thyroid Stimulating Hormone < 0.010 uIu/ml (0.300-4.500)
[2024-04-28 00:50] LABS: Adenovirus PCR Not Detected (NotDetected); Bordetella parapertussis PCR Not Detected (NotDetected); Bordetella pertussis PCR Not Detected (NotDetected); Chlamydia pneumoniae PCR Not Detected (NotDetected); Coronavirus 229E PCR Not Detected (NotDetected); Coronavirus CoV-2 (COVID19)PCR Not Detected (NotDetected); Coronavirus HKU1 PCR Not Detected (NotDetected); Coronavirus NL63 PCR Not Detected (NotDetected); Coronavirus OC43PCR Not Detected (NotDetected); Human Metapneumovirus PCR Not Detected (NotDetected); Influenza A PCR Not Detected (NotDetected); Influenza B PCR Not Detected (NotDetected); Mycoplasma pneumoniae PCR Not Detected (NotDetected); Parainfluenza Virus 1 PCR Not Detected (NotDetected); Parainfluenza Virus 2 PCR Not Detected (NotDetected); Parainfluenza Virus 3 PCR Not Detected (NotDetected); Parainfluenza Virus 4 PCR Not Detected (NotDetected); Respiratory Syncytial VirusPCR Not Detected (NotDetected); Rhinovirus/Enterovirus PCR Not Detected (NotDetected)
[2024-04-28] MEDS: OPTIRAY 320 100ml IV ONE (00:52)
[2024-04-28] MEDS: MAGNESIUM SULFATE / D5W 1 GM/100 ML BAG IV STA (01:01)
[2024-04-28] MEDS: POTASSIUM CHLORIDE / WTR 10 MEQ/100 ML PLCT IV ONE (01:01)
[2024-04-28 01:14] LABS: T4 Free Thyroxine 3.18 ng/dl (0.61-1.60)
[2024-04-28] MEDS: SODIUM CHLORIDE 0.9% 500 ML IV ONE (01:29)
[2024-04-28 01:44] LABS: Appearance Urine Clear (Clear); Bilirubin Urine Negative (Negative); Blood Urine Negative (Negative); Color Urine Yellow; Glucose Urine UA Negative (Negative); Ketones Urine Trace (Negative); Leukocyte Esterase Urine Negative (Negative); Nitrite Urine Negative (Negative); Protein Urine Negative (Negative); Specific Gravity Urine 1.023 (1.000-1.030); Urobilinogen Urine Negative (Negative); pH Urine 5.5 (4.5-7.5)
--- NOTE | 2024-04-28 02:11 | CT Scan Report ---
EXAM: CT head/brain wo con CLINICAL HISTORY: SYNCOPE TECHNIQUE: Multiple axial images are obtained from the skull base to the vertex without contrast. CT scan was performed according to ALARA (as low as reasonably achievable). COMPARISON: 11 July 2022. FINDINGS: There is cerebral atrophy. The garcia-white matter differentiation is preserved. There are scattered periventricular hypodensities as can be seen with chronic microvascular ischemic changes. No evidence of space occupying lesion, hemorrhage, edema, mass effect, midline shift, extra axial collection, or hydrocephalus is noted. Basal cisterns are symmetric and normal in size and configuration. Visualized paranasal sinuses are well aerated. Stable mild opacification/collection involving right mastoid air cells is noted. Left mastoid air cells appear normal. Orbital contents are within normal limits. Bony structures are intact. Rest of the findings are unchanged compared to the previous CT scan. IMPRESSION: 1. No evidence of acute intracranial abnormality is demonstrated. 2. Chronic microvascular ischemic changes. 3. Cerebral atrophy. 4. Stable mild opacification/collection involving right mastoid air cells is noted. No significant interval new finding is noted as compared to the previous CT scan. Electronically signed by Flakito Baig 04-28-2024 02:11 AM
--- NOTE | 2024-04-28 02:26 | CT Scan Report ---
EXAM: CT cervical spine wo con CLINICAL HISTORY: SYNCOPE TECHNIQUE: Computed tomography of the cervical spine performed without intravenous contrast. Contiguous axial images were obtained from the skull base to T2, with sagittal and coronal reformatted images reconstructed from the axial data. CT scan was performed according to ALARA (as low as reasonably achievable). COMPARISON: None. FINDINGS: Straightening of the cervical spine is noted. Subtle retrolisthesis of C3 over C4 vertebra is noted. Vertebral bodies are normal in height. No evidence of fracture. Lateral masses of C1 are symmetrical, and the dens is intact. Prevertebral soft tissues are not widened. The remaining suprahyoid and infrahyoid soft tissues in the neck are unremarkable. Marginal osteophytes are noted at few levels. Reduction in the C5-C6, C6-C7 disc height is noted. C2-C3: No disc bulge, mass effect on the cord or neuroforaminal narrowing. C3-C4: No disc bulge, mass effect on the cord or neuroforaminal narrowing. C4-C5: No disc bulge, mass effect on the cord or neuroforaminal narrowing. C5-C6: Mild spinal canal and bilateral neural foraminal stenosis is noted. C6-C7: Mild spinal canal and bilateral neural foraminal stenosis is noted. C7-T1: No disc bulge, mass effect on the cord or neuroforaminal narrowing. Thyroid gland appears unremarkable. IMPRESSION: 1. No acute fracture in the cervical spine. 2. Subtle retrolisthesis of C3 over C4 vertebra is noted. 3. Early degenerative changes as described. Electronically signed by Flakito Baig 04-28-2024 02:25 AM
--- NOTE | 2024-04-28 02:31 | XRay Report ---
EXAM: XR chest 1V portable CLINICAL HISTORY: syncope [facility] TECHNIQUE: Radiograph of chest was acquired. COMPARISON: 11 July 2022. FINDINGS: Lungs are clear and well-expanded with no pulmonary infiltrate. No pleural effusion is detected. Apparent cardiomegaly is noted. No acute osseous abnormality. Rest of the findings are unchanged compared to the previous radiograph. Previous radiograph showed fracture of the proximal right humerus. It is not included in the current radiographic field of view. IMPRESSION: 1. Apparent cardiomegaly. 2. No obvious lung field abnormality detected. No significant interval new finding is noted as compared to the previous radiograph. Electronically signed by Flakito Baig 04-28-2024 02:31 AM
--- NOTE | 2024-04-28 02:34 | CT Scan Report ---
EXAM: CT abd pelvis IV con only CLINICAL HISTORY: N/V/D, 93 ML OPTIRAY 320 TECHNIQUE: CT of the abdomen and pelvis was performed with contrast, with the following protocol: axial images with, and reconstructed coronal and sagittal images. One of the following dose reduction techniques was utilized for this exam: Automated exposure control, adjustment of the mA and/or kV according to patient size, and use of iterative reconstruction. COMPARISON: Comparison is made with previous CT dated 01/11/2020. FINDINGS: Abdomen: Liver: Normal in size, shape, and density with few calcific foci suggestive of old granulomatous lesions. No focal enhancing lesions, cysts, or masses were identified. Hepatic vasculature and biliary ducts are unremarkable. Gallbladder and Biliary System: The gallbladder is normal in size and shape. No wall thickening, pericholecystic fluid, or gallstones were identified. The common bile duct is normal in caliber without dilation. Pancreas: Pancreatic head, body, and tail are visualized with moderate-severe atrophy. No pancreatic masses or calcifications were noted. The pancreatic duct is not dilated. Spleen: Normal in size, shape, and density with few calcific foci suggestive of old granulomatous lesions. No enhancing splenic lesions or masses were identified. Kidneys and Adrenal Glands: Both kidneys are normal in size, shape, and position with bilateral cortical scars. A subcentimeter sized cyst is seen in interpolar region of left kidney. No renal calculi or hydronephrosis. A heterogeneously enhancing mass of size (4.2x4.1cm) is seen in left supra-renal region showing indistinct planes with limbs of left adrenal gland. Tiny speck of calcification is seen within the mass. Right adrenal gland is unremarkable with no evidence of masses or hyperplasia. No evidence of vascular invasion. Pelvis: Urinary Bladder: Normal in contour and wall thickness. No intraluminal lesions identified. Uterus: Post hysterectomy status. Ovaries: Not well visualized but no gross abnormalities noted. Vagina: Normal in contour and wall thickness. Peritoneal and Retroperitoneal Structures: No free fluid or abnormal fluid collections were identified within the abdomen or pelvis. No lymphadenopathy was noted. Bowel: Diffuse mural thickening is seen involving second-fourth segments of duodenum and proximal jejunum; maximum thickness of 11-12mm. Rest of the small bowel is unremarkable. Diffuse circumferential mural thickening with submucosal edema is seen involving entire large bowel and rectum ; maximum thickness of 8-9mm. The visualized bowel loops are normal in caliber.No evidence of bowel obstruction. Bones and Soft Tissues: Pelvic bones and soft tissues are unremarkable. No fractures or abnormal masses were identified. 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 IMPRESSION: 1. 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 No significant interval change as compared to previous scan. However, further evaluation with histopathology is advised. 2. Diffuse mural thickening is seen involving second-fourth segments of duodenum and proximal jejunum and with submucosal edema involving entire large bowel and rectum- likely infective/inflammatory etiology. Follow up scan is advised. Electronically signed by Flakito Baig 04-28-2024 02:33 AM
--- NOTE | 2024-04-28 02:52 | History & Physical Report ---
Date of Service April 28, 2024 Assessment & Plan (1) Hyperthyroidism: (2) Acute dehydration: (3) Hypocalcemia: (4) Non-ST elevation CT (NSTEMI): (5) Acute hypokalemia: (6) Hypomagnesemia: Plan Marietta Fisehr is a 78 year-old female with medical history significant for hyperthyroidism/Grave's disease, prior CVA, GERD, arthritis, T2DM, COPD, HTN, iron deficiency anemia who presented to the ED via EMS after syncope and collapse at home. Hyperthyroidism, Grave's Disease -TSH <0.010, Free T4 3.18 -Known diagnosis of Grave's Disease, previously has seen endocrinology (last visit seems to be 2019) -Patient previously on methimazole, unfortunately patient has not taken this med for a period of time due to cost -On presentation, patient with syncopal episode and tachycardic (90s-low 100s), ongoing symptoms of nausea/diarrhea, known hyperthyroidism, which all raise concern for progression into thyroid storm -Will resume methimazole at prior dose (15mg) and will add propranolol 10 QID. -After receiving IVF and electrolyte repletion, HR has improved slightly (88) and patient has remained afebrile -Could consider new finding of +salmonella PCR as cause of GI symptoms, dehydration/mild tachycardia -Will keep patient NPO for now as there is still possibility for progression into thyroid storm. Admit to PCU and monitor on telemetry -Ordered total T3 and thyroid US to investigate further -Will need follow up with endocrinology at time of discharge Positive Salmonella Stool PCR -Patient reports over 1 week of ongoing symptoms of nausea/vomiting/diarrhea -CT A/P: Diffuse mural thickening is seen involving second-fourth segments of duodenum and proximal jejunum and with submucosal edema involving entire large bowel and rectum, likely infectious/inflammatory etiology -Stool PCR test positive for salmonella -No leukocytosis, afebrile -Timeline of symptom onset makes possible carrier status less likely, current guidelines recommend antibiotic treatment for confirmed salmonella in patients >70 years -Will start Ciprofloxacin 500mg BID -Repeat CBC with diff in a.m. Hypokalemia | Hypomagnesemia | Hypocalcemia -Multiple electrolyte abnormalities in the setting of poor PO intake and diarrhea as above -K 3.0, Mag 1.2, Ca 7.7 -Continue electrolyte repletion, repeat labs in a.m. Left-Sided Adrenal Mass -Previously known/documented left adrenal mass -CT A/P: A heterogeneously enhancing mass of size (4.2x4.1cm) is seen in left supra-renal region showing indistinct planes with limbs of left adrenal gland. No significant change from prior but further evaluation with histopathology is advised. -Prior PCP notes state that the mass has been monitored for 10 years and was presumed to be benign Anemia -Hgb 9.3 on admission, seems to be chronically low and previously declined EGD/colonoscopy -WBC also low, platelets within normal range. Appears normocytic, normochromic -Will add iron studies, B12 levels Type 2 DM -On insulin at home -While initially NPO, will order only correction factor. Adjust/add carb coverage and/or basal insulin as needed Admit to PCU VTE Prophylaxis: Heparin Diet: NPO Code Status: DNR/DNI History of Present Illness Primary Care Provider: Sander David MD Marietta Fisher is a 78 year-old female with medical history significant for hyperthyroidism/Grave's disease, prior CVA, GERD, arthritis, T2DM, COPD, HTN, iron deficiency anemia who presented to the ED via EMS after syncope and collapse at home. Patient states she has been feeling unwell since with ongoing nausea/vomiting/diarrhea, endorses falls and home and then tonight she got up from bed to use the bathroom when she passed out and her daughter called 911. Patient denies chest pain/palpitations/racing heart or SOB, has a history of COPD and asthma- patient states in the time since she has only smoked 3 or 4 cigarettes total because she has felt so unwell. Patient endorses history of hyperthyroidism, states she used to see endocrinology at [facility], states she does not taken her methimazole anymore because it was not covered by insurance and it was too expensive. ED Course: -CT head, CT A/P, CXR, CT c-spine -CBC, CMP, TSH, troponin -10meq K rider, 1g mag sulfate Allergies Allergy/AdvReac Type Severity Reaction Status Date / Time blue dye Allergy Mild Nausea Verified 09/18/23 13:00 Home Medications Medication Instructions Recorded Confirmed Type nebulizers #1 ea 01/19/23 03/18/24 Rx albuterol sulfate 2.5 mg/3 mL 2.5 mg (3 mL) inhalation QID PRN 11/26/23 04/28/24 Rx (0.083 %) solution for nebulization shortness of breath or wheezing #75 mL albuterol sulfate 90 mcg/actuation 1 puff inhalation DIRECTED PRN 11/26/23 04/28/24 Rx aerosol inhaler (Ventolin HFA) shortness of breath or wheezing #3 Inhalers alendronate 70 mg tablet 70 mg PO .COMPLEX #12 tabs 11/26/23 04/28/24 Rx atorvastatin 40 mg tablet 40 mg PO HS #90 tabs 11/26/23 04/28/24 Rx blood sugar diagnostic (FitnessManageruch #300 ea 11/26/23 04/28/24 Rx Verio test strips) blood-glucose meter (FitnessManageruch #1 ea 11/26/23 04/28/24 Rx Verio Flex Meter) clopidogrel 75 mg tablet 75 mg PO DAILY #90 tabs 11/26/23 04/28/24 Rx ferrous sulfate 325 mg (65 mg 325 mg PO BID #180 tabs 11/26/23 04/28/24 Rx iron) tablet fluticasone fur. 100 mcg-umeclid 1 inh inhalation DAILY #3 Inhalers 11/26/23 04/28/24 Rx 62.5 mcg-vilant 25 mcg inhalat.powder (Trelegy Ellipta) insulin glargine 100 unit/mL 15 unit (0.15 mL) subcut HS PRN IF 11/26/23 04/28/24 Rx subcutaneous solution (Lantus NEEDED PER PT #90 mL U-100 Insulin) insulin regular human 100 unit/mL See Rx Instructions subcut 11/26/23 04/28/24 Rx injection solution (Humulin R DIRECTED PRN SLIDING SCALE #10 mL Regular U-100 Insulin) lancets 33 gauge (FitnessManagerTouch Delica #300 ea 11/26/23 04/28/24 Rx Plus Lancet) magnesium chloride 71.5 mg 71.5 mg PO BID #180 tabs 11/26/23 04/28/24 Rx (magnesium chloride) tablet,delayed release (Slow-Mag) metformin 500 mg tablet 1,000 mg (2 x 500 mg) PO BID 3 11/26/23 04/28/24 Rx months #360 tabs midodrine 5 mg tablet 5 mg PO TID@0800,1200,1700 90 days 11/26/23 04/28/24 Rx #270 tabs pantoprazole 40 mg tablet,delayed 40 mg PO BID #180 tabs 11/26/23 04/28/24 Rx release pen needle, diabetic 29 gauge x #180 ea 11/26/23 04/28/24 Rx 1/2" (Ultra-Thin II Insulin Pen [place]) trazodone 50 mg tablet 100 mg (2 x 50 mg) PO HS #180 tabs 11/26/23 04/28/24 Rx benzonatate 200 mg capsule 200 mg PO TID PRN cough #90 caps 03/18/24 04/28/24 Rx hydroxyzine HCl 25 mg tablet 25 mg PO TID PRN Anxiety #90 tabs 03/18/24 04/28/24 Rx cyanocobalamin (vitamin B-12) 1,000 mcg PO DAILY #30 tabs 04/28/24 Rx 1,000 mcg tablet ferrous sulfate 325 mg (65 mg 325 mg PO DAILY #30 tabs 04/29/24 Rx iron) tablet (Iron (ferrous sulfate)) methimazole 5 mg tablet 15 mg (3 x 5 mg) PO QAM 30 days 04/29/24 Rx #90 tabs Past Med/Surg History Problem List (Updated 04/28/24 @ 02:37 by Carline Watson MD) Hyperthyroidism (Acute) Acute dehydration (Acute) Hypocalcemia (Acute) Non-ST elevation CT (NSTEMI) (Acute) Acute hypokalemia (Acute) Hypomagnesemia (Acute) Syncope and collapse (Acute) Fluid overload due to blood transfusion Acute blood loss anemia Closed right humeral fracture (07/11/22) Near syncope (Acute) Hypomagnesemia (Acute) Fall from standing (Acute) Closed fracture of right proximal humerus (Acute 07/11/22) CKD (chronic kidney disease) (Acute) Closed left humeral fracture (07/11/22) ? if meant to be right humerus Encounter for pre-operative examination TIA (transient ischemic attack) (Acute) 12/01/20 - admitted to [facility]- no residual deficits On Plavix CVA (cerebral vascular accident) November 2019 - no residual deficits On Plavix Anxiety with depression GERD (gastroesophageal reflux disease) Generalized arthritis Ambulatory dysfunction Hyperlipidemia Generalized osteoarthritis Adrenal mass Tobacco use Hypomagnesemia Chest pain Atypical chest pain (Acute) Left arm weakness (Acute) Calcification of tendon Tobacco dependence Tibial mass Hyperthyroidism Graves disease. Takes Methimazole Iron deficiency anemia Graves' disease PT DENIES Type II diabetes mellitus Glucose controlled COPD (chronic obstructive pulmonary disease) Uses inhaler qid - pt takes routinely- not PRN Breathing stable - chronic OHARA Hypertension (Chronic) Asthma (Chronic) USES INHALER DAILY Medical History History of lung cancer Varicose vein of leg Hyperlipidemia Surgical History History of hysterectomy History of tooth extraction History of thoracotomy (~2009) H/O section Family History Aunt Diabetes Myocardial infarction Uncle Prostate cancer Diabetes Myocardial infarction Mother Diabetes Breast cancer Unknown Ovarian cancer Other Family history of cholecystectomy No family history of adverse response to anesthesia Denies family history of Colorectal cancer Social History Smoking Status: Current some day smoker Tobacco Type: Cigarettes Age Started Using Tobacco: 17; packs per day: 2.5; Cigarettes Per Day: 30; Second Hand Exposure: Yes; Do You Dip or Chew Tobacco: No; Hx Alcohol Use: No Hx Substance Use: No Preferred Language: Gabonese Communication Ability: Effective Visual Impairment: No Limitations Hearing Ability: Hard of Hearing Water/Wastewater Engineer Required: No Beliefs That Will Affect Care: None marital status: Current Living Situation: Alone current occupational status: retired current occupation: retired from working in retail Feels Safe at Home: Yes Childhood Exposure to Second-Hand Smoke: Yes Diet: regular caffeine: Yes Dental Care, Regularly: No Physical Activity Frequency: Does not Exercise Seatbelt Use: always Sunscreen Use: No Assistive Devices: Glasses and Walker Review of Systems Review of Systems: As per above Physical Exam Constitutional: WD/WN, vitals as above Eyes: + anicteric sclerae; no conjunctival abn ormality ENMT: Ears: + hearing impairment; no external ear abnormality Nose: no external nose abnormality Mucous membranes slightly tacky Respiratory: normal respiratory effort and + cough Auscultation: + wheezes Cardiovascular: Rate/Rhythm: regular rhythm and + tachycardic Extremities: no edema Gastrointestinal (Abdomen): Inspection/Auscultation: abdomen normal to inspection; abdomen not distended Percussion/Palpation: abdomen soft; abdomen nontender and no guarding Musculoskeletal: Moves all limbs independently Skin: no rashes, warm and dry Psychiatric: A+Ox3, euthymic affect Results & Data Results & Data Vital Signs (Past 12 Hours) Vital Signs Temp Pulse Pulse Resp BP BP Pulse Ox 04/28/24 01:30 92 H 18 129/64 95 04/28/24 00:05 98 04/27/24 23:56 36.8 C 101 H 22 105/88 98 04/27/24 23:49 104 H O2 Del Method 04/28/24 01:30 Room Air 04/28/24 00:05 Room Air 04/27/24 23:56 Room Air 04/27/24 23:49 Diagnostic Findings Abdomen/Pelvis CT 04/27/24 23:39 EXAM: CT abd pelvis IV con only CLINICAL HISTORY: N/V/D, 93 ML OPTIRAY 320 TECHNIQUE: CT of the abdomen and pelvis was performed with contrast, with the following protocol: axial images with, and reconstructed coronal and sagittal images. One of the following dose reduction techniques was utilized for this exam: Automated exposure control, adjustment of the mA and/or kV according to patient size, and use of iterative reconstruction. COMPARISON: Comparison is made with previous CT dated 01/11/2020. FINDINGS: Abdomen: Liver: Normal in size, shape, and density with few calcific foci suggestive of old granulomatous lesions. No focal enhancing lesions, cysts, or masses were identified. Hepatic vasculature and biliary ducts are unremarkable. Gallbladder and Biliary System: The gallbladder is normal in size and shape. No wall thickening, pericholecystic fluid, or gallstones were identified. The common bile duct is normal in caliber without dilation. Pancreas: Pancreatic head, body, and tail are visualized with moderate-severe atrophy. No pancreatic masses or calcifications were noted. The pancreatic duct is not dilated. Spleen: Normal in size, shape, and density with few calcific foci suggestive of old granulomatous lesions. No enhancing splenic lesions or masses were identified. Kidneys and Adrenal Glands: Both kidneys are normal in size, shape, and position with bilateral cortical scars. A subcentimeter sized cyst is seen in interpolar region of left kidney. No renal calculi or hydronephrosis. A heterogeneously enhancing mass of size (4.2x4.1cm) is seen in left supra-renal region showing indistinct planes with limbs of left adrenal gland. Tiny speck of calcification is seen within the mass. Right adrenal gland is unremarkable with no evidence of masses or hyperplasia. No evidence of vascular invasion. Pelvis: Urinary Bladder: Normal in contour and wall thickness. No intraluminal lesions identified. Uterus: Post hysterectomy status. Ovaries: Not well visualized but no gross abnormalities noted. Vagina: Normal in contour and wall thickness. Peritoneal and Retroperitoneal Structures: No free fluid or abnormal fluid collections were identified within the abdomen or pelvis. No lymphadenopathy was noted. Bowel: Diffuse mural thickening is seen involving second-fourth segments of duodenum and proximal jejunum; maximum thickness of 11-12mm. Rest of the small bowel is unremarkable. Diffuse circumferential mural thickening with submucosal edema is seen involving entire large bowel and rectum ; maximum thickness of 8-9mm. The visualized bowel loops are normal in caliber.No evidence of bowel obstruction. Bones and Soft Tissues: Pelvic bones and soft tissues are unremarkable. No fractures or abnormal masses were identified. 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 IMPRESSION: 1. 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 No significant interval change as compared to previous scan. However, further evaluation with histopathology is advised. 2. Diffuse mural thickening is seen involving second-fourth segments of duodenum and proximal jejunum and with submucosal edema involving entire large bowel and rectum- likely infective/inflammatory etiology. Follow up scan is advised. Electronically signed by Flakito Baig 04-28-2024 02:[address] 04/27/24 23:40 EXAM: CT cervical spine wo con CLINICAL HISTORY: SYNCOPE TECHNIQUE: Computed tomography of the cervical spine performed without intravenous contrast. Contiguous axial images were obtained from the skull base to T2, with sagittal and coronal reformatted images reconstructed from the axial data. CT scan was performed according to ALARA (as low as reasonably achievable). COMPARISON: None. FINDINGS: Straightening of the cervical spine is noted. Subtle retrolisthesis of C3 over C4 vertebra is noted. Vertebral bodies are normal in height. No evidence of fracture. Lateral masses of C1 are symmetrical, and the dens is intact. Prevertebral soft tissues are not widened. The remaining suprahyoid and infrahyoid soft tissues in the neck are unremarkable. Marginal osteophytes are noted at few levels. Reduction in the C5-C6, C6-C7 disc height is noted. C2-C3: No disc bulge, mass effect on the cord or neuroforaminal narrowing. C3-C4: No disc bulge, mass effect on the cord or neuroforaminal narrowing. C4-C5: No disc bulge, mass effect on the cord or neuroforaminal narrowing. C5-C6: Mild spinal canal and bilateral neural foraminal stenosis is noted. C6-C7: Mild spinal canal and bilateral neural foraminal stenosis is noted. C7-T1: No disc bulge, mass effect on the cord or neuroforaminal narrowing. Thyroid gland appears unremarkable. IMPRESSION: 1. No acute fracture in the cervical spine. 2. Subtle retrolisthesis of C3 over C4 vertebra is noted. 3. Early degenerative changes as described. Electronically signed by Flakito Baig 04-28-2024 02:25 AM Chest X-Ray 04/27/24 23:40 EXAM: XR chest 1V portable CLINICAL HISTORY: syncope jmf TECHNIQUE: Radiograph of chest was acquired. COMPARISON: 11 July 2022. FINDINGS: Lungs are clear and well-expanded with no pulmonary infiltrate. No pleural effusion is detected. Apparent cardiomegaly is noted. No acute osseous abnormality. Rest of the findings are unchanged compared to the previous radiograph. Previous radiograph showed fracture of the proximal right humerus. It is not included in the current radiographic field of view. IMPRESSION: 1. Apparent cardiomegaly. 2. No obvious lung field abnormality detected. No significant interval new finding is noted as compared to the previous radiograph. Electronically signed by Flakito Baig 04-28-2024 02:[address] 04/27/24 23:40 EXAM: CT head/brain wo con CLINICAL HISTORY: SYNCOPE TECHNIQUE: Multiple axial images are obtained from the skull base to the vertex without contrast. CT scan was performed according to ALARA (as low as reasonably achievable). COMPARISON: 11 July 2022. FINDINGS: There is cerebral atrophy. The garcia-white matter differentiation is preserved. There are scattered periventricular hypodensities as can be seen with chronic microvascular ischemic changes. No evidence of space occupying lesion, hemorrhage, edema, mass effect, midline shift, extra axial collection, or hydrocephalus is noted. Basal cisterns are symmetric and normal in size and configuration. Visualized paranasal sinuses are well aerated. Stable mild opacification/collection involving right mastoid air cells is noted. Left mastoid air cells appear normal. Orbital contents are within normal limits. Bony structures are intact. Rest of the findings are unchanged compared to the previous CT scan. IMPRESSION: 1. No evidence of acute intracranial abnormality is demonstrated. 2. Chronic microvascular ischemic changes. 3. Cerebral atrophy. 4. Stable mild opacification/collection involving right mastoid air cells is noted. No significant interval new finding is noted as compared to the previous CT scan. Electronically signed by Flakito Baig 04-28-2024 02:11 AM Supervising Physician Co-Signing Physician Notes Attending addendum: I have physically seen this patient, have supervised the medical residents activities, and agree with the H&P unless as otherwise noted. Assessment and Plan: Salmonella gastroenteritis- Likely ongoing cause of nausea, vomiting and diarrhea CT with diffuse mural thickening involving the second and fourth segments of duodenum and proximal jejunum with submucosal edema involving entire large bowel and rectum Due to age older than 50, will place on treatment Cipro 5 mg p.o. twice daily, due to increased risk of complication Hyperthyroidism/Graves' disease- TSH less than 0.010, with free T43.18 Order free T3 level Patient has been followed endocrinology in the past, and had been previously on methimazole, which she has not taken for quite a while due to cost of medication She has low calcium, low magnesium, low potassium appears dehydrated, and has labs suggestive of hyperthyroidism otherwise along with low albumin She is at risk for potential [address] on propranolol 10 mg p.o. 4 times daily as noted, restart methimazole at 15 mg daily. She will need to have all her electrolytes replaced as noted below. She will need close follow-up with endocrinology Electrolyte disturbances: Hypokalemia, hypomagnesemia, hypocalcemia- Potassium 3.0, magnesium 1.2, calcium 7.7 I will be repleted IV and orally, and follow closely Left-sided adrenal mass- CT abdomen pelvis notes 4.2 x 4.1 cm left suprarenal region enhancing mass. No significant change from prior Will need to be managed and followed closely notation from PCP is that the patient followed with this mass for 10 years, and has not not been changed, and is presumed to be benign Diabetes mellitus- Insulin and coverage as noted Remaining orders and notations as noted Resident Activity Tracking Resident Involvement: Resident Care Provided Care Provided: Adult Hospital Medicine
[2024-04-28 03:02] LABS: Adenovirus F 40/41 PCR Not Detected (NotDetected); Astrovirus PCR Not Detected (NotDetected); Campylobacter PCR Not Detected (NotDetected); Cryptosporidium PCR Not Detected (NotDetected); Cyclospora cayetanensis PCR Not Detected (NotDetected); Entamoeba histolytica PCR Not Detected (NotDetected); Enteroaggregative E.coli(EAEC) Not Detected (NotDetected); Enteropathogenic E.coli (EPEC) Not Detected (NotDetected); Enterotoxigenic E.coli (ETEC) Not Detected (NotDetected); Giardia lamblia PCR Not Detected (NotDetected); Norovirus GI/GII PCR Not Detected (NotDetected); Plesiomonas shigelloides PCR Not Detected (NotDetected); Rotavirus A PCR Not Detected (NotDetected); Sapovirus PCR Not Detected (NotDetected); Shiga-like Toxin E.coli (STEC) Not Detected (NotDetected); Shigella/Enteroinvasive E.coli Not Detected (NotDetected); Vibrio cholerae PCR Not Detected (NotDetected); Vibrio species PCR Not Detected (NotDetected); Yersinia enterocolitica PCR Not Detected (NotDetected)
[2024-04-28 03:21] LABS: Salmonella PCR DETECTED (NotDetected)
[2024-04-28] MEDS: POTASSIUM CHLORIDE CRTAB 20 MEQ TABCR PO STA ×2 (03:27→10:22)
[2024-04-28] MEDS: SODIUM CHLORIDE 0.9% 1,000 ML IV SCH (03:29)
[2024-04-28] MEDS: MAGNESIUM SULFATE / D5W 1 GM/100 ML BAG IV SCH (03:30)
[2024-04-28] MEDS ORDERED: ACETAMINOPHEN 325 MG TAB PO PRN (04:38)
[2024-04-28] MEDS ORDERED: ALBUTEROL 0.083% NEBU SOLN 3 ML VIAL INH PRN (04:38)
[2024-04-28] MEDS ORDERED: ALBUTEROL HFA 8 GM INHALER INH PRN (04:38)
[2024-04-28] MEDS ORDERED: ONDANSETRON INJ 2 MG/ML 2 ML VIAL IV PRN (04:38)
[2024-04-28] MEDS ORDERED: GLUCOSE 40% GEL 15 GM TUBE PO PRN (05:14)
[2024-04-28] MEDS ORDERED: CARBOHYDRATES FOR HYPOGLYCEMIA PO PRN (05:14)
[2024-04-28] MEDS ORDERED: GLUCOSE 10 TAB/TUBE PO PRN (05:14)
[2024-04-28] MEDS ORDERED: GLUCAGON FOR INJ 1 MG VIAL SQ PRN (05:14)
[2024-04-28] MEDS ORDERED: DEXTROSE 50% 50 ML SYRINGE IV PRN (05:14)
[2024-04-28] MEDS: methIMAzole 5 MG TABLET PO SCH (05:32)
[2024-04-28] MEDS: PROPRANOLOL HCL 10 MG TAB PO SCH (05:32)
[2024-04-28] MEDS: INSULIN ASPART PER UNIT CHARGE SC SCH ×2 (06:17→13:57)
--- NOTE | 2024-04-28 06:22 | Ultrasound Report ---
EXAM: US thyroid CLINICAL HISTORY: HX: NO PREV. SYNCPOPE. H/O GRAVES DX. HYPERTHYROID, R/O THYROID STORM PER ORDERING PHYS. TECH NOTES: ?SLIGHTLY INCREASED VASCULARITY B/L. RT LOBE THYROID: 4.9 X 1.7 X 1.9 cm. ?SLIGHTLY INCREASED VASCULARITY. -MULITPLE CYSTIC STRUCTURES, LARGEST WITH W/ ECHOGENIC FOCI IN LAT UP GEORGETTE 5 X 4 X 4 mm. -COMPLEX /HETERO LESION MP GEORGETTE 4 X 4 X 4 mm. LEFT LOBE: 3.2 X 1.6 X 1.6 cm. ?SLIGHTLY INCREASED VASCULARITY ISTHMUS: 2.8 mm. TECHNIQUE: A high-resolution ultrasound of the thyroid gland was performed using a linear transducer. Doppler imaging was utilized. COMPARISON: None. FINDINGS: Thyroid Gland: The right thyroid lobe measures 4.9 X 1.7 X 1.9 cm. The left thyroid lobe measures 3.2 X 1.6 X 1.6 cm. The isthmus measure 2.8mm The thyroid gland appears heterogeneous. Thyroid Vasculature: There is a diffuse increase in vascularity in the thyroid tissue. Thyroid Nodules: A spongiform nodule measures 4mm in the right lobe. A cystic lesion with foci of hyperechogenicity measures 5mm in the right lobe suggesting a colloid cyst. A few other tiny cysts were noted in the thyroid lobe. IMPRESSION: 1. The thyroid gland appears heterogeneous with a diffuse increase in vascularity in the thyroid tissue. 2. A few TR1 small nodules were noted in the thyroid tissue measuring up to 5mm. Recommendations TIRADS Level Total Points Risk of Malignancy Recommendation TR1 0 points 2% Benign - No FNA required TR2 2 points 2% Not suspicious - No FNA required TR3 3 points 5% Mildly suspicious - FNA if ? 2.5 cm TR4 4-6 points 5-20% Moderately suspicious - FNA if ? 1.5 cm TR5 ? 7 points 20% Highly suspicious - FNA if ? 1.0 cm Electronically signed by Cristy Tse 04-28-2024 06:22 AM
[2024-04-28 08:30] LABS: Basophils # (auto) 0.01 K/uL (0.00-0.20); Basophils % (auto) 0.2 %; Hematocrit (blood only) 26.4 % (37.0-47.0); Hemoglobin 8.7 g/dl (12.0-16.0); Immature Granulocytes # (auto) 0.03 K/uL (0.01-0.20); Immature Granulocytes % (auto) 0.6 %; Lymphocytes % (auto) 18.2 %; Mean Corpuscular Hemoglobin 28.3 pg (25.0-34.0); Mean Platelet Volume 9.3 fL (9.4-12.4); Monocytes # (auto) 0.68 K/uL (0.11-0.59); Monocytes % (auto) 13.8 %; Neutrophils # (auto) 3.32 K/uL (1.40-6.50); Neutrophils % (auto) 67.2 %; Platelet Count 195 K/uL (130-400); RDW Coefficient of Variation 13.7 % (11.5-14.5); RDW Standard Deviation 42.7 fL (36.4-46.3); Red Blood Count 3.07 M/uL (4.20-5.40); White Blood Count 4.94 K/ul (4.8-10.8)
[2024-04-28 08:43] LABS: Albumin Globulin Ratio 1.2 (0.9-2); Albumin Level 2.9 gm/dl (3.4-5.0); BUN Creatinine Ratio 21.6 (10-20); Bilirubin,Total 0.2 mg/dl (0.2-1.0); Calcium 7.2 mg/dl (8.6-10.3); Creatinine Clr Calc Pharmacy 47.9 ml/min; Globulin 2.5 gm/dl (2.5-4.0); Potassium 3.1 mmol/L (3.5-5.1); Total Protein 5.4 gm/dl (6.0-8.3)
[2024-04-28 08:49] LABS: Troponin I High Sensitivity 12.3 pg/ml (0-14)
[2024-04-28 09:03] LABS: Ferritin 198.3 ng/ml (8-388)
[2024-04-28] MEDS: CIPROFLOXACIN 500 MG TAB PO SCH (09:29)
[2024-04-28] MEDS: HEPARIN SOD 5,000 UNIT/0.5 ML VIAL SQ SCH (09:30)
[2024-04-28] MEDS ORDERED: Nursing to Pharmacy Communication SCH (10:00)
[2024-04-28] MEDS: LANTUS PER UNIT CHARGE SQ SCH (10:57)
--- NOTE | 2024-04-28 11:34 | Hospitalist Progress Note ---
"Date of Service April 28, 2024 Assessment & Plan (1) Hyperthyroidism: (2) Acute dehydration: (3) Hypocalcemia: (4) Non-ST elevation [place] (NSTEMI): (5) Acute hypokalemia: (6) Hypomagnesemia: Plan Marietta Fisher is a 78 year-old female with medical history significant for hyperthyroidism/Grave's disease, prior CVA, GERD, arthritis, T2DM, COPD, HTN, iron deficiency anemia who presented to the ED via EMS after syncope and collapse at home. Hyperthyroidism, Grave's Disease -TSH <0.010, Free T4 3.18 -Known diagnosis of Grave's Disease, previously has seen endocrinology (last visit seems to be 2019) -Patient previously on methimazole, unfortunately patient has not taken this med for a period of time due to cost -Presented after syncopal episode and tachycardic (90s-low 100s), ongoing symptoms of nausea/diarrhea, known hyperthyroidism, which all raise concern for progression into thyroid storm. - Low concern of thyroid storm at this moment. -Continue methimazole at prior dose (15mg) - propranolol 10 QID added on admission. Will hold and re eval for need as an outpatient. If developed tachy will restart - Thyroid US: Thyroid Nodules: A spongiform nodule measures 4mm in the right lobe. colloid cyst. The thyroid gland appears heterogeneous with a diffuse increase in vascularity in the thyroid tissue. - T3 pending -Will need follow up with endocrinology at time of discharge Positive Salmonella Stool PCR -Patient reports over 1 week of ongoing symptoms of nausea/vomiting/diarrhea -CT A/P: Diffuse mural thickening is seen involving second-fourth segments of duodenum and proximal jejunum and with submucosal edema involving entire large bowel and rectum, likely infectious/inflammatory etiology -Stool PCR test positive for salmonella -No leukocytosis, afebrile -Timeline of symptom onset makes possible carrier status less likely, current guidelines recommend antibiotic treatment for confirmed salmonella in patients >70 years -Will start Ciprofloxacin 500mg BID -Repeat CBC with diff in a.m. Hypokalemia | Hypomagnesemia | Hypocalcemia -Multiple electrolyte abnormalities in the setting of poor PO intake and diarrhea as above Potassium replaced this am -Continue electrolyte repletion, repeat labs in a.m. Left-Sided Adrenal Mass -Previously known/documented left adrenal mass -CT A/P: A heterogeneously enhancing mass of size (4.2x4.1cm) is seen in left supra-renal region showing indistinct planes with limbs of left adrenal gland. No significant change from prior but further evaluation with histopathology is advised. -Prior PCP notes state that the mass has been monitored for 10 years and was presumed to be benign Anemia -Hgb 9.3 on admission, seems to be chronically low and previously declined EGD/colonoscopy -WBC also low, platelets within normal range. Appears normocytic, normochromic -Will add iron studies, B12 levels Type 2 DM -On insulin at home -While initially NPO, will order only correction factor. Adjust/add carb coverage and/or basal insulin as needed Admit to PCU VTE Prophylaxis: Heparin Diet: NPO Code Status: DNR/DNI Admission and Anticipated Discharge Date Admission Date: April 28, 2024 Supervising Physician Co-Signing Physician Notes I personally examined the patient and verified all reyes points of history and exam, discussed case, and agree with decision making with Dr Gregory Hernandez feeling better. Still having diarrhea but seems to be less. Has not really been up much to know if she is still lightheaded or presyncopal. Notes that she stopped taking methimazole for unclear reasonswe both agree that she may have simply ran out of refills and forgotten to have it refilled again. Vitals noted, in general she is awake and alert pleasant no distress. HEENT normoceph alic atraumatic mucous membranes moist. Breathing unlabored no accessory muscle use good effort. Skin shows no rashes no pallor or icterus. Neuro without focal deficits. Diarrhea/dehydration leading to syncope and electrolyte disturbancesdue to Salmonella. Given severity of illness, agree with antibiotic treatment. Dehydration and electrolyte disturbances improving with IV fluids. Follow p.o. intake. Graves' disease with uncontrolled hyperthyroidismresumed methimazole. Follow. Discussed with patientseems to be no real barriers to continuing methimazole, just seems to have gotten forgotten DVT prophylaxisheparin subcu Subjective Seen this morning. Refers being hungry. Refers diarrhea. Denied any tachycardia, chest pain, SOB. No other complains at the moment. Review of Systems Review of Systems: as per HPI Physical Exam Constitutional: WD/WN, vitals as above Eyes: + anicteric sclerae; no conjunctival abn ormality ENMT: Ears: + hearing impairment; no external ear abnormality Nose: no external nose abnormality Mucous membranes slightly tacky Respiratory: normal respiratory effort and + cough Auscultation: + wheezes Cardiovascular: Rate/Rhythm: regular rhythm and + tachycardic Extremities: no edema Gastrointestinal (Abdomen): Inspection/Auscultation: abdomen normal to inspection; abdomen not distended Percussion/Palpation: abdomen soft; abdomen nontender and no guarding Musculoskeletal: Moves all limbs independently Skin: no rashes, warm and dry Psychiatric: A+Ox3, euthymic affect Results & Data Results & Data Vital Signs (Past 12 Hours) Vital Signs Temp Pulse Pulse Resp BP BP Pulse Ox 04/28/24 10:06 77 23 04/28/24 10:00 137/77 04/28/24 09:45 143/76 H 04/28/24 09:42 77 25 H 96 04/28/24 09:15 120/71 04/28/24 09:15 120/71 04/28/24 09:02 73 22 96 04/28/24 09:00 152/64 H 04/28/24 08:45 133/69 04/28/24 08:44 74 22 97 04/28/24 08:31 131/53 L 04/28/24 08:29 76 26 H 96 04/28/24 08:16 149/51 H 04/28/24 08:11 76 20 98 04/28/24 08:02 74 22 95 04/28/24 08:00 127/68 04/28/24 08:00 76 04/28/24 07:45 128/66 04/28/24 07:39 75 25 H 97 04/28/24 07:30 128/90 04/28/24 05:31 90 20 117/80 97 04/28/24 05:15 36.9 C 93 H 22 141/76 H 94 04/28/24 04:38 04/28/24 04:13 88 04/28/24 03:00 92 H 20 137/88 96 04/28/24 01:30 92 H 18 129/64 95 04/28/24 00:05 98 04/27/24 23:56 36.8 C 101 H 22 105/88 98 04/27/24 23:49 104 H Pulse Ox O2 Del Method O2 Del Method 04/28/24 10:06 04/28/24 10:00 04/28/24 09:45 04/28/24 09:42 04/28/24 09:15 04/28/24 09:15 04/28/24 09:02 04/28/24 09:00 04/28/24 08:45 04/28/24 08:44 04/28/24 08:31 04/28/24 08:29 04/28/24 08:16 04/28/24 08:11 04/28/24 08:02 04/28/24 08:00 04/28/24 08:00 04/28/24 07:45 04/28/24 07:39 04/28/24 07:30 04/28/24 05:31 Room Air 04/28/24 05:15 Room Air 04/28/24 04:38 94 Room Air 04/28/24 04:13 04/28/24 03:00 Room Air 04/28/24 01:30 Room Air 04/28/24 00:05 Room Air 04/27/24 23:56 Room Air 04/27/24 23:49 Resident Activity Tracking Resident Involvement: Resident Care Provided Care Provided: Adult Hospital Medicine"
--- NOTE | 2024-04-28 12:54 | Electrocardiogram Report ---
Test Reason : Blood Pressure : */* mmHG Vent. Rate : 107 BPM Atrial Rate : 107 BPM P-R Int : 174 ms QRS Dur : 86 ms QT Int : 346 ms P-R-T Axes : 65 70 37 degrees QTcB Int : 461 ms Sinus tachycardia Otherwise normal ECG When compared with ECG of 11-Jul-2022 19:56, No significant change was found Confirmed by Brad Paulino ([id number]) on 04/28/2024 12:54:16 PM Referred By: REFERRED SELF Confirmed By: Brad Paulino
[2024-04-28] MEDS: IRON SUCROSE 200 MG in SODIUM CHLORIDE 0.9% 100 ML IV ONE (16:16)
[2024-04-28] MEDS: LOPERAMIDE HCL 2 MG CAP PO STA (19:42)
[2024-04-29 07:38] LABS: Basophils # (auto) 0.01 K/uL (0.00-0.20); Basophils % (auto) 0.3 %; Hematocrit (blood only) 26.4 % (37.0-47.0); Hemoglobin 8.8 g/dl (12.0-16.0); Immature Granulocytes # (auto) 0.03 K/uL (0.01-0.20); Immature Granulocytes % (auto) 0.8 %; Lymphocytes # (auto) 0.93 K/uL (1.20-3.40); Lymphocytes % (auto) 23.8 %; Mean Corpuscular Hemoglobin 28.2 pg (25.0-34.0); Mean Corpuscular Hgb Conc 33.3 g/dL (32.0-36.0); Mean Corpuscular Volume 84.6 fL (80.0-100.0); Monocytes # (auto) 0.52 K/uL (0.11-0.59); Monocytes % (auto) 13.3 %; Neutrophils # (auto) 2.41 K/uL (1.40-6.50); Neutrophils % (auto) 61.8 %; Platelet Count 186 K/uL (130-400); RDW Coefficient of Variation 13.9 % (11.5-14.5); RDW Standard Deviation 42.8 fL (36.4-46.3); Red Blood Count 3.12 M/uL (4.20-5.40)
[2024-04-29 07:49] VITALS: RESP 18; O2SAT 95
[2024-04-29 07:50] LABS: Albumin Globulin Ratio 1.2 (0.9-2); Albumin Level 3.1 gm/dl (3.4-5.0); BUN Creatinine Ratio 14.7 (10-20); Bilirubin,Total 0.2 mg/dl (0.2-1.0); Calcium 7.8 mg/dl (8.6-10.3); Creatinine Clr Calc Pharmacy 44.4 ml/min; Globulin 2.6 gm/dl (2.5-4.0); Magnesium 1.5 mg/dl (1.7-2.4); Potassium 3.1 mmol/L (3.5-5.1); Total Protein 5.7 gm/dl (6.0-8.3)
[2024-04-29] MEDS: CYANOCOBALAMIN (B-12) 500 MCG TABLET PO SCH (08:31)
[2024-04-29] MEDS: IRON SUCROSE 200 MG in SODIUM CHLORIDE 0.9% 100 ML IV ONE (09:07)
--- NOTE | 2024-04-29 10:36 | Discharge Summary ---
Date of Service April 29, 2024 Admission HPI Per Admitting Provider Marietta Fisher is a 78 year-old female with medical history significant for hyperthyroidism/Grave's disease, prior CVA, GERD, arthritis, T2DM, COPD, HTN, iron deficiency anemia who presented to the ED via EMS after syncope and collapse at home. Patient states she has been feeling unwell since with ongoing nausea/vomiting/diarrhea, endorses falls and home and then tonight she got up from bed to use the bathroom when she passed out and her daughter called 911. Patient denies chest pain/palpitations/racing heart or SOB, has a history of COPD and asthma- patient states in the time since she has only smoked 3 or 4 cigarettes total because she has felt so unwell. Patient endorses history of hyperthyroidism, states she used to see endocrinology at [facility], states she does not taken her methimazole anymore because it was not covered by insurance and it was too expensive. ED Course: -CT head, CT A/P, CXR, CT c-spine -CBC, CMP, TSH, troponin -10meq K rider, 1g mag sulfate Principal Diagnosis Salmonella Gastroenteritis Discharge Exam Constitutional WD/WN, vitals as above Eyes + anicteric sclerae; no conjunctival abnormality ENMT Ears: no external ear abnormality Nose: no external nose abnormality Respiratory normal respiratory effort Cardiovascular Rate/Rhythm: regular rhythm Extremities: no edema Gastrointestinal (Abdomen) Inspection/Auscultation: abdomen normal to inspection; abdomen not distended Percussion/Palpation: abdomen soft; abdomen nontender and no guarding Skin no rashes, warm and dry Psychiatric A+Ox3, euthymic affect Discharge Data Allergies Allergy/AdvReac Type Severity Reaction Status Date / Time blue dye Allergy Mild Nausea Verified 09/18/23 13:00 Consultations 04/28/24 02:03 ED Decision to Admit Stat Ordered Studies 04/27/24 23:39 CT Abd and Pelvis [CT abd pelvis IV con only] Stat 04/27/24 23:40 CT cervical spine wo con Stat CT head/brain wo con Stat 04/28/24 04:44 US thyroid Urgent Hospital Course (1) Hyperthyroidism: (2) Acute dehydration: (3) Hypocalcemia: (4) Non-ST elevation [place] (NSTEMI): (5) Acute hypokalemia: (6) Hypomagnesemia: Plan Marietta Levelle is a 78 year-old female with medical history significant for hyperthyroidism/Grave's disease, prior CVA, GERD, arthritis, T2DM, COPD, HTN, iron deficiency anemia who presented to the ED via EMS after syncope and collapse at home. Hyperthyroidism, Grave's Disease -TSH <0.010, Free T4 3.18 - T3 101 -Known diagnosis of Grave's Disease, previously has seen endocrinology (last visit seems to be 2019) -Patient previously on methimazole, unfortunately patient has not taken this med for a period of time due to cost -Presented after syncopal episode and tachycardic (90s-low 100s), ongoing symptoms of nausea/diarrhea, known hyperthyroidism, which all raise concern for progression into thyroid storm. - Low concern of thyroid storm at this moment. - propranolol 10 QID added on admission. Discontinue during admission, tolerated well, no tachycardia - Thyroid US: Thyroid Nodules: A spongiform nodule measures 4mm in the right lob e. colloid cyst. The thyroid gland appears heterogeneous with a diffuse increase in vascularity in the thyroid tissue. -Will need follow up with endocrinology outpatient -Continue methimazole at prior dose (15mg) -Close follow up with PCP Positive Salmonella Stool PCR -Patient reports over 1 week of ongoing symptoms of nausea/vomiting/diarrhea -CT A/P: Diffuse mural thickening is seen involving second-fourth segments of duodenum and proximal jejunum and with submucosal edema involving entire large bowel and rectum, likely infectious/inflammatory etiology -Stool PCR test positive for salmonella -No leukocytosis, afebrile -Timeline of symptom onset makes possible carrier status less likely, current guidelines recommend antibiotic treatment for confirmed salmonella in patients >70 years - Ciprofloxacin 500mg BID stared. Prescription sent for 3 days -Follow up PCP, continue hydration Hypokalemia | Hypomagnesemia | Hypocalcemia -Multiple electrolyte abnormalities in the setting of poor PO intake and diarrhea as above Potassium replaced this am BMP within a week. Left-Sided Adrenal Mass -Previously known/documented left adrenal mass -CT A/P: A heterogeneously enhancing mass of size (4.2x4.1cm) is seen in left supra-renal region showing indistinct planes with limbs of left adrenal gland. No significant change from prior but further evaluation with histopathology is advised. -Prior PCP notes state that the mass has been monitored for 10 years and was presumed to be benign Anemia Low iron -Hgb 9.3 on admission, seems to be chronically low and previously declined EGD/c olonoscopy -WBC also low, platelets within normal range. Appears normocytic, normochromic -started on iron and vitamin b12 supplement Type 2 DM Restarted home insulin regimen Total Time Total Time Spent Total Time Spent (In Minutes): <30 Discharge Plan Discharge Items Patient Disposition: Home - Self-Care Reason For Visit: HYPERTHYROID Discharge Diagnosis: Salmonella Hyperthyrodysm Activity: Per Instructions section Non-emergency contact: Primary Care Provider Call non-emergency contact if: you have any medication questions Follow-up/Referrals: Sander David MD [Primary Care Provider] - 05/04/24 1:00 pm (Hospital follow up scheduled May 04 at 1:00) Diet: Regular Addtl Attending Provider Instructions: You were in the hospital after a syncope. You were found with dehydration. This is secondary to the Salmonella gastroenteritis ( Infection on your Gastrointestinal track ) Additionally you were found with a worsening hyperthyroidism You will be sent home with: Ciprofloxacin 500 BID for 3 more days - This is an antibiotic for Salmonella Methimazole 15 mg daily - This is a medication for hyperthyroidism. This was your previous medication. It's very important to continue this medication daily and follow with Endocrinology outpatient. Vitamin b 12 and Iron supplementation daily Follow with your PCP within a week Keep hydrating, recommended more than 60 z per daily Pending Studies at Discharge: No Stand-Alone Forms: My [employer], Smoking Cessation Medications and DC Order Prescriptions: New cyanocobalamin (vitamin B-12) 1,000 mcg tablet 1,000 mcg PO DAILY Qty: 30 0RF ciprofloxacin HCl 500 mg Tablet 500 mg PO BID 2 Days Qty: 4 0RF methimazole 5 mg Tablet 15 mg PO QAM 30 Days Qty: 90 0RF ferrous sulfate [Iron (ferrous sulfate)] 325 mg (65 mg iron) tablet 325 mg PO DAILY Qty: 30 0RF Continued albuterol sulfate 2.5 mg /3 mL (0.083 %) solution for nebulization 2.5 mg inhalation QID PRN (Reason: shortness of breath or wheezing) Qty: 75 3RF albuterol sulfate [Ventolin HFA] 90 mcg/actuation HFA aerosol inhaler 1 puff inhalation DIRECTED PRN (Reason: shortness of breath or wheezing) Qty: 3 3RF alendronate 70 mg tablet 70 mg PO .COMPLEX Qty: 12 3RF Rx Instructions: 70 mg PO once weekly; Take with full glass of water on an empty stomach. Remain upright and wait 40 minutes before eating/drinking atorvastatin 40 mg tablet 40 mg PO HS Qty: 90 3RF (DME) OneTouch Verio test strips Strip See Rx Instructions .Route Qty: 300 1RF Rx Instructions: As directed test 3 times each day (DME) blood-glucose meter [[email or web address] Verio Flex meter] Misc See Rx Instructions .Route Qty: 1 0RF Rx Instructions: As directed check BSG 3 times daily clopidogrel 75 mg tablet 75 mg PO DAILY Qty: 90 3RF Patient Comments: PT STATES BID ferrous sulfate 325 mg (65 mg iron) tablet 325 mg PO BID Qty: 180 3RF Trelegy Ellipta 100-62.5-25 mcg blister with device 1 inh inhalation DAILY Qty: 3 3RF insulin glargine [Lantus U-100 Insulin] 100 unit/mL solution 15 unit SUBCUT HS PRN (Reason: IF NEEDED PER PT) Qty: 90 3RF Humulin R Regular U-100 Insuln 100 unit/mL solution See Rx Instructions SUBCUT DIRECTED PRN (Reason: SLIDING SCALE) Qty: 10 3RF Rx Instructions: Per sliding scale, max daily dosing 30 units subcutaneously as directed PRN; (DME) lancets [[employer]Touch Delica Plus Lancet] 33 gauge misc See Rx Instructions .Route Qty: 300 3RF Rx Instructions: As directed test 3 times daily Slow-Mag 71.5 mg tablet,delayed release (DR/EC) 71.5 mg PO BID Qty: 180 3RF metformin 500 mg tablet 1,000 mg PO BID 90 Days Qty: 360 3RF midodrine 5 mg tablet 5 mg PO TID@0800,1200,1700 90 Days Qty: 270 3RF pantoprazole 40 mg tablet,delayed release (DR/EC) 40 mg PO BID Qty: 180 3RF (DME) pen needle, diabetic [Ultra-Thin II Ins Pen [place]] 29 gauge x 1/2" needle See Rx Instructions .Route Qty: 180 3RF Rx Instructions: use with insulin BID prn trazodone 50 mg tablet 100 mg PO HS Qty: 180 3RF (DME) nebulizers Misc See Rx Instructions .Route Qty: 1 0RF Rx Instructions: Nebulizer and tubing supplies benzonatate 200 mg capsule 200 mg PO TID PRN (Reason: cough) Qty: 90 3RF hydroxyzine HCl 25 mg tablet 25 mg PO TID PRN (Reason: Anxiety) Qty: 90 3RF Discharge Orders: Discharge Order (Routine); Ordered 04/29/24 Ordered By: Marino Hernandez Admission Data Admit Date/Time: 04/28/24 03:14 Attending Provider: Immanuel Gomes Admit Provider: Conchita Anderson Primary Care Provider: Sander David Other Providers: Vinicius Glaser Other Interventions: Discharge Summary Assessment (RN) Last Done: 04/29/24 15:05 Supervising Physician Co-Signing Physician Notes I personally examined the patient and verified all reyes points of history and exam, discussed case, and agree with decision making with Dr Gregory Hernandez feeling better. Eating well. Walked without dizziness. Feels up to going home. Vitals noted, in general she is awake and alert pleasant no distress. HEENT normocephalic atraumatic mucous membranes moist. Breathing unlabored no accessory muscle use good effort. Skin without rashes pallor or icterus. Neuro without focal deficits. Diarrhea/dehydration leading to syncope and electrolyte disturbancesdue to Salmonella. Given severity of illness, agree with antibiotic treatment. Dehydration and electrolyte disturbances Improved, as has p.o. intake. Safe/stable for home. Outpatient follow-up next week. Graves' disease with uncontrolled hyperthyroidismresumed methimazole. Follow. Discussed with patientseems to be no real barriers to continuing methimazole, just seems to have gotten forgotten DVT prophylaxisheparin subcu utilized during her stay
[2024-04-29 11:23] VITALS: PULSE 87; TEMP 98.2
[2024-04-29 15:10] VITALS: BP 117/70
--- NOTE | 2024-04-29 17:41 | Billing Data ---
Date of Service April 29, 2024 Coding Level of Care Code 63290 IN/OBS DISCH 30 MIN/LESS
--- NOTE | 2024-04-29 17:42 | Billing Data ---
Date of Service April 29, 2024 Coding Level of Care Code 67415 IN/OBS DISCH 30 MIN/LESS
--- NOTE | 2024-05-01 21:09 | Billing Data ---
Date of Service May 01, 2024 Coding Level of Care Code 51578 INT INP/OBS CARE
== END 2024-04-29 15:06 | disposition home or self-care (01) | DRG 373 ==
LOC: ED 23:24 → SUATTDRO 04-28 03:14 → EDINP 04-28 03:14 → 2S 04-28 14:00

== ENCOUNTER 2024-12-18 11:05 | Inpatient (IN) ==
[2024-12-18] MEDS: HYDROmorphone INJ 0.5 MG/0.5 ML SYR IV PRN (11:30)
[2024-12-18] MEDS: ONDANSETRON INJ 2 MG/ML 2 ML VIAL IV STA (11:31)
[2024-12-18 11:36] LABS: Hematocrit (blood only) 30.1 % (37.0-47.0); Hemoglobin 10.5 g/dl (12.0-16.0); Immature Granulocytes # (auto) 0.05 K/uL (0.01-0.20); Immature Granulocytes % (auto) 0.5 %; Mean Corpuscular Hemoglobin 30.5 pg (25.0-34.0); Mean Corpuscular Volume 87.5 fL (80.0-100.0); Platelet Count 182 K/uL (130-400); RDW Standard Deviation 41.5 fL (36.4-46.3); Red Blood Count 3.44 M/uL (4.20-5.40); White Blood Count 9.25 K/ul (4.8-10.8)
--- NOTE | 2024-12-18 11:52 | Emergency Department Note ---
Impression & Plan Fall, Closed hip fracture ED Provider Note NAME: YVONNE GILMORE AGE: 79 SEX: Female INFORMANT: Patient ED PROVIDER(S): Mitchel Lea MD CHIEF COMPLAINT: Fall PLAN: Disposition: Admitted Outpatient prescription management: none Referral: None MEDICAL DECISION MAKING: Patient presented because of a fall. She received analgesia prehospital. She was too uncomfortable. Dilaudid and Zofran was ordered. Patient was also noted to have bedbugs and went through protocol cleaning. She had an x-ray performed. Initially radiology did not notice any significant issues but I was concerned about possible hairline fracture and given the pain and inability to ambulate CT imaging was performed. Head CT was unremarkable and her hip CT did reveal the presence of a fracture. Patient was reassessed and was doing better. Her blood work was unremarkable. Further evaluation and management will be necessary in the hospital. Consultation was made with the hospitalist service. Patient was evaluated in the ER for further management. Care/management discussed with: manager merchandising Level of care consideration(s): After review of the information above and other included data, I feel the patient requires escalation of care to admission Triage Nursing notes: reviewed and agree them. Vital Signs: reviewed and remarkable for no significant abnormalities Additional History obtained from: none Chronic Medical/Social Conditions affecting care: CAD Prior/ Outside/ External records reviewed: none Differential Diagnosis: Fracture, dislocation, neurovascular compromise, dehydration, infection, electrolyte abnormality, rhabdomyolysis, compartment syndrome, soft tissue injury, as well as other pathologies. Diagnostics, independently interpreted by me: ECG: Twelve-lead ECG read sinus rhythm with sinus arrhythmia at 91 bpm. Low voltage QRS. No ST elevation. Cardiac Monitoring: Cardiac monitoring ordered by me: The patient was placed on continuous cardiac monitoring and observed. It revealed a sinus rhythm at 94 bpm. Medical decision rules: none Imaging studies: X-rays and CT scans as above. Left hip fracture. HPI: 79 year old Female arrives for evaluation of a fall. This occurred about 2 days ago. Patient was assisted to bed and was resting. Patient states she hit her head but has no headache. She has significant pain in the left hip that goes down into the thigh and knee. Patient is currently on blood thinners. She was given 50 mcg of fentanyl prehospital. Unable to bear weight or move the leg without significant pain. Pt denies LOC, headache, fevers, chills, visual changes, neck pain, chest pain, breathing difficulties, nausea, vomiting, abdominal pain, back pain, melena, hematochezia, urinary symptoms, numbness, weakness, open wounds or other complaints. PAST MEDICAL HISTORY: See Below, CAD, non-STEMI, CKD PAST SURGICAL HISTORY: See Below, SOCIAL HISTORY: See Below, lives with family HOME MEDICATIONS: See Below ALLERGIES: See Below VITALS: See Below PHYSICAL EXAMINATION: GENERAL: Awake, alert, uncomfortable-appearing, in no distress HENT: Normocephalic, atraumatic. Oropharynx with dry mucous membranes. EYES: Normal conjunctiva. Sclera non-icteric. NECK: Inspection normal. Non-tender. Supple. No nuchal rigidity. FROM. No masses. RESPIRATORY: Clear to auscultation. No wheezes. No rales. Normal respiratory effort. CARDIAC: Borderline tachycardic rate. Normal rhythm. No murmurs. No rubs. Extremities warm and well perfused. Pulses equal. No JVD. GI: Soft, non-distended. No tenderness to palpation. No rebound or guarding. No masses. RECTAL: Deferred. MUSCULOSKELETAL: Upper extremities are atraumatic. Chest examination reveals no tenderness. The back is symmetrical on inspection without obvious abnormality. There is no CVA tenderness to palpation. No joint edema. LOWER EXTREMITIES: Significant pain and limited range of motion of the left hip. There is some mild tenderness along the left femur without obvious deformity. Right lower extremity is atraumatic. Calves are equal size bilaterally and non- tender. No edema. No discoloration. NEURO: Normal sensorium. No sensory or motor deficits noted. SKIN: No rash or jaundice noted. PROCEDURES: none CRITICAL CARE: none OBSERVATION NOTE: none Past Med/Surg History Problem List (Updated 12/18/24 @ 11:52 by Mitchel Lea MD) Closed hip fracture (Acute) Fall (Acute) Tobacco abuse counseling Chronic bronchitis Chronic dyspnea Hyperthyroidism (Acute) Acute dehydration (Acute) Hypocalcemia (Acute) Non-ST elevation [place] (NSTEMI) (Acute) Acute hypokalemia (Acute) Hypomagnesemia (Acute) Syncope and collapse (Acute) Fluid overload due to blood transfusion Acute blood loss anemia Closed right humeral fracture (07/11/22) Near syncope (Acute) Hypomagnesemia (Acute) Fall from standing (Acute) Closed fracture of right proximal humerus (Acute 07/11/22) CKD (chronic kidney disease) (Acute) Closed left humeral fracture (07/11/22) ? if meant to be right humerus Encounter for pre-operative examination TIA (transient ischemic attack) (Acute) 12/01/20 - admitted to [facility]- no residual deficits On Plavix CVA (cerebral vascular accident) November 2019 - no residual deficits On Plavix Anxiety with depression GERD (gastroesophageal reflux disease) Generalized arthritis Ambulatory dysfunction Hyperlipidemia Generalized osteoarthritis Adrenal mass Tobacco use Hypomagnesemia Chest pain Atypical chest pain (Acute) Left arm weakness (Acute) Calcification of tendon Tobacco dependence Tibial mass Hyperthyroidism Graves disease. Takes Methimazole Iron deficiency anemia Graves' disease PT DENIES Type II diabetes mellitus Glucose controlled COPD (chronic obstructive pulmonary disease) Uses inhaler qid - pt takes routinely- not PRN Breathing stable - chronic [place] Hypertension (Chronic) Asthma (Chronic) USES INHALER DAILY Medical History History of lung cancer Varicose vein of leg Hyperlipidemia Surgical History History of hysterectomy History of tooth extraction History of thoracotomy (~2009) H/O section Family History Aunt Diabetes Myocardial infarction Uncle Prostate cancer Diabetes Myocardial infarction Mother Diabetes Breast cancer Unknown Ovarian cancer Other Family history of cholecystectomy No family history of adverse response to anesthesia Denies family history of Colorectal cancer Social History Smoking Status: Current every day smoker Tobacco Type: Cigarettes Age Started Using Tobacco: 17; packs per day: 2.5; Cigarettes Per Day: 30; Second Hand Exposure: Yes; Do You Dip or Chew Tobacco: No; Hx Alcohol Use: No Hx Substance Use: No Preferred Language: Yoruba Communication Ability: Effective Visual Impairment: No Limitations Hearing Ability: Hard of Hearing Building Custodian Required: No Beliefs That Will Affect Care: None marital status: Current Living Situation: Alone current occupational status: retired current occupation: retired from working in retail Feels Safe at Home: Yes Childhood Exposure to Second-Hand Smoke: Yes Diet: regular caffeine: Yes Dental Care, Regularly: No Physical Activity Frequency: Does not Exercise Seatbelt Use: always Sunscreen Use: No Assistive Devices: Glasses and Walker Allergies Allergies Allergy/AdvReac Type Severity Reaction Status Date / Time blue dye Allergy Mild Nausea Verified 10/20/24 13:30 Home Meds Previous Rx's Medication Instructions Recorded nebulizers #1 ea 01/19/23 albuterol sulfate 2.5 mg/3 mL 2.5 mg (3 mL) inhalation QID PRN 11/26/23 (0.083 %) solution for nebulization shortness of breath or wheezing #75 mL insulin regular human 100 unit/mL See Rx Instructions subcut 11/26/23 injection solution (Humulin R DIRECTED PRN SLIDING SCALE #10 mL Regular U-100 Insulin) alendronate 70 mg tablet 70 mg PO .COMPLEX #12 tabs 05/02/24 blood sugar diagnostic (OneTouch #300 ea 06/20/24 Verio test strips) cyanocobalamin (vitamin B-12) 1,000 mcg PO DAILY #90 tabs 06/20/24 1,000 mcg tablet hydroxyzine HCl 25 mg tablet 25 mg PO TID PRN Anxiety #270 tabs 06/20/24 ferrous sulfate 325 mg (65 mg 325 mg PO DAILY #90 tabs 06/28/24 iron) tablet (Iron (ferrous sulfate)) magnesium 250 mg tablet 250 mg PO DAILY #90 tabs 06/28/24 albuterol sulfate 90 mcg/actuation 1 puff inhalation DIRECTED PRN 10/20/24 aerosol inhaler (Ventolin HFA) shortness of breath or wheezing #3 Inhalers atorvastatin 40 mg tablet 40 mg PO HS #90 tabs 10/20/24 blood-glucose meter (OneTouch #1 ea 10/20/24 Verio Flex Meter) clopidogrel 75 mg tablet 75 mg PO DAILY #90 tabs 10/20/24 fluticasone fur. 100 mcg-umeclid 1 inh inhalation DAILY #3 Inhalers 10/20/24 62.5 mcg-vilant 25 mcg inhalat.powder (Trelegy Ellipta) insulin glargine 100 unit/mL 15 unit (0.15 mL) subcut HS PRN IF 10/20/24 subcutaneous solution (Lantus NEEDED PER PT #90 mL U-100 Insulin) lancets 33 gauge (OneTouch Delica #300 ea 10/20/24 Plus Lancet) metformin 500 mg tablet 1,000 mg (2 x 500 mg) PO BID 3 10/20/24 months #360 tabs methimazole 5 mg tablet 15 mg (3 x 5 mg) PO QAM #270 tabs 10/20/24 midodrine 5 mg tablet 5 mg PO TID@0800,1200,1700 90 days 10/20/24 #270 tabs pantoprazole 40 mg tablet,delayed 40 mg PO BID #180 tabs 10/20/24 release pen needle, diabetic 29 gauge x #180 ea 10/20/24 1/2" (Ultra-Thin II Insulin Pen Diamond) trazodone 50 mg tablet 100 mg (2 x 50 mg) PO HS #180 tabs 10/20/24 Results & Data (ED) Vital Signs Vital Signs - 24 hr 12/18/24 11:19 12/18/24 12:56 12/18/24 14:00 Temperature 36.9 C Temperature Source Oral Pulse Rate 98 H Pulse Rate [Apical] 91 H 92 H Pulse Rhythm [Apical] Regular Pulse Strength [Apical] Normal Normal Respiratory Rate 18 20 22 Respiratory Effort / Characteristics Non-Labored Spontaneous Non-Labored Spontaneous Respiratory Depth Normal Normal Respiratory Pattern Regular Regular Blood Pressure 153/116 H Blood Pressure [Right Arm] 175/78 H 162/97 H Blood Pressure Mean 128 Blood Pressure Mean [Right Arm] 110 118 Blood Pressure Position [Right Arm] Semi-fowlers Pulse Oximetry 99 98 97 Oxygen Delivery Method Room Air Room Air Room Air Sepsis Recent Fever Within 48 Hours No Sepsis New/Unexplained Change in Mental Status N/A Sepsis Action Taken by Nursing No Action Required 12/18/24 16:00 12/18/24 17:21 12/18/24 18:00 Temperature Temperature Source Pulse Rate Pulse Rate [Apical] 84 85 91 H Pulse Rhythm [Apical] Regular Regular Regular Pulse Strength [Apical] Normal Normal Normal Respiratory Rate 18 18 18 Respiratory Effort / Characteristics Non-Labored Spontaneous Non-Labored Spontaneous Non-Labored Respiratory Depth Normal Normal Normal Respiratory Pattern Regular Regular Regular Blood Pressure Blood Pressure [Right Arm] 136/74 174/75 H 136/115 H Blood Pressure Mean Blood Pressure Mean [Right Arm] 94 108 122 Blood Pressure Position [Right Arm] Lying Pulse Oximetry 96 99 96 Oxygen Delivery Method Room Air Room Air Room Air Sepsis Recent Fever Within 48 Hours Sepsis New/Unexplained Change in Mental Status Sepsis Action Taken by Nursing 12/18/24 19:03 Temperature Temperature Source Pulse Rate 94 H Pulse Rate [Apical] Pulse Rhythm [Apical] Pulse Strength [Apical] Respiratory Rate 21 Respiratory Effort / Characteristics Respiratory Depth Respiratory Pattern Blood Pressure 107/92 Blood Pressure [Right Arm] Blood Pressure Mean 97 Blood Pressure Mean [Right Arm] Blood Pressure Position [Right Arm] Pulse Oximetry 94 Oxygen Delivery Method Room Air Sepsis Recent Fever Within 48 Hours Sepsis New/Unexplained Change in Mental Status Sepsis Action Taken by Nursing Laboratory Data 12/18/24 11:23 12/18/24 13:47 Lab Results 12/18/24 12/18/24 12/18/24 Range/Units 11:23 12:54 13:44 WBC 9.25 (4.8-10.8) K/ul RBC 3.44 L (4.20-5.40) M/uL Hgb 10.5 L (12.0-16.0) g/dl Hct 30.1 L (37.0-47.0) % MCV 87.5 (80.0-100.0) fL MCH 30.5 (25.0-34.0) pg MCHC 34.9 (32.0-36.0) g/dL RDW Std Deviation 41.5 (36.4-46.3) fL RDW Coeff of Norma 12.9 (11.5-14.5) % Plt Count 182 (130-400) K/uL MPV 9.3 L (9.4-12.4) fL Immature Gran % (Auto) 0.5 % Neut % (Auto) 72.5 % Lymph % (Auto) 19.1 % [place] % (Auto) 7.7 % Eos % (Auto) 0.0 % Baso % (Auto) 0.2 % Neut # (Auto) 6.70 H (1.40-6.50) K/uL Lymph # (Auto) 1.77 (1.20-3.40) K/uL [place] # (Auto) 0.71 H (0.11-0.59) K/uL Eos # (Auto) 0.00 (0.00-0.50) K/uL Baso # (Auto) 0.02 (0.00-0.20) K/uL Immature Gran # (Auto) 0.05 (0.01-0.20) K/uL PT Cancelled 10.6 INR Cancelled 1.0 APTT Cancelled 28 PTT Ratio Cancelled 1.0 Sodium 139 (136-145) mmol/L Potassium TNP Chloride 105 (98-107) mmol/L Carbon Dioxide 23 (21-32) mmol/L Anion Gap 11 (3-11) BUN 19 (6-23) mg/dl Creatinine 0.88 (0.6-1.2) mg/dl Est Cr Clr Drug Dosing 41.0 ml/min eGFR 66.81 BUN/Creatinine Ratio 21.6 H (10-20) Glucose 114 H (70-99(Fasting)) mg/dl Calcium 8.8 (8.6-10.3) mg/dl Total Bilirubin 0.6 (0.2-1.0) mg/dl AST TNP ALT 11 (7-52) U/L Alkaline Phosphatase 56 (34-104) U/L Total Creatine Kinase 108 (26-192) U/L Total Protein 6.8 (6.0-8.3) gm/dl Albumin 3.6 (3.4-5.0) gm/dl Globulin 3.2 (2.5-4.0) gm/dl Albumin/Globulin Ratio 1.1 (0.9-2) Urine Color Yellow Urine Appearance Clear (Clear) Urine pH 5.5 (4.5-7.5) Ur Specific [place] 1.017 (1.000-1.030) Urine Protein 1+ H (Negative) Urine Glucose (UA) Negative (Negative) Urine Ketones 2+ H (Negative) Urine Blood Negative (Negative) Urine Nitrite Negative (Negative) Urine Bilirubin Negative (Negative) Urine Urobilinogen Negative (Negative) Ur Leukocyte Esterase Negative (Negative) Urine WBC (Auto) 0-5 (0-5) /hpf Urine RBC (Auto) 0-2 (0-2) /hpf U Hyaline Cast (Auto) 3-5 H (0-2) /lpf U Epithel Cells (Auto) 0-2 (0-2) /hpf Urine Bacteria (Auto) None Seen (None Seen) Urine Comment //25 Range/Units 13:47 WBC (4.8-10.8) K/ul RBC (4.20-5.40) M/uL Hgb (12.0-16.0) g/dl Hct (37.0-47.0) % MCV (80.0-100.0) fL MCH (25.0-34.0) pg MCHC (32.0-36.0) g/dL RDW Std Deviation (36.4-46.3) fL RDW Coeff of Norma (11.5-14.5) % Plt Count (130-400) K/uL MPV (9.4-12.4) fL Immature Gran % (Auto) % Neut % (Auto) % Lymph % (Auto) % [place] % (Auto) % Eos % (Auto) % Baso % (Auto) % Neut # (Auto) (1.40-6.50) K/uL Lymph # (Auto) (1.20-3.40) K/uL [place] # (Auto) (0.11-0.59) K/uL Eos # (Auto) (0.00-0.50) K/uL Baso # (Auto) (0.00-0.20) K/uL Immature Gran # (Auto) (0.01-0.20) K/uL PT INR APTT PTT Ratio Sodium (136-145) mmol/L Potassium 4.4 Chloride (98-107) mmol/L Carbon Dioxide (21-32) mmol/L Anion Gap (3-11) BUN (6-23) mg/dl Creatinine (0.6-1.2) mg/dl Est Cr Clr Drug Dosing ml/min eGFR BUN/Creatinine Ratio (10-20) Glucose (70-99(Fasting)) mg/dl Calcium (8.6-10.3) mg/dl Total Bilirubin (0.2-1.0) mg/dl AST 17 ALT (7-52) U/L Alkaline Phosphatase (34-104) U/L Total Creatine Kinase (26-192) U/L Total Protein (6.0-8.3) gm/dl Albumin (3.4-5.0) gm/dl Globulin (2.5-4.0) gm/dl Albumin/Globulin Ratio (0.9-2) Urine Color Urine Appearance (Clear) Urine pH (4.5-7.5) Ur Specific [place] (1.000-1.030) Urine Protein (Negative) Urine Glucose (UA) (Negative) Urine Ketones (Negative) Urine Blood (Negative) Urine Nitrite (Negative) Urine Bilirubin (Negative) Urine Urobilinogen (Negative) Ur Leukocyte Esterase (Negative) Urine WBC (Auto) (0-5) /hpf Urine RBC (Auto) (0-2) /hpf U Hyaline Cast (Auto) (0-2) /lpf U Epithel Cells (Auto) (0-2) /hpf Urine Bacteria (Auto) (None Seen) Urine Comment Administered Medications Hydromorphone HCl (Hydromorphone Inj 0.5 Mg/0.5 Ml Syr) 0.25 mg IV Q20M PRN PRN Reason: Moderate Pain (Rating 3,4,5,6) Stop: 01/01/25 11:22 Last Admin: 12/18/24 13:28 Dose: 0.25 mg Documented By: Admin: 12/18/24 11:30 Dose: 0.25 mg Documented By: KMO Sodium Chloride (Nss) 1,000 mls @ 125 mls/hr IV .Q8H KASH Stop: 12/21/24 11:29 Last Admin: 12/18/24 13:23 Dose: 125 mls/hr Documented By: QGV Morphine Sulfate (Morphine Sulfate 4 Mg/Ml 1 Ml Carp\\Vial) 4 mg IV Q4H PRN PRN Reason: Pain Stop: 01/01/25 17:23 Last Admin: 12/18/24 17:58 Dose: 4 mg Documented By: KRC Discontinued Medications Sodium Chloride (Nss) 500 mls @ 999 mls/hr IV .Q31M ONE Stop: 12/18/24 11:53 Last Infusion: 12/18/24 15:26 Dose: Infused Documented By: Admin: 12/18/24 13:22 Dose: 999 mls/hr Documented By: QGV Ondansetron HCl (Ondansetron Inj 2 Mg/Ml 2 Ml Vial) 4 mg IV NOW STA Stop: 12/18/24 11:24 Last Admin: 12/18/24 11:31 Dose: 4 mg Documented By: KMO Imaging Data Radiologist's Impression: Femur X-Ray 12/18/24 11:23 History: Pain Comparison: None Findings: There is no acute fracture or dislocation. Alignment is anatomic. Joint spaces are well maintained. There is no joint effusion or significant soft tissue swelling. Impression: No acute bony abnormality Electronically signed by Sander Garrett 12-18-2024 3:39 PM Chest X-Ray 12/18/24 11:25 EXAM: X-ray chest one-view portable CLINICAL HISTORY: Left hip pain fall PRIORS: CT 08/16/2024 TECHNIQUE: Frontal view chest portable FINDINGS: The chest is well-expanded. No airspace consolidation, effusion or congestive changes. Heart size is normal. No pneumothorax. Trachea is patent. Osseous structures demonstrate no acute abnormality. Osseous demineralization noted. No displaced rib fracture. No radiopaque foreign body. IMPRESSION: No plain film evidence of an acute cardiopulmonary process. Electronically signed by Carline Mejias 12-18-2024 3:[address] 12/18/24 14:22 EXAMINATION: Head CT without CLINICAL HISTORY: Fall PRIORS: 04/27/2024 TECHNIQUE: Contiguous axial images were obtained through the head without the use of intravenous contrast. Sagittal and coronal reformations are supplied. FINDINGS: Age appropriate parenchymal volume is noted. Moderate small vessel occlusive disease present with periventricular lucency. Lewis-white differentiation is preserved. No edema or midline shift. No intra-axial or extra-axial hemorrhage. Ventricles are normal in size and configuration. Brainstem and cerebellum have a normal appearance. Calvarium unremarkable. Paranasal sinuses and mastoid air cells are well-pneumatized. Globes are intact. No retrobulbar abnormality. Moderate osseous demineralization. IMPRESSION: No CT evidence of an acute intracranial abnormality. Electronically signed by Carline Mejias 12-18-2024 3:[address] 12/18/24 15:46 CT left hip without contrast History: Pain/weakness Comparison: None Technique: CT performed of the extremity without IV contrast. 3D reconstructions performed. Dose reduction techniques were achieved by using automatic exposure control and/or adjustment of mA and/or kV according to patient size and/or use of iterative reconstruction technique. Findings: Subtle left subcapital femoral neck fracture with slight angulation. There is slight impaction. Joint spaces are normally aligned. Greater trochanteric enthesophyte. No visualized soft tissue abnormality. No aggressive osseous lesion. Impression: Left femoral neck fracture Electronically signed by Sander Garrett 12-18-2024 5:02 PM Discharge Plan Visit Data Chief Complaint: Fall ED Provider: Mitchel Lea Discharge Problem: Fall, Closed hip fracture Patient Disposition: Admitted As Inpatient Condition: Fair Discharge Instructions Interventions: ED Discharge Assessment Last Done: 12/18/24 19:30 Forms Stand Alone Forms: My [employer] Prescriptions Prescriptions: No Action albuterol sulfate 2.5 mg /3 mL (0.083 %) solution for nebulization 2.5 mg inhalation QID PRN (Reason: shortness of breath or wheezing) Qty: 75 3RF Humulin R Regular U-100 Insuln 100 unit/mL solution See Rx Instructions SUBCUT DIRECTED PRN (Reason: SLIDING SCALE) Qty: 10 3RF Rx Instructions: Per sliding scale, max daily dosing 30 units subcutaneously as directed PRN; alendronate 70 mg tablet 70 mg PO .COMPLEX Qty: 12 3RF Rx Instructions: 70 mg PO once weekly; Take with full glass of water on an empty stomach. Remain upright and wait 40 minutes before eating/drinking (DME) OneTouch Verio test strips Strip See Rx Instructions .Route Qty: 300 3RF Rx Instructions: As directed test 3 times each day hydroxyzine HCl 25 mg tablet 25 mg PO TID PRN (Reason: Anxiety) Qty: 270 3RF cyanocobalamin (vitamin B-12) 1,000 mcg tablet 1,000 mcg PO DAILY Qty: 90 3RF ferrous sulfate [Iron (ferrous sulfate)] 325 mg (65 mg iron) tablet 325 mg PO DAILY Qty: 90 3RF magnesium 250 mg tablet 250 mg PO DAILY Qty: 90 3RF methimazole 5 mg tablet 15 mg PO QAM Qty: 270 0RF Trelegy Ellipta 100-62.5-25 mcg blister with device 1 inh inhalation DAILY Qty: 3 3RF midodrine 5 mg tablet 5 mg PO TID@0800,1200,1700 90 Days Qty: 270 3RF (DME) blood-glucose meter [OneTouch Verio Flex meter] Misc See Rx Instructions .Route Qty: 1 0RF Rx Instructions: As directed check BSG 3 times daily clopidogrel 75 mg tablet 75 mg PO DAILY Qty: 90 3RF Patient Comments: PT STATES BID metformin 500 mg tablet 1,000 mg PO BID 90 Days Qty: 360 3RF trazodone 50 mg tablet 100 mg PO HS Qty: 180 3RF albuterol sulfate [Ventolin HFA] 90 mcg/actuation HFA aerosol inhaler 1 puff inhalation DIRECTED PRN (Reason: shortness of breath or wheezing) Qty: 3 3RF (DME) lancets [OneTouch Delica Plus Lancet] 33 gauge misc See Rx Instructions .Route Qty: 300 3RF Rx Instructions: As directed test 3 times daily insulin glargine [Lantus U-100 Insulin] 100 unit/mL solution 15 unit SUBCUT HS PRN (Reason: IF NEEDED PER PT) Qty: 90 3RF atorvastatin 40 mg tablet 40 mg PO HS Qty: 90 3RF pantoprazole 40 mg tablet,delayed release (DR/EC) 40 mg PO BID Qty: 180 3RF (DME) pen needle, diabetic [Ultra-Thin II Ins Pen Diamond] 29 gauge x 1/2" needle See Rx Instructions .Route Qty: 180 3RF Rx Instructions: use with insulin BID prn (DME) nebulizers Misc See Rx Instructions .Route Qty: 1 0RF Rx Instructions: Nebulizer and tubing supplies Referrals Referrals: Sander David MD [Primary Care Provider] -
[2024-12-18 11:59] LABS: Alanine Aminotransferase 11 U/L (7-52); Albumin Globulin Ratio 1.1 (0.9-2); Alkaline Phosphatase 56 U/L (34-104); Anion Gap 11 (3-11); Bilirubin,Total 0.6 mg/dl (0.2-1.0); Blood Urea Nitrogen 19 mg/dl (6-23); Calcium 8.8 mg/dl (8.6-10.3); Carbon Dioxide 23 mmol/L (21-32); Chloride 105 mmol/L (98-107); Creatine Kinase 108 U/L (26-192); Creatinine Clr Calc Pharmacy 41.0 ml/min; Globulin 3.2 gm/dl (2.5-4.0); Glucose 114 mg/dl (70-99(Fasting)); Sodium 139 mmol/L (136-145); Total Protein 6.8 gm/dl (6.0-8.3)
--- NOTE | 2024-12-18 13:08 | Electrocardiogram Report ---
Test Reason : Blood Pressure : */* mmHG Vent. Rate : 91 BPM Atrial Rate : 91 BPM P-R Int : 186 ms QRS Dur : 84 ms QT Int : 402 ms P-R-T Axes : -19 -9 -14 degrees QTcB Int : 494 ms Sinus rhythm Premature atrial complexes Low voltage QRS Cannot rule out Inferior infarct , age undetermined Abnormal ECG When compared with ECG of 27-Apr-2024 23:33, Minimal criteria for Inferior infarct are now Present Nonspecific T wave abnormality, worse in Inferior leads Confirmed by Brad Paulino ([id number]) on 12/18/2024 1:08:00 PM Referred By: REFERRED SELF Confirmed By: Brad Paulino
[2024-12-18 13:17] LABS: Appearance Urine Clear (Clear); Bacteria Urine Automated None Seen (None Seen); Epithelial Cell Urine Auto 0-2 /hpf (0-2); Glucose Urine UA Negative (Negative); RBC Urine Automated 0-2 /hpf (0-2); WBC Urine Automated 0-5 /hpf (0-5)
[2024-12-18] MEDS: SODIUM CHLORIDE 0.9% 500 ML IV ONE (13:22)
[2024-12-18] MEDS: SODIUM CHLORIDE 0.9% 1,000 ML IV SCH (13:23)
[2024-12-18 14:18] LABS: Potassium 4.4 mmol/L (3.5-5.1)
[2024-12-18 14:39] LABS: INR 1.0 (0.9-1.1); Partial Thromboplastin Time 28 Seconds (21-31); Prothrombin Time 10.6 Seconds (9.0-12.0)
--- NOTE | 2024-12-18 15:06 | XRay Report ---
EXAM: X-ray chest one-view portable CLINICAL HISTORY: Left hip pain fall PRIORS: CT 08/16/2024 TECHNIQUE: Frontal view chest portable FINDINGS: The chest is well-expanded. No airspace consolidation, effusion or congestive changes. Heart size is normal. No pneumothorax. Trachea is patent. Osseous structures demonstrate no acute abnormality. Osseous demineralization noted. No displaced rib fracture. No radiopaque foreign body. IMPRESSION: No plain film evidence of an acute cardiopulmonary process. Electronically signed by Carline Mejias 12-18-2024 3:05 PM
--- NOTE | 2024-12-18 15:40 | XRay Report ---
History: Pain Comparison: None Findings: There is no acute fracture or dislocation. Alignment is anatomic. Joint spaces are well maintained. There is no joint effusion or significant soft tissue swelling. Impression: No acute bony abnormality Electronically signed by Sander Garrett 12-18-2024 3:39 PM
--- NOTE | 2024-12-18 15:46 | CT Scan Report ---
EXAMINATION: Head CT without CLINICAL HISTORY: Fall PRIORS: 04/27/2024 TECHNIQUE: Contiguous axial images were obtained through the head without the use of intravenous contrast. Sagittal and coronal reformations are supplied. FINDINGS: Age appropriate parenchymal volume is noted. Moderate small vessel occlusive disease present with periventricular lucency. Lewis-white differentiation is preserved. No edema or midline shift. No intra-axial or extra-axial hemorrhage. Ventricles are normal in size and configuration. Brainstem and cerebellum have a normal appearance. Calvarium unremarkable. Paranasal sinuses and mastoid air cells are well-pneumatized. Globes are intact. No retrobulbar abnormality. Moderate osseous demineralization. IMPRESSION: No CT evidence of an acute intracranial abnormality. Electronically signed by Carline Mejias 12-18-2024 3:46 PM
--- NOTE | 2024-12-18 17:02 | CT Scan Report ---
CT left hip without contrast History: Pain/weakness Comparison: None Technique: CT performed of the extremity without IV contrast. 3D reconstructions performed. Dose reduction techniques were achieved by using automatic exposure control and/or adjustment of mA and/or kV according to patient size and/or use of iterative reconstruction technique. Findings: Subtle left subcapital femoral neck fracture with slight angulation. There is slight impaction. Joint spaces are normally aligned. Greater trochanteric enthesophyte. No visualized soft tissue abnormality. No aggressive osseous lesion. Impression: Left femoral neck fracture Electronically signed by Sander Garrett 12-18-2024 5:02 PM
[2024-12-18] MEDS ORDERED: ALBUTEROL 0.083% NEBU SOLN 3 ML VIAL INH PRN (17:19)
[2024-12-18] MEDS ORDERED: PHARMACY GLYCEMIC MGMT CONSULT PRN (17:20)
[2024-12-18] MEDS ORDERED: GLUCAGON FOR INJ 1 MG VIAL SQ PRN (17:45)
[2024-12-18] MEDS ORDERED: CARBOHYDRATES FOR HYPOGLYCEMIA PO PRN (17:45)
[2024-12-18] MEDS ORDERED: GLUCOSE 10 TAB/TUBE PO PRN (17:45)
[2024-12-18] MEDS ORDERED: GLUCOSE 40% GEL 15 GM TUBE PO PRN (17:45)
[2024-12-18] MEDS ORDERED: DEXTROSE 50% 50 ML SYRINGE IV PRN (17:45)
[2024-12-18] MEDS: MoRPHine SULFATE 4 MG/ML 1 ML CARP\\VIAL IV PRN (17:58)
--- NOTE | 2024-12-18 18:10 | History & Physical Report ---
Date of Service December 18, 2024 Assessment & Plan (1) Closed hip fracture: Plan: -CT shows left subcapital femoral neck fracture -npo after midnight -pain control with morphine -orthopedics consulted (2) Hyperlipidemia: Plan: -atorvastatin (3) CVA (cerebral vascular accident): Plan: -hold plavix 2nd to possible surgery (4) Type II diabetes mellitus: Plan: -pharm consulted for glycemic management Plan Heparin SQ for DVT px History of Present Illness Chief Complaint: Left hip pain, s/p fall Primary Care Provider: Sander David MD Pt is a 79 y/o female with pmh of DM, COPD, CVA on plavix, who presents s/p fall with left hip pain. Pt states yesterday she tripped over her big toe and fell to the ground and could get up. When she was brought up she had severe pain in her left hip. She denies any other injuries or loss of consciousness. In the ER her CT head was negative. CT hip showed, left subcapital femoral neck fracture. Pt was given pain medication and will be admitted for further evaluation by orthopedics. Allergies Allergy/AdvReac Type Severity Reaction Status Date / Time blue dye Allergy Mild Nausea Verified 10/20/24 13:30 Home Medications Medication Instructions Recorded Confirmed Type nebulizers #1 ea 01/19/23 12/18/24 Rx albuterol sulfate 2.5 mg/3 mL 2.5 mg (3 mL) inhalation QID PRN 11/26/23 12/18/24 Rx (0.083 %) solution for nebulization shortness of breath or wheezing #75 mL insulin regular human 100 unit/mL See Rx Instructions subcut 11/26/23 12/18/24 Rx injection solution (Humulin R DIRECTED PRN SLIDING SCALE #10 mL Regular U-100 Insulin) alendronate 70 mg tablet 70 mg PO .COMPLEX #12 tabs 05/02/24 12/18/24 Rx blood sugar diagnostic (OneTouch #300 ea 06/20/24 12/18/24 Rx Verio test strips) cyanocobalamin (vitamin B-12) 1,000 mcg PO DAILY #90 tabs 06/20/24 12/18/24 Rx 1,000 mcg tablet hydroxyzine HCl 25 mg tablet 25 mg PO TID PRN Anxiety #270 tabs 06/20/24 12/18/24 Rx ferrous sulfate 325 mg (65 mg 325 mg PO DAILY #90 tabs 06/28/24 12/18/24 Rx iron) tablet (Iron (ferrous sulfate)) magnesium 250 mg tablet 250 mg PO DAILY #90 tabs 06/28/24 12/18/24 Rx albuterol sulfate 90 mcg/actuation 1 puff inhalation DIRECTED PRN 10/20/24 12/18/24 Rx aerosol inhaler (Ventolin HFA) shortness of breath or wheezing #3 Inhalers atorvastatin 40 mg tablet 40 mg PO HS #90 tabs 10/20/24 12/18/24 Rx blood-glucose meter (OneTouch #1 ea 10/20/24 12/18/24 Rx Verio Flex Meter) clopidogrel 75 mg tablet 75 mg PO DAILY #90 tabs 10/20/24 12/18/24 Rx fluticasone fur. 100 mcg-umeclid 1 inh inhalation DAILY #3 Inhalers 10/20/24 12/18/24 Rx 62.5 mcg-vilant 25 mcg inhalat.powder (Trelegy Ellipta) insulin glargine 100 unit/mL 15 unit (0.15 mL) subcut HS PRN IF 10/20/24 12/18/24 Rx subcutaneous solution (Lantus NEEDED PER PT #90 mL U-100 Insulin) lancets 33 gauge ([facility] 10/20/24 12/18/24 Rx Plus Lancet) metformin 500 mg tablet 1,000 mg (2 x 500 mg) PO BID 3 10/20/24 12/18/24 Rx months #360 tabs methimazole 5 mg tablet 15 mg (3 x 5 mg) PO QAM #270 tabs 10/20/24 12/18/24 Rx midodrine 5 mg tablet 5 mg PO TID@0800,1200,1700 90 days 10/20/24 12/18/24 Rx #270 tabs pantoprazole 40 mg tablet,delayed 40 mg PO BID #180 tabs 10/20/24 12/18/24 Rx release pen needle, diabetic 29 gauge x #180 ea 10/20/24 12/18/24 Rx 1/2" (Ultra-Thin II Insulin Pen [place]) trazodone 50 mg tablet 100 mg (2 x 50 mg) PO HS #180 tabs 10/20/24 12/18/24 Rx Past Med/Surg History Problem List (Updated 12/18/24 @ 11:52 by Mitchel Lea MD) Closed hip fracture (Acute) Fall (Acute) Tobacco abuse counseling Chronic bronchitis Chronic dyspnea Hyperthyroidism (Acute) Acute dehydration (Acute) Hypocalcemia (Acute) Non-ST elevation AL (NSTEMI) (Acute) Acute hypokalemia (Acute) Hypomagnesemia (Acute) Syncope and collapse (Acute) Fluid overload due to blood transfusion Acute blood loss anemia Closed right humeral fracture (07/11/22) Near syncope (Acute) Hypomagnesemia (Acute) Fall from standing (Acute) Closed fracture of right proximal humerus (Acute 07/11/22) CKD (chronic kidney disease) (Acute) Closed left humeral fracture (07/11/22) ? if meant to be right humerus Encounter for pre-operative examination TIA (transient ischemic attack) (Acute) 12/01/20 - admitted to [facility]- no residual deficits On Plavix CVA (cerebral vascular accident) November 2019 - no residual deficits On Plavix Anxiety with depression GERD (gastroesophageal reflux disease) Generalized arthritis Ambulatory dysfunction Hyperlipidemia Generalized osteoarthritis Adrenal mass Tobacco use Hypomagnesemia Chest pain Atypical chest pain (Acute) Left arm weakness (Acute) Calcification of tendon Tobacco dependence Tibial mass Hyperthyroidism Graves disease. Takes Methimazole Iron deficiency anemia Graves' disease PT DENIES Type II diabetes mellitus Glucose controlled COPD (chronic obstructive pulmonary disease) Uses inhaler qid - pt takes routinely- not PRN Breathing stable - chronic [place] Hypertension (Chronic) Asthma (Chronic) USES INHALER DAILY Medical History History of lung cancer Varicose vein of leg Hyperlipidemia Surgical History History of hysterectomy History of tooth extraction History of thoracotomy (~2009) H/O section Family History Aunt Diabetes Myocardial infarction Uncle Prostate cancer Diabetes Myocardial infarction Mother Diabetes Breast cancer Unknown Ovarian cancer Other Family history of cholecystectomy No family history of adverse response to anesthesia Denies family history of Colorectal cancer Social History Smoking Status: Current every day smoker Tobacco Type: Cigarettes Age Started Using Tobacco: 17; packs per day: 2.5; Cigarettes Per Day: 30; Second Hand Exposure: Yes; Do You Dip or Chew Tobacco: No; Hx Alcohol Use: No Hx Substance Use: No Preferred Language: Citizen [place] Communication Ability: Effective Visual Impairment: No Limitations Hearing Ability: Hard of Hearing Voice Network Administrator Required: No Beliefs That Will Affect Care: None marital status: Current Living Situation: Alone current occupational status: retired current occupation: retired from working in retail Feels Safe at Home: Yes Childhood Exposure to Second-Hand Smoke: Yes Diet: regular caffeine: Yes Dental Care, Regularly: No Physical Activity Frequency: Does not Exercise Seatbelt Use: always Sunscreen Use: No Assistive Devices: Glasses and Walker Review of Systems Review of Systems: CONST: Negative for fever, body aches and chills. HENT: Negative for neck pain/stiffness, headache, congestion, sore throat, swelling. EYES: Negative for discharge/pain or vision changes. RESP: Negative for cough/hemoptysis and shortness of breath. CV: Negative chest pain, difficulty breathing, palpitations. ABD: Negative pain, nausea, vomiting. : Negative increase frequency, dysuria, blood in urine or stool. MUSC: Negative for muscle aches, edema. Left hip pain SKIN: Negative rash, lesions/sores. NEURO: Negative headache, dizziness, weakness. Physical Exam Physical Exam: GENERAL APPEARANCE NAD, activity normal for age, well developed/ well nourished, no cyanosis, pallor, or diaphoresis. EYES lids/conjunctiva normal. EARS/NOSE/THROAT Mucous membranes moist, nares normal, lips/teeth normal uvula midline without oral pharyngeal erythema, exudate or swelling TMs normal bilaterally. No lymphangitis/lymphedema. HEAD/NECK normocephalic atraumatic, no facial trauma, neck is supple. RESPIRATORY respiratory effort normal, speaks in full sentences, no tripod position, no accessory muscle use. Lungs clear to auscultation without rhonchi, wheezes, rales CARDIAC Regular rate and rhythm, no edema. ABDOMINAL Soft, ND/NT. No evidence of fluid wave. No pulsatile masses on exam, rebound tenderness, Lovett sign or pain over Mcburney's point. MUSCLES/EXTREMITIES No abnormal range of motion, no swelling. Left hip tenderness. SKIN Warm, pink and dry. No rashes, dermatoses, petechiae or lesions. NEUROLOGICAL Speech is clear and appropriate. Normal level of consciousness. Gait and coordination are normal. 5/5 strength in all extremities. PSYCH Normal mood and affect. Judgement/competence is appropriate Results & Data Results & Data Vital Signs (Past 12 Hours) Vital Signs Temp Pulse Pulse Resp BP BP Pulse Ox 12/18/24 17:21 85 18 174/75 H 99 12/18/24 16:00 84 18 136/74 96 12/18/24 14:00 92 H 22 162/97 H 97 12/18/24 12:56 91 H 20 175/78 H 98 12/18/24 11:19 36.9 C 98 H 18 153/116 H 99 O2 Del Method 12/18/24 17:21 Room Air 12/18/24 16:00 Room Air 12/18/24 14:00 Room Air 12/18/24 12:56 Room Air 12/18/24 11:19 Room Air PG Care Time/CCT Total # of Minutes Spent Total Time Spent with Patient: Total time spent is greater than 50% in coordination of care (as documented) at patient's floor/unit and/or counseling patient: Coding Level of Care Code 43584 INT INP/OBS CARE 2MIN Diagnoses Closed hip fracture S72.009A Hyperlipidemia E78.5 CVA (cerebral vascular accident) I63.9 Type 2 diabetes mellitus without complication, without long-term current use of insulin E11.9 Diabetes mellitus correction insulin use: without correction use Diabetes mellitus complication status: without complication (4) Type II diabetes mellitus Diabetes mellitus correction insulin use: without correction use Diabetes mellitus complication status: without complication Qualified Code(s): E11.9 - Type 2 diabetes mellitus without complications
[2024-12-18] MEDS: ATORVASTATIN 40 MG TAB PO SCH (21:03)
[2024-12-18] MEDS: HEPARIN SOD 5,000 UNIT/0.5 ML VIAL SQ SCH (22:25)
[2024-12-18] MEDS: LANTUS PER UNIT CHARGE SC SCH (22:26)
[2024-12-18] MEDS: INSULIN ASPART PER UNIT CHARGE SC SCH (22:26)
[2024-12-19 07:16] LABS: Hematocrit (blood only) 24.2 % (37.0-47.0); Hemoglobin 8.1 g/dl (12.0-16.0); Mean Corpuscular Hemoglobin 29.9 pg (25.0-34.0); Mean Corpuscular Volume 89.3 fL (80.0-100.0); Platelet Count 144 K/uL (130-400); RDW Standard Deviation 41.7 fL (36.4-46.3); Red Blood Count 2.71 M/uL (4.20-5.40); White Blood Count 6.61 K/ul (4.8-10.8)
[2024-12-19 07:46] LABS: Anion Gap 4 (3-11); Blood Urea Nitrogen 17 mg/dl (6-23); Calcium 7.5 mg/dl (8.6-10.3); Carbon Dioxide 27 mmol/L (21-32); Chloride 108 mmol/L (98-107); Creatinine Clr Calc Pharmacy 36.1 ml/min; Glucose 91 mg/dl (70-99(Fasting)); Potassium 4.0 mmol/L (3.5-5.1); Sodium 139 mmol/L (136-145)
--- NOTE | 2024-12-19 08:12 | Hospitalist Progress Note ---
Date of Service December 19, 2024 Assessment & Plan (1) Closed hip fracture: (2) Hyperlipidemia: (3) CVA (cerebral vascular accident): (4) Type II diabetes mellitus: (5) Acute blood loss anemia: Plan This patient is a 79-year-old female who presented on 12/18 after falling on Saturday 12/16. #Closed hip fracture | Acute blood loss anemia CT left hip revealed left femoral neck fracture Revised cardiac risk index: 3 Orthopedic surgery consult appreciated Plan for OR on 12/[address] Siegel for left hip percutaneous screw fixation Hgb 10.5 -> 8.1 Suspected volume dilution in the setting of IVF perioperatively + acute blood loss d/t femoral neck fx No hematoma noted on clinical exam Pain control with morphine as needed #History of CVA Hold Plavix perioperatively #T2DM Last A1c at 5.5% on 07/19/2024 Hold metformin SSI; with target BSG range 110-140mg/dL, CF 50, carb ratio 20 T2DM diet BSG ACHS Adjust regimen as needed Pharmacy glycemic management consult appreciated #Hyperlipidemia Continue atorvastatin #Hyperthyroidism Known history of Graves' disease TSH <0.010 on 12/19 Free T4 WNL Methimazole held prior to surgery; will plan to reinitiate on the morning of 12/20 #Everyday tobacco cigarette smoker 1 PPD; nicotine patch PRN Continue to encourage cessation #Hypoxia | h/o COPD SpO2 89% on RA on the morning of 12/19 Anoro Ellipta daily IS, flutter valve Albuterol neb PRN Titrate supplemental oxygen as needed to maintain SPO2 89-92% Continuous pulse oximetry Disposition: Continued stay on MedSurg DVT PPx: Heparin 5000u SQ q8h Admission and Anticipated Discharge Date Admission Date: December 18, 2024 [address]ive Mrs. Fisher reports she slept "on and off" last night. She does not have much pain in her left hip at baseline while lying still, but does report that she has intermittent 5 out of 10 pain in the left hip across the lower back whenever she moves it. She does report that her current pain medicines have been helping. Patient lives at home with her daughter. She reports she ambulates with a cane and walker at baseline. She is a current everyday tobacco cigarette smoker; can range from 1 PPD, to 1 pack every 3 days. No submental oxygen at baseline. No CPAP at night. ROS: Patient endorses with hip pain, cough, burning with ration, and mild SOB at baseline. Patient denies fever, chills, chest pain, pleuritic CP, nausea, vomiting, changes in urinary bowel habits, or blood in your stool. Review of Systems Review of Systems: See HPI above Physical Exam Physical Exam: General: no acute distress; non-toxic appearing; frail appearing; cooperative; SpO2 89% on RA HEENT: normocephalic, atraumatic; no scleral icterus; PERRLA; vision and hearing intact Neck: supple; no lymphadenopathy; trachea midline Skin: warm, dry without signs of tenting; no cyanosis; no rashes, bruising, lesions, or erythema noted CV: chest wall NTP; RRR; S1/S2 normal; no murmurs/rubs/gallops; pulses intact and symmetric at radial, DP, and PT Lungs: no acute respiratory distress; dry cough; symmetrical chest wall expansion; expiratory wheeze auscultated in the upper and lower lung starks bilaterally ABD: Soft, NTP; BS present; no rebound/guarding; no distention : Liu catheter in place draining clear orange urine MSK: no tics or fasciculations; no edema noted in the LEs b/l, nonerythematous Left lower extremity: Patient has difficulty wiggling her toes; unable to flex her left knee; superficial abrasion noted on the left posterior knee; left hip is mildly TTP; no bruising or hematomas appreciated on the left hip or lower back Neuro: A&Ox3; normal mood and affect; fluent speech; no focal deficits; patient reports sensation is intact and symmetric in lower extremities bilaterally assessed via light touch Results & Data Results & Data Vital Signs (Past 12 Hours) Vital Signs Temp Pulse Pulse Resp BP Pulse Ox O2 Del Method 12/19/24 08:04 36.7 C 85 17 127/71 89 L Room Air 12/18/24 22:32 36.7 C 83 16 136/74 93 Room Air 12/18/24 20:30 Room Air 12/18/24 20:30 36.8 C 101 H 20 135/75 96 Room Air PG Care Time/CCT Total # of Minutes Spent Total Time Spent with Patient: Total time spent is greater than 50% in coordination of care (as documented) at patient's floor/unit and/or counseling patient: Coding [place] [address] SUB INP/OBS CARE 50MIN Patient Type Established History Comprehensive Exam Comprehensive Medical Decision Making High Complexity Diagnoses Closed hip fracture S72.009A Hyperlipidemia E78.5 CVA (cerebral vascular accident) I63.9 Type 2 diabetes mellitus without complication, without long-term current use of insulin E11.9 Diabetes mellitus complication status: without complication Diabetes mellitus senior living insulin use: without senior living use Acute blood loss anemia D62 (4) Type II diabetes mellitus Diabetes mellitus complication status: without complication Diabetes mellitus terminal computer operator insulin use: without terminal computer operator use Qualified Code(s): E11.9 - Type 2 diabetes mellitus without complications
[2024-12-19] MEDS: MIDODRINE HCL 2.5 MG TAB PO SCH (08:29)
[2024-12-19] MEDS: UMECLIDINIUM/VILANTEROL 62.5/25MCG 7 PUFFS/INHALER INH SCH (08:30)
[2024-12-19] MEDS: FLUTICASONE FUROATE 100MCG 14 PUFFS/INHALER INH SCH (08:30)
[2024-12-19] MEDS ORDERED: NON-FORMULARY MEDICATION (Fluticasone-Umeclidin-Vilanter [Trelegy Ellipta] 100-62.5-25 mcg INH SCH (09:00)
[2024-12-19 09:56] LABS: Thyroid Stimulating Hormone < 0.010 uIu/ml (0.300-4.500)
--- NOTE | 2024-12-19 09:57 | Orthopedic Consultation ---
Date of Service December 19, 2024 Assessment & Plan (1) Closed hip fracture: * Case/imaging reviewed and discussed with Dr Siegel * Recommend Left hip percutaneous screw fixation * Disposition: TBD * Daily treatment: Physical Therapy/ Occupational Therapy per protocol * Weight bearing status: non weightbearing pre-op * Pain control * Remainder care per primary team * Plan for surgery today 12/19/[address] Siegel. Discussed with patient risks and benefits of surgery including pain, infection, bleeding, risk of anesthesia, prolonged healing time, incomplete relief of symptoms, injury to surrounding tissue and DVT. History of Present Illness Reason for Consultation: Left subcapital femur fracture Requesting Physician: . Attending Physician: Torsten Rosa MD . Patient is a 79 y/o female with left hip pain after a fall at home. PMH including DM, COPD, CVA on plavix. Presents to hospital with left hip pain after she tripped catching her big toe. Current workup including CT of left hip showing subcapital femur fracture. Orthopedics consulted for management recommendations. At time of exam patient with continued left hip pain. Allergies Allergy/AdvReac Type Severity Reaction Status Date / Time blue dye Allergy Mild Nausea Verified 10/20/24 13:30 Home Medications Medication Instructions Recorded Confirmed Type nebulizers #1 ea 01/19/23 12/18/24 Rx albuterol sulfate 2.5 mg/3 mL 2.5 mg (3 mL) inhalation QID PRN 11/26/23 12/18/24 Rx (0.083 %) solution for nebulization shortness of breath or wheezing #75 mL insulin regular human 100 unit/mL See Rx Instructions subcut 11/26/23 12/18/24 Rx injection solution (Humulin R DIRECTED PRN SLIDING SCALE #10 mL Regular U-100 Insulin) alendronate 70 mg tablet 70 mg PO .COMPLEX #12 tabs 05/02/24 12/18/24 Rx blood sugar diagnostic (OneTouch #300 ea 06/20/24 12/18/24 Rx Verio test strips) cyanocobalamin (vitamin B-12) 1,000 mcg PO DAILY #90 tabs 06/20/24 12/18/24 Rx 1,000 mcg tablet hydroxyzine HCl 25 mg tablet 25 mg PO TID PRN Anxiety #270 tabs 06/20/24 12/18/24 Rx ferrous sulfate 325 mg (65 mg 325 mg PO DAILY #90 tabs 06/28/24 12/18/24 Rx iron) tablet (Iron (ferrous sulfate)) magnesium 250 mg tablet 250 mg PO DAILY #90 tabs 06/28/24 12/18/24 Rx albuterol sulfate 90 mcg/actuation 1 puff inhalation DIRECTED PRN 10/20/24 12/18/24 Rx aerosol inhaler (Ventolin HFA) shortness of breath or wheezing #3 Inhalers atorvastatin 40 mg tablet 40 mg PO HS #90 tabs 10/20/24 12/18/24 Rx blood-glucose meter (OneTouch #1 ea 10/20/24 12/18/24 Rx Verio Flex Meter) clopidogrel 75 mg tablet 75 mg PO DAILY #90 tabs 10/20/24 12/18/24 Rx fluticasone fur. 100 mcg-umeclid 1 inh inhalation DAILY #3 Inhalers 10/20/24 12/18/24 Rx 62.5 mcg-vilant 25 mcg inhalat.powder (Trelegy Ellipta) insulin glargine 100 unit/mL 15 unit (0.15 mL) subcut HS PRN IF 10/20/24 12/18/24 Rx subcutaneous solution (Lantus NEEDED PER PT #90 mL U-100 Insulin) lancets 33 gauge (OneTouch [place] #300 ea 10/20/24 12/18/24 Rx Plus Lancet) metformin 500 mg tablet 1,000 mg (2 x 500 mg) PO BID 3 10/20/24 12/18/24 Rx months #360 tabs methimazole 5 mg tablet 15 mg (3 x 5 mg) PO QAM #270 tabs 10/20/24 12/18/24 Rx midodrine 5 mg tablet 5 mg PO TID@0800,1200,1700 90 days 10/20/24 12/18/24 Rx #270 tabs pantoprazole 40 mg tablet,delayed 40 mg PO BID #180 tabs 10/20/24 12/18/24 Rx release pen needle, diabetic 29 gauge x #180 ea 10/20/24 12/18/24 Rx 1/2" (Ultra-Thin II Insulin Pen [place]) trazodone 50 mg tablet 100 mg (2 x 50 mg) PO HS #180 tabs 10/20/24 12/18/24 Rx Past Med/Surg History Problem List Closed hip fracture (Acute) Fall (Acute) Tobacco abuse counseling Chronic bronchitis Chronic dyspnea Hyperthyroidism (Acute) Acute dehydration (Acute) Hypocalcemia (Acute) Non-ST elevation [place] (NSTEMI) (Acute) Acute hypokalemia (Acute) Hypomagnesemia (Acute) Syncope and collapse (Acute) Fluid overload due to blood transfusion Acute blood loss anemia Closed right humeral fracture (07/11/22) Near syncope (Acute) Hypomagnesemia (Acute) Fall from standing (Acute) Closed fracture of right proximal humerus (Acute 07/11/22) CKD (chronic kidney disease) (Acute) Closed left humeral fracture (07/11/22) ? if meant to be right humerus Encounter for pre-operative examination TIA (transient ischemic attack) (Acute) 12/01/20 - admitted to [facility]- no residual deficits On Plavix CVA (cerebral vascular accident) November 2019 - no residual deficits On Plavix Anxiety with depression GERD (gastroesophageal reflux disease) Generalized arthritis Ambulatory dysfunction Hyperlipidemia Generalized osteoarthritis Adrenal mass Tobacco use Hypomagnesemia Chest pain Atypical chest pain (Acute) Left arm weakness (Acute) Calcification of tendon Tobacco dependence Tibial mass Hyperthyroidism Graves disease. Takes Methimazole Iron deficiency anemia Graves' disease PT DENIES Type II diabetes mellitus Glucose controlled COPD (chronic obstructive pulmonary disease) Uses inhaler qid - pt takes routinely- not PRN Breathing stable - chronic [place] Hypertension (Chronic) Asthma (Chronic) USES INHALER DAILY Medical History History of lung cancer Dxed 7-8 years ago S/p right lung resection No chemo or XRT - no current issues Varicose vein of leg NO SURGERY Hyperlipidemia Surgical History History of hysterectomy History of tooth extraction History of thoracotomy (~2009) Right thoracotomy and wedge biopsy of right upper lobe lesion, right upper lobectomy with node samling 07/18/09 Dr. Mceke H/O section Had 3 Family History Aunt Diabetes Myocardial infarction Uncle Prostate cancer Diabetes Myocardial infarction Mother Diabetes Breast cancer Unknown Ovarian cancer Other Family history of cholecystectomy No family history of adverse response to anesthesia Denies family history of Colorectal cancer Social History Smoking Status: Current every day smoker Tobacco Type: Cigarettes Age Started Using Tobacco: 17; packs per day: 2.5; Cigarettes Per Day: 30; Second Hand Exposure: Yes; Do You Dip or Chew Tobacco: No; Hx Alcohol Use: No Hx Substance Use: Yes Last Used Substance: Days (ago) Preferred Language: Kazakh Communication Ability: Effective Visual Impairment: No Limitations Hearing Ability: Hard of Hearing Senior Management Consultant Required: No Beliefs That Will Affect Care: None marital status: Current Living Situation: Family current occupational status: retired current occupation: retired from working in retail Feels Safe at Home: Yes Childhood Exposure to Second-Hand Smoke: Yes Diet: regular caffeine: Yes Dental Care, Regularly: No Physical Activity Frequency: Does not Exercise Seatbelt Use: always Sunscreen Use: No Assistive Devices: Walker Review of Systems All systems reviewed & are unremarkable except as noted in HPI & below. Physical Exam . * General: Alert and oriented, no acute distress * Constitutional: well-developed, well-nourished. * Respiratory: Normal respiratory effort, no distress * Gastrointestinal: No tenderness to palpation, no rigidity or guarding. * Skin: No rash or lesion. * Neurologic: Grossly normal * Musculoskeletal: Left hip with irritability. Limited AROM due to pain. Otherwise neurovascularly intact. Results & Data Results & Data Laboratory Results . Laboratory Results - last 24 hr 12/18/24 12/18/24 12/18/24 11:23 12:54 13:44 WBC 9.25 RBC 3.44 L Hgb 10.5 L Hct 30.1 L MCV 87.5 MCH 30.5 MCHC 34.9 RDW Std Deviation 41.5 RDW Coeff of Norma 12.9 Plt Count 182 MPV 9.3 L Immature Gran % (Auto) 0.5 Neut % (Auto) 72.5 Lymph % (Auto) 19.1 [place] % (Auto) 7.7 Eos % (Auto) 0.0 Baso % (Auto) 0.2 Neut # (Auto) 6.70 H Lymph # (Auto) 1.77 [place] # (Auto) 0.71 H Eos # (Auto) 0.00 Baso # (Auto) 0.02 Immature Gran # (Auto) 0.05 PT Cancelled 10.6 INR Cancelled 1.0 APTT Cancelled 28 PTT Ratio Cancelled 1.0 Sodium 139 Potassium TNP Chloride 105 Carbon Dioxide 23 Anion Gap 11 BUN 19 Creatinine 0.88 Est Cr Clr Drug Dosing 41.0 eGFR 66.81 BUN/Creatinine Ratio 21.6 H Glucose 114 H POC Glucose Calcium 8.8 Total Bilirubin 0.6 AST TNP ALT 11 Alkaline Phosphatase 56 Total Creatine Kinase 108 Total Protein 6.8 Albumin 3.6 Globulin 3.2 Albumin/Globulin Ratio 1.1 TSH Urine Color Yellow Urine Appearance Clear Urine pH 5.5 Ur Specific [place] 1.017 Urine Protein 1+ H Urine Glucose (UA) Negative Urine Ketones 2+ H Urine Blood Negative Urine Nitrite Negative Urine Bilirubin Negative Urine Urobilinogen Negative Ur Leukocyte Esterase Negative Urine WBC (Auto) 0-5 Urine RBC (Auto) 0-2 U Hyaline Cast (Auto) 3-5 H U Epithel Cells (Auto) 0-2 Urine Bacteria (Auto) None Seen Urine Comment 12/18/24 12/18/24 12/19/24 13:47 21:05 06:06 WBC RBC Hgb Hct MCV MCH MCHC RDW Std Deviation RDW Coeff of Norma Plt Count MPV Immature Gran % (Auto) Neut % (Auto) Lymph % (Auto) [place] % (Auto) Eos % (Auto) Baso % (Auto) Neut # (Auto) Lymph # (Auto) [place] # (Auto) Eos # (Auto) Baso # (Auto) Immature Gran # (Auto) PT INR APTT PTT Ratio Sodium Potassium 4.4 Chloride Carbon Dioxide Anion Gap BUN Creatinine Est Cr Clr Drug Dosing eGFR BUN/Creatinine Ratio Glucose POC Glucose 173 H 115 H Calcium Total Bilirubin AST 17 ALT Alkaline Phosphatase Total Creatine Kinase Total Protein Albumin Globulin Albumin/Globulin Ratio TSH Urine Color Urine Appearance Urine pH Ur Specific [place] Urine Protein Urine Glucose (UA) Urine Ketones Urine Blood Urine Nitrite Urine Bilirubin Urine Urobilinogen Ur Leukocyte Esterase Urine WBC (Auto) Urine RBC (Auto) U Hyaline Cast (Auto) U Epithel Cells (Auto) Urine Bacteria (Auto) Urine Comment 12/19/24 06:37 WBC 6.61 RBC 2.71 L Hgb 8.1 L Hct 24.2 L MCV 89.3 MCH 29.9 MCHC 33.5 RDW Std Deviation 41.7 RDW Coeff of Norma 12.8 Plt Count 144 MPV 9.4 Immature Gran % (Auto) Neut % (Auto) Lymph % (Auto) [place] % (Auto) Eos % (Auto) Baso % (Auto) Neut # (Auto) Lymph # (Auto) [place] # (Auto) Eos # (Auto) Baso # (Auto) Immature Gran # (Auto) PT INR APTT PTT Ratio Sodium 139 Potassium 4.0 Chloride 108 H Carbon Dioxide 27 Anion Gap 4 BUN 17 Creatinine 1.00 Est Cr Clr Drug Dosing 36.1 eGFR 57.31 BUN/Creatinine Ratio 17.0 Glucose 91 POC Glucose Calcium 7.5 L Total Bilirubin AST ALT Alkaline Phosphatase Total Creatine Kinase Total Protein Albumin Globulin Albumin/Globulin Ratio TSH Pending Urine Color Urine Appearance Urine pH Ur Specific [place] Urine Protein Urine Glucose (UA) Urine Ketones Urine Blood Urine Nitrite Urine Bilirubin Urine Urobilinogen Ur Leukocyte Esterase Urine WBC (Auto) Urine RBC (Auto) U Hyaline Cast (Auto) U Epithel Cells (Auto) Urine Bacteria (Auto) Urine Comment Diagnostic Findings . Femur X-Ray 12/18/24 11:23 History: Pain Comparison: None Findings: There is no acute fracture or dislocation. Alignment is anatomic. Joint spaces are well maintained. There is no joint effusion or significant soft tissue swelling. Impression: No acute bony abnormality Electronically signed by Sander Garrett 12-18-2024 3:39 PM Chest X-Ray 12/18/24 11:25 EXAM: X-ray chest one-view portable CLINICAL HISTORY: Left hip pain fall PRIORS: CT 08/16/2024 TECHNIQUE: Frontal view chest portable FINDINGS: The chest is well-expanded. No airspace consolidation, effusion or congestive changes. Heart size is normal. No pneumothorax. Trachea is patent. Osseous structures demonstrate no acute abnormality. Osseous demineralization noted. No displaced rib fracture. No radiopaque foreign body. IMPRESSION: No plain film evidence of an acute cardiopulmonary process. Electronically signed by Carline Mejias 12-18-2024 3:[address] 12/18/24 14:22 EXAMINATION: Head CT without CLINICAL HISTORY: Fall PRIORS: 04/27/2024 TECHNIQUE: Contiguous axial images were obtained through the head without the use of intravenous contrast. Sagittal and coronal reformations are supplied. FINDINGS: Age appropriate parenchymal volume is noted. Moderate small vessel occlusive disease present with periventricular lucency. Lewis-white differentiation is preserved. No edema or midline shift. No intra-axial or extra-axial hemorrhage. Ventricles are normal in size and configuration. Brainstem and cerebellum have a normal appearance. Calvarium unremarkable. Paranasal sinuses and mastoid air cells are well-pneumatized. Globes are intact. No retrobulbar abnormality. Moderate osseous demineralization. IMPRESSION: No CT evidence of an acute intracranial abnormality. Electronically signed by Carline Mejias 12-18-2024 3:[address] 12/18/24 15:46 CT left hip without contrast History: Pain/weakness Comparison: None Technique: CT performed of the extremity without IV contrast. 3D reconstructions performed. Dose reduction techniques were achieved by using automatic exposure control and/or adjustment of mA and/or kV according to patient size and/or use of iterative reconstruction technique. Findings: Subtle left subcapital femoral neck fracture with slight angulation. There is slight impaction. Joint spaces are normally aligned. Greater trochanteric enthesophyte. No visualized soft tissue abnormality. No aggressive osseous lesion. Impression: Left femoral neck fracture Electronically signed by Sander Garrett 12-18-2024 5:02 PM PG Care Time/CCT Total # of Minutes Spent Total Time Spent with Patient: Total time spent is greater than 50% in coordination of care (as documented) at patient's floor/unit and/or counseling patient: Coding Level of Care Code 48080 IN/OBS CONSULT LVL 4,60M Diagnoses Closed hip fracture S72.009A
[2024-12-19] MEDS ORDERED: ALBUT/IPRATROP 3MG/0.5MG NEB 3 ML VIAL NEB PRN (10:03)
--- NOTE | 2024-12-19 11:02 | Pharmacy Report ---
Pharmacy Glycemic Short Note 2 - Date of Service December 19, 2024 - Glycemic Short BSG Results (Last 24 hours): 12/18/24 12/18/24 12/19/24 11:23 21:05 06:06 Glucose 114 H POC Glucose 173 H 115 H 12/19/24 12/19/24 06:37 10:52 Glucose 91 POC Glucose 82 OUTPATIENT ANTIDIABETIC REGIMEN: * Lantus 15 units once daily HS (prn listed on med rec), humulin R SSI, metformin 1 gm bid ASSESSMENT: * 79 year old admitted s/p fall - planning for hip surgery today. Type 2 diabetic - pharmacy consulted for glycemic management. Patient received reduced Lantus dose last evening in anticipation to surgery this AM. Fasting BSG 91 mg/dL - will hold further basal this AM. Plan is for surgery later today. PLAN FOR INPATIENT GLYCEMIC CONTROL: * Hold outpatient oral diabetes medications * Basal insulin * Lantus - hold * Bolus insulin * NovoLog per scale ACHS or Q6hrs while NPO * Goal Range: Low 110 mg/dL - High 140 mg/dL * Correction Factor: 50 mg/dL/unit * Nutritional / Prandial insulin per carb ratio of 1 unit per 20 grams CHO consumed
--- NOTE | 2024-12-19 11:27 | Anesthesiology Consultation ---
Date of Service December 19, 2024 Assessment & Plan Chart Review Chart Review: Acceptable Risk for Surgery, Patient NOT seen in Pre Admission Testing and entry level sales associate initiated Consults Requested none History Surgery Operation Date: 12/19/24 11:00 Proposed Procedures p Left Hip Percutaneous Screw Fixation - Bobo Siegel, Height/Weight Height: 5 ft 2 in Weight: 59.7 kg Allergies Allergy/AdvReac Type Severity Reaction Status Date / Time blue dye Allergy Mild Nausea Verified 10/20/24 13:30 Medications Home Medications Medication Instructions Recorded Confirmed Last Taken nebulizers #1 ea 01/19/23 12/18/24 Unknown albuterol sulfate 2.5 mg/3 mL 2.5 mg (3 mL) inhalation QID PRN 11/26/23 12/18/24 Unknown (0.083 %) solution for nebulization shortness of breath or wheezing #75 mL insulin regular human 100 unit/mL See Rx Instructions subcut 11/26/23 12/18/24 Unknown injection solution (Humulin R DIRECTED PRN SLIDING SCALE #10 mL Regular U-100 Insulin) alendronate 70 mg tablet 70 mg PO .COMPLEX #12 tabs 05/02/24 12/18/24 Unknown blood sugar diagnostic (OneTouch #300 ea 06/20/24 12/18/24 Unknown Verio test strips) cyanocobalamin (vitamin B-12) 1,000 mcg PO DAILY #90 tabs 06/20/24 12/18/24 Unknown 1,000 mcg tablet hydroxyzine HCl 25 mg tablet 25 mg PO TID PRN Anxiety #270 tabs 06/20/24 12/18/24 Unknown ferrous sulfate 325 mg (65 mg 325 mg PO DAILY #90 tabs 06/28/24 12/18/24 Unknown iron) tablet (Iron (ferrous sulfate)) magnesium 250 mg tablet 250 mg PO DAILY #90 tabs 06/28/24 12/18/24 Unknown albuterol sulfate 90 mcg/actuation 1 puff inhalation DIRECTED PRN 10/20/24 12/18/24 Unknown aerosol inhaler (Ventolin HFA) shortness of breath or wheezing #3 Inhalers atorvastatin 40 mg tablet 40 mg PO HS #90 tabs 10/20/24 12/18/24 Unknown blood-glucose meter (OneTouch #1 ea 10/20/24 12/18/24 Unknown Verio Flex Meter) clopidogrel 75 mg tablet 75 mg PO DAILY #90 tabs 10/20/24 12/18/24 Unknown fluticasone fur. 100 mcg-umeclid 1 inh inhalation DAILY #3 Inhalers 10/20/24 12/18/24 Unknown 62.5 mcg-vilant 25 mcg inhalat.powder (Trelegy Ellipta) insulin glargine 100 unit/mL 15 unit (0.15 mL) subcut HS PRN IF 10/20/24 12/18/24 Unknown subcutaneous solution (Lantus NEEDED PER PT #90 mL U-100 Insulin) lancets 33 gauge (OneTouch [place] #300 ea 10/20/24 12/18/24 Unknown Plus Lancet) metformin 500 mg tablet 1,000 mg (2 x 500 mg) PO BID 3 10/20/24 12/18/24 Unknown months #360 tabs methimazole 5 mg tablet 15 mg (3 x 5 mg) PO QAM #270 tabs 10/20/24 12/18/24 Unknown midodrine 5 mg tablet 5 mg PO TID@0800,1200,1700 90 days 10/20/24 12/18/24 Unknown #270 tabs pantoprazole 40 mg tablet,delayed 40 mg PO BID #180 tabs 10/20/24 12/18/24 Unknown release pen needle, diabetic 29 gauge x #180 ea 10/20/24 12/18/24 Unknown 1/2" (Ultra-Thin II Insulin Pen [place]) trazodone 50 mg tablet 100 mg (2 x 50 mg) PO HS #180 tabs 10/20/24 12/18/24 Unknown Active Medications Generic Name Dose Route Start Last Admin Trade Name Freq PRN Reason Stop Dose Admin Atorvastatin Calcium 40 mg 12/18/24 21:00 12/18/24 21:03 Atorvastatin 40 Mg Tab PO 01/17/25 20:59 40 mg HS KASH Administration Fluticasone Furoate 1 puffs 12/19/24 09:00 12/19/24 08:30 Fluticasone Furoate 100mcg 14 Puffs/Inhaler INH 01/18/25 08:59 1 puffs DAILY KASH Administration Heparin Sodium (Porcine) 5,000 units 12/18/24 22:00 12/19/24 06:45 Heparin Sod 5,000 Unit/0.5 Ml Vial SQ 01/17/25 21:59 5,000 units Q8 KASH Administration Hydromorphone HCl 0.25 mg 12/18/24 11:23 12/19/24 06:45 Hydromorphone Inj 0.5 Mg/0.5 Ml Syr IV 01/01/25 11:22 0.25 mg Q20M PRN Administration Moderate Pain (Rating 3,4,5,6) Sodium Chloride 1,000 mls @ 125 mls/hr 12/18/24 11:30 12/19/24 04:43 Nss IV 12/21/24 11:29 125 mls/hr .Q8H KASH Administration Midodrine 5 mg 12/19/24 08:00 12/19/24 08:29 Midodrine Hcl 2.5 Mg Tab PO 01/18/25 07:59 5 mg TID@0800,1200,1700 KASH Administration Morphine Sulfate 4 mg 12/18/24 17:24 12/18/24 17:58 Morphine Sulfate 4 Mg/Ml 1 Ml Carp\\Vial IV 01/01/25 17:23 4 mg Q4H PRN Administration Pain Pantoprazole Sodium 40 mg 12/18/24 21:00 12/19/24 08:29 Pantoprazole 40 Mg Tab PO 01/17/25 20:59 40 mg BID KASH Administration Trazodone HCl 100 mg 12/18/24 21:00 12/18/24 21:03 Trazodone Hcl 100 Mg Tab PO 01/17/25 20:59 100 mg HS KASH Administration Umeclidinium/Vilanterol 1 puffs 12/19/24 09:00 12/19/24 08:30 Umeclidinium/Vilanterol 62.5/25mcg 7 Puffs/Inhaler INH 01/18/25 08:59 1 puffs DAILY KASH Administration Past Medical History Medical History History of lung cancer Dxed 7-8 years ago S/p right lung resection No chemo or XRT - no current issues Varicose vein of leg NO SURGERY Hyperlipidemia Past Family History Family History Aunt Diabetes Myocardial infarction Uncle Prostate cancer Diabetes Myocardial infarction Mother Diabetes Breast cancer Unknown Ovarian cancer Other Family history of cholecystectomy No family history of adverse response to anesthesia Denies family history of Colorectal cancer Past Surgical History Surgical History History of hysterectomy History of tooth extraction History of thoracotomy (~2009) Right thoracotomy and wedge biopsy of right upper lobe lesion, right upper lobectomy with node samling 07/18/09 Dr. Mckee H/O section Had 3 Social History Smoking Status: Current every day smoker tobacco type: cigarettes Smoking cigarettes per day: 30 Do You Dip or Chew Tobacco: No Hx Alcohol Use: No alcohol intake frequency: holidays/special occasions only Hx Substance Use: Yes substance use type: marijuana Last Used Substance: Days (ago) Physical Exam Vital Signs Last Vital Signs Temp 36.7 C 12/19/24 08:04 Pulse 85 12/19/24 08:04 Resp 17 12/19/24 08:04 BP 127/71 12/19/24 08:04 Pulse Ox 89 L 12/19/24 08:04 O2 Del Method Nasal Cannula 12/19/24 08:20 O2 Flow Rate 2 12/19/24 08:20 Testing Laboratory Results 12/19/24 06:37 12/19/24 06:37 PT 10.6 Seconds (9.0-12.0) 12/18/24 13:44 INR 1.0 (0.9-1.1) 12/18/24 13:44 APTT 28 Seconds (21-31) 12/18/24 13:44 Urine Color Yellow 12/18/24 12:54 Urine Appearance Clear (Clear) 12/18/24 12:54 Urine pH 5.5 (4.5-7.5) 12/18/24 12:54 Ur Specific [place] 1.017 (1.000-1.030) 12/18/24 12:54 Urine Protein 1+ (Negative) H 12/18/24 12:54 Urine Glucose (UA) Negative (Negative) 12/18/24 12:54 Urine Ketones 2+ (Negative) H 12/18/24 12:54 Urine Nitrite Negative (Negative) 12/18/24 12:54 Ur Leukocyte Esterase Negative (Negative) 12/18/24 12:54 Urine WBC (Auto) 0-5 /hpf (0-5) 12/18/24 12:54 Urine RBC (Auto) 0-2 /hpf (0-2) 12/18/24 12:54 U Hyaline Cast (Auto) 3-5 /lpf (0-2) H 12/18/24 12:54 U Epithel Cells (Auto) 0-2 /hpf (0-2) 12/18/24 12:54 Urine Bacteria (Auto) None Seen (None Seen) 12/18/24 12:54 12/19/24 12/19/24 10:52 06:06 POC Glucose 82 115 H Electrocardiogram Date: 12/18/24 Sinus rhythm Premature atrial complexes Low voltage QRS Cannot rule out Inferior infarct , age undetermined Abnormal ECG When compared with ECG of 27-Apr-2024 23:33, Minimal criteria for Inferior infarct are now Present Nonspecific T wave abnormality, worse in Inferior leads Confirmed by Brad Paulino ([id number]) on 12/18/2024 1:08:00 PM Echocardiogram Date: 12/01/19 EF: 55-60 LV Function: normal Valvular Disease: + no significant valvular disease
[2024-12-19] MEDS ORDERED: ROCURONIUM BROMIDE 10 MG/ML 5 ML VIAL IV ONE (11:59)
[2024-12-19] MEDS ORDERED: LIDOCAINE 2% 2 ML VIAL/AMP(20MG/ML) INFIL ONE (11:59)
[2024-12-19] MEDS ORDERED: MIDAZOLAM HCL 1 MG/ML 2ML VIAL ONE (11:59)
[2024-12-19] MEDS ORDERED: GLYCOPYRROLATE 0.2 MG/ML VIAL ONE (11:59)
[2024-12-19] MEDS ORDERED: ONDANSETRON INJ 2 MG/ML 2 ML VIAL ONE (11:59)
[2024-12-19] MEDS ORDERED: PROPOFOL IV EMULSION 10 MG/ML 20 ML VIAL IV ONE (11:59)
[2024-12-19] MEDS ORDERED: ALBUTEROL HFA 8 GM INHALER INH ONE (12:03)
--- NOTE | 2024-12-19 12:05 | History & Physical Bridge Note ---
Date of Service December 19, 2024 History & Physical Bridge Note I have examined the patient, reviewed the History & Physical and in the interval since the performance of the History & Physical I have noted the following changes of clinical significance: no changes noted
[2024-12-19] MEDS ORDERED: PROMETHAZINE HCL 6.25 MG in SODIUM CHLORIDE 0.9% 50 ML IV PRN (12:25)
[2024-12-19] MEDS ORDERED: ATROPINE SULFATE 0.1 MG/ML 10ML SYR IV PRN (12:25)
[2024-12-19] MEDS ORDERED: NALOXONE HCL 0.4 MG/1 ML VIAL/CARP IV PRN (12:25)
[2024-12-19] MEDS ORDERED: FLUMAZENIL 0.1 MG/1 ML 10 ML VIAL IV PRN (12:25)
[2024-12-19] MEDS ORDERED: ONDANSETRON INJ 2 MG/ML 2 ML VIAL IV PRN (12:25)
[2024-12-19] MEDS ORDERED: ACETAMINOPHEN 1000 MG/100 ML IV IV ONE (13:08)
[2024-12-19] MEDS ORDERED: PHENYLEPHRINE 100MCG/ML 5ML SYR ONE (13:21)
[2024-12-19] MEDS ORDERED: KETAMINE HCL 10MG/ML SYR ONE (13:45)
[2024-12-19] MEDS: BUPIVACAINE/EPINEPHRINE 0.5% MPF 1:200,000 30 ML VIAL ONE (13:50)
[2024-12-19] MEDS: METOPROLOL TARTRATE 1 MG/ML VIAL IV ONE (14:15)
--- NOTE | 2024-12-19 14:36 | Fluoroscopy Report ---
FL hip LT 2-3V CLINICAL HISTORY: LT PERCUTANEOUS SCREW COMPARISON STUDY: Left femur radiographs and CT of the left December 18, 2024. Fluoroscopy time: 52.8 seconds. Number of fluoroscopic images: 2 Ka,r: 10.70 mGy. FINDINGS: Fluoroscopy was provided during percutaneous pinning of the left femoral neck fracture. Fra cture remains nondisplaced. Hardware is intact. No unexpected radiopaque foreign bodies. IMPRESSION: Fluoroscopy provided during percutaneous pinning of the left femoral neck fracture. ACT 112: Negative or not required by law. Electronically signed by: Joseluis Becerra M.D. 12/19/2024 2:35 PM
--- NOTE | 2024-12-19 14:52 | Operative Report ---
PG Post Operative Report Pre & Post Diagnosis Operation Date: 12/19/24 11:00 Pre-Op Diagnosis: Left Subcapital Femur Fracture Post-Op Diagnosis: Left Subcapital Femur Fracture I identified the patient and participated in the time-out.: Yes Procedure Operation Date: 12/19/24 11:00 Actual Procedures p Left Hip Percutaneous Screw Fixation(Left) - Bobo Siegel DO Surgeon Bobo Siegel DO Crop Quantitative Geneticist None Estimated Blood Loss 20 Findings Consistent with Post-Op Diagnosis Specimens None Description of Procedure On December 19, 2024 Marietta was brought down from her hospital room to the preoperative holding area. The operative extremity identified and signed. She was given a preoperative antibiotic. She was taken back the operative room and put under general anesthesia. She was then transferred to a fracture table. The left leg was brought to traction. The left hip was then prepped and draped sterile fashion. A timeout was done. The patient and the operative extremity was prepped identified. Fluoroscopy was used to visualize the hip and the trajectory of any screws. A lateral incision was made. Dissection was taken down through the fascia. A guidepin was placed on the lateral femoral cortex in the area of the lesser trochanter. The guidepin was advanced along the inferior cortex. Appropriate placement of the guidepin was checked on orthogonal fluoroscopic images. A single guidepin was then placed along the posterior aspect of the femoral neck and a guidepin was placed along the anterior aspect of the femoral neck. This gave an inverted triangle structure. 3 Synthes 7.3 m cannulated screws were then placed. Appropriate placement of the screws were checked on fluoroscopy. Once I was happy with the alignment, the guidepins were then removed. Final fluoroscopic images showed good placement of hardware. The surgical site was then irrigated. The deep fascia was closed with #1 Vicryl. Skin was closed with 2-0 Vicryl and damion. She was then placed in a soft dressing. She was then extubated and transferred back to a hospital bed. She was taken to the postanesthesia care unit in stable condition. She tolerated the procedure well. I attest to the content of the Intraoperative Record and any orders documented therein. Any exceptions are noted below.
--- NOTE | 2024-12-19 14:58 | XRay Report ---
LEFT HIP 2 VIEWS CLINICAL HISTORY: Postoperative examination. FINDINGS: AP and crosstable lateral views of the left hip are compared to left femoral x-rays dated and correlated with CT scan of the left hip dated 12/18/2024. 3 intertrochanteric cortical la g screws have been placed transfixing a left proximal femoral fracture. Near-anatomic alignment is ma intained. The orthopedic hardware appears intact. The visualized left hemipelvis is maintained. A rig ht hip arthroplasty is partially imaged. Skin clips, subcutaneous gas, and soft tissue edema overlyin g the left proximal femur are expected postsurgical changes. IMPRESSION: Expected postsurgical findings status post internal fixation of a left proximal femoral f racture. Near-anatomic alignment is maintained. Electronically signed by: Ezio Jewell M.D. 12/19/2024 2:57 PM
[2024-12-19] MEDS: INSULIN ASPART PER UNIT CHARGE SC SCH ×2 (15:13→21:00)
--- NOTE | 2024-12-19 15:38 | Anesthesiology Progress Note ---
Date of Service December 19, 2024 Anesthesia Post Procedure Vital Signs Vital Signs: Temp Pulse Pulse Pulse Pulse Resp BP 12/19/24 15:09 36.8 C 82 16 12/19/24 14:55 89 16 12/19/24 14:45 36.7 C 90 20 12/19/24 14:35 91 H 18 12/19/24 14:25 92 H 23 12/19/24 14:15 117 H 135/108 H 12/19/24 14:15 117 H 19 12/19/24 14:09 36.3 C L 117 H 21 12/19/24 11:14 36.8 C 88 20 12/19/24 08:20 12/19/24 08:04 36.7 C 85 17 12/18/24 22:32 36.7 C 83 16 12/18/24 20:30 12/18/24 20:30 36.8 C 101 H 20 12/18/24 19:03 94 H 21 107/92 12/18/24 18:00 91 H 18 12/18/24 17:21 85 18 12/18/24 16:00 84 18 BP BP Pulse Ox O2 Del Method O2 Flow Rate 12/19/24 15:09 171/76 H 100 Nasal Cannula 4 12/19/24 14:55 154/78 H 96 Nasal Cannula 2 12/19/24 14:45 149/82 H 96 Nasal Cannula 2 12/19/24 14:35 150/86 H 96 Nasal Cannula 3 12/19/24 14:25 125/84 100 Nasal Cannula 4 12/19/24 14:15 12/19/24 14:15 133/70 96 Oxymask 4 12/19/24 14:09 142/90 H 98 Oxymask 6 12/19/24 11:14 162/72 H 94 Room Air 12/19/24 08:20 Nasal Cannula 2 12/19/24 08:04 127/71 89 L Room Air 12/18/24 22:32 136/74 93 Room Air 12/18/24 20:30 Room Air 12/18/24 20:30 135/75 96 Room Air 12/18/24 19:03 94 Room Air 12/18/24 18:00 136/115 H 96 Room Air 12/18/24 17:21 174/75 H 99 Room Air 12/18/24 16:00 136/74 96 Room Air Pain Intensity Left Leg: Pain Intensity: 4 Transfer of Care Handoff Completed per policy Notes Mental Status: alert / awake / arousable Patient Amnestic to Procedure: Yes Nausea / Vomiting: adequately controlled Pain: adequately controlled Airway Patency, RR, SpO2: stable & adequate BP & HR: stable & adequate Hydration State: stable & adequate Anesthetic Complications: no major complications apparent
[2024-12-19] MEDS ORDERED: Nursing to Pharmacy Communication SCH (18:45)
[2024-12-19] MEDS: ONDANSETRON INJ 2 MG/ML 2 ML VIAL IV PRN (19:47)
[2024-12-20 06:49] LABS: Hematocrit (blood only) 24.7 % (37.0-47.0); Hemoglobin 8.2 g/dl (12.0-16.0); Mean Corpuscular Hemoglobin 29.7 pg (25.0-34.0); Mean Corpuscular Volume 89.5 fL (80.0-100.0); Platelet Count 148 K/uL (130-400); RDW Standard Deviation 42.4 fL (36.4-46.3); Red Blood Count 2.76 M/uL (4.20-5.40); White Blood Count 4.24 K/ul (4.8-10.8)
[2024-12-20 07:06] LABS: Anion Gap 8.0 (3-11); Blood Urea Nitrogen 11.0 mg/dl (6-23); Calcium 7.4 mg/dl (8.6-10.3); Carbon Dioxide 24.0 mmol/L (21-32); Chloride 106.0 mmol/L (98-107); Creatinine Clr Calc Pharmacy 40.1 ml/min; Glucose 85.0 mg/dl (70-99(Fasting)); Potassium 3.6 mmol/L (3.5-5.1); Sodium 138.0 mmol/L (136-145)
[2024-12-20 07:12] LABS: Magnesium 0.9 mg/dl (1.7-2.4)
[2024-12-20] MEDS: MAGNESIUM SULFATE / D5W 1 GM/100 ML BAG IV SCH (07:49)
[2024-12-20] MEDS: CLOPIDOGREL BISULFATE 75 MG TAB PO SCH (07:50)
[2024-12-20] MEDS: ACETAMINOPHEN 325 MG TAB PO PRN (08:03)
--- NOTE | 2024-12-20 08:29 | Hospitalist Progress Note ---
Date of Service December 20, 2024 Assessment & Plan (1) Closed hip fracture: (2) Hyperlipidemia: (3) CVA (cerebral vascular accident): (4) Type II diabetes mellitus: (5) Acute blood loss anemia: (6) Hypomagnesemia: Plan This patient is a 79-year-old female who presented on 12/18 after falling on Saturday 12/16. #Closed hip fracture | Acute blood loss anemia CT left hip revealed left femoral neck fracture Orthopedic surgery consult appreciated Underwent left hip percutaneous screw fixation with Dr. Siegel on 12/19 Recommend ASA 81 mg twice daily on discharge for DVT PPx Pain control with morphine PRN PT/OT evaluations appreciated Patient likely to require acute rehab Additional imaging of the left knee and ankle ordered on 12/20, as patient reports increased pain after working with PT #Acute blood loss anemia Stable; Hgb 10.5 -> 8.1 -> 8.2 perioperatively Suspected volume dilution in the setting of IVF + acute blood loss d/t femoral neck fx No left hip hematoma noted on clinical exam on 12/19 or 12/20 Okay to continue heparin for DVT PPx #Hypomagnesemia Magnesium low at 0.9 on 12/20 Magnesium sulfate 1 g IV x 3 Recheck a.m. mag #Bedbug infection Noted on arrival; per ED note + nursing notes, patient underwent protocol cleaning in the ED (fully showered, all belongings double bagged, etc.) However, an additional bedbug was found on 12/20 Reach out to infection control for additional policies/planning (in the event that OR should be notified) Unclear where the bedbug was found, however no further isolation or decontamination needed unless a live bedbug is found Possible that this bedbug was missed following decontamination Patient is asymptomatic from a clinical perspective; she denies itching or bites Will add oral antihistamines +/- triamcinolone acetonide 0.1% cream PRN if she becomes symptomatic #History of CVA Okay to restart Plavix postop #T2DM Last A1c at 5.5% on 07/19/2024 Hold metformin SSI; with target BSG range 110-140mg/dL, CF 50, carb ratio 20 T2DM diet BSG ACHS Adjust regimen as needed Pharmacy glycemic management consult appreciated #Hyperlipidemia Continue atorvastatin #Hyperthyroidism Known history of Graves' disease TSH <0.010 on 12/19 Free T4 WNL Methimazole held prior to surgery; will plan to reinitiate on the morning of 12/20 #Everyday tobacco cigarette smoker 1 PPD; nicotine patch PRN Continue to encourage cessation #Hypoxia | h/o COPD SpO2 89% on RA on the morning of 12/19 Anoro Ellipta daily IS, flutter valve Albuterol neb PRN Titrate supplemental oxygen as needed to maintain SPO2 89-92% Continuous pulse oximetry Disposition: Continued stay on MedSurg DVT PPx: Heparin 5000u SQ q8h Admission and Anticipated Discharge Date Admission Date: December 18, 2024 Subjective Mrs. Fihser reports she was doing well this morning up until she worked with physical therapy. They were able to get her up on the side of the bed, but she reports that she may have twisted her left knee too quickly while working with PT, and she is now experiencing 10 out of 10 pain in the left knee. She also has pain in the left hip as well, that she believes was exacerbated by moving it. Prior to this, she reports she did well overnight, and only had pain with additional movements. Notified by nursing staff, that a bedbugs had been found either on the patient or in their belongings. Patient reports she does have a history of bedbugs "years ago". ROS: Patient endorses dry cough, left knee pain exacerbated by movements, left hip pain, and numbness and tingling going down the left leg. Patient denies itching, chest pain, SOB, abdominal pain, or N/V/D. Review of Systems Review of Systems: See HPI above Physical Exam Physical Exam: General: no acute distress; non-toxic appearing; frail appearing; cooperative; SpO2 94% on RA HEENT: normocephalic, atraumatic; no scleral icterus; PERRLA; vision and hearing intact Neck: supple; no lymphadenopathy; trachea midline Skin: warm, dry without signs of tenting; no cyanosis; no rashes, bruising, lesions, or erythema noted CV: chest wall NTP; RRR; S1/S2 normal; no murmurs/rubs/gallops; pulses intact and symmetric at radial, DP, and PT Lungs: no acute respiratory distress; dry cough; symmetrical chest wall expansion; expiratory wheeze auscultated in the upper and lower lung starks bilaterally ABD: Soft, NTP; BS present; no rebound/guarding; no distention : Liu catheter in place draining clear orange urine MSK: no tics or fasciculations; no edema noted in the LEs b/l, nonerythematous Left lower extremity: Patient has difficulty wiggling her toes; patient is unable to dorsiflex her left ankle; she exhibits decreased strength when plantar flexing left ankle (2/5) when compared to the right (4/5); patient is able to flex her left knee with active ROM 5 to 10 degrees; superficial abrasion/small hematoma noted on the left posterior knee; left hip is mildly TTP; no bruising or hematomas appreciated on the left hip or lower back Neuro: A&Ox3; normal mood and affect; fluent speech; no focal deficits; patient reports sensation is intact and symmetric in lower extremities bilaterally assessed via light touch Results & Data Results & Data Vital Signs (Past 12 Hours) Vital Signs Temp Pulse Resp BP Pulse Ox O2 Del Method O2 Flow Rate 12/20/24 07:43 36.5 C 96 H 18 160/84 H 96 Room Air 12/20/24 03:03 36.8 C 88 20 166/71 H 96 Nasal Cannula 1.5 12/19/24 23:02 36.8 C 85 20 169/70 H 94 Nasal Cannula 1.5 PG Care Time/CCT Total # of Minutes Spent Total Time Spent with Patient: Total time spent is greater than 50% in coordination of care (as documented) at patient's floor/unit and/or counseling patient: Coding [place] [address] SUB INP/OBS CARE 3/50MIN Patient Type Established History Comprehensive Exam Comprehensive Medical Decision Making High Complexity Diagnoses Closed hip fracture S72.009A Hyperlipidemia E78.5 CVA (cerebral vascular accident) I63.9 Type 2 diabetes mellitus without complication, without long-term current use of insulin E11.9 Diabetes mellitus complication status: without complication Diabetes mellitus fci insulin use: without fci use Acute blood loss anemia D62 Hypomagnesemia E83.42 (4) Type II diabetes mellitus Diabetes mellitus complication status: without complication Diabetes mellitus terminal gauger insulin use: without fci use Qualified Code(s): E11.9 - Type 2 diabetes mellitus without complications
--- NOTE | 2024-12-20 09:19 | Orthopedic Progress Note ---
Date of Service December 20, 2024 Assessment & Plan (1) Closed hip fracture: * Continue Current Treatment * S/p left hip cannulated screws * Weight bearing status: WBAT * Daily treatment: Physical Therapy/ Occupational Therapy per protocol * Pain control * Continue to monitor for ABLA * DVT prophylaxis, ok to resume from ortho standpoint, recommend ASA 81mg BID on discharge * Disposition: TBD * Office/hospital f/u 2 weeks for progress check and staple/suture removal * Remainder care per primary team * Stable for discharge from ortho standpoint, further planning per primary team Subjective . Active Problems: S/p left hip cannulated screws POD 1 79 y/o female s/p left hip cannulated screws. Doing well overall, pain managed and improved function. Denies fever/chills, chest pain/SOB, nausea/vomiting. Otherwise no complaints. Review of Systems All systems reviewed & are unremarkable except as noted in HPI & below. Physical Exam . * General: Alert and oriented, no acute distress * Constitutional: well-developed, well-nourished. * Respiratory: Normal respiratory effort, no distress * Gastrointestinal: No tenderness to palpation, no rigidity or guarding. * Skin: No rash or lesion. * Neurologic: Grossly normal * Musculoskeletal: Left hip surgical dressing CDI, not removed for exam. Otherwise no obvious deformity or overlying skin changes. Diffuse TTP proximal thigh and hip region. Otherwise no specific tenderness of distal thigh, lower leg, foot/ankle. AROM hip flexion intact. AROM foot/ankle intact. Sensation intact plantar/dorsal foot. Brisk capillary refill. Results & Data Results & Data Laboratory Results . Diagnostic Findings . Hip X-Ray 12/19/24 13:00 FL hip LT 2-3V CLINICAL HISTORY: LT PERCUTANEOUS SCREW COMPARISON STUDY: Left femur radiographs and CT of the left December 18, 2024. Fluoroscopy time: 52.8 seconds. Number of fluoroscopic images: 2 Ka,r: 10.70 mGy. FINDINGS: Fluoroscopy was provided during percutaneous pinning of the left femoral neck fracture. Fracture remains nondisplaced. Hardware is intact. No unexpected radiopaque foreign bodies. IMPRESSION: Fluoroscopy provided during percutaneous pinning of the left femoral neck fracture. ACT 112: Negative or not required by law. Electronically signed by: Joseluis Becerra M.D. 12/19/2024 2:35 PM Hip X-Ray 12/19/24 14:29 LEFT HIP 2 VIEWS CLINICAL HISTORY: Postoperative examination. FINDINGS: AP and crosstable lateral views of the left hip are compared to left femoral x-rays dated 12/18/[address] scan of the left hip dated 12/18/2024. 3 intertrochanteric cortical lag screws have been placed transfixing a left proximal femoral fracture. Near-anatomic alignment is maintained. The orthopedic hardware appears intact. The visualized left hemipelvis is maintained. A right hip arthroplasty is partially imaged. Skin clips, subcutaneous gas, and soft tissue edema overlying the left proximal femur are expected postsurgical changes. IMPRESSION: Expected postsurgical findings status post internal fixation of a left proximal femoral fracture. Near-anatomic alignment is maintained. Electronically signed by: Ezio Jewell M.D. 12/19/2024 2:57 PM PG Care Time/CCT Total # of Minutes Spent Total Time Spent with Patient: Total time spent is greater than 50% in coordination of care (as documented) at patient's floor/unit and/or counseling patient: Coding Level of Care Code 70211 Post Operative Follow-Up Diagnoses Closed hip fracture S72.009A
[2024-12-20] MEDS: ALBUTEROL 0.083% NEBU SOLN 3 ML VIAL NEB STA (13:27)
--- NOTE | 2024-12-20 13:50 | Pharmacy Report ---
Pharmacy Glycemic Short Note 2 - Date of Service December 20, 2024 - Glycemic Short BSG Results (Last 24 hours): 12/19/24 12/19/24 12/19/24 14:18 16:21 20:31 Glucose POC Glucose 71 76 96 12/20/24 12/20/24 12/20/24 06:18 07:40 11:32 Glucose 85 POC Glucose 94 241 H OUTPATIENT ANTIDIABETIC REGIMEN: * Lantus 15 units once daily HS (prn listed on med rec), humulin R SSI, metformin 1 gm bid ASSESSMENT: 12/20 * Fasting BSG 85 mg/dL - held basal this AM again. Diet started yesterday at lunch. Will have scale for basal at HS * Lunch BSG trending upward, will add in CR and tighten CF 12/19 * 79 year old admitted s/p fall - planning for hip surgery today. Type 2 diabetic - pharmacy consulted for glycemic management. Patient received reduced Lantus dose last evening in anticipation to surgery this AM. Fasting BSG 91 mg/dL - will hold further basal this AM. Plan is for surgery later today. PLAN FOR INPATIENT GLYCEMIC CONTROL: * Hold outpatient oral diabetes medications * Basal insulin * Lantus - 0-5 units bid based upon BSG value * Bolus insulin * NovoLog per scale ACHS or Q6hrs while NPO * Goal Range: Low 110 mg/dL - High 140 mg/dL * Correction Factor: 40 mg/dL/unit * Nutritional / Prandial insulin per carb ratio of 1 unit per 15 grams CHO consumed
--- NOTE | 2024-12-20 13:50 | XRay Report ---
XR knee LT 1 or 2V routine CLINICAL HISTORY: Left knee pain following twisting injury. COMPARISON: Left knee MRI August 31, 2020. Left femur radiographs December 18, 2024. FINDINGS: Alignment of the left knee is anatomic. Small left knee joint effusion is present. There i s no lipohemarthrosis. There are no acute fractures. There are no osseous lesions. There is faint cho ndrocalcinosis within the menisci. Joint spaces are preserved. There is mild suprapatellar soft tissu e swelling. IMPRESSION: 1. No fractures within the left knee. 2. Small left knee joint effusion. Mild suprapatellar soft tissue swelling. ACT 112: Negative or not required by law. Electronically signed by: Joseluis Becerra M.D. 12/20/2024 1:49 PM
--- NOTE | 2024-12-20 13:53 | XRay Report ---
XR ankle LT min 3V routine HISTORY: 79 years-old Female Left ankle pain acute left ankle pain COMPARISON: 02/04/2022 TECHNIQUE: 3 views of the left ankle FINDINGS: Demineralized appearance of the bones. [id number] osteoarthritis. Large plantar calcaneal enthe sophyte. Mild circumferential soft tissue swelling. No definite acute fracture or dislocation. IMPRESSION: Soft tissue swelling without acute fracture or dislocation. ACT 112: Negative or not required by law. The above report was generated using voice recognition software. It may contain grammatical, syntax o r spelling errors. Electronically signed by: Eliot Whitehead M.D. 12/20/2024 1:52 PM
[2024-12-20] MEDS: LANTUS PER UNIT CHARGE SC SCH (20:30)
[2024-12-21 06:28] LABS: Hematocrit (blood only) 23.4 % (37.0-47.0); Hemoglobin 7.7 g/dl (12.0-16.0); Mean Corpuscular Hemoglobin 29.5 pg (25.0-34.0); Mean Corpuscular Volume 89.7 fL (80.0-100.0); Platelet Count 149 K/uL (130-400); RDW Standard Deviation 40.7 fL (36.4-46.3); Red Blood Count 2.61 M/uL (4.20-5.40); White Blood Count 4.39 K/ul (4.8-10.8)
[2024-12-21 07:00] LABS: Anion Gap 4.0 (3-11); Blood Urea Nitrogen 11.0 mg/dl (6-23); Calcium 7.8 mg/dl (8.6-10.3); Carbon Dioxide 28.0 mmol/L (21-32); Chloride 107.0 mmol/L (98-107); Creatinine Clr Calc Pharmacy 30.8 ml/min; Glucose 147.0 mg/dl (70-99(Fasting)); Magnesium 1.5 mg/dl (1.7-2.4); Potassium 4.0 mmol/L (3.5-5.1); Sodium 139.0 mmol/L (136-145)
--- NOTE | 2024-12-21 08:26 | Orthopedic Progress Note ---
Date of Service December 21, 2024 Assessment & Plan (1) Closed hip fracture: * Continue Current Treatment * S/p left hip cannulated screws * Weight bearing status: WBAT * Daily treatment: Physical Therapy/ Occupational Therapy per protocol * Pain control * Continue to monitor for ABLA * DVT prophylaxis, ok to resume from ortho standpoint, recommend ASA 81mg BID on discharge * Disposition: TBD * Office/hospital f/u 2 weeks for progress check and staple/suture removal * Remainder care per primary team * Stable for discharge from ortho standpoint, further planning per primary team Subjective Active Problems: S/p left hip cannulated screws POD 2 79 y/o female s/p left hip cannulated screws. Doing well overall, pain managed and improved function. Denies fever/chills, chest pain/SOB, nausea/vomiting. Otherwise no complaints. Review of Systems All systems reviewed & are unremarkable except as noted in HPI & below. Physical Exam * General: Alert and oriented, no acute distress * Constitutional: well-developed, well-nourished. * Respiratory: Normal respiratory effort, no distress * Gastrointestinal: No tenderness to palpation, no rigidity or guarding. * Skin: No rash or lesion. * Neurologic: Grossly normal * Musculoskeletal: Left hip surgical dressing CDI, not removed for exam. Otherwise no obvious deformity or overlying skin changes. Diffuse TTP proximal thigh and hip region. Otherwise no specific tenderness of distal thigh, lower leg, foot/ankle. AROM hip flexion intact. AROM foot/ankle intact. Sensation intact plantar/dorsal foot. Brisk capillary refill. Results & Data Results & Data Laboratory Results . Diagnostic Findings . PG Care Time/CCT Total # of Minutes Spent Total Time Spent with Patient: Total time spent is greater than 50% in coordination of care (as documented) at patient's floor/unit and/or counseling patient: Coding Level of Care Code 28886 Post Operative Follow-Up Diagnoses Closed hip fracture S72.009A
--- NOTE | 2024-12-21 09:36 | Pharmacy Report ---
Pharmacy Glycemic Short Note 2 - Date of Service December 21, 2024 - Glycemic Short BSG Results (Last 24 hours): 12/20/24 12/20/24 12/20/24 06:18 11:32 16:39 Glucose 85 POC Glucose 241 H 296 H 12/20/24 12/20/24 12/21/24 20:10 20:11 06:06 Glucose 147 H POC Glucose 277 H 286 H 12/21/24 07:17 Glucose POC Glucose 158 H OUTPATIENT ANTIDIABETIC REGIMEN: * Lantus 15 units once daily HS (prn listed on med rec), humulin R SSI, metformin 1 gm bid ASSESSMENT: 12/21 * Patient received total of 20 units of insulin yesterday, of which 8 units were basal * Fasting BSG 147 mg/dL - will continue with Lantus scale for HS 8-10 units 12/20 * Fasting BSG 85 mg/dL - held basal this AM again. Diet started yesterday at lunch. Will have scale for basal at HS * Lunch BSG trending upward, will add in CR and tighten CF 12/19 * 79 year old admitted s/p fall - planning for hip surgery today. Type 2 diabetic - pharmacy consulted for glycemic management. Patient received reduced Lantus dose last evening in anticipation to surgery this AM. Fasting BSG 91 mg/dL - will hold further basal this AM. Plan is for surgery later today. PLAN FOR INPATIENT GLYCEMIC CONTROL: * Hold outpatient oral diabetes medications * Basal insulin * Lantus - 8-10 units hs based upon BSG value * Bolus insulin * NovoLog per scale ACHS or Q6hrs while NPO * Goal Range: Low 110 mg/dL - High 140 mg/dL * Correction Factor: 40 mg/dL/unit * Nutritional / Prandial insulin per carb ratio of 1 unit per 15 grams CHO consumed
--- NOTE | 2024-12-21 09:51 | Hospitalist Progress Note ---
Date of Service December 21, 2024 Assessment & Plan (1) Closed hip fracture: (2) Hyperlipidemia: (3) CVA (cerebral vascular accident): (4) Type II diabetes mellitus: (5) Acute blood loss anemia: (6) Hypomagnesemia: Plan This patient is a 79-year-old female who presented on 12/18 after falling on Saturday 12/16. #Closed hip fracture | Acute blood loss anemia CT left hip revealed left femoral neck fracture Orthopedic surgery consult appreciated Underwent left hip percutaneous screw fixation with Dr. Siegel on 12/19 Recommend ASA 81 mg twice daily on discharge for DVT PPx Acetaminophen as needed for pain Pain control changed on 12/21 from morphine 4 mg IV PRN -> oxycodone 5 10 mg p.o. q6h PRN (scale 7-10) Bowel regimen: MiraLAX QAM + Dulcolax 5 mg p.o. PRN PT/OT evaluations appreciated Patient likely to require acute rehab Additional imaging of the left knee and ankle on 12/20 revealed soft tissue swelling; no acute fracture #Acute blood loss anemia Stable; Hgb 10.5 -> 8.1 -> 8.2 -> 7.7 perioperatively Suspected volume dilution in the setting of IVF + acute blood loss d/t femoral neck fx No left hip hematoma noted on clinical exam Okay to continue heparin for DVT PPx Close monitoring of H&H #Hypomagnesemia Magnesium low at 1.5 Continue repletion Recheck a.m. mag #Bedbug infection Noted on arrival; per ED note + nursing notes, patient underwent protocol clean ing in the ED (fully showered, all belongings double bagged, etc.) However, an additional bedbug was found on 12/20 Reach out to infection control for additional policies/planning (in the event th at OR should be notified) Unclear where the bedbug was found, however no further isolation or decontamination needed unless a live bedbug is found Possible that this bedbug was missed following decontamination Patient is asymptomatic from a clinical perspective; she denies itching or bites Will add oral antihistamines +/- triamcinolone acetonide 0.1% cream PRN if she becomes symptomatic #History of CVA Okay to restart Plavix postop #T2DM Last A1c at 5.5% on 07/19/2024 Hold metformin SSI; with target BSG range 110-140mg/dL, CF 50, carb ratio 20 T2DM diet BSG ACHS Adjust regimen as needed Pharmacy glycemic management consult appreciated #Hyperlipidemia Continue atorvastatin #Hyperthyroidism Known history of Graves' disease TSH <0.010 on 12/19 Free T4 WNL Continue methimazole #Everyday tobacco cigarette smoker 1 PPD; nicotine patch PRN Continue to encourage cessation #Hypoxia | h/o COPD SpO2 89% on RA on the morning of 12/19 Anoro Ellipta daily IS, flutter valve Albuterol neb PRN Titrate supplemental oxygen as needed to maintain SPO2 89-92% Continuous pulse oximetry Disposition: Continued stay on MedSurg; medically stable for discharge at this time DVT PPx: Heparin 5000u SQ q8h Admission and Anticipated Discharge Date Admission Date: December 18, 2024 Subjective Mrs. Fisher is happy to report that she "slept like a baby" last night. Her pain is better controlled this morning. She still having 4/10 pain in her left hip, but the pain in her left knee has resolved. She was also able to get out a bed with assistance to her chair, and felt she did well with this. She feels that her current pain medications have been working. The numbness and tingling that was going down her left [place] yesterday has resolved. ROS: Patient endorses intermittent left hip pain (worse with movements and palpation), and dry cough. Patient denies fever, chills, chest pain, SOB, abdominal pain, N/V, or numbness tingling in her left leg. Review of Systems Review of Systems: See HPI above Physical Exam Physical Exam: General: no acute distress; sitting upright in her chair eating breakfast; non- toxic appearing; frail appearing; cooperative; SpO2 95% on 2L HEENT: normocephalic, atraumatic; no scleral icterus; PERRLA; vision and hearing intact Neck: supple; no lymphadenopathy; trachea midline Skin: warm, dry without signs of tenting; no cyanosis; no rashes, bruising, lesions, or erythema noted CV: chest wall NTP; RRR; S1/S2 normal; no murmurs/rubs/gallops; pulses intact and symmetric at radial, DP, and PT Lungs: no acute respiratory distress; dry cough; symmetrical chest wall expansion; expiratory wheeze auscultated in the upper and lower lung starks bilaterally ABD: Soft, NTP; BS present; no rebound/guarding; no distention : Liu catheter in place draining clear orange urine MSK: no tics or fasciculations; no edema noted in the LEs b/l, nonerythematous Left lower extremity: Patient has difficulty wiggling her toes; patient is unable to dorsiflex her left ankle; she exhibits decreased strength when plantar flexing left ankle (2/5) when compared to the right (4/5); patient is able to flex her left knee with active ROM 15 to 20 degrees; new dressing noted on the left knee; left hip is mildly TTP around the surgical site; no bruising or hematomas appreciated on the left hip or lower back Neuro: A&Ox3; normal mood and affect; fluent speech; no focal deficits; patient reports sensation is intact and symmetric in lower extremities bilaterally assessed via light touch Results & Data Results & Data Vital Signs (Past 12 Hours) Vital Signs Temp Pulse Resp BP Pulse Ox O2 Del Method O2 Flow Rate 12/21/24 08:56 Nasal Cannula 2 12/21/24 07:28 36.5 C 90 16 137/66 95 Nasal Cannula 1 12/20/24 23:07 36.3 C L 82 20 153/90 H 98 Nasal Cannula 2 PG Care Time/CCT Total # of Minutes Spent Total Time Spent with Patient: Total time spent is greater than 50% in coordination of care (as documented) at patient's floor/unit and/or counseling patient: Coding Level of Care Code 15978 SUB INP/OBS CARE 2/35MIN Diagnoses Closed hip fracture S72.009A Hyperlipidemia E78.5 CVA (cerebral vascular accident) I63.9 Type 2 diabetes mellitus without complication, without long-term current use of insulin E11.9 Diabetes mellitus complication status: without complication Diabetes mellitus usp insulin use: without regional intermodal truck driver use Acute blood loss anemia D62 Hypomagnesemia E83.42 (4) Type II diabetes mellitus Diabetes mellitus complication status: without complication Diabetes mellitus regional intermodal truck driver insulin use: without usp use Qualified Code(s): E11.9 - Type 2 diabetes mellitus without complications
[2024-12-21] MEDS: MAGNESIUM SULFATE / D5W 1 GM/100 ML BAG IV SCH (11:04)
[2024-12-21] MEDS: POLYETHYLENE (MIRALAX) 17 GM PACK PO STA (11:04)
[2024-12-21] MEDS: LANTUS PER UNIT CHARGE SC SCH (12:33)
[2024-12-22 06:42] LABS: Hematocrit (blood only) 23.5 % (37.0-47.0); Hemoglobin 7.6 g/dl (12.0-16.0); Mean Corpuscular Hemoglobin 29.1 pg (25.0-34.0); Mean Corpuscular Volume 90.0 fL (80.0-100.0); Platelet Count 148 K/uL (130-400); RDW Standard Deviation 42.2 fL (36.4-46.3); Red Blood Count 2.61 M/uL (4.20-5.40); White Blood Count 5.17 K/ul (4.8-10.8)
[2024-12-22 07:10] LABS: Anion Gap 3.0 (3-11); Blood Urea Nitrogen 16.0 mg/dl (6-23); Calcium 8.3 mg/dl (8.6-10.3); Carbon Dioxide 30.0 mmol/L (21-32); Chloride 107.0 mmol/L (98-107); Creatinine Clr Calc Pharmacy 32.2 ml/min; Glucose 120.0 mg/dl (70-99(Fasting)); Magnesium 1.5 mg/dl (1.7-2.4); Potassium 4.1 mmol/L (3.5-5.1); Sodium 140.0 mmol/L (136-145)
[2024-12-22] MEDS: POLYETHYLENE (MIRALAX) 17 GM PACK PO SCH (08:40)
--- NOTE | 2024-12-22 08:44 | Orthopedic Progress Note ---
Date of Service December 22, 2024 Assessment & Plan (1) Closed hip fracture: Plan * Continue Current Treatment * Disposition: [facility] for rehab pending authorization * Daily treatment: Physical Therapy/ Occupational Therapy per protocol * Weight bearing status: as tolerated * Continue to monitor for ABLA * Pain control * DVT prophylaxis, ASA 81 mg BID * Office/hospital f/u 2 weeks for progress check and staple/suture removal * Remainder care per primary team * Stable for discharge from ortho standpoint, further planning per primary team Subjective Active Problems: S/p left hip ORIF with cannulated screws POD 3 79 y/o femal s/p lefft hip ORIF with cannulated screws. Doing well overall, pain managed and improved function. Denies fever/chills, chest pain/SOB, nausea/vomiting.Patient notes some weakness in that leg. Pt has been able to ambulate with PT but is unable to lift that leg on her own power and weakness with pulling toes toward her she states. . Review of Systems All systems reviewed & are unremarkable except as noted in HPI & below. Physical Exam * General: Alert and oriented, no acute distress * Constitutional: well-developed, well-nourished. * Respiratory: Normal respiratory effort, no distress * Gastrointestinal: No tenderness to palpation, no rigidity or guarding. * Skin: No rash or lesion. * Neurologic: Grossly normal * Musculoskeletal: left hip surgical dressing clean, dry and in place, not removed for exam. Otherwise no obvious deformity or overlying skin changes. Diffuse TTP proximal thigh and hip region. Otherwise no specific tenderness of distal thigh, lower leg, foot/ankle. Pt is able to push with her left foot but is unable to dorsiflex or do straight leg raise on her own. Sensation intact plantar/dorsal foot. Brisk capillary refill. . Results & Data Results & Data Laboratory Results . Laboratory Results - last 24 hr 12/21/24 12/21/24 12/21/24 11:24 16:15 20:42 WBC RBC Hgb Hct MCV MCH MCHC RDW Std Deviation RDW Coeff of Norma Plt Count MPV Sodium Potassium Chloride Carbon Dioxide Anion Gap BUN Creatinine Est Cr Clr Drug Dosing eGFR BUN/Creatinine Ratio Glucose POC Glucose 206 H 136 H 146 H Calcium Magnesium 12/22/24 12/22/24 06:22 07:45 WBC 5.17 RBC 2.61 L Hgb 7.6 L Hct 23.5 L MCV 90.0 MCH 29.1 MCHC 32.3 RDW Std Deviation 42.2 RDW Coeff of Norma 12.8 Plt Count 148 MPV 9.0 L Sodium 140 Potassium 4.1 Chloride 107 Carbon Dioxide 30 Anion Gap 3 BUN 16 Creatinine 1.12 Est Cr Clr Drug Dosing 32.2 eGFR 50.02 BUN/Creatinine Ratio 14.3 Glucose 120 H POC Glucose 129 H Calcium 8.3 L Magnesium 1.5 L Diagnostic Findings . PG Care Time/CCT Total # of Minutes Spent Total Time Spent with Patient: Total time spent is greater than 50% in coordination of care (as documented) at patient's floor/unit and/or counseling patient: Coding Level of Care Code 40431 Post Operative Follow-Up Diagnoses Closed hip fracture S72.009A
[2024-12-22] MEDS: MAGNESIUM SULFATE / D5W 1 GM/100 ML BAG IV SCH (08:53)
[2024-12-22 09:59] LABS: Iron 21.0 mcg/dl (35-150); Total Iron Binding Cap Calc 193.0 mcg/dl (250-450); Transferrin 138.0 mg/dl (200-360); Transferrin (FE) Percent Satur 11.0 % (15-50)
[2024-12-22 10:20] LABS: Ferritin 224.9 ng/ml (8-388)
[2024-12-22 10:53] LABS: Folate (Folic Acid),Ser orPlas 11.52 ng/ml (>5.38)
[2024-12-22 10:55] LABS: Vitamin B12 790.0 pg/ml (180-914)
--- NOTE | 2024-12-22 12:19 | Hospitalist Progress Note ---
Date of Service December 22, 2024 Assessment & Plan (1) Closed hip fracture: (2) Hyperlipidemia: (3) CVA (cerebral vascular accident): (4) Type II diabetes mellitus: (5) Acute blood loss anemia: (6) Hypomagnesemia: (7) Iron deficiency anemia: Plan This patient is a 79-year-old female who presented on 12/18 after falling on Saturday 12/16. #Closed hip fracture | Acute blood loss anemia CT left hip revealed left femoral neck fracture Orthopedic surgery consult appreciated Underwent left hip percutaneous screw fixation with Dr. Siegel on 12/19 Recommend ASA 81 mg twice daily on discharge for DVT PPx Acetaminophen and oxycodone as needed for pain Bowel regimen: MiraLAX QAM + Dulcolax 5 mg p.o. PRN PT/OT evaluations appreciated Acute rehab at [facility] denied on 12/22 P2P denied Insurance auth submitted for SNF ([facility]) Additional imaging of the left knee and ankle on 12/20 revealed soft tissue swelling; no acute fracture #Acute blood loss anemia | SIMIN Stable; Hgb 10.5 -> 8.1 -> 8.2 -> 7.7 -> 7.6 perioperatively Suspected volume dilution in the setting of IVF + acute blood loss d/t femoral neck fx No left hip hematoma noted on clinical exam Close monitoring of H&H ASA 81mg BID Iron low at 22 on 12/22 Re-initiate iron supplementation #Hypomagnesemia Magnesium low at 1.5 Continue repletion with a.m. magnesium recheck as needed #Bedbug infection Noted on arrival; per ED note + nursing notes, patient underwent protocol cleaning in the ED (fully showered, all belongings double bagged, etc.) However, an additional bedbug was found on 12/20 Reach out to infection control for additional policies/planning (in the event that OR should be notified) Unclear where the bedbug was found, however no further isolation or decontamination needed unless a live bedbug is found Possible that this bedbug was missed following decontamination Patient is asymptomatic from a clinical perspective; she denies itching or bites Will add oral antihistamines +/- triamcinolone acetonide 0.1% cream PRN if she becomes symptomatic #History of CVA Okay to restart Plavix postop #T2DM Last A1c at 5.5% on 07/19/2024 Hold metformin SSI; with target BSG range 110-140mg/dL, CF 50, carb ratio 20 T2DM diet BSG ACHS Adjust regimen as needed Pharmacy glycemic management consult appreciated #Hyperlipidemia Continue atorvastatin #Hyperthyroidism Known history of Graves' disease TSH <0.010 on 12/19 Free T4 WNL Continue methimazole #Everyday tobacco cigarette smoker 1 PPD; nicotine patch PRN Continue to encourage cessation #Hypoxia | h/o COPD SpO2 89% on RA on the morning of 12/19 Anoro Ellipta daily IS, flutter valve Albuterol neb PRN Titrate supplemental oxygen as needed to maintain SPO2 89-92% Continuous pulse oximetry Disposition: Continued stay on MedSurg; medically stable for discharge at this time DVT PPx: Heparin SQ discontinued -> initiated ASA 81mg BID Admission and Anticipated Discharge Date Admission Date: December 18, 2024 Subjective Mrs. Fisher reports her pain is well-controlled on the oxycodone. She reports she is doing better than yesterday, and slept like a "baby". She reports no difficulty with breathing at this time; she does not use up on oxygen at home or CPAP at night. The pain in her left hip is a 3 out of 10 at present, but is only bothersome when she is moving around in bed. She does not feel unsteady on her feet using a walker, but still endorses using a "shuffling" gait. Updated patient that her [employer] insurance authorization have been denied. Patient reports that she would prefer to go to [facility] upon discharge if possible. ROS: Patient endorses dry cough, and pain in the left hip worse with movements Patient denies fevers overnight, chest pain, pleuritic CP, SOB, abdominal pain, or numbness or tingling over the legs Review of Systems Review of Systems: See HPI above Physical Exam Physical Exam: General: no acute distress; sitting upright in bed; non-toxic appearing; frail appearing; cooperative; SpO2 99% on 1L HEENT: normocephalic, atraumatic; no scleral icterus; PERRLA; vision and hearing intact Neck: supple; no lymphadenopathy; trachea midline Skin: warm, dry without signs of tenting; no cyanosis; no rashes, bruising, lesions, or erythema noted CV: chest wall NTP; RRR; pulses intact and symmetric at radial, DP, and PT Lungs: no acute respiratory distress; dry cough; symmetrical chest wall expansion; no adventitious lung sounds appreciated in the upper or lower lung starks bilateral ABD: Soft, NTP; BS present; no rebound/guarding; no distention : Liu catheter in place draining clear orange urine MSK: no tics or fasciculations; no edema noted in the LEs b/l, nonerythematous Left lower extremity: Patient has difficulty wiggling her toes; improved ability to plantarflex/dorsiflex her left ankle from prior; she exhibits decreased strength when plantar flexing left ankle (2/5) when compared to the right (4/5); patient is able to flex her left knee with active ROM 25-30 degrees; left hip is mildly TTP around the surgical site; no bruising or hematomas appreciated on the left hip or lower back Neuro: A&Ox3; normal mood and affect; fluent speech; no focal deficits; patient reports sensation is intact and symmetric in lower extremities bilaterally assessed via light touch Results & Data Results & Data Vital Signs (Past 12 Hours) Vital Signs Temp Pulse Resp BP Pulse Ox O2 Del Method O2 Flow Rate 12/22/24 07:55 Nasal Cannula 2 12/22/24 07:43 37.0 C 83 16 144/66 H 93 Nasal Cannula 1 PG Care Time/CCT Total # of Minutes Spent Total Time Spent with Patient: Total time spent is greater than 50% in coordination of care (as documented) at patient's floor/unit and/or counseling patient: Coding [place] [address] SUB INP/OBS CARE 2/35MIN Patient Type Established History Comprehensive Exam Comprehensive Medical Decision Making Moderate Complexity Diagnoses Closed hip fracture S72.009A Hyperlipidemia E78.5 CVA (cerebral vascular accident) I63.9 Type 2 diabetes mellitus without complication, without long-term current use of insulin E11.9 Diabetes mellitus complication status: without complication Diabetes mellitus skilled nursing insulin use: without rn long term care use Acute blood loss anemia D62 Hypomagnesemia E83.42 Iron deficiency anemia D50.9 (4) Type II diabetes mellitus Diabetes mellitus complication status: without complication Diabetes mellitus skilled nursing insulin use: without rn long term care use Qualified Code(s): E11.9 - Type 2 diabetes mellitus without complications
[2024-12-22] MEDS: FERROUS SULFATE 325 MG TAB PO STA (14:27)
[2024-12-22] MEDS: ASPIRIN 81 MG ECTAB PO SCH (21:34)
[2024-12-23 06:41] LABS: Hematocrit (blood only) 25.2 % (37.0-47.0); Hemoglobin 8.3 g/dl (12.0-16.0); Immature Granulocytes # (auto) 0.01 K/uL (0.01-0.20); Immature Granulocytes % (auto) 0.2 %; Mean Corpuscular Hemoglobin 29.0 pg (25.0-34.0); Mean Corpuscular Volume 88.1 fL (80.0-100.0); Platelet Count 159 K/uL (130-400); RDW Standard Deviation 40.5 fL (36.4-46.3); Red Blood Count 2.86 M/uL (4.20-5.40); White Blood Count 4.34 K/ul (4.8-10.8)
[2024-12-23 09:38] VITALS: BP 113/74; PULSE 83; RESP 18; TEMP 98.2; O2SAT 96
[2024-12-23] MEDS: FERROUS SULFATE 325 MG TAB PO SCH (10:09)
--- NOTE | 2024-12-23 10:26 | Discharge Summary ---
Discharge Summary Date of Service December 23, 2024 Principal Dx & Hospital Course #1 = Principal Diagnosis (1) Closed hip fracture: (2) Hyperlipidemia: (3) CVA (cerebral vascular accident): (4) Type II diabetes mellitus: (5) Acute blood loss anemia: (6) Hypomagnesemia: (7) Iron deficiency anemia: Plan This patient is a 79-year-old female who presented on 12/18 after sustaining a fall 2 days prior. She was found to have a left femoral neck fracture on arrival, and underwent screw fixation with orthopedics on 12/19. Day of discharge 12/23: VSS Patient reports she "slept like a baby". She is still having pain in her left hip, mainly when she gets up out of bed and moves to the chair. She reports the pain in her left hip is a 5 out of 10 at present, but is better when she is sitting still. Additionally, she still has "shuffling feet" while ambulating with a walker. Overall though, she reports that she she feels good. She believes the oxycodone is doing well to manage her pain at this time. She feels ready to leave for [facility] today. ROS: Patient pain in the left hip around the surgical site, and dry cough (chronic) Patient denies pain in the left knee or ankle, fever, chest pain, SOB, pleuritic CP, abdominal pain, or numbness or tingling going down the left leg #Closed hip fracture CT left hip revealed left femoral neck fracture Orthopedic surgery consult appreciated Underwent left hip percutaneous screw fixation with Dr. Siegel on 12/19 Acetaminophen and oxycodone as needed for pain Patient reports that the oxycodone has been able to manage her pain while in the hospital Bowel regimen: MiraLAX QAM + Dulcolax 5 mg p.o. PRN PT/OT evaluations appreciated Acute rehab at [facility] denied on 12/22; P2P denied Accepted by [facility] on 12/23, will plan for d/c #Acute blood loss anemia | SIMIN Stable; Hgb 10.5 -> 8.1 -> 8.2 -> 7.7 -> 7.6 -> 8.3 perioperatively Suspected volume dilution in the setting of IVF + acute blood loss d/t femoral neck fx No left hip hematoma noted on clinical exam Close monitoring of H&H Okay to continue ASA 81mg BID on discharge Iron low at 22 on 12/22 Re-initiate iron supplementation on discharge Recommend follow-up H&H in the next 3 to 4 days, or prior to transitional care appointment #Hypomagnesemia Mild; Magnesium low at 1.5 Repleted in the hospital Recommend follow up magnesium check in the next week #Bedbug infection Noted on arrival; per ED note + nursing notes, patient underwent protocol cleaning in the ED (fully showered, all belongings double bagged, etc.) However, an additional bedbug was found on 12/20 Reach out to infection control for additional policies/planning (in the event that OR should be notified) Unclear where the bedbug was found, however no further isolation or decontamination needed unless a live bedbug is found Possible that this bedbug was missed following decontamination No additional isolation precautions are required Patient is asymptomatic from a clinical perspective; she denies itching or bites Will add oral antihistamines +/- triamcinolone acetonide 0.1% cream PRN if she becomes symptomatic #History of CVA Patient was previously on Plavix Will place Plavix on hold while patient is receiving aspirin BID #T2DM Last A1c at 5.5% on 07/19/2024 Hold metformin SSI while in the hospital with target BSG range 110-140mg/dL, CF 50, carb ratio 20 T2DM diet BSG ACHS Adjust regimen as needed #Hyperlipidemia Continue atorvastatin #Hyperthyroidism Known history of Graves' disease TSH <0.010 on 12/19 Free T4 WNL Continue methimazole #Everyday tobacco cigarette smoker 1 PPD; nicotine patch PRN Continue to encourage cessation #Hypoxia | h/o COPD SpO2 89% on RA on the morning of 12/19 Patient's oxygen saturation 96% on room air on morning of discharge Patient is on supplemental oxygen at baseline Anoro Ellipta daily IS, flutter valve Albuterol neb PRN Disposition: Discharge to [facility] DVT PPx: Aspirin 81 mg BID Admission HPI Per Admitting Provider Pt is a 79 y/o female with pmh of DM, COPD, CVA on plavix, who presents s/p fall with left hip pain. Pt states yesterday she tripped over her big toe and fell to the ground and could get up. When she was brought up she had severe pain in her left hip. She denies any other injuries or loss of consciousness. In the ER her CT head was negative. CT hip showed, left subcapital femoral neck fracture. Pt was given pain medication and will be admitted for further evaluation by orthopedics. Admission Exam Per Admitting Provider GENERAL APPEARANCE NAD, activity normal for age, well developed/ well nourished, no cyanosis, pallor, or diaphoresis. EYES lids/conjunctiva normal. EARS/NOSE/THROAT Mucous membranes moist, nares normal, lips/teeth normal uvula midline without oral pharyngeal erythema, exudate or swelling TMs normal bilaterally. No lymphangitis/lymphedema. HEAD/NECK normocephalic atraumatic, no facial trauma, neck is supple. RESPIRATORY respiratory effort normal, speaks in full sentences, no tripod position, no accessory muscle use. Lungs clear to auscultation without rhonchi, wheezes, rales CARDIAC Regular rate and rhythm, no edema. ABDOMINAL Soft, ND/NT. No evidence of fluid wave. No pulsatile masses on exam, rebound tenderness, Lovett sign or pain over Mcburney's point. MUSCLES/EXTREMITIES No abnormal range of motion, no swelling. Left hip tenderness. SKIN Warm, pink and dry. No rashes, dermatoses, petechiae or lesions. NEUROLOGICAL Speech is clear and appropriate. Normal level of consciousness. Gait and coordination are normal. 5/5 strength in all extremities. PSYCH Normal mood and affect. Judgement/competence is appropriate Discharge Exam General: no acute distress; sitting upright in bed; non-toxic appearing; frail appearing; cooperative; SpO2 94% on RA HEENT: normocephalic, atraumatic; no scleral icterus; PERRLA; vision and hearing intact Neck: supple; no lymphadenopathy; trachea midline Skin: warm, dry without signs of tenting; no cyanosis; no rashes, bruising, lesions, or erythema noted CV: chest wall NTP; RRR; pulses intact and symmetric at radial, DP, and PT Lungs: no acute respiratory distress; dry cough; symmetrical chest wall expansion; no adventitious lung sounds appreciated in the upper or lower lung starks bilateral ABD: Soft, NTP; BS present; no rebound/guarding; no distention : Liu catheter in place draining clear orange urine MSK: no tics or fasciculations; no edema noted in the LEs b/l, nonerythematous Left lower extremity: Patient has difficulty wiggling her toes; improved ability to plantarflex/dorsiflex her left ankle from prior, but still exhibiting deficits with plantarflexion in the left ankle (2 out of 5); she is able to plantarflex without significant strength deficits in the right ankle (4 out of 5); left knee flexion with active ROM 25-30 degrees; left hip is mildly TTP around the surgical site; no bruising or hematomas appreciated on the left hip or lower back Neuro: A&Ox3; normal mood and affect; fluent speech; no focal deficits; patient reports sensation is intact and symmetric in lower extremities bilaterally assessed via light touch Discharge Plan Discharge Items Patient Disposition: Transfer [facility] Fac Reason For Visit: HIP FX Discharge Diagnosis: Left femoral neck fracture Condition on Discharge: Fair Activity: Per Instructions section Weightbearing: Full weightbearing Non-emergency contact: Surgeon Call non-emergency contact if: your symptoms worsen, your temperature is above 101.5, your wound has increased redness and your wound has increased drainage Follow-up/Referrals: Sander David MD [Primary Care Provider] - Diet: Carb Consistent or DM2 Addtl Attending Provider Instructions: You were hospitalized at [facility] from 12/18 - 12/23 after sustaining a fall at home. On arrival, imaging of your left hip revealed that you had a left femoral neck fracture. You underwent a procedure with our orthopedic surgeon, Dr. Siegel, on 12/19 called a left hip percutaneous screw fixation. Following this procedure, our physical and Occupational Therapy teams evaluated you, felt that you would benefit from additional PT/OT at a care home facility. Given your vitals are stable, your hemoglobin is stable, and you report that your pain is well-controlled using oxycodone and Tylenol as needed, we feel that you are safe to be transferred to [facility] at this time. Please plan to follow up with your PCP in the next 7 to 10 days for a transitional care appointment. It is recommended that you have repeat blood work done in 3 to 4 days to assess your hemoglobin levels, as they are low (but stable) at time of discharge in the setting of your recent surgery. Please see orthopedic instructions below for acute management of your hip fracture. Please plan to follow-up with Dr. Siegel's office in the next 2 to 3 weeks. New prescriptions on discharge: - Aspirin 81 mg twice daily - Oxycodone 5 mg tablets every 6 hours as needed for severe pain (rated 7-10) - MiraLAX packets daily - Dulcolax 5 mg tablets every morning as needed for constipation Please plan to hold your Plavix while you are taking aspirin twice daily. We currently have you on aspirin twice daily to prevent blood clots in your leg (given you are increased risk in the setting of surgery). Please note: oxycodone is an opioid analgesic. Taking too much of this medication can lead to overdose or respiratory depression with fatal side effects. Do not operate any heavy machinery or drive a vehicle while taking oxycodone. We recommend that you only take oxycodone if your pain is not alleviated with Tylenol. It is recommended that you take Tylenol 500 mg tablets every 4-6 hours as needed for your left hip pain; do not exceed 3000 mg of Tylenol in a day. If you develop any new or worsening symptoms, such as numbness and tingling going down the left leg, intractable hip pain, fever, chills, chest pain, or trouble breathing, please return to the emergency department immediately. It was a pleasure take care of you. Please reach out any questions or concerns. Sincerely, The hospital medicine team at [facility] Addtl Helicopter Officer Provider Instructions: ORTHOPEDIC INSTRUCTIONS Hip Fracture Activity and Therapy Recommendations: 1. You were shown a series of exercises in the hospital. Do these exercises three times each day if you are able. 2. Get up and walk several times each day if you are capable. Make sure you have assistance is needed. For the first four weeks, try not to stand or walk for more than one hour at a time. If you do stand or walk for more than one hour, you will not hurt anything, but your leg will likely swell. 3. As you feel comfortable, you may change from the walker or crutches to a cane and then to independent walking if you are able. Please be safe. Medications: 1. Narcotic You will likely be sent from the hospital with the narcotic pain medication that worked best throughout your stay. 3. Other medications may be given for specific circumstances. If you have any questions, please call the office at [phone]. 4. Resume previous home medications unless otherwise instructed TEDs/Elastic Stockings: The white elastic stockings help limit swelling and prevent blood clots from forming in your legs. The more you wear them, the more they work. Wear them for six weeks. Dressing Care: Veronica can be open to air as long as the incisions are not draining. If the incisions are draining or if the veronica are getting caught on your clothes then please cover the veronica with dry gauze. Change the dressings as necessary to keep the incision as dry as possible Showering: You may shower 5 days from the day of surgery as long as the incisions are not draining. Do not soak the incision. Let soapy water run over the veronica and pat them dry. Diet: You may resume your previous diet. Things To Watch For: 1. Drainage from the incision site that occurs more than one week after your surgery. 2. Increased redness at the incision site. 3. Fever above 102 degrees Fahrenheit. 4. Unusual chest pain or shortness of breath. 5. Call [facility] at with any of the above problems Follow-Up Visit: Follow-up with Dr. Siegel's office 2-3 weeks after your day of surgery. We will remove your veronica and answer any questions. If you have any additional questions or concerns, Dr Siegel is usually in the office at the same time and will be available Please call the office to set up an appointment for time that works for you Pending Studies at Discharge: No Stand-Alone Forms: My [facility] Skilled Items Patient informed of condition?: Yes DNR: No Discharge Level of Care: Skilled Communicable Disease: No Discharge Prognosis: Improving Lines: None Urinary Catheter: No Medications and DC Order Prescriptions: New aspirin [Adult Aspirin Regimen] 81 mg tablet,delayed release (DR/EC) 81 mg PO BID Qty: 84 0RF polyethylene glycol 3350 [Miralax] 17 gram Powder In Packet 17 g PO DAILY Qty: 14 0RF Rx Instructions: Take 1 packet daily for constipation bisacodyl [Gentle Laxative (bisacodyl)] 5 mg Tablet,Delayed Release (Dr/Ec) 5 mg PO DAILY PRN (Reason: constipation) Qty: 14 0RF Rx Instructions: Take 1 tablet by mouth daily as needed for constipation oxycodone 5 mg Tablet 5 mg PO Q6H PRN (Reason: pain (scale score 7-10)) Qty: 10 0RF Rx Instructions: Take 1 tablet by mouth every 6 hours as needed for severe left hip pain Continued albuterol sulfate 2.5 mg /3 mL (0.083 %) solution for nebulization 2.5 mg inhalation QID PRN (Reason: shortness of breath or wheezing) Qty: 75 3RF Humulin R Regular U-100 Insuln 100 unit/mL solution See Rx Instructions SUBCUT DIRECTED PRN (Reason: SLIDING SCALE) Qty: 10 3RF Rx Instructions: Per sliding scale, max daily dosing 30 units subcutaneously as directed PRN; alendronate 70 mg tablet 70 mg PO .COMPLEX Qty: 12 3RF Rx Instructions: 70 mg PO once weekly; Take with full glass of water on an empty stomach. Remain upright and wait 40 minutes before eating/drinking (DME) Sh[employer]utt Bab[employer]To[employer] VerHi-Midia test strips Strip See Rx Instructions .Route Qty: 300 3RF Rx Instructions: As directed test 3 times each day hydroxyzine HCl 25 mg tablet 25 mg PO TID PRN (Reason: Anxiety) Qty: 270 3RF cyanocobalamin (vitamin B-12) 1,000 mcg tablet 1,000 mcg PO DAILY Qty: 90 3RF ferrous sulfate [Iron (ferrous sulfate)] 325 mg (65 mg iron) tablet 325 mg PO DAILY Qty: 90 3RF magnesium 250 mg tablet 250 mg PO DAILY Qty: 90 3RF methimazole 5 mg tablet 15 mg PO QAM Qty: 270 0RF Trelegy Ellipta 100-62.5-25 mcg blister with device 1 inh inhalation DAILY Qty: 3 3RF midodrine 5 mg tablet 5 mg PO TID@0800,1200,1700 90 Days Qty: 270 3RF (DME) blood-glucose meter [Shobutt BabiesTouch Verio Flex meter] Misc See Rx Instructions .Route Qty: 1 0RF Rx Instructions: As directed check BSG 3 times daily trazodone 50 mg tablet 100 mg PO HS Qty: 180 3RF albuterol sulfate [Ventolin HFA] 90 mcg/actuation HFA aerosol inhaler 1 puff inhalation DIRECTED PRN (Reason: shortness of breath or wheezing) Qty: 3 3RF (DME) lancets [Shobutt BabiesTouch Delica Plus Lancet] 33 gauge misc See Rx Instructions .Route Qty: 300 3RF Rx Instructions: As directed test 3 times daily insulin glargine [Lantus U-100 Insulin] 100 unit/mL solution 15 unit SUBCUT HS PRN (Reason: IF NEEDED PER PT) Qty: 90 3RF atorvastatin 40 mg tablet 40 mg PO HS Qty: 90 3RF pantoprazole 40 mg tablet,delayed release (DR/EC) 40 mg PO BID Qty: 180 3RF (DME) pen needle, diabetic [Ultra-Thin II Ins Pen [place]] 29 gauge x 1/2" n eedle See Rx Instructions .Route Qty: 180 3RF Rx Instructions: use with insulin BID prn metformin 500 mg tablet 1,000 mg PO BID 90 Days Qty: 360 3RF (DME) nebulizers Misc See Rx Instructions .Route Qty: 1 0RF Rx Instructions: Nebulizer and tubing supplies Held clopidogrel 75 mg tablet 75 mg PO DAILY Qty: 90 3RF Hold Instructions: Resume on 01/06/25. Hold until seen by your PCP for follow-up; patient is currently on aspirin twice daily for DVT prophylaxis Patient Comments: PT STATES BID Discharge Orders: Discharge Order (Routine); Ordered 12/23/24 Ordered By: Glynn Gaviria/Other Patient Handouts: Femur Fx Internal Fix Dc Admission Data Admit Date/Time: 12/18/24 17:21 Attending Provider: Oskar Yates Admit Provider: Luis Miramontes Primary Care Provider: Sander David Other Providers: Bobo Siegel; Lakhwinder,; [facility] Data Consultations 12/18/24 20:12 Consult Orthopedic Surgery Routine Procedures Performed Operation Date: 12/19/24 11:00 Actual Procedures p Left Hip Percutaneous Screw Fixation(Left) - Bobo Siegel DO Diagnostic Imagining Performed 12/18/24 14:22 CT head/brain wo con Stat 12/18/24 15:46 CT hip LT wo con Stat 12/19/24 13:00 FL hip LT 2-3V Routine Discharge Instructions Given to Patient (Per Discharging Provider) You were hospitalized at [facility] from 12/18 - 12/23 after sustaining a fall at home. On arrival, imaging of your left hip revealed that you had a left femoral neck fracture. You underwent a procedure with our orthopedic surgeon, Dr. Siegel, on 12/19 called a left hip percutaneous screw fixation. Following this procedure, our physical and Occupational Therapy teams evaluated you, felt that you would benefit from additional PT/OT at a care home facility. Given your vitals are stable, your hemoglobin is stable, and you report that your pain is well-controlled using oxycodone and Tylenol as needed, we feel that you are safe to be transferred to [facility] at this time. Please plan to follow up with your PCP in the next 7 to 10 days for a transitional care appointment. It is recommended that you have repeat blood work done in 3 to 4 days to assess your hemoglobin levels, as they are low (but stable) at time of discharge in the setting of your recent surgery. Please see orthopedic instructions below for acute management of your hip fracture. Please plan to follow-up with Dr. Siegel's office in the next 2 to 3 weeks. New prescriptions on discharge: - Aspirin 81 mg twice daily - Oxycodone 5 mg tablets every 6 hours as needed for severe pain (rated 7-10) - MiraLAX packets daily - Dulcolax 5 mg tablets every morning as needed for constipation Please plan to hold your Plavix while you are taking aspirin twice daily. We currently have you on aspirin twice daily to prevent blood clots in your leg (given you are increased risk in the setting of surgery). Please note: oxycodone is an opioid analgesic. Taking too much of this medication can lead to overdose or respiratory depression with fatal side effects. Do not operate any heavy machinery or drive a vehicle while taking oxycodone. We recommend that you only take oxycodone if your pain is not alleviated with Tylenol. It is recommended that you take Tylenol 500 mg tablets every 4-6 hours as needed for your left hip pain; do not exceed 3000 mg of Tylenol in a day. If you develop any new or worsening symptoms, such as numbness and tingling going down the left leg, intractable hip pain, fever, chills, chest pain, or trouble breathing, please return to the emergency department immediately. It was a pleasure take care of you. Please reach out any questions or concerns. Sincerely, The hospital medicine team at [facility] Total Time Total Time Spent Total Time Spent (In Minutes): 35 C[place] [address] INP/OBS DISCH >30 MIN Patient Type Established History Comprehensive Exam Comprehensive Medical Decision Making Moderate Complexity Diagnoses Closed hip fracture S72.009A Hyperlipidemia E78.5 CVA (cerebral vascular accident) I63.9 Type 2 diabetes mellitus without complication, without long-term current use of insulin E11.9 Diabetes mellitus complication status: without complication Diabetes mellitus steel detailer insulin use: without steel detailer use Acute blood loss anemia D62 Hypomagnesemia E83.42 Iron deficiency anemia D50.9
== END 2024-12-23 14:33 | DRG 481 ==
LOC: ED 11:05 → 3E 17:21 → SUATTDRO 17:21 → 3E 19:30
DX: E83.42 Hypomagnesemia; N18.9 Chronic kidney disease, unspecified; E05.90 Thyrotoxicosis, unspecified without thyrotoxic crisis or storm; E11.22 Type 2 diabetes mellitus with diabetic chronic kidney disease; Z86.73 Personal history of transient ischemic attack (TIA), and cerebral infarction without residual deficits; I12.9 Hypertensive chronic kidney disease with stage 1 through stage 4 chronic kidney disease, or unspecified chronic kidney disease; K21.9 Gastro-esophageal reflux disease without esophagitis; D62 Acute posthemorrhagic anemia; R09.02 Hypoxemia; W01.0XXA Fall on same level from slipping, tripping and stumbling without subsequent striking against object, initial encounter; E78.5 Hyperlipidemia, unspecified; I25.2 Old myocardial infarction; Y92.89 Other specified places as the place of occurrence of the external cause; J44.9 Chronic obstructive pulmonary disease, unspecified; S72.012A Unspecified intracapsular fracture of left femur, initial encounter for closed fracture; F17.210 Nicotine dependence, cigarettes, uncomplicated; Z79.4 Long term (current) use of insulin; J45.909 Unspecified asthma, uncomplicated; B88.2 Other arthropod infestations; Z79.02 Long term (current) use of antithrombotics/antiplatelets